=== PATIENT | male | born 1965 | race Caucasian/White ===

== ENCOUNTER 2016-05-30 15:22 | Inpatient (IN) | payer MEDICAID ==
[2016-05-30] MEDS ORDERED: DEXTROSE 50%-WATER 25 GM/50 ML DISP.SYRIN IV ONE ×2 (15:37→15:55)
[2016-05-30] MEDS ORDERED: ONDANSETRON HCL INJ/PF 4 MG/2 ML SDV ONE (15:53)
[2016-05-30] MEDS ORDERED: ONDANSETRON HCL INJ/PF 4 MG/2 ML SDV IV ONE (15:55)
[2016-05-30] MEDS ORDERED: ACETAMINOPHEN 325 MG TABLET ONE (15:55)
[2016-05-30] MEDS ORDERED: ACETAMINOPHEN 325 MG TABLET PO ONE (15:59)
--- NOTE | 2016-05-30 16:08 | ER Document Report ---
[id number] [id number] WEAKNESS/NAUSEA/VOMITING Notes: The patient is a 50-year-old male, past medical history HIV, ESRD, COPD, prior blood clot, since with weeks of intermittent nausea and vomiting with generalized weakness. He was at dialysis today and his blood sugar was in the 50s. He was given an oral glucose tab and 2 L NS by EMS. On arrival to the emergency room, his blood sugar is 63. He says he does not have much of an appetite over the past 2 days and has not really eaten anything. He was admitted to the hospital 2 weeks ago for weakness and Escherichia coli in his stool. He finished his full course of Cipro. He currently denies any blood in his stool, abdominal pain, fevers, nausea, chest pain, shortness of breath, diarrhea, constipation or recent travel. TRAVEL OUTSIDE OF THE [place] IN LAST 30 DAYS: No - Related Data Allergies/Adverse Reactions: No Known Allergies Allergy (Unverified 03/21/16 13:26) Home Medications: Current Home Medications Budesonide/Formoterol Fumarate [Symbicort HFA 160-4.5 mcg Inhaler 6 gm] 2 inh PO BID 05/31/16 [History] Past Medical History - General Information source: Patient, Transfer Record - Social History Smoking Status: Unknown if Ever Smoked Family History: CAD, DM, Hypertension - Past Medical History Cardiac Medical History: Reports: Hx Pulmonary Embolism Pulmonary Medical History: Reports: Hx COPD Neurological Medical History: Denies: Hx Seizures Renal/ Medical History: Reports: Hx End Stage Renal Disease Psychiatric Medical History: Reports: Hx Depression Infectious Medical History: Reports: Hx HIV Past Surgical History: Reports: Hx Cholecystectomy - Immunizations Hx Pneumococcal Vaccination: 05/26/15 Review of Systems - Review of Systems Notes: REVIEW OF SYSTEMS: CONSTITUTIONAL: Denies fever, chills, or sweats. +recent illness. EENT: Denies eye, ear, throat, or mouth pain or symptoms. Denies nasal or sinus congestion. CARDIOVASCULAR: Denies chest pain, syncope. RESPIRATORY: Denies cough, cold, or chest congestion. Denies shortness of breath, difficulty breathing, or wheezing. GASTROINTESTINAL: Denies abdominal pain. +nausea, vomiting, - diarrhea. Denies constipation. MUSCULOSKELETAL: Left shoulder pain. SKIN: Denies rash or skin lesions. +left shoulder abrasion HEMATOLOGIC: Denies easy bruising or bleeding. LYMPHATIC: Denies swollen, enlarged glands. NEUROLOGICAL: Denies altered mental status or loss of consciousness. Denies headache. Denies paralysis or loss of use of either side. Denies problems with gait or speech. Denies sensory or motor loss. +Generalized weakness PSYCHIATRIC: Denies anxiety or stress or depression. ALL OTHER SYSTEMS REVIEWED AND NEGATIVE. Physical Exam - Vital signs Vitals: Resp Pulse Ox 29 H 97 05/30/16 15:29 05/30/16 15:29 - Notes Notes: PHYSICAL EXAMINATION: GENERAL: Ill-appearing. HEAD: Atraumatic, normocephalic. EYES: Pupils equal round and reactive to light, extraocular movements intact, sclera anicteric, conjunctiva are normal. ENT: nares patent, oropharynx clear without exudates. Moist mucous membranes. NECK: Normal range of motion, supple without lymphadenopathy LUNGS: Breath sounds clear to auscultation bilaterally and equal. No wheezes rales or rhonchi. HEART: Tachycardia ABDOMEN: Soft, nontender, normoactive bowel sounds. No guarding, no rebound. No masses appreciated. EXTREMITIES: Mild tenderness over left anterior shoulder, painful ROM NEUROLOGICAL: Cranial nerves grossly intact. Difficulty ambulating. Normal sensory, motor, and reflex exams. PSYCH: Normal mood, normal affect. SKIN: Warm, Dry, normal turgor, no rashes or lesions noted. Course - Re-evaluation Re-evalutation: Patient's glucose did not drop after he ate. Suspect hypoglycemia most likely from poor by mouth intake. Patient has symptoms of orthostasis, but unable to obtain readings due to feeling lightheaded and inability to stand. Patient already received 2 L by EMS prior to arrival. With ESRD, will provide gentle hydration. Patient's hemoglobin is similar to his prior one and he is guaiac negative. 05/30/16 20:48 Pt still feeling near syncopal when he sits up and stands up. Patient became tachycardic up to 116 when he stood up. Attempted to ambulate patient and he fell forward (caught before he fell on the ground). Repeat Accu- Chek decreased down to 69 after eating. Will start D5 drip and feed him more. Pt requires inpatient evaluation and admission for recurrent hypoglycemia and further evaluation and treatment of his orthostasis. Spoke to Dr. Aceves at 2105 and he has accepted patient. - Vital Signs Vital signs: Temp Pulse Resp BP Pulse Ox 98.5 F 64 16 123/84 100 05/31/16 07:31 05/31/16 07:31 05/31/16 07:31 05/31/16 07:31 05/31/16 07:31 - Laboratory Result Diagrams: 05/31/16 08:04 05/31/16 08:04 Laboratory results interpreted by me: 05/30/16 05/30/16 05/30/16 15:29 15:43 15:43 RBC Hgb Hct RDW Plt Count ESR PT 10.9 L Sodium 134.3 L Potassium 3.5 L Chloride 93 L BUN 4 L Creatinine 1.90 H Est GFR ( Amer) 45 L Est GFR (Non-Af Amer) 37 L Glucose 65 L POC Glucose 55 L AST 745 H ALT 318 H Creatine Kinase < 20 L Lipase 05/30/16 05/30/16 05/30/16 15:43 15:51 16:40 RBC 2.88 L Hgb 9.5 L Hct 27.5 L RDW 15.9 H Plt Count 89 L ESR PT Sodium Potassium Chloride BUN Creatinine Est GFR ( Amer) Est GFR (Non-Af Amer) Glucose POC Glucose 217 H AST ALT Creatine Kinase Lipase 506.8 H 05/30/16 05/30/16 05/30/16 16:40 17:16 20:59 RBC Hgb Hct RDW Plt Count ESR 23 H PT Sodium Potassium Chloride BUN Creatinine Est GFR ( Amer) Est GFR (Non-Af Amer) Glucose POC Glucose 207 H 69 L AST ALT Creatine Kinase Lipase - Diagnostic Test Radiology reviewed: Image reviewed Radiology results interpreted by me: Head CT: NAD Discharge - Discharge Clinical Impression: Hypoglycemia, Generalized weakness, Orthostasis Condition: Fair Disposition: ADMITTED INPATIENT Admitting Provider: Hospitalist - [facility] Unit Admitted: [facility]
[2016-05-30 16:12] LABS: ALANINE AMINOTRANSFERASE 318 U/L (21-72); ALBUMIN 3.7 g/dL (3.5-5.0); ALKALINE PHOSPHATASE 113 U/L (38-126); ANION GAP 18 (5-19); ASPARTATE AMINO TRANSFERASE 745 U/L (17-59); BILIRUBIN,TOTAL 0.8 mg/dL (0.2-1.3); BLOOD UREA NITROGEN 4 mg/dL (7-20); CALCIUM 8.9 mg/dL (8.4-10.2); CARBON DIOXIDE 23 mmol/L (22-30); CHLORIDE 93 mmol/L (98-107); GLUCOSE 65 mg/dL (75-110); POTASSIUM 3.5 mmol/L (3.6-5.0); SODIUM 134.3 mmol/L (137-145); TOTAL PROTEIN 6.9 g/dL (6.3-8.2)
[2016-05-30 16:13] LABS: CREATINE KINASE < 20 U/L (55-170)
[2016-05-30 16:19] LABS: PROTHROMBIN TIME 10.9 SEC (11.4-15.4)
[2016-05-30 16:20] LABS: PARTIAL THROMBOPLASTIN TIME 24.2 SEC (23.5-35.8)
[2016-05-30 16:55] LABS: ABSOLUTE LYMPHOCYTES (AUTO) 1.8 10^3/uL (0.5-4.7); ABSOLUTE MONOCYTES (AUTO) 0.6 10^3/uL (0.1-1.4); ABSOLUTE NEUT (AUTO) 2.6 10^3/uL (1.7-8.2); BASOPHILS % (AUTO) 0.6 % (0-2); EOSINOPHILS % (AUTO) 0.1 % (0-6); HEMATOCRIT 27.5 % (37.9-51.0); HEMOGLOBIN 9.5 g/dL (13.5-17.0); LYMPHOCYTES % (AUTO) 35.2 % (13-45); MEAN CORPUSCULAR HEMOGLOBIN 32.8 pg (27.0-33.4); MEAN CORPUSCULAR HGB CONC 34.4 g/dL (32.0-36.0); MEAN CORPUSCULAR VOLUME 96 fl (80-97); MONOCYTES % (AUTO) 12.1 % (3-13); RED BLOOD COUNT 2.88 10^6/uL (4.35-5.55); RED CELL DISTRIBUTION WIDTH 15.9 % (11.5-14.0); WHITE BLOOD COUNT 5.1 10^3/uL (4.0-10.5)
[2016-05-30] MEDS ORDERED: NORMAL SALINE 1000 ML 1,000 ML IV PRN (20:52)
[2016-05-30] MEDS ORDERED: DEXTROSE 5%-1/2 NORMAL SALINE 1,000 ML IV ONE (21:03)
[2016-05-30] MEDS ORDERED: DEXAMETHASONE SOD PHOS INJ 10 MG/1 ML VIAL IV ONE (21:57)
[2016-05-30] MEDS ORDERED: COSYNTROPIN INJ 0.25 MG VIAL IV ONE (21:57)
[2016-05-30] MEDS ORDERED: DEXTROSE 50%-WATER 25 GM/50 ML DISP.SYRIN IV PRN ×2 (22:04)
[2016-05-30] MEDS ORDERED: GLUCAGON,HUMAN RECOMB 1 MG INJ IM PRN (22:04)
[2016-05-30] MEDS ORDERED: ACETAMINOPHEN 325 MG TABLET PO PRN (22:04)
[2016-05-30] MEDS ORDERED: MAGNESIUM HYDROXIDE SUSP 30 ML UDCUP PO PRN (22:04)
[2016-05-30] MEDS ORDERED: IPRATROPIUM/ALBUTEROL 0.5-2.5 MG/3 ML AMPUL NEB PRN (22:04)
[2016-05-30] MEDS ORDERED: DEXTROSE 40% GEL 15 GM TUBE PO PRN ×2 (22:04)
[2016-05-30] MEDS: LORAZEPAM 0.5 MG TABLET PO SCH (22:30)
[2016-05-30] MEDS: TRAZODONE HCL 50 MG TABLET PO SCH (22:31)
[2016-05-30] MEDS: BUSPIRONE HCL 10 MG TABLET PO SCH (22:31)
[2016-05-30] MEDS: GABAPENTIN 300 MG CAPSULE PO SCH (22:32)
[2016-05-30] MEDS ORDERED: COSYNTROPIN INJ 0.25 MG VIAL ONE (22:35)
[2016-05-31 00:23] LABS: PHOSPHORUS 2.7 mg/dL (2.5-4.5)
[2016-05-31] MEDS ORDERED: WARFARIN SODIUM 7.5 MG TABLET PO ONE (02:30)
--- NOTE | 2016-05-31 03:18 | PDOC H&P ---
History of Present Illness Admission Date/PCP: 05/30/16 22:04 Patient complains of: Nausea vomiting abdominal pain and generalized weakness History of Present Illness: LAMAR SMALL is a 50 year old male with a history of HIV recent CD4 count of 237 April 2016, pulmonary emboli on chronic Coumadin, end-stage renal failure on hemodialysis Friday, who complains of extraordinarily fatigue anorexia nausea vomiting general weakness brought to the emergency room after dialysis, found to have hypotension, hypoglycemia, hypokalemia, hyponatremia and presyncope. Referred to the hospitalist for admission the patient denies recent change in medications denying fever chills or chest pain. Past Medical History Cardiac Medical History: Reports: Pulmonary Embolism Pulmonary Medical History: Reports: Chronic Obstructive Pulmonary Disease (COPD) Neurological Medical History: Denies: Seizures Renal/ Medical History: Reports: End Stage Renal Disease Psychiatric Medical History: Reports: Depression Infectious Medical History: Reports: HIV Past Surgical History Past Surgical History: Reports: Cholecystectomy Social History Information Source: Patient Smoking Status: Current Some Day Smoker Cigarettes Packs Per Day: 1 Last Time Smoked: 05/30/16 Frequency of Alcohol Use: Occasional Hx Recreational Drug Use: No Drugs: None Hx Prescription Drug Abuse: No - Advance Directive Resuscitation Status: Do Not Resuscitate Family History Family History: CAD, DM, Hypertension Parental Family History Reviewed: Yes Children Family History Reviewed: Yes Sibling(s) Family History Reviewed.: Yes Medication/Allergy Home Medications: Albuterol Sulfate [Ventolin Hfa 8 gm Mdi (1 Mdi/ER Disp)] 2 puff IH PRN PRN Cyclobenzaprine HCl 10 mg PO Q8 PRN 05/08/16 Gabapentin 300 mg PO QHS 05/08/16 Hydroxyzine Pamoate 50 mg PO Q4 PRN 05/08/16 Sevelamer Carbonate [Renvela] 800 mg PO TID 05/08/16 Buspirone HCl [Buspar 10 mg Tablet] 10 mg PO QHS #30 tablet 05/15/16 Citalopram Hydrobromide [Celexa 20 mg Tablet] 20 mg PO DAILY #30 tablet Lorazepam [Ativan 0.5 mg Tablet] 0.5 mg PO Q8 #15 tab 05/15/16 Trazodone HCl [Desyrel] 100 mg PO QHS #15 tablet 05/15/16 Warfarin Sodium [Coumadin 7.5 mg Tablet] 15 mg PO QHS #60 tablet 05/15/16 Budesonide/Formoterol Fumarate [Symbicort HFA 160-4.5 mcg Inhaler 6 gm] 2 inh PO BID 05/31/16 Allergies/Adverse Reactions: No Known Allergies Allergy (Unverified 03/21/16 13:26) Review of Systems Constitutional: PRESENT: anorexia, fatigue, weakness, weight loss. ABSENT: chills, fever(s), headache(s), night sweats Eyes: ABSENT: visual disturbances Ears: ABSENT: hearing changes Cardiovascular: ABSENT: chest pain, dyspnea on exertion, edema, orthropnea, palpitations Respiratory: ABSENT: cough, hemoptysis Gastrointestinal: PRESENT: abdominal pain, bloating, diarrhea, melena, nausea, vomiting. ABSENT: coffee ground emesis Genitourinary: ABSENT: dysuria, hematuria Musculoskeletal: PRESENT: muscle weakness. ABSENT: back pain, joint swelling Integumentary: ABSENT: rash, wounds Neurological: ABSENT: abnormal gait, abnormal speech, confusion, dizziness, focal weakness, syncope Psychiatric: PRESENT: depression Endocrine: ABSENT: cold intolerance, heat intolerance, polydipsia, polyuria Hematologic/Lymphatic: ABSENT: easy bleeding, easy bruising Physical Exam Vital Signs: Temp Pulse Resp BP Pulse Ox 97.9 F 78 16 135/89 H 100 05/31/16 00:57 05/31/16 00:57 05/31/16 00:57 05/31/16 00:57 05/31/16 00:57 Intake & Output 05/29/16 05/30/16 05/31/16 11:59 11:59 11:59 Weight 71.5 kg General appearance: PRESENT: cooperative, mild distress, thin Head exam: PRESENT: atraumatic, normocephalic Eye exam: PRESENT: conjunctiva pink, EOMI, PERRLA. ABSENT: scleral icterus Ear exam: PRESENT: normal external ear exam Mouth exam: PRESENT: moist, tongue midline Neck exam: ABSENT: carotid bruit, JVD, lymphadenopathy, thyromegaly Respiratory exam: PRESENT: clear to auscultation jamil. ABSENT: rales, rhonchi, wheezes Cardiovascular exam: PRESENT: RRR. ABSENT: diastolic murmur, rubs, systolic murmur Pulses: PRESENT: normal dorsalis pedis pul Vascular exam: PRESENT: normal capillary refill GI/Abdominal exam: PRESENT: guarding, hypoactive bowel sounds, rebound, tenderness. ABSENT: ascites, hernia, mass, Harrington's sign, normal bowel sounds Rectal exam: PRESENT: deferred Extremities exam: PRESENT: full ROM. ABSENT: calf tenderness, clubbing, pedal edema Musculoskeletal exam: PRESENT: tenderness - Left shoulder painful to light touch Neurological exam: PRESENT: alert, awake, oriented to person, oriented to place , oriented to time, oriented to situation, CN II-XII grossly intact. ABSENT: motor sensory deficit Psychiatric exam: PRESENT: depressed, flat affect, unusual affect Focused psych exam: ABSENT: catatonic, delusional, euphoric, flight of ideas, paranoid, pressured speech Skin exam: PRESENT: dry, intact, warm. ABSENT: cyanosis, rash Results Laboratory Results: 05/30/16 23:58 Phosphorus 2.7 Impressions: Abdomen X-Ray 05/30/16 00:00 IMPRESSION: NON-SPECIFIC BOWEL GAS PATTERN WITHOUT EVIDENCE FOR OBSTRUCTION. Head CT 05/30/16 19:10 IMPRESSION: No acute intracranial findings. Shoulder X-Ray 05/30/16 20:55 IMPRESSION: NO RADIOGRAPHIC EVIDENCE OF ACUTE INJURY. Clavicle X-Ray 05/30/16 21:05 IMPRESSION: NO RADIOGRAPHIC EVIDENCE OF ACUTE INJURY. Abdomen/Pelvis CT 05/31/16 00:00 IMPRESSION: 1. MARKED FATTY INFILTRATION OF THE LIVER. 2. TINY NONOBSTRUCTING CALYCEAL CALCULUS IN THE RIGHT KIDNEY. SMALL CORTICAL CYST IN THE RIGHT KIDNEY. 3. NO OTHER SIGNIFICANT OR ACUTE FINDINGS IN THE ABDOMEN OR PELVIS. Assessment & Plan - Diagnosis (1) Adrenal insufficiency Is this a current diagnosis for this admission?: YesPlan: Given presentation of hypertension hyperglycemia hyponatremia and hypokalemia presyncope nausea vomiting generalized weakness with history of HIV on protease inhibitor and Coumadin I'm concerned for adrenal insufficiency I will obtain a cosyntropin stimulation test. Initiating Decadron (2) Hyponatremia Is this a current diagnosis for this admission?: YesPlan: Uncertain for adrenal insufficiency I will obtain cosyntropin test and challenge with normal saline and reevaluate chemistry (3) Generalized weakness Is this a current diagnosis for this admission?: YesPlan: Adrenal insufficiency versus severe depression (4) Hypoglycemia Is this a current diagnosis for this admission?: YesPlan: Evaluate for adrenal insufficiency considering his risks however Patient has severe depression and anorexia. Replaced on hypoglycemic protocol encouraged by mouth intake consider Megace (5) Depression Qualifiers: Depression Type: major depressive disorder Major depression recurrence : recurrent Major depression episode severity: moderate Is this a current diagnosis for this admission?: YesPlan: Continue SSRI obtain mental health consult (6) HIV disease Is this a current diagnosis for this admission?: YesPlan: Obtain medication reconciliation continue harrt if compliant (7) Hypokalemia Is this a current diagnosis for this admission?: YesPlan: Replete and recheck (8) Nausea and vomiting Qualifiers: Vomiting Intractability: non-intractable Plan: Evaluate for adrenal insufficiency and Evaluate with CT with contrast for obstruction otherwise symptomatic management - Time Time Spent: 50 to 70 Minutes
[2016-05-31] MEDS: WARFARIN SODIUM 7.5 MG TABLET PO SCH ×2 (03:22→21:43)
[2016-05-31 03:30] LABS: APPEARANCE,URINE CLEAR; BILIRUBIN,URINE NEGATIVE (NEGATIVE); GLUCOSE, URINE 50 mg/dL (NEGATIVE); KETONES,URINE 20 mg/dL (NEGATIVE); LEUKOCYTE ESTERASE,URINE NEGATIVE (NEGATIVE); NITRITE,URINE NEGATIVE (NEGATIVE); PROTEIN,URINE 100 mg/dL (NEGATIVE); URINE SPECIFIC GRAVITY 1.006; UROBILINOGEN,URINE NEGATIVE mg/dL (<2.0)
[2016-05-31] MEDS: LORAZEPAM 0.5 MG TABLET PO SCH ×3 (05:43→21:43)
[2016-05-31] MEDS: HEPARIN SOD (PORCINE) 5,000 UNIT/ML 1 ML SYRINGE SUBCUT SCH ×4 (05:43→21:37)
[2016-05-31] MEDS: NORMAL SALINE 1000 ML 1,000 ML IV SCH ×2 (05:51→09:30)
[2016-05-31] MEDS: SEVELAMER HCL 400 MG TABLET PO SCH ×3 (08:30→16:25)
[2016-05-31 08:31] LABS: ABSOLUTE LYMPHOCYTES (AUTO) 1.2 10^3/uL (0.5-4.7); ABSOLUTE MONOCYTES (AUTO) 0.2 10^3/uL (0.1-1.4); ABSOLUTE NEUT (AUTO) 0.7 10^3/uL (1.7-8.2); BASOPHILS % (AUTO) 0.3 % (0-2); HEMATOCRIT 25.7 % (37.9-51.0); HEMOGLOBIN 8.8 g/dL (13.5-17.0); HGB HCT DIFFERENCE 0.7; MEAN CORPUSCULAR HEMOGLOBIN 32.3 pg (27.0-33.4); MEAN CORPUSCULAR HGB CONC 34.2 g/dL (32.0-36.0); MEAN CORPUSCULAR VOLUME 94 fl (80-97); MONOCYTES % (AUTO) 9.9 % (3-13); RED BLOOD COUNT 2.73 10^6/uL (4.35-5.55); RED CELL DISTRIBUTION WIDTH 15.8 % (11.5-14.0); SEGMENTED NEUTROPHILS % (AUTO) 31.8 % (42-78)
[2016-05-31 08:42] LABS: WHITE BLOOD COUNT 2.1 10^3/uL (4.0-10.5)
[2016-05-31 09:19] LABS: ALANINE AMINOTRANSFERASE 219 U/L (21-72); ALBUMIN 3.3 g/dL (3.5-5.0); ALKALINE PHOSPHATASE 91 U/L (38-126); ANION GAP 10 (5-19); ASPARTATE AMINO TRANSFERASE 390 U/L (17-59); BILIRUBIN,TOTAL 0.8 mg/dL (0.2-1.3); BLOOD UREA NITROGEN 11 mg/dL (7-20); CALCIUM 8.8 mg/dL (8.4-10.2); CARBON DIOXIDE 26 mmol/L (22-30); CHLORIDE 95 mmol/L (98-107); CREATININE RESULT 2.77 mg/dL (0.52-1.25); GLUCOSE 131 mg/dL (75-110); POTASSIUM 3.1 mmol/L (3.6-5.0); SODIUM 130.6 mmol/L (137-145); TOTAL PROTEIN 5.8 g/dL (6.3-8.2)
[2016-05-31] MEDS ORDERED: HEPARIN SOD (PORCINE) 1,000 UNIT/ML 10 ML VIAL IV PRN (10:31)
[2016-05-31] MEDS ORDERED: EPOETIN ALFA INJ 20000 UNIT/1 ML VIAL (RENAL) IV PRN (11:30)
[2016-05-31] MEDS: DOCUSATE SODIUM 100 MG CAPSULE PO SCH ×2 (12:07→17:21)
[2016-05-31] MEDS: POTASSIUM CHLORIDE 10 MEQ TABLET.SA PO SCH (12:08)
[2016-05-31] MEDS: CITALOPRAM HYDROBROMIDE 20 MG TABLET PO SCH (12:08)
[2016-05-31] MEDS: ONDANSETRON HCL INJ/PF 4 MG/2 ML SDV IV PRN (16:25)
--- NOTE | 2016-05-31 16:34 | PDOC CONSULTATION ---
Consultation Consult Date: 05/31/16 Consult reason:: esrd on HD, ? Sepsis, Hypotension. History of Present Illness Admission Date/PCP: 05/30/16 22:04 History of Present Illness: LAMAR SMALL is a 50 year old male with a history of HIV recent CD4 count of 237 April 2016, pulmonary emboli on chronic Coumadin, end-stage renal failure on hemodialysis Friday, was admitted for extraordinarily fatigue aand worsening acute on chronic anorexia nausea and vomiting. In the emergency room was found to have hypotension, hypoglycemia, hypokalemia, hyponatremia and presyncope. He was fluid resuscitated and currently when seen on HD he is feeling some better. No abdominal pains. The N/V/D has been going on for around 2 months. On a recent admission here at [facility], he grew E.Coli from stools and he was treated with abx by the hospitalist. The stools are apparently dark to black in color and no hematemesis. The patient denies recent change in medications. denying fever chills or chest pain. He has had a EGd recently. His last colonscopy was around 8- 10 years ago. He has not been compliant with HIV rxs and keeping appts with ID. Past Medical History Cardiac Medical History: Reports: Pulmonary Embolism Pulmonary Medical History: Reports: Chronic Obstructive Pulmonary Disease (COPD) Neurological Medical History: Denies: Seizures Renal/ Medical History: Reports: End Stage Renal Disease Psychiatric Medical History: Reports: Depression Infectious Medical History: Reports: HIV Past Surgical History Past Surgical History: Reports: Cholecystectomy Social History Smoking Status: Unknown if Ever Smoked Cigarettes Packs Per Day: 1 Last Time Smoked: 05/30/16 Frequency of Alcohol Use: Occasional Hx Recreational Drug Use: No Drugs: None Hx Prescription Drug Abuse: No - Advance Directive Resuscitation Status: Do Not Resuscitate Family History Parental Family History Reviewed: Yes Children Family History Reviewed: No Sibling(s) Family History Reviewed.: No Medication/Allergy Home Medications: Albuterol Sulfate [Ventolin Hfa 8 gm Mdi (1 Mdi/ER Disp)] 2 puff IH PRN PRN Cyclobenzaprine HCl 10 mg PO Q8 PRN 05/08/16 Gabapentin 300 mg PO QHS 05/08/16 Hydroxyzine Pamoate 50 mg PO Q4 PRN 05/08/16 Sevelamer Carbonate [Renvela] 800 mg PO TID 05/08/16 Buspirone HCl [Buspar 10 mg Tablet] 10 mg PO QHS #30 tablet 05/15/16 Citalopram Hydrobromide [Celexa 20 mg Tablet] 20 mg PO DAILY #30 tablet Lorazepam [Ativan 0.5 mg Tablet] 0.5 mg PO Q8 #15 tab 05/15/16 Trazodone HCl [Desyrel] 100 mg PO QHS #15 tablet 05/15/16 Warfarin Sodium [Coumadin 7.5 mg Tablet] 15 mg PO QHS #60 tablet 05/15/16 Budesonide/Formoterol Fumarate [Symbicort HFA 160-4.5 mcg Inhaler 6 gm] 2 inh PO BID 05/31/16 Allergies/Adverse Reactions: No Known Allergies Allergy (Unverified 03/21/16 13:26) Review of Systems Constitutional: ABSENT: anorexia, chills, fever(s), headache(s), night sweats, weakness Eyes: ABSENT: visual disturbances Ears: ABSENT: hearing changes Nose, Mouth, and Throat: ABSENT: mouth pain, sore throat, vertigo Cardiovascular: ABSENT: chest pain, dyspnea on exertion, edema, orthropnea, palpitations Respiratory: ABSENT: dyspnea, hemoptysis Gastrointestinal: PRESENT: diarrhea, nausea, vomiting. ABSENT: abdominal pain, bloating, coffee ground emesis, dysphagia, heartburn, hematemesis Genitourinary: ABSENT: dysuria, hematuria Neurological: PRESENT: weakness. ABSENT: abnormal gait, abnormal movements, confusion, convulsions, focal weakness, syncope Hematologic/Lymphatic: ABSENT: easy bleeding, easy bruising Physical Exam Vital Signs: Temp Pulse Resp BP Pulse Ox 98.5 F 64 18 115/74 99 05/31/16 12:01 05/31/16 14:00 05/31/16 12:01 05/31/16 12:01 05/31/16 12:01 Intake & Output 05/30/16 05/31/16 06/01/16 06:59 06:59 06:59 Intake Total 815 Output Total 650 0 Balance 165 0 Weight 71.5 kg General appearance: PRESENT: no acute distress Eye exam: PRESENT: conjunctiva pink, conjunctiva pale, EOMI, PERRLA. ABSENT: nystagmus, periorbital swelling, scleral icterus Mouth exam: PRESENT: dry mucosa, neck supple. ABSENT: moist Neck exam: ABSENT: lymphadenopathy, meningismus, tenderness, thyromegaly, tracheal deviation Respiratory exam: PRESENT: clear to auscultation jamil. ABSENT: crackles, decreased breath sounds, rales, rhonchi Cardiovascular exam: PRESENT: +S1, +S2, systolic murmur GI/Abdominal exam: PRESENT: soft. ABSENT: ascites, diminished bowel sounds, distended, firm, guarding, organomegaly, tenderness Neurological exam: PRESENT: alert, awake, oriented to person, oriented to place , oriented to time, CN II-XII grossly intact Psychiatric exam: PRESENT: flat affect Skin exam: PRESENT: dry, normal color. ABSENT: cyanosis, erythema, mottled, rash Results Laboratory Results: 05/31/16 08:04 05/31/16 08:04 05/30/16 05/31/16 05/31/16 23:58 03:00 08:04 WBC 2.1 L D RBC 2.73 L Hgb 8.8 L Hct 25.7 L MCV 94 MCH 32.3 MCHC 34.2 RDW 15.8 H Plt Count 74 L Seg Neutrophils % 31.8 L Lymphocytes % 58.0 H Monocytes % 9.9 Eosinophils % 0.0 Basophils % 0.3 Absolute Neutrophils 0.7 L Absolute Lymphocytes 1.2 Absolute Monocytes 0.2 Absolute Eosinophils 0.0 Absolute Basophils 0.0 Sodium Potassium Chloride Carbon Dioxide Anion Gap BUN Creatinine Est GFR ( Amer) Est GFR (Non-Af Amer) Glucose Calcium Phosphorus 2.7 Total Bilirubin AST ALT Alkaline Phosphatase Total Protein Albumin Urine Color YELLOW Urine Appearance CLEAR Urine pH 7.0 Ur Specific [place] 1.006 Urine Protein 100 H Urine Glucose (UA) 50 H Urine Ketones 20 H Urine Blood SMALL H Urine Nitrite NEGATIVE Ur Leukocyte Esterase NEGATIVE Urine WBC (Auto) 1 05/31/16 08:04 WBC RBC Hgb Hct MCV MCH MCHC RDW Plt Count Seg Neutrophils % Lymphocytes % Monocytes % Eosinophils % Basophils % Absolute Neutrophils Absolute Lymphocytes Absolute Monocytes Absolute Eosinophils Absolute Basophils Sodium 130.6 L Potassium 3.1 L Chloride 95 L Carbon Dioxide 26 Anion Gap 10 BUN 11 Creatinine 2.77 H Est GFR ( Amer) 29 L Est GFR (Non-Af Amer) 24 L Glucose 131 H Calcium 8.8 Phosphorus Total Bilirubin 0.8 AST 390 H ALT 219 H Alkaline Phosphatase 91 Total Protein 5.8 L Albumin 3.3 L Urine Color Urine Appearance Urine pH Ur Specific [place] Urine Protein Urine Glucose (UA) Urine Ketones Urine Blood Urine Nitrite Ur Leukocyte Esterase Urine WBC (Auto) Impressions: Abdomen X-Ray 05/30/16 00:00 IMPRESSION: NON-SPECIFIC BOWEL GAS PATTERN WITHOUT EVIDENCE FOR OBSTRUCTION. Head CT 05/30/16 19:10 IMPRESSION: No acute intracranial findings. Shoulder X-Ray 05/30/16 20:55 IMPRESSION: NO RADIOGRAPHIC EVIDENCE OF ACUTE INJURY. Clavicle X-Ray 05/30/16 21:05 IMPRESSION: NO RADIOGRAPHIC EVIDENCE OF ACUTE INJURY. Abdomen/Pelvis CT 05/31/16 00:00 IMPRESSION: 1. MARKED FATTY INFILTRATION OF THE LIVER. 2. TINY NONOBSTRUCTING CALYCEAL CALCULUS IN THE RIGHT KIDNEY. SMALL CORTICAL CYST IN THE RIGHT KIDNEY. 3. NO OTHER SIGNIFICANT OR ACUTE FINDINGS IN THE ABDOMEN OR PELVIS. Assessment & Plan - Diagnosis (1) Pancytopenia Is this a current diagnosis for this admission?: YesPlan: discussed with Dr Mares.Lack of spleen with markedly enlarged liver rather rules out Cirrhosis with portal HTN and cause for pancytopenia.Other causes including drugs, infections and infiltrations are in the mix. Needs close monitoring of nos as his ANC was 700 and will need neutropenic measures if repeat count this PM is below 500. (2) Generalized weakness Is this a current diagnosis for this admission?: YesPlan: Ptn was hypotensive likely from his chronic n/v/d and poor intake with resultant abnormal lytes. Adding insult was yhe hypoglycemia most likely from liver disease as seen by a marked fatty infiltration.Monitor sugars round the clock as he is not eating and it could drop. (3) Hypoglycemia Is this a current diagnosis for this admission?: Yes (4) Anemia Qualifiers: Other causes of anemia: acute posthemorrhagic Is this a current diagnosis for this admission?: YesPlan: Adjust epo. ? part of pancytopenia. needs work up.Stool reported as negative for hemoccult. (5) Depression Qualifiers: Depression Type: major depressive disorder Major depression recurrence : recurrent Major depression episode severity: moderate Is this a current diagnosis for this admission?: Yes (6) Elevated liver function tests Plan: marked fatty liver with no evidence of portal HTN (7) End stage renal disease Is this a current diagnosis for this admission?: YesPlan: ptn seen on HD.VS stable now. No UF.Start Kcl 10 qd. (9) HIV disease Is this a current diagnosis for this admission?: YesPlan: needs cd4.Needs to get back on rxs as currnet n/v/d could be from opportunistic infections in the back ground of HIV. Discussed with Dr Mares . (10) Hypokalemia Is this a current diagnosis for this admission?: YesPlan: start kcl 10 meq qd. (11) Hyponatremia Is this a current diagnosis for this admission?: YesPlan: monitor.
--- NOTE | 2016-05-31 17:50 | PDOC PROGRESS REPORT ---
Subjective Progress Note for:: 05/31/16 Subjective:: still feeling weak and nauseous had hemodialysis today no fever or chills diarrhea is persistent " black diarrhea " Physical Exam Vital Signs: Temp Pulse Resp BP Pulse Ox 98.9 F 80 18 124/77 100 05/31/16 16:05 05/31/16 16:05 05/31/16 16:05 05/31/16 16:05 05/31/16 16:05 Intake & Output 05/30/16 05/31/16 06/01/16 00:59 00:59 00:59 Intake Total 815 Output Total 650 Balance 165 Weight 71.5 kg 71.5 kg General appearance: PRESENT: cooperative, mild distress, thin, other - looks acutely and chronically ill Head exam: PRESENT: atraumatic, normocephalic Eye exam: PRESENT: conjunctiva pale, EOMI, PERRLA Ear exam: PRESENT: normal external ear exam Respiratory exam: PRESENT: clear to auscultation jamil. ABSENT: rales, rhonchi, wheezes Cardiovascular exam: PRESENT: RRR. ABSENT: diastolic murmur, rubs, systolic murmur Pulses: PRESENT: normal dorsalis pedis pul GI/Abdominal exam: PRESENT: normal bowel sounds, soft. ABSENT: distended, guarding, mass, organolmegaly, rebound, tenderness Rectal exam: PRESENT: deferred Extremities exam: PRESENT: full ROM. ABSENT: calf tenderness, clubbing, pedal edema Neurological exam: PRESENT: alert, awake, oriented to person, oriented to place , oriented to time, oriented to situation, CN II-XII grossly intact. ABSENT: motor sensory deficit Results Laboratory Results: 05/31/16 08:04 05/31/16 08:04 05/30/16 05/31/16 05/31/16 23:58 03:00 08:04 WBC 2.1 L D RBC 2.73 L Hgb 8.8 L Hct 25.7 L MCV 94 MCH 32.3 MCHC 34.2 RDW 15.8 H Plt Count 74 L Seg Neutrophils % 31.8 L Lymphocytes % 58.0 H Monocytes % 9.9 Eosinophils % 0.0 Basophils % 0.3 Absolute Neutrophils 0.7 L Absolute Lymphocytes 1.2 Absolute Monocytes 0.2 Absolute Eosinophils 0.0 Absolute Basophils 0.0 Sodium Potassium Chloride Carbon Dioxide Anion Gap BUN Creatinine Est GFR ( Amer) Est GFR (Non-Af Amer) Glucose Calcium Phosphorus 2.7 Total Bilirubin AST ALT Alkaline Phosphatase Total Protein Albumin Urine Color YELLOW Urine Appearance CLEAR Urine pH 7.0 Ur Specific [place] 1.006 Urine Protein 100 H Urine Glucose (UA) 50 H Urine Ketones 20 H Urine Blood SMALL H Urine Nitrite NEGATIVE Ur Leukocyte Esterase NEGATIVE Urine WBC (Auto) 1 05/31/16 08:04 WBC RBC Hgb Hct MCV MCH MCHC RDW Plt Count Seg Neutrophils % Lymphocytes % Monocytes % Eosinophils % Basophils % Absolute Neutrophils Absolute Lymphocytes Absolute Monocytes Absolute Eosinophils Absolute Basophils Sodium 130.6 L Potassium 3.1 L Chloride 95 L Carbon Dioxide 26 Anion Gap 10 BUN 11 Creatinine 2.77 H Est GFR ( Amer) 29 L Est GFR (Non-Af Amer) 24 L Glucose 131 H Calcium 8.8 Phosphorus Total Bilirubin 0.8 AST 390 H ALT 219 H Alkaline Phosphatase 91 Total Protein 5.8 L Albumin 3.3 L Urine Color Urine Appearance Urine pH Ur Specific [place] Urine Protein Urine Glucose (UA) Urine Ketones Urine Blood Urine Nitrite Ur Leukocyte Esterase Urine WBC (Auto) Impressions: Abdomen X-Ray 05/30/16 00:00 IMPRESSION: NON-SPECIFIC BOWEL GAS PATTERN WITHOUT EVIDENCE FOR OBSTRUCTION. Head CT 05/30/16 19:10 IMPRESSION: No acute intracranial findings. Shoulder X-Ray 05/30/16 20:55 IMPRESSION: NO RADIOGRAPHIC EVIDENCE OF ACUTE INJURY. Clavicle X-Ray 05/30/16 21:05 IMPRESSION: NO RADIOGRAPHIC EVIDENCE OF ACUTE INJURY. Abdomen/Pelvis CT 05/31/16 00:00 IMPRESSION: 1. MARKED FATTY INFILTRATION OF THE LIVER. 2. TINY NONOBSTRUCTING CALYCEAL CALCULUS IN THE RIGHT KIDNEY. SMALL CORTICAL CYST IN THE RIGHT KIDNEY. 3. NO OTHER SIGNIFICANT OR ACUTE FINDINGS IN THE ABDOMEN OR PELVIS. Assessment & Plan - Diagnosis (1) Diarrhea Qualifiers: Diarrhea type: unspecified type Qualified Code(s): R19.7 - Diarrhea , unspecified Is this a current diagnosis for this admission?: YesPlan: persistant diarrhea patient had EColi 0157 cultured in his stools in April and was treated with Cipro for one week we will obtain stools for culture , c diff and will send stools for crypto/ isospora smear discussed case with ID at [facility] Patient will need sigmoidoscopy on friday if not improved (2) Generalized weakness Is this a current diagnosis for this admission?: YesPlan: secondary to poor nutrition and constant diarrhea (3) Hypoglycemia Is this a current diagnosis for this admission?: YesPlan: resolved (4) Pancytopenia Is this a current diagnosis for this admission?: YesPlan: etiology likely multifold chronic liver disease, HIV disease follow up wbc count closely (5) Do not resuscitate Is this a current diagnosis for this admission?: Yes (6) Elevated liver function tests Is this a current diagnosis for this admission?: YesPlan: secondary to ? fatty liver Hepatitis profile was negative (7) End stage renal disease Is this a current diagnosis for this admission?: YesPlan: on chronic HD - Time Time Spent with patient: 25-34 minutes
[2016-05-31] MEDS: TRAZODONE HCL 50 MG TABLET PO SCH (21:43)
[2016-05-31] MEDS: BUSPIRONE HCL 10 MG TABLET PO SCH (21:43)
[2016-05-31] MEDS: GABAPENTIN 300 MG CAPSULE PO SCH (21:43)
[2016-05-31 22:17] LABS: WHITE BLOOD COUNT 3.6 10^3/uL (4.0-10.5)
[2016-05-31 22:18] LABS: ABSOLUTE LYMPHOCYTES (AUTO) 2.1 10^3/uL (0.5-4.7); ABSOLUTE MONOCYTES (AUTO) 0.5 10^3/uL (0.1-1.4); BASOPHILS % (AUTO) 1.1 % (0-2); EOSINOPHILS % (AUTO) 0.2 % (0-6); HEMATOCRIT 25.1 % (37.9-51.0); HEMOGLOBIN 8.5 g/dL (13.5-17.0); HGB HCT DIFFERENCE 0.4; MEAN CORPUSCULAR HEMOGLOBIN 32.5 pg (27.0-33.4); MEAN CORPUSCULAR HGB CONC 33.7 g/dL (32.0-36.0); MEAN CORPUSCULAR VOLUME 97 fl (80-97); MONOCYTES % (AUTO) 12.9 % (3-13); RED CELL DISTRIBUTION WIDTH 15.8 % (11.5-14.0); SEGMENTED NEUTROPHILS % (AUTO) 27.8 % (42-78)
[2016-05-31] MEDS ORDERED: VANCOMYCIN HCL INJ 500 MG VIAL ONE (22:46)
[2016-05-31 23:49] LABS: ANION GAP 9 (5-19); BLOOD UREA NITROGEN 8 mg/dL (7-20); CALCIUM 8.7 mg/dL (8.4-10.2); CARBON DIOXIDE 25 mmol/L (22-30); CHLORIDE 101 mmol/L (98-107); CREATININE RESULT 2.21 mg/dL (0.52-1.25); GLUCOSE 124 mg/dL (75-110); POTASSIUM 3.2 mmol/L (3.6-5.0); SODIUM 134.6 mmol/L (137-145)
[2016-05-31] MEDS: VANCOMYCIN HCL INJ 500 MG VIAL PO SCH (23:49)
[2016-06-01 04:49] LABS: HEMATOCRIT 24.3 % (37.9-51.0); HEMOGLOBIN 8.1 g/dL (13.5-17.0); MEAN CORPUSCULAR HEMOGLOBIN 31.9 pg (27.0-33.4); MEAN CORPUSCULAR HGB CONC 33.2 g/dL (32.0-36.0); MEAN CORPUSCULAR VOLUME 96 fl (80-97); RED BLOOD COUNT 2.53 10^6/uL (4.35-5.55); RED CELL DISTRIBUTION WIDTH 15.8 % (11.5-14.0); WHITE BLOOD COUNT 2.9 10^3/uL (4.0-10.5)
[2016-06-01 05:12] LABS: ANION GAP 7 (5-19); BLOOD UREA NITROGEN 9 mg/dL (7-20); CALCIUM 8.5 mg/dL (8.4-10.2); CARBON DIOXIDE 27 mmol/L (22-30); CHLORIDE 103 mmol/L (98-107); CREATININE RESULT 2.53 mg/dL (0.52-1.25); GLUCOSE 95 mg/dL (75-110); MAGNESIUM 1.4 mg/dL (1.6-2.3); SODIUM 136.7 mmol/L (137-145)
[2016-06-01] MEDS: HEPARIN SOD (PORCINE) 5,000 UNIT/ML 1 ML SYRINGE SUBCUT SCH (05:12)
[2016-06-01] MEDS ORDERED: VANCOMYCIN HCL INJ 500 MG VIAL ONE ×2 (05:17→23:33)
[2016-06-01 05:27] LABS: POTASSIUM 2.8 mmol/L (3.6-5.0)
[2016-06-01 05:32] LABS: BAND NEUTROPHILS % (MANUAL) 2 % (3-5); BASOPHILS % (MANUAL) 0 % (0-2); EOSINOPHILS % (MANUAL) 1 % (0-6); LYMPHOCYTES % (MANUAL) 62 % (13-45); NUCLEATED RED BLOOD CELLS 1 /100 WBC (0); TOTAL CELLS COUNTED 100
[2016-06-01 05:34] LABS: TOXIC GRANULATION SLIGHT
[2016-06-01 05:35] LABS: ANISOCYTOSIS SLIGHT; HYPOCHROMASIA SLIGHT; TEAR DROP CELLS SLIGHT
[2016-06-01] MEDS: LORAZEPAM 0.5 MG TABLET PO SCH ×3 (05:36→21:50)
[2016-06-01] MEDS: VANCOMYCIN HCL INJ 500 MG VIAL PO SCH ×4 (05:44→23:50)
[2016-06-01] MEDS: POTASSI CL 20 MEQ/50 ML RIDER 50 ML IV SCH ×2 (06:10→09:14)
[2016-06-01] MEDS: SEVELAMER HCL 400 MG TABLET PO SCH ×3 (08:27→17:26)
[2016-06-01] MEDS: DOCUSATE SODIUM 100 MG CAPSULE PO SCH ×2 (09:16→17:26)
[2016-06-01] MEDS: POTASSIUM CHLORIDE 10 MEQ TABLET.SA PO SCH (09:16)
[2016-06-01] MEDS: CITALOPRAM HYDROBROMIDE 20 MG TABLET PO SCH (09:16)
[2016-06-01 09:38] LABS: PROTHROMBIN TIME 14.7 SEC (11.4-15.4)
[2016-06-01 09:41] LABS: ABSOLUTE LYMPHOCYTES (AUTO) 1.8 10^3/uL (0.5-4.7); ABSOLUTE MONOCYTES (AUTO) 0.3 10^3/uL (0.1-1.4); ABSOLUTE NEUT (AUTO) 0.6 10^3/uL (1.7-8.2); BASOPHILS % (AUTO) 0.6 % (0-2); EOSINOPHILS % (AUTO) 0.6 % (0-6); HEMATOCRIT 25.4 % (37.9-51.0); HEMOGLOBIN 8.5 g/dL (13.5-17.0); HGB HCT DIFFERENCE 0.1; LYMPHOCYTES % (AUTO) 64.4 % (13-45); MEAN CORPUSCULAR HEMOGLOBIN 32.4 pg (27.0-33.4); MEAN CORPUSCULAR HGB CONC 33.5 g/dL (32.0-36.0); MEAN CORPUSCULAR VOLUME 97 fl (80-97); MONOCYTES % (AUTO) 11.6 % (3-13); RED BLOOD COUNT 2.62 10^6/uL (4.35-5.55); RED CELL DISTRIBUTION WIDTH 16.1 % (11.5-14.0); SEGMENTED NEUTROPHILS % (AUTO) 22.8 % (42-78); WHITE BLOOD COUNT 2.8 10^3/uL (4.0-10.5)
[2016-06-01] MEDS ORDERED: MAGNESIUM SULFATE/D5W 1 GM/100 ML RTUPB IV ONE (10:00)
[2016-06-01] MEDS ORDERED: METRONIDAZOLE 500 MG/NS RTU 100 ML IV ONE (10:00)
[2016-06-01] MEDS: ONDANSETRON HCL INJ/PF 4 MG/2 ML SDV IV PRN ×2 (10:17→21:51)
--- NOTE | 2016-06-01 13:04 | PDOC PROGRESS REPORT ---
Subjective Progress Note for:: 06/01/16 Subjective:: feeling better diarrhea still persistent no fever or chills no SOB or chest pain stools were positive for cdiff Physical Exam Vital Signs: Temp Pulse Resp BP Pulse Ox 98.1 F 76 16 106/70 97 06/01/16 11:47 06/01/16 11:47 06/01/16 11:47 06/01/16 11:47 06/01/16 11:47 Intake & Output 05/31/16 06/01/16 06/02/16 00:59 00:59 00:59 Intake Total 4006 693 Output Total 650 Balance 3356 693 Weight 71.5 kg 71.5 kg 75.3 kg General appearance: PRESENT: no acute distress, other - looks chronically ill Head exam: PRESENT: atraumatic, normocephalic Eye exam: PRESENT: conjunctiva pale, EOMI, PERRLA. ABSENT: scleral icterus Ear exam: PRESENT: normal external ear exam Mouth exam: PRESENT: moist, tongue midline Neck exam: ABSENT: carotid bruit, JVD, lymphadenopathy, thyromegaly Respiratory exam: PRESENT: clear to auscultation jamil. ABSENT: rales, rhonchi, wheezes Cardiovascular exam: PRESENT: RRR. ABSENT: diastolic murmur, rubs, systolic murmur Pulses: PRESENT: normal dorsalis pedis pul Vascular exam: PRESENT: normal capillary refill GI/Abdominal exam: PRESENT: normal bowel sounds, soft. ABSENT: distended, guarding, mass, organolmegaly, rebound, tenderness Rectal exam: PRESENT: deferred Extremities exam: PRESENT: full ROM. ABSENT: calf tenderness, clubbing, pedal edema Neurological exam: PRESENT: alert, awake, oriented to person, oriented to place , oriented to time, oriented to situation, CN II-XII grossly intact. ABSENT: motor sensory deficit Psychiatric exam: PRESENT: appropriate affect, normal mood. ABSENT: homicidal ideation, suicidal ideation Skin exam: PRESENT: dry, intact, warm. ABSENT: cyanosis, rash Results Laboratory Results: 06/01/16 09:06 06/01/16 04:33 05/31/16 05/31/16 05/31/16 20:55 22:00 22:00 WBC 3.6 L RBC 2.60 L Hgb 8.5 L Hct 25.1 L MCV 97 MCH 32.5 MCHC 33.7 RDW 15.8 H Plt Count 69 L Seg Neutrophils % 27.8 L Lymphocytes % 58.0 H Monocytes % 12.9 Eosinophils % 0.2 Basophils % 1.1 Absolute Neutrophils 1.0 L Absolute Lymphocytes 2.1 Absolute Monocytes 0.5 Absolute Eosinophils 0.0 Absolute Basophils 0.0 Sodium 134.6 L Potassium 3.2 L Chloride 101 Carbon Dioxide 25 Anion Gap 9 BUN 8 Creatinine 2.21 H Est GFR ( Amer) 38 L Est GFR (Non-Af Amer) 31 L Glucose 124 H Calcium 8.7 Magnesium Stool Occult Blood NEGATIVE 06/01/16 06/01/16 06/01/16 04:33 04:33 09:06 WBC 2.9 L 2.8 L RBC 2.53 L 2.62 L Hgb 8.1 L 8.5 L Hct 24.3 L 25.4 L MCV 96 97 MCH 31.9 32.4 MCHC 33.2 33.5 RDW 15.8 H 16.1 H Plt Count 62 L 66 L Seg Neutrophils % Not Reportable 22.8 L Lymphocytes % Not Reportable 64.4 H Monocytes % Not Reportable 11.6 Eosinophils % Not Reportable 0.6 Basophils % Not Reportable 0.6 Absolute Neutrophils Not Reportable 0.6 L Absolute Lymphocytes Not Reportable 1.8 Absolute Monocytes Not Reportable 0.3 Absolute Eosinophils Not Reportable 0.0 Absolute Basophils Not Reportable 0.0 Sodium 136.7 L Potassium 2.8 L* Chloride 103 Carbon Dioxide 27 Anion Gap 7 BUN 9 Creatinine 2.53 H Est GFR ( Amer) 33 L Est GFR (Non-Af Amer) 27 L Glucose 95 Calcium 8.5 Magnesium 1.4 L Stool Occult Blood 05/31/16 05/31/16 20:55 20:55 Stool Occult Blood NEGATIVE C. difficile Tox (PCR) POSITIVE Impressions: Abdomen X-Ray 05/30/16 00:00 IMPRESSION: NON-SPECIFIC BOWEL GAS PATTERN WITHOUT EVIDENCE FOR OBSTRUCTION. Head CT 05/30/16 19:10 IMPRESSION: No acute intracranial findings. Shoulder X-Ray 05/30/16 20:55 IMPRESSION: NO RADIOGRAPHIC EVIDENCE OF ACUTE INJURY. Clavicle X-Ray 05/30/16 21:05 IMPRESSION: NO RADIOGRAPHIC EVIDENCE OF ACUTE INJURY. Abdomen/Pelvis CT 05/31/16 00:00 IMPRESSION: 1. MARKED FATTY INFILTRATION OF THE LIVER. 2. TINY NONOBSTRUCTING CALYCEAL CALCULUS IN THE RIGHT KIDNEY. SMALL CORTICAL CYST IN THE RIGHT KIDNEY. 3. NO OTHER SIGNIFICANT OR ACUTE FINDINGS IN THE ABDOMEN OR PELVIS. Assessment & Plan - Diagnosis (1) Diarrhea Qualifiers: Diarrhea type: unspecified type Qualified Code(s): R19.7 - Diarrhea , unspecified Is this a current diagnosis for this admission?: YesPlan: secondary to cdiff colitis treat initially with vanco/flagyl as patient is immunosuppressed (2) Generalized weakness Is this a current diagnosis for this admission?: YesPlan: secondary electrolyte imbalance , dehydration and chronic disease HIV , CKD stage 5 (3) Hypoglycemia Is this a current diagnosis for this admission?: YesPlan: resolved (4) Pancytopenia Is this a current diagnosis for this admission?: YesPlan: neutropenia : ANC 500 initiate neutropenia diet , reverse isolation (5) Do not resuscitate Is this a current diagnosis for this admission?: Yes (6) Elevated liver function tests Is this a current diagnosis for this admission?: YesPlan: etiology unclear ? secondary to fatty liver (7) End stage renal disease Is this a current diagnosis for this admission?: YesPlan: continue chronic hemodialysis (8) Chronic anticoagulation Is this a current diagnosis for this admission?: YesPlan: not adequately anticoagulated with coumadin will initiate eliquis 5mg bid - Time Time Spent with patient: 25-34 minutes
[2016-06-01] MEDS: METRONIDAZOLE 500 MG/NS RTU 100 ML IV SCH ×2 (14:11→21:51)
[2016-06-01] MEDS: OXYCODONE HCL IR 5 MG TABLET PO PRN ×2 (15:13→21:49)
[2016-06-01] MEDS: APIXABAN 5 MG TABLET PO SCH (17:26)
[2016-06-01] MEDS: TRAZODONE HCL 50 MG TABLET PO SCH (21:48)
[2016-06-01] MEDS: BUSPIRONE HCL 10 MG TABLET PO SCH (21:50)
[2016-06-01] MEDS: GABAPENTIN 300 MG CAPSULE PO SCH (21:51)
[2016-06-01 22:20] LABS: ABSOLUTE LYMPHOCYTES (AUTO) 1.8 10^3/uL (0.5-4.7); ABSOLUTE MONOCYTES (AUTO) 0.4 10^3/uL (0.1-1.4); ABSOLUTE NEUT (AUTO) 1.3 10^3/uL (1.7-8.2); EOSINOPHILS % (AUTO) 1.2 % (0-6); HEMATOCRIT 24.8 % (37.9-51.0); HEMOGLOBIN 8.2 g/dL (13.5-17.0); HGB HCT DIFFERENCE -0.2; LYMPHOCYTES % (AUTO) 49.5 % (13-45); MEAN CORPUSCULAR HEMOGLOBIN 32.3 pg (27.0-33.4); MEAN CORPUSCULAR HGB CONC 33.1 g/dL (32.0-36.0); MEAN CORPUSCULAR VOLUME 97 fl (80-97); MONOCYTES % (AUTO) 11.6 % (3-13); RED BLOOD COUNT 2.55 10^6/uL (4.35-5.55); SEGMENTED NEUTROPHILS % (AUTO) 36.7 % (42-78); WHITE BLOOD COUNT 3.6 10^3/uL (4.0-10.5)
[2016-06-02] MEDS: OXYCODONE HCL IR 5 MG TABLET PO PRN ×3 (03:49→22:05)
[2016-06-02] MEDS: METRONIDAZOLE 500 MG/NS RTU 100 ML IV SCH ×4 (03:50→22:02)
[2016-06-02] MEDS: ONDANSETRON HCL INJ/PF 4 MG/2 ML SDV IV PRN ×3 (04:06→22:03)
[2016-06-02 04:55] LABS: ABSOLUTE EOSINOPHILS # (AUTO) 0.1 10^3/uL (0.0-0.6); ABSOLUTE LYMPHOCYTES (AUTO) 1.6 10^3/uL (0.5-4.7); ABSOLUTE MONOCYTES (AUTO) 0.4 10^3/uL (0.1-1.4); ABSOLUTE NEUT (AUTO) 1.1 10^3/uL (1.7-8.2); BASOPHILS % (AUTO) 0.8 % (0-2); EOSINOPHILS % (AUTO) 1.7 % (0-6); HEMATOCRIT 26.1 % (37.9-51.0); HEMOGLOBIN 8.7 g/dL (13.5-17.0); LYMPHOCYTES % (AUTO) 51.1 % (13-45); MEAN CORPUSCULAR HEMOGLOBIN 32.6 pg (27.0-33.4); MEAN CORPUSCULAR HGB CONC 33.4 g/dL (32.0-36.0); MEAN CORPUSCULAR VOLUME 98 fl (80-97); MONOCYTES % (AUTO) 11.1 % (3-13); RED BLOOD COUNT 2.68 10^6/uL (4.35-5.55); RED CELL DISTRIBUTION WIDTH 16.1 % (11.5-14.0); SEGMENTED NEUTROPHILS % (AUTO) 35.3 % (42-78); WHITE BLOOD COUNT 3.2 10^3/uL (4.0-10.5)
[2016-06-02 04:59] LABS: PROTHROMBIN TIME 18.4 SEC (11.4-15.4)
[2016-06-02] MEDS: LORAZEPAM 0.5 MG TABLET PO SCH ×3 (06:19→22:05)
[2016-06-02] MEDS: VANCOMYCIN HCL INJ 500 MG VIAL PO SCH ×4 (06:20→23:48)
[2016-06-02] MEDS: SEVELAMER HCL 400 MG TABLET PO SCH ×3 (08:51→16:34)
[2016-06-02 10:12] LABS: ABSOLUTE EOSINOPHILS # (AUTO) 0.1 10^3/uL (0.0-0.6); ABSOLUTE LYMPHOCYTES (AUTO) 1.6 10^3/uL (0.5-4.7); ABSOLUTE MONOCYTES (AUTO) 0.5 10^3/uL (0.1-1.4); ABSOLUTE NEUT (AUTO) 1.6 10^3/uL (1.7-8.2); BASOPHILS % (AUTO) 0.9 % (0-2); EOSINOPHILS % (AUTO) 2.4 % (0-6); HEMATOCRIT 26.1 % (37.9-51.0); HEMOGLOBIN 8.7 g/dL (13.5-17.0); MEAN CORPUSCULAR HEMOGLOBIN 32.5 pg (27.0-33.4); MEAN CORPUSCULAR HGB CONC 33.2 g/dL (32.0-36.0); MEAN CORPUSCULAR VOLUME 98 fl (80-97); MONOCYTES % (AUTO) 12.7 % (3-13); RED BLOOD COUNT 2.66 10^6/uL (4.35-5.55); RED CELL DISTRIBUTION WIDTH 15.7 % (11.5-14.0); WHITE BLOOD COUNT 3.8 10^3/uL (4.0-10.5)
[2016-06-02] MEDS: CITALOPRAM HYDROBROMIDE 20 MG TABLET PO SCH (10:21)
[2016-06-02] MEDS: POTASSIUM CHLORIDE 10 MEQ TABLET.SA PO SCH (10:22)
[2016-06-02] MEDS: DOCUSATE SODIUM 100 MG CAPSULE PO SCH ×2 (10:23→18:03)
[2016-06-02] MEDS: APIXABAN 5 MG TABLET PO SCH ×2 (10:23→18:03)
[2016-06-02 11:19] LABS: ANION GAP 11 (5-19); BLOOD UREA NITROGEN 16 mg/dL (7-20); CALCIUM 8.8 mg/dL (8.4-10.2); CARBON DIOXIDE 21 mmol/L (22-30); CHLORIDE 107 mmol/L (98-107); GLUCOSE 121 mg/dL (75-110); MAGNESIUM 1.5 mg/dL (1.6-2.3); SODIUM 139.1 mmol/L (137-145)
--- NOTE | 2016-06-02 13:12 | PDOC PROGRESS REPORT ---
Subjective Progress Note for:: 06/02/16 Subjective:: Patient is a lot better He has had no fever no chills The diarrhea subsided The abdominal pain also is resolving The white blood count is increased with an ANC of 1300 Physical Exam Vital Signs: Temp Pulse Resp BP Pulse Ox 97.9 F 61 16 105/72 98 06/02/16 11:51 06/02/16 11:51 06/02/16 11:51 06/02/16 11:51 06/02/16 11:51 Intake & Output 06/01/16 06/02/16 06/03/16 00:59 00:59 00:59 Intake Total 4006 1210 1156 Output Total 650 200 475 Balance 3356 1010 681 Weight 71.5 kg 75.3 kg 75.5 kg General appearance: PRESENT: no acute distress, well-developed, well-nourished Head exam: PRESENT: atraumatic, normocephalic Eye exam: PRESENT: conjunctiva pink, EOMI, PERRLA. ABSENT: scleral icterus Ear exam: PRESENT: normal external ear exam Mouth exam: PRESENT: moist, tongue midline Neck exam: ABSENT: carotid bruit, JVD, lymphadenopathy, thyromegaly Respiratory exam: PRESENT: clear to auscultation jamil. ABSENT: rales, rhonchi, wheezes Cardiovascular exam: PRESENT: RRR. ABSENT: diastolic murmur, rubs, systolic murmur Pulses: PRESENT: normal dorsalis pedis pul Vascular exam: PRESENT: normal capillary refill GI/Abdominal exam: PRESENT: normal bowel sounds, soft. ABSENT: distended, guarding, mass, organolmegaly, rebound, tenderness Rectal exam: PRESENT: deferred Extremities exam: PRESENT: full ROM. ABSENT: calf tenderness, clubbing, pedal edema Neurological exam: PRESENT: alert, awake, oriented to person, oriented to place , oriented to time, oriented to situation, CN II-XII grossly intact. ABSENT: motor sensory deficit Psychiatric exam: PRESENT: appropriate affect, normal mood. ABSENT: homicidal ideation, suicidal ideation Skin exam: PRESENT: dry, intact, warm. ABSENT: cyanosis, rash Results Laboratory Results: 06/02/16 10:00 06/02/16 10:00 06/01/16 06/02/16 06/02/16 22:09 04:19 10:00 WBC 3.6 L 3.2 L 3.8 L RBC 2.55 L 2.68 L 2.66 L Hgb 8.2 L 8.7 L 8.7 L Hct 24.8 L 26.1 L 26.1 L MCV 97 98 H 98 H MCH 32.3 32.6 32.5 MCHC 33.1 33.4 33.2 RDW 16.0 H 16.1 H 15.7 H Plt Count 63 L 65 L 70 L Seg Neutrophils % 36.7 L 35.3 L 41.0 L Lymphocytes % 49.5 H 51.1 H 43.0 Monocytes % 11.6 11.1 12.7 Eosinophils % 1.2 1.7 2.4 Basophils % 1.0 0.8 0.9 Absolute Neutrophils 1.3 L 1.1 L 1.6 L Absolute Lymphocytes 1.8 1.6 1.6 Absolute Monocytes 0.4 0.4 0.5 Absolute Eosinophils 0.0 0.1 0.1 Absolute Basophils 0.0 0.0 0.0 Sodium Potassium Chloride Carbon Dioxide Anion Gap BUN Creatinine Est GFR ( Amer) Est GFR (Non-Af Amer) Glucose Calcium Magnesium 06/02/16 10:00 WBC RBC Hgb Hct MCV MCH MCHC RDW Plt Count Seg Neutrophils % Lymphocytes % Monocytes % Eosinophils % Basophils % Absolute Neutrophils Absolute Lymphocytes Absolute Monocytes Absolute Eosinophils Absolute Basophils Sodium 139.1 Potassium 4.0 Chloride 107 Carbon Dioxide 21 L Anion Gap 11 BUN 16 Creatinine 3.80 H Est GFR ( Amer) 20 L Est GFR (Non-Af Amer) 17 L Glucose 121 H Calcium 8.8 Magnesium 1.5 L Impressions: Abdomen X-Ray 05/30/16 00:00 IMPRESSION: NON-SPECIFIC BOWEL GAS PATTERN WITHOUT EVIDENCE FOR OBSTRUCTION. Head CT 05/30/16 19:10 IMPRESSION: No acute intracranial findings. Shoulder X-Ray 05/30/16 20:55 IMPRESSION: NO RADIOGRAPHIC EVIDENCE OF ACUTE INJURY. Clavicle X-Ray 05/30/16 21:05 IMPRESSION: NO RADIOGRAPHIC EVIDENCE OF ACUTE INJURY. Abdomen/Pelvis CT 05/31/16 00:00 IMPRESSION: 1. MARKED FATTY INFILTRATION OF THE LIVER. 2. TINY NONOBSTRUCTING CALYCEAL CALCULUS IN THE RIGHT KIDNEY. SMALL CORTICAL CYST IN THE RIGHT KIDNEY. 3. NO OTHER SIGNIFICANT OR ACUTE FINDINGS IN THE ABDOMEN OR PELVIS. Assessment & Plan - Diagnosis (1) Generalized weakness Is this a current diagnosis for this admission?: Yes (2) Hypoglycemia Is this a current diagnosis for this admission?: YesPlan: resolved (3) Pancytopenia Is this a current diagnosis for this admission?: YesPlan: WBC has improved ANC will d/c neutropenia precautions (4) Do not resuscitate Is this a current diagnosis for this admission?: Yes (5) Elevated liver function tests Is this a current diagnosis for this admission?: Yes (6) End stage renal disease Is this a current diagnosis for this admission?: YesPlan: continue HD as scheduled next HD in am Patient may be discharged in am after HD if stable (7) Chronic anticoagulation Is this a current diagnosis for this admission?: YesPlan: continue eliquis (8) C. difficile diarrhea Is this a current diagnosis for this admission?: YesPlan: improving continue flagyl and vanco - Time Time Spent with patient: 25-34 minutes
[2016-06-02] MEDS: BUSPIRONE HCL 10 MG TABLET PO SCH (22:04)
[2016-06-02] MEDS: TRAZODONE HCL 50 MG TABLET PO SCH (22:04)
[2016-06-02] MEDS: GABAPENTIN 300 MG CAPSULE PO SCH (22:04)
[2016-06-02] MEDS ORDERED: VANCOMYCIN HCL INJ 500 MG VIAL ONE (22:35)
[2016-06-03] MEDS: METRONIDAZOLE 500 MG/NS RTU 100 ML IV SCH ×2 (03:54→12:08)
[2016-06-03 04:51] LABS: ABSOLUTE EOSINOPHILS # (AUTO) 0.1 10^3/uL (0.0-0.6); ABSOLUTE LYMPHOCYTES (AUTO) 1.6 10^3/uL (0.5-4.7); ABSOLUTE MONOCYTES (AUTO) 0.5 10^3/uL (0.1-1.4); BASOPHILS % (AUTO) 0.9 % (0-2); EOSINOPHILS % (AUTO) 2.7 % (0-6); HEMATOCRIT 23.8 % (37.9-51.0); HGB HCT DIFFERENCE 0.2; LYMPHOCYTES % (AUTO) 50.6 % (13-45); MEAN CORPUSCULAR HEMOGLOBIN 32.8 pg (27.0-33.4); MEAN CORPUSCULAR HGB CONC 33.8 g/dL (32.0-36.0); MEAN CORPUSCULAR VOLUME 97 fl (80-97); MONOCYTES % (AUTO) 14.9 % (3-13); RED BLOOD COUNT 2.45 10^6/uL (4.35-5.55); SEGMENTED NEUTROPHILS % (AUTO) 30.9 % (42-78); WHITE BLOOD COUNT 3.2 10^3/uL (4.0-10.5)
[2016-06-03 04:54] LABS: PROTHROMBIN TIME 16.2 SEC (11.4-15.4)
[2016-06-03 05:10] LABS: ANION GAP 8 (5-19); BLOOD UREA NITROGEN 21 mg/dL (7-20); CALCIUM 8.8 mg/dL (8.4-10.2); CARBON DIOXIDE 24 mmol/L (22-30); CHLORIDE 106 mmol/L (98-107); CREATININE RESULT 4.14 mg/dL (0.52-1.25); GLUCOSE 88 mg/dL (75-110); MAGNESIUM 1.6 mg/dL (1.6-2.3); POTASSIUM 3.8 mmol/L (3.6-5.0); SODIUM 138.4 mmol/L (137-145)
[2016-06-03] MEDS: VANCOMYCIN HCL INJ 500 MG VIAL PO SCH ×3 (05:51→17:38)
[2016-06-03] MEDS: LORAZEPAM 0.5 MG TABLET PO SCH ×3 (05:51→21:56)
[2016-06-03] MEDS: SEVELAMER HCL 400 MG TABLET PO SCH ×3 (09:12→17:39)
[2016-06-03] MEDS ORDERED: EPOETIN ALFA INJ 20000 UNIT/1 ML VIAL (RENAL) IV PRN (09:56)
[2016-06-03] MEDS ORDERED: HEPARIN SOD (PORCINE) 1,000 UNIT/ML 10 ML VIAL IV PRN (10:30)
[2016-06-03] MEDS: POTASSIUM CHLORIDE 10 MEQ TABLET.SA PO SCH (12:08)
[2016-06-03] MEDS: DOCUSATE SODIUM 100 MG CAPSULE PO SCH ×2 (12:09→17:39)
[2016-06-03] MEDS: OXYCODONE HCL IR 5 MG TABLET PO PRN ×2 (12:09→21:55)
[2016-06-03] MEDS: CITALOPRAM HYDROBROMIDE 20 MG TABLET PO SCH (12:10)
[2016-06-03] MEDS: APIXABAN 5 MG TABLET PO SCH ×2 (12:10→17:38)
[2016-06-03] MEDS: ONDANSETRON HCL INJ/PF 4 MG/2 ML SDV IV PRN ×2 (13:16→21:56)
[2016-06-03] MEDS ORDERED: METRONIDAZOLE 500 MG TABLET PO SCH (15:00)
--- NOTE | 2016-06-03 15:28 | PDOC PROGRESS REPORT ---
Subjective Progress Note for:: 06/03/16 Subjective:: Patient is clinically improved He did undergo dialysis this morning He is still neutropenic with an ANC around thousand 06/03/16 04:05 WBC 3.2 L Hgb 8.0 L Hct 23.8 L Plt Count 61 L Seg Neutrophils % 30.9 L Diarrhea has subsided as well as the abdominal pain We discontinued Flagyl patient will continue treatment for C. difficile with vancomycin 250 mg by mouth 4 times a day Physical Exam Vital Signs: Temp Pulse Resp BP Pulse Ox 98.2 F 69 16 102/72 100 06/03/16 11:45 06/03/16 14:00 06/03/16 11:45 06/03/16 11:45 06/03/16 11:45 Intake & Output 06/02/16 06/03/16 06/04/16 00:59 00:59 00:59 Intake Total 1210 3015 290 Output Total 200 1375 0 Balance 1010 1640 290 Weight 75.3 kg 75.5 kg 81.6 kg General appearance: PRESENT: no acute distress, thin, other - Chronically ill- looking and pale Head exam: PRESENT: atraumatic, normocephalic Eye exam: PRESENT: conjunctiva pale, EOMI, PERRLA. ABSENT: scleral icterus Ear exam: PRESENT: normal external ear exam Mouth exam: PRESENT: moist, tongue midline Neck exam: ABSENT: carotid bruit, JVD, lymphadenopathy, thyromegaly Respiratory exam: PRESENT: clear to auscultation jamil. ABSENT: rales, rhonchi, wheezes Cardiovascular exam: PRESENT: RRR. ABSENT: diastolic murmur, rubs, systolic murmur Pulses: PRESENT: normal dorsalis pedis pul Vascular exam: PRESENT: normal capillary refill GI/Abdominal exam: PRESENT: normal bowel sounds, soft. ABSENT: distended, guarding, mass, organolmegaly, rebound, tenderness Rectal exam: PRESENT: deferred Extremities exam: PRESENT: full ROM. ABSENT: calf tenderness, clubbing, pedal edema Neurological exam: PRESENT: alert, awake, oriented to person, oriented to place , oriented to time, oriented to situation, CN II-XII grossly intact. ABSENT: motor sensory deficit Psychiatric exam: PRESENT: depressed. ABSENT: homicidal ideation, suicidal ideation Skin exam: PRESENT: dry, intact, warm. ABSENT: cyanosis, rash Results Laboratory Results: 06/03/16 04:05 06/03/16 04:05 06/03/16 06/03/16 04:05 04:05 WBC 3.2 L RBC 2.45 L Hgb 8.0 L Hct 23.8 L MCV 97 MCH 32.8 MCHC 33.8 RDW 16.0 H Plt Count 61 L Seg Neutrophils % 30.9 L Lymphocytes % 50.6 H Monocytes % 14.9 H Eosinophils % 2.7 Basophils % 0.9 Absolute Neutrophils 1.0 L Absolute Lymphocytes 1.6 Absolute Monocytes 0.5 Absolute Eosinophils 0.1 Absolute Basophils 0.0 Sodium 138.4 Potassium 3.8 Chloride 106 Carbon Dioxide 24 Anion Gap 8 BUN 21 H Creatinine 4.14 H Est GFR ( Amer) 18 L Est GFR (Non-Af Amer) 15 L Glucose 88 Calcium 8.8 Magnesium 1.6 05/31/16 20:55 Stool - Stool - Final 05/31/16 20:55 Stool - Stool Stool Culture - Final NO SALMONELLA, SHIGELLA, CAMPYLOBACTER OR E.COLI 0157 RECOVERED. NO SHIGA TOXIN TEST PERFORMED 05/31/16 20:55 C. difficile Tox (PCR) POSITIVE Impressions: Abdomen X-Ray 05/30/16 00:00 IMPRESSION: NON-SPECIFIC BOWEL GAS PATTERN WITHOUT EVIDENCE FOR OBSTRUCTION. Head CT 05/30/16 19:10 IMPRESSION: No acute intracranial findings. Shoulder X-Ray 05/30/16 20:55 IMPRESSION: NO RADIOGRAPHIC EVIDENCE OF ACUTE INJURY. Clavicle X-Ray 05/30/16 21:05 IMPRESSION: NO RADIOGRAPHIC EVIDENCE OF ACUTE INJURY. Abdomen/Pelvis CT 05/31/16 00:00 IMPRESSION: 1. MARKED FATTY INFILTRATION OF THE LIVER. 2. TINY NONOBSTRUCTING CALYCEAL CALCULUS IN THE RIGHT KIDNEY. SMALL CORTICAL CYST IN THE RIGHT KIDNEY. 3. NO OTHER SIGNIFICANT OR ACUTE FINDINGS IN THE ABDOMEN OR PELVIS. Assessment & Plan - Diagnosis (1) Generalized weakness Is this a current diagnosis for this admission?: YesPlan: Secondary to chronic disease HIV disease,CKD stage V on hemodialysis, anemia, depression (2) Hypoglycemia Is this a current diagnosis for this admission?: Yes (3) Pancytopenia Is this a current diagnosis for this admission?: YesPlan: hematology consult was requested with Dr. Newman (4) Do not resuscitate Is this a current diagnosis for this admission?: Yes (5) Elevated liver function tests Is this a current diagnosis for this admission?: YesPlan: 05/07/16 05/31/16 13:55 08:04 Direct Bilirubin 0.0 AST 390 H ALT 219 H Alkaline Phosphatase 91 Hepatitis A IgM Ab Negative Hep Bs Antigen Negative Hep B Core IgM Ab Negative Hepatitis C Antibody <0.1 CT abdomen and pelvis showed diffuse fatty infiltration Elevated LFTs likely to secondary to ADAMES; we will repeat LFTs today (6) End stage renal disease Is this a current diagnosis for this admission?: YesPlan: Chronic hemodialysis (7) Chronic anticoagulation Is this a current diagnosis for this admission?: YesPlan: Chronic anticoagulation for pulmonary Eliquis 5 mg by mouth twice a day was initiated as patient needed extremely high doses of Coumadin (15 mg daily ) without adequately anticoagulated (8) C. difficile diarrhea Is this a current diagnosis for this admission?: YesPlan: Continue vancomycin - Time Time Spent with patient: Patient may be discharged in a.m. if okay with hematology Within: within 24 hours
[2016-06-03 17:19] LABS: ALBUMIN 2.4 g/dL (3.5-5.0); BILIRUBIN,TOTAL 0.3 mg/dL (0.2-1.3); TOTAL PROTEIN 4.8 g/dL (6.3-8.2)
--- NOTE | 2016-06-03 17:37 | PDOC PROGRESS REPORT ---
Subjective Progress Note for:: 06/03/16 Subjective:: Saw the patient today on dialysis he is feeling better than when I last saw him last week. He has been diagnosed to have C. difficile colitis. He has been begun on your Flagyl and vancomycin. His frequency of diarrhea is better. No abdominal pains fever or chills. No sore throat. He still has pancytopenia but his white count has improved from a low of 2.8-2 at 3.2 this morning. His neutrophils is close to thousand. Physical Exam Vital Signs: Temp Pulse Resp BP Pulse Ox 98.5 F 64 16 101/57 L 97 06/03/16 15:50 06/03/16 15:50 06/03/16 15:50 06/03/16 15:50 06/03/16 15:50 Intake & Output 06/02/16 06/03/16 06/04/16 06:59 06:59 06:59 Intake Total 1909 2386 Output Total 675 900 Balance 1234 1486 Weight 75.5 kg 81.6 kg Exam: Patient is in no distress. He is atraumatic normocephalic. EOMI/PERRLA. Conjunctiva is pink no scleral icterus. No periorbital swelling. The external ears were normal to examination and there was no bleeding or drainage. All mucosa was moist and there were no visible lesions on the soft palate. Neck was supple and he had no thyromegaly or tracheal deviation. Full range of movements. he had no cervical lymphadenopathy. Both heart sounds were heard normally. No rubs or gallops. No pericardial rub. Chest examination revealed equal air entry in both lungs nose no wheezing or crackles. Examination of the abdomen was soft nontender. No organomegaly. Bowel sounds are heard normally. Was no ascites. There is no edema. There is no joint swelling. There is no cough tenderness. Skin evaluation was normal. He had no mottling. Skin is not dry. He had no skin rashes. No palpable nodules Respiratory exam: PRESENT: clear to auscultation jamil, symmetrical. ABSENT: crackles Cardiovascular exam: PRESENT: +S1, +S2, systolic murmur GI/Abdominal exam: PRESENT: soft. ABSENT: ascites, diminished bowel sounds, distended, firm, guarding, organomegaly, tenderness Results Laboratory Results: 06/03/16 04:05 06/03/16 04:05 06/03/16 06/03/16 06/03/16 04:05 04:05 16:47 WBC 3.2 L RBC 2.45 L Hgb 8.0 L Hct 23.8 L MCV 97 MCH 32.8 MCHC 33.8 RDW 16.0 H Plt Count 61 L Seg Neutrophils % 30.9 L Lymphocytes % 50.6 H Monocytes % 14.9 H Eosinophils % 2.7 Basophils % 0.9 Absolute Neutrophils 1.0 L Absolute Lymphocytes 1.6 Absolute Monocytes 0.5 Absolute Eosinophils 0.1 Absolute Basophils 0.0 Sodium 138.4 Potassium 3.8 Chloride 106 Carbon Dioxide 24 Anion Gap 8 BUN 21 H Creatinine 4.14 H Est GFR ( Amer) 18 L Est GFR (Non-Af Amer) 15 L Glucose 88 Calcium 8.8 Magnesium 1.6 Total Bilirubin 0.3 AST 86 H ALT 105 H Alkaline Phosphatase 128 H Total Protein 4.8 L Albumin 2.4 L 05/31/16 20:55 Stool - Stool - Final 05/31/16 20:55 Stool - Stool Stool Culture - Final NO SALMONELLA, SHIGELLA, CAMPYLOBACTER OR E.COLI 0157 RECOVERED. NO SHIGA TOXIN TEST PERFORMED Impressions: Abdomen X-Ray 05/30/16 00:00 IMPRESSION: NON-SPECIFIC BOWEL GAS PATTERN WITHOUT EVIDENCE FOR OBSTRUCTION. Head CT 05/30/16 19:10 IMPRESSION: No acute intracranial findings. Shoulder X-Ray 05/30/16 20:55 IMPRESSION: NO RADIOGRAPHIC EVIDENCE OF ACUTE INJURY. Clavicle X-Ray 05/30/16 21:05 IMPRESSION: NO RADIOGRAPHIC EVIDENCE OF ACUTE INJURY. Abdomen/Pelvis CT 05/31/16 00:00 IMPRESSION: 1. MARKED FATTY INFILTRATION OF THE LIVER. 2. TINY NONOBSTRUCTING CALYCEAL CALCULUS IN THE RIGHT KIDNEY. SMALL CORTICAL CYST IN THE RIGHT KIDNEY. 3. NO OTHER SIGNIFICANT OR ACUTE FINDINGS IN THE ABDOMEN OR PELVIS. Assessment & Plan - Diagnosis (1) Pancytopenia Is this a current diagnosis for this admission?: YesPlan: Relatively stable. Discussed with Dr. Mares (2) Generalized weakness Is this a current diagnosis for this admission?: Yes (3) Hypoglycemia Is this a current diagnosis for this admission?: Yes (4) Anemia Qualifiers: Other causes of anemia: acute posthemorrhagic Is this a current diagnosis for this admission?: Yes (5) Depression Qualifiers: Depression Type: major depressive disorder Major depression recurrence : recurrent Major depression episode severity: moderate Is this a current diagnosis for this admission?: Yes (6) Elevated liver function tests Is this a current diagnosis for this admission?: Yes (7) End stage renal disease Is this a current diagnosis for this admission?: YesPlan: Patient seen on dialysis. Vitals signs are stable. We decided not to remove any ultrafiltration because of his low normal blood pressures and his ongoing C. difficile colitis. Electrolytes are stable. Adjust erythropoietin. (9) HIV disease Is this a current diagnosis for this admission?: Yes (10) Hypokalemia Is this a current diagnosis for this admission?: YesPlan: Stable (11) Hyponatremia Is this a current diagnosis for this admission?: Yes (12) C. difficile diarrhea Is this a current diagnosis for this admission?: YesPlan: Positive for C. difficile colitis. Patient on bank and Flagyl by mouth. Discussed with Dr. Mares that he should continue this on a outpatient basis as he is known to be noncompliant.
[2016-06-03] MEDS: TRAZODONE HCL 50 MG TABLET PO SCH (21:55)
[2016-06-03] MEDS: GABAPENTIN 300 MG CAPSULE PO SCH (21:55)
[2016-06-03] MEDS: BUSPIRONE HCL 10 MG TABLET PO SCH (21:56)
[2016-06-04] MEDS: VANCOMYCIN HCL INJ 500 MG VIAL PO SCH ×5 (00:06→23:02)
[2016-06-04] MEDS ORDERED: NORMAL SALINE 1000 ML 1,000 ML IV SCH (04:15)
[2016-06-04 04:59] LABS: PROTHROMBIN TIME 13.5 SEC (11.4-15.4)
[2016-06-04] MEDS: ONDANSETRON HCL INJ/PF 4 MG/2 ML SDV IV PRN ×3 (05:01→23:02)
[2016-06-04] MEDS: LORAZEPAM 0.5 MG TABLET PO SCH ×3 (06:55→22:41)
[2016-06-04] MEDS: POTASSIUM CHLORIDE 10 MEQ TABLET.SA PO SCH (09:04)
[2016-06-04] MEDS: CITALOPRAM HYDROBROMIDE 20 MG TABLET PO SCH (09:04)
[2016-06-04] MEDS: SEVELAMER HCL 400 MG TABLET PO SCH ×3 (09:04→17:32)
[2016-06-04] MEDS: APIXABAN 5 MG TABLET PO SCH ×2 (09:04→17:32)
[2016-06-04] MEDS: DOCUSATE SODIUM 100 MG CAPSULE PO SCH ×2 (09:05→17:32)
[2016-06-04] MEDS ORDERED: OXYCODONE HCL IR 5 MG TABLET PO PRN (11:52)
--- NOTE | 2016-06-04 13:33 | PDOC PROGRESS REPORT ---
Subjective Progress Note for:: 06/04/16 Subjective:: No new events overnight. Stools are beginning to firm up some. Continues to complain of profound weakness. ROS: Total 10 systems are reviewed and pertinent positives and negative as noted above. Remaining systems are negative Physical Exam Vital Signs: Temp Pulse Resp BP Pulse Ox 98.2 F 58 L 16 101/61 100 06/04/16 11:22 06/04/16 11:22 06/04/16 11:22 06/04/16 11:22 06/04/16 11:22 Intake & Output 06/03/16 06/04/16 06/05/16 06:59 06:59 06:59 Intake Total 2386 3360 Output Total 900 0 Balance 1486 3360 Weight 81.6 kg 82.3 kg General appearance: PRESENT: no acute distress, cooperative Eye exam: PRESENT: PERRLA. ABSENT: scleral icterus Mouth exam: PRESENT: moist, neck supple Neck exam: ABSENT: carotid bruit, tenderness Respiratory exam: PRESENT: accessory muscle use, clear to auscultation jamil, unlabored Cardiovascular exam: PRESENT: RRR. ABSENT: systolic murmur Pulses: PRESENT: normal radial pulses Vascular exam: PRESENT: normal capillary refill GI/Abdominal exam: PRESENT: normal bowel sounds, soft. ABSENT: tenderness Extremities exam: ABSENT: calf tenderness, pedal edema Musculoskeletal exam: PRESENT: other - strength is at least 4/5 Skin exam: PRESENT: dry, warm Results Laboratory Results: 06/03/16 04:05 06/03/16 04:05 06/03/16 16:47 Total Bilirubin 0.3 AST 86 H ALT 105 H Alkaline Phosphatase 128 H Total Protein 4.8 L Albumin 2.4 L 05/31/16 20:55 Stool - Stool - Final 05/31/16 20:55 Stool - Stool Stool Culture - Final NO SALMONELLA, SHIGELLA, CAMPYLOBACTER OR E.COLI 0157 RECOVERED. NO SHIGA TOXIN TEST PERFORMED Impressions: Abdomen X-Ray 05/30/16 00:00 IMPRESSION: NON-SPECIFIC BOWEL GAS PATTERN WITHOUT EVIDENCE FOR OBSTRUCTION. Head CT 05/30/16 19:10 IMPRESSION: No acute intracranial findings. Shoulder X-Ray 05/30/16 20:55 IMPRESSION: NO RADIOGRAPHIC EVIDENCE OF ACUTE INJURY. Clavicle X-Ray 05/30/16 21:05 IMPRESSION: NO RADIOGRAPHIC EVIDENCE OF ACUTE INJURY. Abdomen/Pelvis CT 05/31/16 00:00 IMPRESSION: 1. MARKED FATTY INFILTRATION OF THE LIVER. 2. TINY NONOBSTRUCTING CALYCEAL CALCULUS IN THE RIGHT KIDNEY. SMALL CORTICAL CYST IN THE RIGHT KIDNEY. 3. NO OTHER SIGNIFICANT OR ACUTE FINDINGS IN THE ABDOMEN OR PELVIS. Assessment & Plan - Diagnosis (1) C. difficile diarrhea Is this a current diagnosis for this admission?: YesPlan: Stools firming up. Beginning to resolve. Continue oral vancomycin (2) Generalized weakness Is this a current diagnosis for this admission?: YesPlan: Patient concerned about going home where his primary caregivers mother who suffers from her own medical problems. However placement in rehabilitation is not without financial consequences giving his enrollment in government subsidies. Request physical therapy consult and evaluation for possible rehabilitation placement. He has met with care coordinators and discussing his options. (3) Pancytopenia Is this a current diagnosis for this admission?: YesPlan: Appears to be at or near his baseline no further workup indicated at this time, per Dr. Molina nephrology and his oncologist (4) Do not resuscitate Is this a current diagnosis for this admission?: Yes (5) End stage renal disease Is this a current diagnosis for this admission?: YesPlan: Nephrology following for dialysis tomorrow. Likely discharge home on a prolonged course of vancomycin and lactobacillus afterwards assuming no new events overnight. (6) Chronic low back pain with bilateral sciatica Qualifiers: Back pain laterality: bilateral Qualified Code(s): M54.42 - Lumbago with sciatica, left side; M54.41 - Lumbago with sciatica, right side; G89.29 - Other chronic pain Is this a current diagnosis for this admission?: YesPlan: Increase activity with physical therapy. Start low-dose oxycodone. And monitor for effect - Time Time Spent with patient: 35 or more minutes
--- NOTE | 2016-06-04 15:59 | PDOC PROGRESS REPORT ---
Subjective Progress Note for:: 06/04/16 Subjective:: My patient was seen this morning. His diarrhea is almost completely resolved. He is eating and drinking appropriately. No nausea vomiting. No fever or chills. He was discussed with Susy swenson nurse. Physical Exam Vital Signs: Temp Pulse Resp BP Pulse Ox 98.2 F 61 16 101/61 100 06/04/16 11:22 06/04/16 13:58 06/04/16 11:22 06/04/16 11:22 06/04/16 11:22 Intake & Output 06/03/16 06/04/16 06/05/16 06:59 06:59 06:59 Intake Total 2386 3360 Output Total 900 0 Balance 1486 3360 Weight 81.6 kg 82.3 kg Exam: Patient is in no acute distress. He looks well-nourished. He is atraumatic normocephalic. EOMI/PERRLA. Conjunctiva is pink no scleral icterus. No periorbital swelling. The external ears were normal to examination and there was no bleeding or drainage. All mucosa was dry and there were no visible lesions on the soft palate. Neck was supple and that he had no thyromegaly or tracheal deviation. Full range of movements. He had no cervical lymphadenopathy. Both heart sounds were heard normally. No rubs or gallops. No pericardial rub. Chest examination revealed equal air entry in both lungs nose no wheezing or crackles. Examination of the abdomen was soft nontender. No organomegaly. Bowel sounds are heard normally. Was no ascites. There is no edema. There is no joint swelling. There is no cough tenderness. Patient is ambulatory. Full range of movements. Normal to inspection. Neurological evaluation revealed an awake alert person. Oriented to time person and place. Cranial nerves 2-12 is grossly intact. He is not aphasic. Psych evaluation revealed appropriate affect. She is not anxious or agitated. He has a normal mood. Skin evaluation was dry. He had no mottling. Daily he had no skin rashes. No palpable nodules Results Laboratory Results: 06/03/16 04:05 06/03/16 04:05 06/03/16 16:47 Total Bilirubin 0.3 AST 86 H ALT 105 H Alkaline Phosphatase 128 H Total Protein 4.8 L Albumin 2.4 L Impressions: Abdomen X-Ray 05/30/16 00:00 IMPRESSION: NON-SPECIFIC BOWEL GAS PATTERN WITHOUT EVIDENCE FOR OBSTRUCTION. Head CT 05/30/16 19:10 IMPRESSION: No acute intracranial findings. Shoulder X-Ray 05/30/16 20:55 IMPRESSION: NO RADIOGRAPHIC EVIDENCE OF ACUTE INJURY. Clavicle X-Ray 05/30/16 21:05 IMPRESSION: NO RADIOGRAPHIC EVIDENCE OF ACUTE INJURY. Abdomen/Pelvis CT 05/31/16 00:00 IMPRESSION: 1. MARKED FATTY INFILTRATION OF THE LIVER. 2. TINY NONOBSTRUCTING CALYCEAL CALCULUS IN THE RIGHT KIDNEY. SMALL CORTICAL CYST IN THE RIGHT KIDNEY. 3. NO OTHER SIGNIFICANT OR ACUTE FINDINGS IN THE ABDOMEN OR PELVIS. Assessment & Plan - Diagnosis (1) Pancytopenia Is this a current diagnosis for this admission?: YesPlan: Relatively stable. (2) Generalized weakness Is this a current diagnosis for this admission?: Yes (3) Hypoglycemia Is this a current diagnosis for this admission?: Yes (4) Anemia Qualifiers: Other causes of anemia: acute posthemorrhagic Is this a current diagnosis for this admission?: Yes (5) Depression Qualifiers: Depression Type: major depressive disorder Major depression recurrence : recurrent Major depression episode severity: moderate Is this a current diagnosis for this admission?: Yes (6) Elevated liver function tests Is this a current diagnosis for this admission?: Yes (7) End stage renal disease Is this a current diagnosis for this admission?: YesPlan: Patient is stable. Plan for next dialysis as an outpatient on if he is hopefully discharge tomorrow. (9) HIV disease Is this a current diagnosis for this admission?: Yes (10) Hypokalemia Is this a current diagnosis for this admission?: Yes (11) Hyponatremia Is this a current diagnosis for this admission?: Yes (12) C. difficile diarrhea Is this a current diagnosis for this admission?: YesPlan: Patient is doing quite well with the p.o. vancomycin as he seems to be resolving his C. difficile colitis. I have stressed to him the fact that he should be compliant with his vancomycin on discharge or else he is going to come back with severe colitis infection which might need removal of his colon.
[2016-06-04] MEDS: TRAZODONE HCL 50 MG TABLET PO SCH (22:41)
[2016-06-04] MEDS: BUSPIRONE HCL 10 MG TABLET PO SCH (22:41)
[2016-06-04] MEDS: GABAPENTIN 300 MG CAPSULE PO SCH (22:41)
[2016-06-05] MEDS ORDERED: NORMAL SALINE 1000 ML 250 ML IV ONE (03:21)
[2016-06-05] MEDS: VANCOMYCIN HCL INJ 500 MG VIAL PO SCH ×4 (06:24→23:06)
[2016-06-05 07:44] LABS: HEMATOCRIT 23.4 % (37.9-51.0); HGB HCT DIFFERENCE -0.3; MEAN CORPUSCULAR HEMOGLOBIN 33.1 pg (27.0-33.4); MEAN CORPUSCULAR HGB CONC 33.1 g/dL (32.0-36.0); MEAN CORPUSCULAR VOLUME 100 fl (80-97); RED BLOOD COUNT 2.33 10^6/uL (4.35-5.55); RED CELL DISTRIBUTION WIDTH 16.6 % (11.5-14.0); WHITE BLOOD COUNT 5.1 10^3/uL (4.0-10.5)
[2016-06-05] MEDS ORDERED: NORMAL SALINE 250 ML IV ONE (07:45)
[2016-06-05 07:48] LABS: ANION GAP 6 (5-19); BLOOD UREA NITROGEN 17 mg/dL (7-20); CALCIUM 8.2 mg/dL (8.4-10.2); CARBON DIOXIDE 23 mmol/L (22-30); CHLORIDE 111 mmol/L (98-107); CREATININE RESULT 3.82 mg/dL (0.52-1.25); GLUCOSE 92 mg/dL (75-110); POTASSIUM 4.1 mmol/L (3.6-5.0); SODIUM 139.7 mmol/L (137-145)
[2016-06-05] MEDS ORDERED: NORMAL SALINE 250 ML IV PRN ×2 (07:51)
[2016-06-05 08:02] LABS: HEMOGLOBIN 7.7 g/dL (13.5-17.0)
[2016-06-05 08:04] LABS: NUCLEATED RED BLOOD CELLS 1 /100 WBC (0); TOTAL CELLS COUNTED 100
[2016-06-05 08:05] LABS: ANISOCYTOSIS 1+; BASOPHILS % (MANUAL) 0 % (0-2); EOSINOPHILS % (MANUAL) 0 % (0-6); LYMPHOCYTES % (MANUAL) 50 % (13-45); POLYCHROMASIA SLIGHT; TOXIC VACUOLATION PRESENT
[2016-06-05 08:53] LABS: PROTHROMBIN TIME 12.7 SEC (11.4-15.4)
[2016-06-05] MEDS: SEVELAMER HCL 400 MG TABLET PO SCH ×3 (09:14→17:04)
[2016-06-05] MEDS: POTASSIUM CHLORIDE 10 MEQ TABLET.SA PO SCH (09:16)
[2016-06-05] MEDS: APIXABAN 5 MG TABLET PO SCH ×2 (09:16→17:04)
[2016-06-05] MEDS: LORAZEPAM 0.5 MG TABLET PO SCH ×3 (09:16→23:00)
[2016-06-05] MEDS: DOCUSATE SODIUM 100 MG CAPSULE PO SCH ×2 (09:17→17:08)
[2016-06-05] MEDS: CITALOPRAM HYDROBROMIDE 20 MG TABLET PO SCH (09:17)
--- NOTE | 2016-06-05 13:14 | PDOC PROGRESS REPORT ---
Subjective Progress Note for:: 06/05/16 Subjective:: LAMAR SMALL is a 50 year old male with a history of HIV recent CD4 count of 237 April 2016, pulmonary emboli on chronic Coumadin, end-stage renal failure on hemodialysis Friday, who complains of extraordinarily fatigue anorexia nausea vomiting general weakness brought to the emergency room after dialysis, found to have hypotension, hypoglycemia, hypokalemia, hyponatremia and presyncope. Referred to the hospitalist for admission whereupon he was found to have C. difficile colitis and appropriate antibiotic therapy begun with good results. Noted to be more anemic than usual with persistent borderline hypotension. The patient was typed and crossed and transfused 2 units of blood during hemodialysis today. He was also given several boluses of normal saline through the night by the [employer], Dr. Ramos. No new events overnight. Stools are beginning to firm up some. Continues to complain of profound weakness. ROS: Total 10 systems are reviewed and pertinent positives and negative as noted above. Remaining systems are negative Physical Exam Vital Signs: Temp Pulse Resp BP Pulse Ox 97.9 F 61 19 105/71 100 06/05/16 12:25 06/05/16 12:25 06/05/16 12:25 06/05/16 12:25 06/05/16 12:25 Intake & Output 06/04/16 06/05/16 06/06/16 06:59 06:59 06:59 Intake Total 3360 2583 893 Output Total 0 600 450 Balance 3360 1983 443 Weight 82.3 kg 85.4 kg General appearance: PRESENT: no acute distress, cooperative Eye exam: PRESENT: EOMI. ABSENT: conjunctival injection Mouth exam: PRESENT: moist, neck supple Respiratory exam: PRESENT: clear to auscultation jamil, unlabored. ABSENT: accessory muscle use Cardiovascular exam: PRESENT: RRR. ABSENT: systolic murmur Pulses: PRESENT: normal radial pulses Vascular exam: PRESENT: normal capillary refill GI/Abdominal exam: PRESENT: normal bowel sounds, soft. ABSENT: tenderness Extremities exam: ABSENT: calf tenderness, pedal edema Musculoskeletal exam: PRESENT: ambulatory, full ROM Neurological exam: PRESENT: alert, awake Psychiatric exam: PRESENT: appropriate affect, normal mood Skin exam: PRESENT: warm - And moist Results Laboratory Results: 06/05/16 04:16 06/05/16 04:16 06/05/16 06/05/16 06/05/16 04:16 04:16 08:28 WBC 5.1 RBC 2.33 L Hgb 7.7 L Hct 23.4 L MCV 100 H MCH 33.1 MCHC 33.1 RDW 16.6 H Plt Count 97 L Seg Neutrophils % Not Reportable Lymphocytes % Not Reportable Monocytes % Not Reportable Eosinophils % Not Reportable Basophils % Not Reportable Absolute Neutrophils Not Reportable Absolute Lymphocytes Not Reportable Absolute Monocytes Not Reportable Absolute Eosinophils Not Reportable Absolute Basophils Not Reportable Sodium 139.7 Potassium 4.1 Chloride 111 H Carbon Dioxide 23 Anion Gap 6 BUN 17 Creatinine 3.82 H Est GFR ( Amer) 20 L Est GFR (Non-Af Amer) 17 L Glucose 92 Calcium 8.2 L Blood Type B POSITIVE Antibody Screen NEGATIVE 05/31/16 10:25 Blood Blood Culture - Final NO GROWTH IN 5 DAYS 05/31/16 10:09 Blood Blood Culture - Final NO GROWTH IN 5 DAYS Impressions: Abdomen X-Ray 05/30/16 00:00 IMPRESSION: NON-SPECIFIC BOWEL GAS PATTERN WITHOUT EVIDENCE FOR OBSTRUCTION. Head CT 05/30/16 19:10 IMPRESSION: No acute intracranial findings. Shoulder X-Ray 05/30/16 20:55 IMPRESSION: NO RADIOGRAPHIC EVIDENCE OF ACUTE INJURY. Clavicle X-Ray 05/30/16 21:05 IMPRESSION: NO RADIOGRAPHIC EVIDENCE OF ACUTE INJURY. Abdomen/Pelvis CT 05/31/16 00:00 IMPRESSION: 1. MARKED FATTY INFILTRATION OF THE LIVER. 2. TINY NONOBSTRUCTING CALYCEAL CALCULUS IN THE RIGHT KIDNEY. SMALL CORTICAL CYST IN THE RIGHT KIDNEY. 3. NO OTHER SIGNIFICANT OR ACUTE FINDINGS IN THE ABDOMEN OR PELVIS. Assessment & Plan - Diagnosis (1) C. difficile diarrhea Is this a current diagnosis for this admission?: YesPlan: Improved. Stools firming up. Continue oral vancomycin (2) Generalized weakness Is this a current diagnosis for this admission?: YesPlan: Minimally improved. There was some concern by Dr. Aceves for possible adrenal crisis given the electrolyte abnormalities found on presentation and his hypotension, however most of these can be accounted for by the C. difficile colitis that was later discovered and now currently being treated. Patient is not on routine steroids as an outpatient though he has received pulse dose steroids in the past for treatment of his chronic low back pain. No clear indication for systemic steroids at this time. Patient concerned about going home where his primary caregivers mother who suffers from her own medical problems. However placement in rehabilitation is not without financial consequences giving his enrollment in government subsidies. physical therapy consulted for possible rehabilitation placement. He has met with care coordinators and discussing his options. (3) Pancytopenia Is this a current diagnosis for this admission?: YesPlan: Anemia worsened likely due to GI blood loss from the C. difficile colitis but possibly contributing to his persistent borderline hypotension, weakness and postural dizziness. Transfuse 2 units of packed red blood cells today during hemodialysis. Appears to be at or near his baseline otherwise no further workup indicated at this time, per Dr. Molina nephrology and his oncologist (4) Do not resuscitate Is this a current diagnosis for this admission?: Yes (5) End stage renal disease Is this a current diagnosis for this admission?: YesPlan: Nephrology following for dialysis to day. Likely discharge home on a prolonged course of vancomycin and lactobacillus afterwards assuming no new events overnight. (6) Chronic low back pain with bilateral sciatica Qualifiers: Back pain laterality: bilateral Qualified Code(s): M54.42 - Lumbago with sciatica, left side; M54.41 - Lumbago with sciatica, right side; G89.29 - Other chronic pain Is this a current diagnosis for this admission?: YesPlan: Increase activity with physical therapy. Started low-dose oxycodone with good effect - Time Time Spent with patient: 35 or more minutes Disposition: Disposition as early as tomorrow. We'll need to follow up on post transfusion CBC prior to discharge. Still awaiting patient's decision regarding placement versus home with home health.
[2016-06-05] MEDS ORDERED: LANSOPRAZOLE 30 MG TAB.RAP.DR PO SCH (17:00)
--- NOTE | 2016-06-05 19:12 | PDOC PROGRESS REPORT ---
Subjective Progress Note for:: 06/05/16 Subjective:: I saw the patient on hemodialysis today. Discussed with the patient about the events transpired last night. Apparently he dropped his blood pressure and he was given IV fluids and also moderate drop in his hemoglobin. However he had no events to account for GI bleeds. No history of any abdominal pains. Orders have been placed by the hospitalist to transfuse couple of units while he is on dialysis today. His diarrhea is all not better on the vancomycin by mouth for his C. difficile colitis. He is undergoing dialysis without any issues. Vital signs are being monitored. Discuss orders with the treating nurse. I will not remove more than a liter of fluid. His vital signs show that he is in the low 100 systolic and his pulse rate is hovering between high 40s and low 50s. Patient denies any history of chest pain, shortness of breath, TIA like symptoms or focal deficits. Medications were reviewed. Physical Exam Vital Signs: Temp Pulse Resp BP Pulse Ox 98.4 F 47 L 15 146/76 H 100 06/05/16 18:37 06/05/16 18:37 06/05/16 18:37 06/05/16 18:37 06/05/16 18:37 Intake & Output 06/04/16 06/05/16 06/06/16 06:59 06:59 06:59 Intake Total 3360 2583 1893 Output Total 0 600 450 Balance 3360 1983 1443 Weight 82.3 kg 85.4 kg Exam: Patient is in no acute distress. EOMI/PERRLA. Conjunctiva is pink no scleral icterus. No periorbital swelling. The external ears were normal to examination and there was no bleeding or drainage. Both heart sounds were heard normally. No rubs or gallops. No pericardial rub. Chest examination revealed equal air entry in both lungs nose no wheezing or crackles. Examination of the abdomen was soft nontender. No organomegaly. Bowel sounds are heard normally. Was no ascites. There is trace edema. There is no joint swelling. There is no tenderness. Cardiovascular exam: PRESENT: +S1, +S2, systolic murmur GI/Abdominal exam: PRESENT: soft. ABSENT: ascites, diminished bowel sounds, distended, firm, guarding, organomegaly, tenderness Results Laboratory Results: 06/05/16 04:16 06/05/16 04:16 06/05/16 06/05/16 06/05/16 04:16 04:16 08:28 WBC 5.1 RBC 2.33 L Hgb 7.7 L Hct 23.4 L MCV 100 H MCH 33.1 MCHC 33.1 RDW 16.6 H Plt Count 97 L Seg Neutrophils % Not Reportable Lymphocytes % Not Reportable Monocytes % Not Reportable Eosinophils % Not Reportable Basophils % Not Reportable Absolute Neutrophils Not Reportable Absolute Lymphocytes Not Reportable Absolute Monocytes Not Reportable Absolute Eosinophils Not Reportable Absolute Basophils Not Reportable Sodium 139.7 Potassium 4.1 Chloride 111 H Carbon Dioxide 23 Anion Gap 6 BUN 17 Creatinine 3.82 H Est GFR ( Amer) 20 L Est GFR (Non-Af Amer) 17 L Glucose 92 Calcium 8.2 L Blood Type B POSITIVE Antibody Screen NEGATIVE 05/31/16 20:55 Stool - Stool Cryptosporidium Exam - Final 05/31/16 20:55 Stool - Stool Isospora Exam ([facility]) - Final 05/31/16 10:25 Blood Blood Culture - Final NO GROWTH IN 5 DAYS 05/31/16 10:09 Blood Blood Culture - Final NO GROWTH IN 5 DAYS Impressions: Abdomen X-Ray 05/30/16 00:00 IMPRESSION: NON-SPECIFIC BOWEL GAS PATTERN WITHOUT EVIDENCE FOR OBSTRUCTION. Head CT 05/30/16 19:10 IMPRESSION: No acute intracranial findings. Shoulder X-Ray 05/30/16 20:55 IMPRESSION: NO RADIOGRAPHIC EVIDENCE OF ACUTE INJURY. Clavicle X-Ray 05/30/16 21:05 IMPRESSION: NO RADIOGRAPHIC EVIDENCE OF ACUTE INJURY. Abdomen/Pelvis CT 05/31/16 00:00 IMPRESSION: 1. MARKED FATTY INFILTRATION OF THE LIVER. 2. TINY NONOBSTRUCTING CALYCEAL CALCULUS IN THE RIGHT KIDNEY. SMALL CORTICAL CYST IN THE RIGHT KIDNEY. 3. NO OTHER SIGNIFICANT OR ACUTE FINDINGS IN THE ABDOMEN OR PELVIS. Assessment & Plan - Diagnosis (1) Pancytopenia Is this a current diagnosis for this admission?: YesPlan: Improving. (2) Generalized weakness Is this a current diagnosis for this admission?: Yes (3) Hypoglycemia Is this a current diagnosis for this admission?: Yes (4) Anemia Qualifiers: Other causes of anemia: acute posthemorrhagic Is this a current diagnosis for this admission?: Yes (5) Depression Qualifiers: Depression Type: major depressive disorder Major depression recurrence : recurrent Major depression episode severity: moderate Is this a current diagnosis for this admission?: Yes (6) Elevated liver function tests Is this a current diagnosis for this admission?: Yes (7) End stage renal disease Is this a current diagnosis for this admission?: YesPlan: Patient undergoing dialysis without any issues. Orders have been placed and discussed with the treating nurse. Vital signs shows that his blood pressures are in the low 100 systolics with this heart rate in the high 40s to the low 50s. However patient is remaining asymptomatic. Only removal at the most a liter of fluid while he is getting a couple of units of blood transfusion and get about 1-1.5 L of flushing fluids. Close with Mica the treating nurse to follow this up with the EKG and to discuss with the treating nurse on the floor for can then passed on the EKG to the hospitalist cat wagon operator. I will also call the hospitalist cat wagon operator to discuss this patient. (9) HIV disease Is this a current diagnosis for this admission?: Yes (10) Hypokalemia Is this a current diagnosis for this admission?: YesPlan: Stable. (11) Hyponatremia Is this a current diagnosis for this admission?: YesPlan: Stable. (12) C. difficile diarrhea Is this a current diagnosis for this admission?: YesPlan: Patient is doing quite well with the p.o. vancomycin as he seems to be resolving his C. difficile colitis.
[2016-06-05] MEDS ORDERED: EPOETIN ALFA INJ 20000 UNIT/1 ML VIAL (RENAL) IV PRN (19:15)
[2016-06-05] MEDS ORDERED: HEPARIN SOD (PORCINE) 1,000 UNIT/ML 10 ML VIAL IV PRN (19:15)
[2016-06-05] MEDS: ONDANSETRON HCL INJ/PF 4 MG/2 ML SDV IV PRN (20:25)
[2016-06-05 20:49] LABS: MAGNESIUM 1.4 mg/dL (1.6-2.3)
[2016-06-05 20:52] LABS: CREATINE KINASE < 20 U/L (55-170)
[2016-06-05 21:01] LABS: CREATINE KINASE MB 0.23 ng/mL (<4.55)
[2016-06-05] MEDS ORDERED: MAGNESIUM SULFATE/D5W 100 ML IV ONE (21:03)
[2016-06-05 21:10] LABS: TROPONIN I < 0.012 ng/mL
[2016-06-05] MEDS: GABAPENTIN 300 MG CAPSULE PO SCH (21:39)
[2016-06-05] MEDS: BUSPIRONE HCL 10 MG TABLET PO SCH (21:40)
[2016-06-05] MEDS: TRAZODONE HCL 50 MG TABLET PO SCH (23:00)
[2016-06-06 02:45] LABS: ABSOLUTE BASOPHILS # (AUTO) 0.1 10^3/uL (0.0-0.2); ABSOLUTE EOSINOPHILS # (AUTO) 0.1 10^3/uL (0.0-0.6); ABSOLUTE LYMPHOCYTES (AUTO) 1.7 10^3/uL (0.5-4.7); ABSOLUTE MONOCYTES (AUTO) 0.7 10^3/uL (0.1-1.4); ABSOLUTE NEUT (AUTO) 2.3 10^3/uL (1.7-8.2); BASOPHILS % (AUTO) 1.5 % (0-2); EOSINOPHILS % (AUTO) 1.4 % (0-6); LYMPHOCYTES % (AUTO) 34.7 % (13-45); MEAN CORPUSCULAR HEMOGLOBIN 32.5 pg (27.0-33.4); MEAN CORPUSCULAR HGB CONC 34.4 g/dL (32.0-36.0); MONOCYTES % (AUTO) 14.5 % (3-13); RED BLOOD COUNT 3.07 10^6/uL (4.35-5.55); RED CELL DISTRIBUTION WIDTH 18.2 % (11.5-14.0); SEGMENTED NEUTROPHILS % (AUTO) 47.9 % (42-78); WHITE BLOOD COUNT 4.8 10^3/uL (4.0-10.5)
[2016-06-06 02:48] LABS: MEAN CORPUSCULAR VOLUME 95 fl (80-97)
[2016-06-06 02:57] LABS: CREATINE KINASE MB < 0.22 ng/mL (<4.55); TROPONIN I < 0.012 ng/mL
[2016-06-06] MEDS ORDERED: NORMAL SALINE 1000 ML 250 ML IV ONE (05:00)
[2016-06-06] MEDS: VANCOMYCIN HCL INJ 500 MG VIAL PO SCH ×2 (06:03→12:01)
[2016-06-06 07:45] LABS: PROTHROMBIN TIME 11.8 SEC (11.4-15.4)
[2016-06-06] MEDS: LORAZEPAM 0.5 MG TABLET PO SCH (08:29)
--- NOTE | 2016-06-06 09:43 | EKG REPORT ---
SEVERITY:- OTHERWISE NORMAL ECG - SINUS BRADYCARDIA BORDERLINE LEFT AXIS DEVIATION : Confirmed by: Esha Fernández MD 06-Jun-2016 09:41:03
[2016-06-06] MEDS: SEVELAMER HCL 400 MG TABLET PO SCH ×2 (10:31→12:01)
[2016-06-06] MEDS: APIXABAN 5 MG TABLET PO SCH (10:32)
[2016-06-06] MEDS: POTASSIUM CHLORIDE 10 MEQ TABLET.SA PO SCH (10:32)
[2016-06-06] MEDS: CITALOPRAM HYDROBROMIDE 20 MG TABLET PO SCH (10:32)
[2016-06-06] MEDS: DOCUSATE SODIUM 100 MG CAPSULE PO SCH (10:33)
--- NOTE | 2016-06-06 12:55 | PDOC DISCHARGE SUMMARY ---
General - Admit/Disc Date/PCP Admission Date/Primary Care Provider: 05/30/16 22:04 Discharge Date: 06/06/16 - Discharge Diagnosis (1) C. difficile diarrhea Is this a current diagnosis for this admission?: YesSummary: Continue oral vancomycin for another 2 wks (2) Generalized weakness Is this a current diagnosis for this admission?: YesSummary: Minimally improved. There was some concern by Dr. Aceves for possible adrenal crisis given the electrolyte abnormalities found on presentation and his hypotension, however most of these can be accounted for by the C. difficile colitis that was later discovered and now currently being treated. Patient is not on routine steroids as an outpatient though he has received pulse dose steroids in the past for treatment of his chronic low back pain. No clear indication for systemic steroids at this time. Patient concerned about going home where his primary caregivers mother who suffers from her own medical problems. However placement in rehabilitation is not without financial consequences giving his enrollment in government subsidies. physical therapy consulted for possible rehabilitation placement. He has met with care coordinators and discussed his options, choosing home health for ongoing PT. (3) Pancytopenia Is this a current diagnosis for this admission?: YesSummary: Anemia worsened likely due to GI blood loss from the C. difficile colitis but possibly contributing to his persistent borderline hypotension, weakness and postural dizziness. Transfused 2 units of packed red blood cells during hemodialysis with good improvement. Appears to be at or near his baseline otherwise no further workup indicated at this time, per Dr. Molina nephrology and his oncologist. (4) Do not resuscitate Is this a current diagnosis for this admission?: Yes (5) End stage renal disease Is this a current diagnosis for this admission?: YesSummary: resume usual regimen (6) Chronic low back pain with bilateral sciatica Is this a current diagnosis for this admission?: YesSummary: Short course of oxy then per PCP - Additional Information Resuscitation Status: Do Not Resuscitate Discharge Diet: As Tolerated, Cardiac Discharge Activity: Activity As Tolerated Home Medications: Albuterol Sulfate [Ventolin Hfa 8 gm Mdi (1 Mdi/ER Disp)] 2 puff IH PRN PRN Cyclobenzaprine HCl 10 mg PO Q8 PRN 05/08/16 Gabapentin 300 mg PO QHS 05/08/16 Hydroxyzine Pamoate 50 mg PO Q4 PRN 12/14/16 Sevelamer Carbonate [Renvela] 800 mg PO TID 05/08/16 Buspirone HCl [Buspar 10 mg Tablet] 10 mg PO QHS #30 tablet 05/15/16 Citalopram Hydrobromide [Celexa 20 mg Tablet] 20 mg PO DAILY #30 tablet Lorazepam [Ativan 0.5 mg Tablet] 0.5 mg PO Q8 #15 tab 05/15/16 Trazodone HCl [Desyrel] 100 mg PO QHS #15 tablet 05/15/16 Budesonide/Formoterol Fumarate [Symbicort HFA 160-4.5 mcg Inhaler 6 gm] 2 inh PO BID 05/31/16 Acetaminophen [Tylenol 325 mg Tablet] 650 mg PO Q4HP PRN #0 tablet 06/06/16 Apixaban [Eliquis 5 mg Tablet] 5 mg PO BID #0 tablet 06/06/16 Lactobacillus Acidophilus [Acidophilus] 1 each PO BIDACBL #60 tablet 06/06/16 Oxycodone HCl [Oxy-Ir 5 mg Tablet] 5 mg PO Q6HP PRN #14 tablet 06/06/16 Vancomycin HCl [Vancocin HCl] 250 mg PO QID #90 capsule 06/06/16 History of Present Illness Patient complains of: Nausea vomiting abdominal pain and generalized weakness History of Present Illness: LAMAR SMALL is a 50 year old male with a history of HIV recent CD4 count of 237 April 2016, pulmonary emboli on chronic Coumadin, end-stage renal failure on hemodialysis Friday, who complains of extraordinarily fatigue anorexia nausea vomiting general weakness brought to the emergency room after dialysis, found to have hypotension, hypoglycemia, hypokalemia, hyponatremia and presyncope. Referred to the hospitalist for admission the patient denies recent change in medications denying fever chills or chest pain. Hospital Course Hospital Course: Patient's hospital course was prolonged by his generalized weakness that improved somewhat after transfusion. His hemodialysis leaves him very weak and tired. He notes during dialysis since began in February that his heart rate frequently drop into the 30s and his blood pressure becomes problematic. His detention sergeant is repeatedly changed his dry weight attempting to compensate and does not appear to have reached his final treatment plan, certainly the C. difficile colitis and loss of volume endoscopic this further. I think discharge today with resumption of his hemodialysis on Friday while actually work to his advantage regarding his volume status. His C. difficile colitis improved markedly with treatment. He was initially started on Flagyl and vancomycin oral. He now remains on vancomycin and she'll do so for the next 2 weeks he'll need lactobacillus as well. He is currently hemodynamically stable for discharge home. His cast rehabilitation options with him and he is choosing to go home with home health for [facility] and physical therapy. He expresses no concerns about being discharged today. Physical Exam Vital Signs: Temp Pulse Resp BP Pulse Ox 98.1 F 59 L 19 107/61 99 06/06/16 11:44 06/06/16 11:44 06/06/16 11:44 06/06/16 11:44 06/06/16 11:44 Intake & Output 06/05/16 06/06/16 06/07/16 06:59 06:59 06:59 Intake Total 2583 3606 Output Total 600 1550 Balance 1982 2055 Weight 85.4 kg 84.7 kg General appearance: PRESENT: no acute distress, cooperative Mouth exam: PRESENT: moist Cardiovascular exam: PRESENT: RRR GI/Abdominal exam: PRESENT: normal bowel sounds, soft Results Laboratory Results: 06/06/16 02:13 06/05/16 04:16 06/05/16 06/05/16 06/06/16 08:28 20:27 02:13 WBC 4.8 RBC 3.07 L Hgb 10.0 L D Hct 29.0 L MCV 95 D MCH 32.5 MCHC 34.4 RDW 18.2 H Plt Count 96 L Seg Neutrophils % 47.9 Lymphocytes % 34.7 Monocytes % 14.5 H Eosinophils % 1.4 Basophils % 1.5 Absolute Neutrophils 2.3 Absolute Lymphocytes 1.7 Absolute Monocytes 0.7 Absolute Eosinophils 0.1 Absolute Basophils 0.1 Magnesium 1.4 L Blood Type B POSITIVE Antibody Screen NEGATIVE 05/31/16 20:55 Stool - Stool Cryptosporidium Exam - Final 05/31/16 20:55 Stool - Stool Isospora Exam ([facility]) - Final 05/31/16 10:25 Blood Blood Culture - Final NO GROWTH IN 5 DAYS 05/31/16 10:09 Blood Blood Culture - Final NO GROWTH IN 5 DAYS 06/05/16 06/05/1606/06/17 20:27 20:27 02:13 Creatine Kinase < 20 L < 20 L CK-MB (CK-2) 0.23 Troponin I < 0.012 06/06/16 02:13 Creatine Kinase CK-MB (CK-2) < 0.22 Troponin I < 0.012 Impressions: Abdomen X-Ray 05/30/16 00:00 IMPRESSION: NON-SPECIFIC BOWEL GAS PATTERN WITHOUT EVIDENCE FOR OBSTRUCTION. Head CT 05/30/16 19:10 IMPRESSION: No acute intracranial findings. Shoulder X-Ray 05/30/16 20:55 IMPRESSION: NO RADIOGRAPHIC EVIDENCE OF ACUTE INJURY. Clavicle X-Ray 05/30/16 21:05 IMPRESSION: NO RADIOGRAPHIC EVIDENCE OF ACUTE INJURY. Abdomen/Pelvis CT 05/31/16 00:00 IMPRESSION: 1. MARKED FATTY INFILTRATION OF THE LIVER. 2. TINY NONOBSTRUCTING CALYCEAL CALCULUS IN THE RIGHT KIDNEY. SMALL CORTICAL CYST IN THE RIGHT KIDNEY. 3. NO OTHER SIGNIFICANT OR ACUTE FINDINGS IN THE ABDOMEN OR PELVIS. Qualifiers PATEINT BEING DISCHARGED WITH ANY OF THE FOLLOWING DIAGNOSIS?: No VTE patient discharged on overlapping Therapy?: No Plan Discharge Plan: Discharge on continued oral vancomycin. Resume usual hemodialysis regimen. Home health with physical therapy and [facility]. Time Spent: Greater than 30 Minutes
[2016-06-06 13:51] VITALS: BP 107/61
== END 2016-06-06 14:21 | disposition home health service (06) | DRG 371 ==
LOC: ER 15:22 → EH 21:30 → UNDOADMIN 21:30 → EH 22:04 → 3N 05-31 00:15
PROVIDERS: ADMIT Internal Medicine; ATTEND Internal Medicine
PROC: 5A1D60Z (ICD-10-PCS; principal; 2016-05-31)
PROC: 3E0F73Z Introduction of Anti-inflammatory into Respiratory Tract, Via Natural or Artificial Opening (ICD-10-PCS; 2016-05-31)
PROC: 30233N1 Transfusion of Nonautologous Red Blood Cells into Peripheral Vein, Percutaneous Approach (ICD-10-PCS; 2016-06-05)
DX: A04.7 Enterocolitis due to Clostridium difficile (principal); N18.6 End stage renal disease; D61.818 Other pancytopenia; E87.1 Hypo-osmolality and hyponatremia; D62 Acute posthemorrhagic anemia; Z21 Asymptomatic human immunodeficiency virus [HIV] infection status; E11.22 Type 2 diabetes mellitus with diabetic chronic kidney disease; G89.29 Other chronic pain; M54.42 Lumbago with sciatica, left side; M54.41 Lumbago with sciatica, right side; E87.6 Hypokalemia; I95.9 Hypotension, unspecified; E16.2 Hypoglycemia, unspecified; N20.0 Calculus of kidney; N28.1 Cyst of kidney, acquired; J44.9 Chronic obstructive pulmonary disease, unspecified; F32.9 Major depressive disorder, single episode, unspecified; F17.210 Nicotine dependence, cigarettes, uncomplicated; K76.0 Fatty (change of) liver, not elsewhere classified; Z99.2 Dependence on renal dialysis; Z86.711 Personal history of pulmonary embolism; Z79.01 Long term (current) use of anticoagulants; Z79.899 Other long term (current) drug therapy; Z90.49 Acquired absence of other specified parts of digestive tract; Z66 Do not resuscitate; Z83.3 Family history of diabetes mellitus; Z82.49 Family history of ischemic heart disease and other diseases of the circulatory system
CPT/HCPCS: 36415; 36430; 70450; 74020; 74177; 80048; 80053; 80076; 81001; 82024; 82272; 82533; 82550; 82553; 82962; 83690; 83735; 84100; 84443; 84484; 85025; 85610; 85652; 85730; 86850; 86900; 86901; 86920; 87040; 87045; 87205; 87206; 87493; 93005; 93010; 96374; 96375; 99285; J0834; J1100; J1644; J2405; J3370; J3475; J3480; J3490; J7030; J7050; P9016; Q4081

== ENCOUNTER 2016-06-18 15:39 | Emergency (ER) | payer MEDICAID ==
--- NOTE | 2016-06-18 16:03 | ER Document Report ---
ED Medical Screen (RME) - General Chief Complaint: Syncope Stated Complaint: SYNCOPAL EPISODE Time seen by provider: 15:58 Mode of Arrival: Wheelchair Information source: Patient Notes: 50-year-old male presents to ED for syncope at the dialysis center. Patient states that while at the dialysis center the tech doing his dialysis set the settings wrong he was supposed to be getting fluids and instead the machine myesha fluids off. He states he passed out in the chair. He said this is the fourth or fifth time this has happened during dialysis. States she's been on vancomycin for C. difficile infection since his last admission. He states he was discharged 06/06/2016 I have greeted and performed a rapid initial assessment of this patient. A comprehensive ED assessment and evaluation of the patient, analysis of test results and completion of medical decision making process will be conducted by an additional ED providers. TRAVEL OUTSIDE OF THE [place] IN LAST 30 DAYS: No - Related Data Allergies/Adverse Reactions: No Known Allergies Allergy (Unverified 03/21/16 13:26) Past Medical History - Past Medical History Cardiac Medical History: Reports: Hx Pulmonary Embolism Pulmonary Medical History: Reports: Hx COPD Neurological Medical History: Denies: Hx Seizures Renal/ Medical History: Reports: Hx End Stage Renal Disease Psychiatric Medical History: Reports: Hx Depression Infectious Medical History: Reports: Hx HIV Past Surgical History: Reports: Hx Cholecystectomy Physical Exam - Vital signs Vitals: Temp Pulse Resp BP Pulse Ox 98.8 F 115 H 18 134/101 H 98 06/18/16 15:52 06/18/16 15:52 06/18/16 15:52 06/18/16 15:52 06/18/16 15:52 Course - Vital Signs Vital signs: Temp Pulse Resp BP Pulse Ox 98.8 F 115 H 18 134/101 H 98 06/18/16 15:52 06/18/16 15:52 06/18/16 15:52 06/18/16 15:52 06/18/16 15:52
[2016-06-18 16:45] LABS: ABSOLUTE BASOPHILS # (AUTO) 0.1 10^3/uL (0.0-0.2); ABSOLUTE NEUT (AUTO) 2.2 10^3/uL (1.7-8.2)
[2016-06-18 16:57] LABS: ALANINE AMINOTRANSFERASE 103 U/L (21-72); ALBUMIN 4.2 g/dL (3.5-5.0); ALKALINE PHOSPHATASE 96 U/L (38-126); ANION GAP 19 (5-19); ASPARTATE AMINO TRANSFERASE 125 U/L (17-59); BILIRUBIN,TOTAL 0.8 mg/dL (0.2-1.3); BLOOD UREA NITROGEN 9 mg/dL (7-20); CARBON DIOXIDE 21 mmol/L (22-30); CHLORIDE 98 mmol/L (98-107); CREATININE RESULT 2.34 mg/dL (0.52-1.25); GLUCOSE 86 mg/dL (75-110); POTASSIUM 3.1 mmol/L (3.6-5.0); SODIUM 137.6 mmol/L (137-145); TOTAL PROTEIN 8.1 g/dL (6.3-8.2)
[2016-06-18 17:02] LABS: ABSOLUTE LYMPHOCYTES (AUTO) 1.9 10^3/uL (0.5-4.7); ABSOLUTE MONOCYTES (AUTO) 0.5 10^3/uL (0.1-1.4); BASOPHILS % (AUTO) 1.3 % (0-2); EOSINOPHILS % (AUTO) 0.4 % (0-6); HEMOGLOBIN 13.2 g/dL (13.5-17.0); HGB HCT DIFFERENCE -0.4; LYMPHOCYTES % (AUTO) 41.2 % (13-45); MEAN CORPUSCULAR HEMOGLOBIN 31.9 pg (27.0-33.4); MEAN CORPUSCULAR VOLUME 97 fl (80-97); MONOCYTES % (AUTO) 10.4 % (3-13); RED BLOOD COUNT 4.14 10^6/uL (4.35-5.55); SEGMENTED NEUTROPHILS % (AUTO) 46.7 % (42-78); WHITE BLOOD COUNT 4.6 10^3/uL (4.0-10.5)
[2016-06-18 18:06] VITALS: BP 123/96
[2016-06-18] MEDS ORDERED: NORMAL SALINE 1000 ML 400 ML IV ONE (18:38)
--- NOTE | 2016-06-18 18:40 | EKG REPORT ---
SEVERITY:- ABNORMAL ECG - SINUS RHYTHM LEFT ANTERIOR FASCICULAR BLOCK BORDERLINE T ABNORMALITIES, ANT-LAT LEADS : Confirmed by: Esha Fernández MD 18-Jun-2016 18:40:03
--- NOTE | 2016-06-18 18:43 | ER Document Report ---
ED General - General Chief Complaint: Syncope Stated Complaint: SYNCOPAL EPISODE Mode of Arrival: Wheelchair Information source: Patient Notes: Patient presents to the emergency department with complaints of syncope sent over by the dialysis nurse. Patient reports he was receiving dialysis today when the person hit but none on a break. He reports they removed too much fluid from him. He reports he started feeling nauseated sweated and then he blacked out. Hes not sure how long he was out. He could hear them talking as he was coming to. He reports he reports they gave him fluids, ensure. He was able to drive himself over here. Patient reports he feels tired and drained. Reports history of C. difficile and has been taking vancomycin by mouth for the last 2 weeks. Patient also has a history of HIV COPD and end-stage renal disease. TRAVEL OUTSIDE OF THE [place] IN LAST 30 DAYS: No - HPI Onset: Just prior to arrival Onset/Duration: Sudden Quality of pain: Achy Severity: Moderate Pain Level: 3 Associated symptoms: Nausea, Sweating Exacerbated by: Denies Relieved by: Denies Similar symptoms previously: Yes Recently seen / treated by doctor: No - Related Data Allergies/Adverse Reactions: No Known Allergies Allergy (Verified 06/18/16 16:01) Past Medical History - General Information source: Patient - Social History Smoking Status: Current Every Day Smoker Chew tobacco use (# tins/day): No Frequency of alcohol use: Social Drug Abuse: None Family History: CAD, DM, Hypertension Patient has suicidal ideation: No Patient has homicidal ideation: No - Past Medical History Cardiac Medical History: Reports: Hx Pulmonary Embolism Pulmonary Medical History: Reports: Hx COPD Neurological Medical History: Denies: Hx Seizures Renal/ Medical History: Reports: Hx End Stage Renal Disease. Denies: Hx Peritoneal Dialysis Psychiatric Medical History: Reports: Hx Depression Infectious Medical History: Reports: Hx HIV Past Surgical History: Reports: Hx Cholecystectomy - Immunizations Hx Pneumococcal Vaccination: 05/26/15 Review of Systems - Review of Systems Notes: Review HPI for review of systems., All other systems negative Physical Exam - Vital signs Vitals: Temp Pulse BP 98.8 F 115 H 134/101 H 06/18/16 15:51 06/18/16 15:51 06/18/16 15:51 - Notes Notes: PHYSICAL EXAMINATION: GENERAL: nontoxic looking HEAD: Atraumatic, normocephalic. EYES: Pupils equal round extraocular movements intact, sclera anicteric, conjunctiva are normal. ENT: nares patent, oropharynx clear Moist mucous membranes. NECK: Normal range of motion, supple without lymphadenopathy LUNGS: CTAB and equal. No wheezes rales or rhonchi. HEART: tachy ABDOMEN: Soft, c/o some tenderness LLQ. No guarding, no rebound EXTREMITIES: Normal range of motion, no pitting edema. NEUROLOGICAL: Cranial nerves grossly intact. Normal sensory/motor PSYCH: Normal mood, normal affect. SKIN: Warm, Dry, normal turgor, Course - Re-evaluation Re-evalutation: 06/18/16 17:55 I have consulted the attending provider per [facility] guidelines. Dr. Jamie Molina paged to the hospital electric shipyard operator 06/18/16 18:37 Dr. Jamie Molina paged into the hospital electric shipyard operator return call. Updated on patient symptoms reason for visit. He requested several further chest CT to and goes patient. He reports if patient feels better after treatment and no C. difficile patient can be discharged. Otherwise patient should probably be put in the hospital 23 observation. Patient updated on plan of care. Patient seems irritated reports he doesn't want to be here much longer. 06/18/16 19:02 The patient has decided not to proceed with further recommended testing or treatment to determine the cause of their symptoms. The patient reports that he is tired doesn't want any IV doesn't want to stay here any longer. The risks and alternatives to the recommendations were discussed and the patient was understanding. The patient appears clinically to have the capacity to make this decision. Patient was instructed that he could return to the emergency department at any time to complete the testing treatment. Dr Jamie Molina contacted on patient leaving AMA. 06/18/16 21:01 - Vital Signs Vital signs: Temp Pulse Resp BP Pulse Ox 98.3 F 95 16 123/96 H 95 06/18/16 17:59 06/18/16 17:59 06/18/16 17:59 06/18/16 17:59 06/18/16 17:59 - Laboratory Result Diagrams: 06/18/16 16:05 06/18/16 16:05 Laboratory results interpreted by me: 06/18/16 06/18/16 16:05 16:05 RBC 4.14 L Hgb 13.2 L RDW 18.0 H Plt Count 94 L Potassium 3.1 L Carbon Dioxide 21 L Creatinine 2.34 H Est GFR ( Amer) 36 L Est GFR (Non-Af Amer) 29 L AST 125 H ALT 103 H - EKG Interpretation by Me EKG shows normal: Sinus rhythm Discharge - Discharge Clinical Impression: Syncope Qualifiers: Syncope type: unspecified Qualified Code(s): R55 - Syncope and collapse Disposition: AGAINST MEDICAL ADVICE Instructions: Syncopal Episode ([facility]) Additional Instructions: *You have been evaluated for syncope *You have decided to check out AGAINST MEDICAL ADVICE. Your exam is not complete. We are not sure what he had a syncopal episode. You are at risk of leaving here and having another syncopal episode which could result in your . *Follow up with your primary care provider tomorrow *Return to ED for worsening condition, changes, needs *Return to ED if not better in 24 hours
== END 2016-06-18 19:30 | disposition left against medical advice (07) ==
LOC: ER 15:39
DX: R55 Syncope and collapse (principal); F17.210 Nicotine dependence, cigarettes, uncomplicated
CPT/HCPCS: 36415; 80053; 85025; 93005; 93010; 99284

== ENCOUNTER 2016-06-24 12:14 | Emergency (ER) | payer MEDICAID ==
--- NOTE | 2016-06-24 12:54 | ER Document Report ---
ED Medical Screen (RME) - General Stated Complaint: ABDOMINAL PAIN Notes: 50-year-old male presents emergency Department with diarrhea for at least 4 weeks, was discharged on 06/06 after being treated for c diff. patient is a dialysis patient and was not able to go on friday, HD on T/R/Sa Nephologist: raine PCP: lfety fallon I have greeted and performed a rapid initial assessment of this patient. A comprehensive ED assessment and evaluation of the patient, analysis of test results and completion of the medical decision making process will be conducted by additional ED providers. TRAVEL OUTSIDE OF THE [place] IN LAST 30 DAYS: No - Related Data Allergies/Adverse Reactions: No Known Allergies Allergy (Verified 06/24/16 12:54) Past Medical History - Past Medical History Cardiac Medical History: Reports: Hx Pulmonary Embolism Pulmonary Medical History: Reports: Hx COPD Neurological Medical History: Denies: Hx Seizures Renal/ Medical History: Reports: Hx End Stage Renal Disease. Denies: Hx Peritoneal Dialysis Psychiatric Medical History: Reports: Hx Depression Infectious Medical History: Reports: Hx HIV Past Surgical History: Reports: Hx Cholecystectomy Physical Exam - Vital signs Vitals: Temp Pulse Resp BP Pulse Ox 98.3 F 85 18 117/92 H 100 06/24/16 12:48 06/24/16 12:48 06/24/16 12:48 06/24/16 12:48 06/24/16 12:48 Course - Vital Signs Vital signs: Temp Pulse Resp BP Pulse Ox 98.3 F 85 18 117/92 H 100 06/24/16 12:48 06/24/16 12:48 06/24/16 12:48 06/24/16 12:48 06/24/16 12:48
[2016-06-24] MEDS ORDERED: NORMAL SALINE 1000 ML 1,000 ML IV PRN (12:57)
[2016-06-24 13:36] LABS: ABSOLUTE LYMPHOCYTES (AUTO) 2.1 10^3/uL (0.5-4.7); ABSOLUTE MONOCYTES (AUTO) 0.7 10^3/uL (0.1-1.4); ABSOLUTE NEUT (AUTO) 3.5 10^3/uL (1.7-8.2); BASOPHILS % (AUTO) 0.5 % (0-2); EOSINOPHILS % (AUTO) 0.5 % (0-6); HEMATOCRIT 35.9 % (37.9-51.0); HEMOGLOBIN 12.1 g/dL (13.5-17.0); HGB HCT DIFFERENCE 0.4; MEAN CORPUSCULAR HEMOGLOBIN 32.3 pg (27.0-33.4); MEAN CORPUSCULAR HGB CONC 33.7 g/dL (32.0-36.0); MEAN CORPUSCULAR VOLUME 96 fl (80-97); MONOCYTES % (AUTO) 11.3 % (3-13); RED BLOOD COUNT 3.75 10^6/uL (4.35-5.55); RED CELL DISTRIBUTION WIDTH 17.5 % (11.5-14.0); SEGMENTED NEUTROPHILS % (AUTO) 54.7 % (42-78); WHITE BLOOD COUNT 6.4 10^3/uL (4.0-10.5)
[2016-06-24 13:47] LABS: ALANINE AMINOTRANSFERASE 121 U/L (21-72); ALBUMIN 4.1 g/dL (3.5-5.0); ALKALINE PHOSPHATASE 82 U/L (38-126); ANION GAP 18 (5-19); ASPARTATE AMINO TRANSFERASE 99 U/L (17-59); BILIRUBIN,TOTAL 0.8 mg/dL (0.2-1.3); BLOOD UREA NITROGEN 27 mg/dL (7-20); CALCIUM 9.7 mg/dL (8.4-10.2); CARBON DIOXIDE 22 mmol/L (22-30); CHLORIDE 98 mmol/L (98-107); GLUCOSE 84 mg/dL (75-110); POTASSIUM 3.3 mmol/L (3.6-5.0); SODIUM 138.3 mmol/L (137-145); TOTAL PROTEIN 7.7 g/dL (6.3-8.2)
--- NOTE | 2016-06-24 14:26 | ER Document Report ---
ED General - General Mode of Arrival: Medic Information source: Patient TRAVEL OUTSIDE OF THE [place] IN LAST 30 DAYS: No - HPI Patient complains to provider of: Abdominal Pain Onset: Last week Onset/Duration: Gradual, Worse Quality of pain: Cramping Associated symptoms: Diarrhea, Fever, Nausea, Vomiting Recently seen / treated by doctor: Yes <JUNG BEAN - Last Filed: 06/24/16 14:58> <ARTURO LAMBERT - Last Filed: 06/24/16 21:59> - General Chief Complaint: Abdominal Pain Stated Complaint: ABDOMINAL PAIN Notes: Patient is a 50-year-old male, with history of HIV, C-diff, PE, and smoking, presenting to the emergency department with concerns of diffuse abdominal pain. Patient was diagnosed with C. difficile 05/31/2016, patient was prescribed Vancomycin, which he finished yesterday. Patient states that his symptoms resolves, he had a few solid bowel movements, and has been gradually redeveloping symptoms since then. 06/22/2016, patient was unable to attend his hemodialysis due to severe diarrhea, and today patient has developed black, slimy stool that is particularly concerning, so he decided to come back to the emergency department. Patient admits to intermittent fever and vomiting. Patient was seen here 06/18/2016 for a syncopal episode, but left AMA. 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 (JUNG BEAN) - Related Data Allergies/Adverse Reactions: No Known Allergies Allergy (Verified 06/24/16 12:54) Past Medical History - General Information source: Patient, [facility] Records - Social History Smoking Status: Current Every Day Smoker Cigarette use (# per day): Yes Frequency of alcohol use: Occasional Family History: CAD, DM, Hypertension Patient has suicidal ideation: No Patient has homicidal ideation: No - Past Medical History Cardiac Medical History: Reports: Hx Pulmonary Embolism Pulmonary Medical History: Reports: Hx COPD Neurological Medical History: Denies: Hx Seizures Renal/ Medical History: Reports: Hx End Stage Renal Disease, Hx Hemodialysis Psychiatric Medical History: Reports: Hx Depression Infectious Medical History: Reports: Hx C-Diff, Hx HIV Past Surgical History: Reports: Hx Cholecystectomy - Immunizations Hx Pneumococcal Vaccination: 05/26/15 <JUNG BEAN - Last Filed: 06/24/16 14:58> Review of Systems - Review of Systems Constitutional: See HPI, Fever EENT: No symptoms reported Cardiovascular: No symptoms reported Respiratory: No symptoms reported Gastrointestinal: See HPI, Abdominal pain, Diarrhea, Nausea, Vomiting, Black stools Genitourinary: No symptoms reported Male Genitourinary: No symptoms reported Musculoskeletal: No symptoms reported Skin: No symptoms reported Hematologic/Lymphatic: No symptoms reported Neurological/Psychological: No symptoms reported -: Yes All other systems reviewed and negative <JUNG BEAN - Last Filed: 06/24/16 14:58> Physical Exam - General General appearance: Alert - HEENT Head: Normocephalic, Atraumatic Eyes: Normal Pupils: PERRL - Respiratory Respiratory status: No respiratory distress Chest status: Nontender Breath sounds: Normal Chest palpation: Normal - Cardiovascular Rhythm: Regular Heart sounds: Normal auscultation Murmur: No - Abdominal Tenderness: Tender - Diffusely tender to palpation. Resonant to percussion. - Back Back: Normal - Extremities General upper extremity: Normal inspection, Nontender. No: Edema General lower extremity: Normal inspection, Nontender. No: Edema - Neurological Neuro grossly intact: Yes Cognition: Normal Orientation: AAOx4 Vian Coma Scale Eye Opening: Spontaneous Jessica Coma Scale Verbal: Oriented Vian Coma Scale Motor: Obeys Commands Jessica Coma Scale Total: 15 Speech: Normal - Psychological Associated symptoms: Normal affect, Normal mood - Skin Skin Temperature: Warm Skin Moisture: Dry Skin Color: Normal <JUNG BEAN - Last Filed: 06/24/16 14:58> Course - Laboratory Result Diagrams: 06/24/16 13:07 06/24/16 13:07 <JUNG BEAN - Last Filed: 06/24/16 14:58> - Laboratory Result Diagrams: 06/24/16 13:07 06/24/16 13:07 <ARTURO LAMBERT - Last Filed: 06/24/16 21:59> - Re-evaluation Re-evalutation: 06/24/16 18:46 The patient has had no diarrhea since he arrived here almost 7 hours ago. He did eat a meal, stating the first thing he has eaten since last Friday 4 days ago. He states at this point he is passing some gas but no stool. 06/24/16 21:56 Patient has been here now for approximately 10 hours and has had no stool of any kind passed. He will be given a stool specimen cup and hat to take home and try to obtain a specimen. He is also advised to be sure to go to dialysis tomorrow. (ARTURO LAMBERT) - Vital Signs Vital signs: Temp Pulse Resp BP Pulse Ox 98.5 F 85 12 129/98 H 100 06/24/16 19:17 06/24/16 12:48 06/24/16 19:17 06/24/16 19:17 06/24/16 19:17 (JUNG BEAN) (ARTURO LAMBERT) - Laboratory Laboratory results interpreted by me: 06/24/16 06/24/16 06/24/16 13:07 13:07 13:07 RBC 3.75 L Hgb 12.1 L Hct 35.9 L RDW 17.5 H Plt Count 68 L PT 10.7 L Potassium 3.3 L BUN 27 H Creatinine 4.70 H Est GFR ( Amer) 16 L Est GFR (Non-Af Amer) 13 L AST 99 H ALT 121 H (JUNG BEAN) (ARTURO LAMBERT) Discharge <JUNG BEAN - Last Filed: 06/24/16 14:58> <ARTURO LAMBERT - Last Filed: 06/24/16 21:59> - Discharge Clinical Impression: Abdominal cramps, History of Clostridium difficile colitis, Chronic renal failure, stage 5 Diarrhea Qualifiers: Diarrhea type: unspecified type Qualified Code(s): R19.7 - Diarrhea, unspecified Condition: Stable Disposition: HOME, SELF-CARE Additional Instructions: Try to collect a stool specimen to turn into the lab for processing. Be sure to go to dialysis tomorrow. Follow-up with your doctor after dialysis if still having abdominal cramps. RETURN TO THE EMERGENCY ROOM IF ANY NEW OR WORSENING SYMPTOMS. Forms: Follow-Up Laboratory Testing Scribe Documentation - Scribe Written by Scribe:: Jung Bean 06/24/2016 1426 acting as scribe for :: Kvng <JUNG BEAN - Last Filed: 06/24/16 14:58>
[2016-06-24] MEDS ORDERED: MORPHINE SULFATE 10 MG/ML INJ IV ONE (14:38)
[2016-06-24] MEDS ORDERED: ONDANSETRON HCL INJ/PF 4 MG/2 ML SDV IV ONE (14:38)
[2016-06-24 14:50] LABS: PROTHROMBIN TIME 10.7 SEC (11.4-15.4)
[2016-06-24 22:42] VITALS: BP 136/101
== END 2016-06-24 22:43 | disposition home or self-care (01) ==
LOC: ER 12:14
DX: R10.9 Unspecified abdominal pain (principal); R19.7 Diarrhea, unspecified; N18.5 Chronic kidney disease, stage 5; F17.210 Nicotine dependence, cigarettes, uncomplicated; J44.9 Chronic obstructive pulmonary disease, unspecified; Z99.2 Dependence on renal dialysis; Z90.49 Acquired absence of other specified parts of digestive tract; Z21 Asymptomatic human immunodeficiency virus [HIV] infection status; Z86.711 Personal history of pulmonary embolism
CPT/HCPCS: 99284; 96374; 96375; 36415; 85025; 85610; 80053; J2270; J2405

== ENCOUNTER 2016-06-30 11:09 | Inpatient (IN) | payer MEDICAID ==
[2016-06-30 12:13] LABS: ABSOLUTE LYMPHOCYTES (AUTO) 1.9 10^3/uL (0.5-4.7); ABSOLUTE MONOCYTES (AUTO) 0.8 10^3/uL (0.1-1.4); ABSOLUTE NEUT (AUTO) 3.3 10^3/uL (1.7-8.2); BASOPHILS % (AUTO) 0.4 % (0-2); EOSINOPHILS % (AUTO) 0.1 % (0-6); HEMOGLOBIN 10.9 g/dL (13.5-17.0); HGB HCT DIFFERENCE 0.7; LYMPHOCYTES % (AUTO) 31.8 % (13-45); MEAN CORPUSCULAR HGB CONC 34.1 g/dL (32.0-36.0); MEAN CORPUSCULAR VOLUME 94 fl (80-97); MONOCYTES % (AUTO) 12.9 % (3-13); RED BLOOD COUNT 3.41 10^6/uL (4.35-5.55); RED CELL DISTRIBUTION WIDTH 17.1 % (11.5-14.0); SEGMENTED NEUTROPHILS % (AUTO) 54.8 % (42-78)
[2016-06-30] MEDS ORDERED: MORPHINE SULFATE 10 MG/ML INJ IV ONE (13:10)
[2016-06-30] MEDS ORDERED: NORMAL SALINE 1000 ML 1,000 ML IV ONE (13:10)
[2016-06-30 13:31] LABS: ALANINE AMINOTRANSFERASE 160 U/L (21-72); ALBUMIN 3.2 g/dL (3.5-5.0); ALKALINE PHOSPHATASE 77 U/L (38-126); ANION GAP 16 (5-19); ASPARTATE AMINO TRANSFERASE 161 U/L (17-59); BILIRUBIN,TOTAL 0.6 mg/dL (0.2-1.3); BLOOD UREA NITROGEN 26 mg/dL (7-20); CALCIUM 8.7 mg/dL (8.4-10.2); CARBON DIOXIDE 21 mmol/L (22-30); CHLORIDE 96 mmol/L (98-107); CREATININE RESULT 4.93 mg/dL (0.52-1.25); GLUCOSE 79 mg/dL (75-110); LIPASE 1072.5 U/L (23-300); SODIUM 132.5 mmol/L (137-145); TOTAL PROTEIN 6.3 g/dL (6.3-8.2)
--- NOTE | 2016-06-30 13:58 | ER Document Report ---
ED GI/ - General Chief Complaint: Abdominal Cramping Stated Complaint: ABDOMINAL PAIN Information source: Patient Notes: 50-year-old male with past medical history that is extensive as recorded including HIV on no antiretroviral therapy, C. difficile colitis with an admission and discharge date around 3 weeks ago, pancytopenia, end-stage renal disease on dialysis, a clotting disorder on anticoagulants, and a DO NOT RESUSCITATE order in effect who presents today complaining of some left lower quadrant and epigastric intermittent nonradiating abdominal "pain". Patient denies any aggravating relieving factors. Patient states that he has been slightly incontinent of the minimal amount of urine that he makes for many weeks. He denies any leg weakness, numbness, or increased lower back pain above baseline. Patient denies any fevers or blood in vomiting or diarrhea. Patient didn't complete the course of vancomycin for C. difficile colitis. Patient states they took the patient off the antiretroviral medications secondary to kidney disease and he does not have a current doctor to prescribe these medications. TRAVEL OUTSIDE OF THE [place] IN LAST 30 DAYS: No - HPI Onset: Other - See above Timing/Duration: Gradual Quality of pain: Achy Severity at maximum: Moderate Severity in ED: Moderate Pain Level: 2 Location: Other - See above Sexual history: Inactive Associated symptoms: Other - See above Exacerbated by: Denies Relieved by: Denies Similar symptoms previously: Yes Recently seen / treated by doctor: Yes - Related Data Allergies/Adverse Reactions: No Known Allergies Allergy (Verified 06/24/16 12:54) Past Medical History - Social History Smoking Status: Current Every Day Smoker Frequency of alcohol use: Rare Drug Abuse: None Family History: CAD, DM, Hypertension Patient has suicidal ideation: No Patient has homicidal ideation: No - Past Medical History Cardiac Medical History: Reports: Hx Pulmonary Embolism Pulmonary Medical History: Reports: Hx COPD Neurological Medical History: Denies: Hx Seizures Renal/ Medical History: Reports: Hx End Stage Renal Disease, Hx Hemodialysis. Denies: Hx Peritoneal Dialysis Psychiatric Medical History: Reports: Hx Depression Infectious Medical History: Reports: Hx C-Diff, Hx HIV Past Surgical History: Reports: Hx Cholecystectomy - Immunizations Hx Pneumococcal Vaccination: 05/26/15 Review of Systems - Review of Systems Constitutional: denies: Fever EENT: denies: Eye discharge, Nose discharge Cardiovascular: denies: Chest pain, Palpitations, Dizziness, Lightheaded Respiratory: denies: Short of breath Gastrointestinal: Diarrhea, Vomiting Genitourinary: denies: Dysuria Musculoskeletal: denies: Leg swelling Skin: Other - no hives. denies: Rash Neurological/Psychological: Other - no slurred speech -: Yes All other systems reviewed and negative Physical Exam - Vital signs Vitals: Temp Resp BP 98.0 F 20 148/86 H 06/30/16 11:21 06/30/16 11:21 06/30/16 11:21 Notes: Reviewed vital signs and nursing note as charted by RN. CONSTITUTIONAL: Alert and oriented and responds appropriately to questions. Well -appearing; well-nourished HEAD: Normocephalic; atraumatic EYES: Sclerae non-icteric ENT: Normal nose; no rhinorrhea; moist mucous membranes; pharynx without lesions noted NECK: Supple; non-tender; no cervical lymphadenopathy, no masses CARD: Regular rate and rhythm; no murmurs, no clicks, no rubs, no gallops; symmetric distal pulses RESP: Normal chest excursion without splinting or tachypnea; breath sounds clear and equal bilaterally; no wheezes, no rhonchi, no rales ABD/GI: Normal bowel sounds; non-distended; soft, mildly tender to palpation the epigastric and left lower quadrant regions of the abdomen, no rebound, no guarding; no palpable organomegaly or masses BACK: The back appears normal and is non-tender to palpation, there is no CVA tenderness EXT: Normal ROM in all joints; non-tender to palpation; no cyanosis, no effusions, no edema SKIN: Normal color for age and race; warm; dry; good turgor; capillary refill < 2 seconds; no acute lesions noted NEURO: CN II through XII are intact. Moves all extremities equally; Motor and sensory function intact PSYCH: The patient's mood and manner are appropriate. Grooming and personal hygiene are appropriate. Course - Re-evaluation Re-evalutation: 06/30/16 13:57 I will attempt to obtain basic labs, urinalysis, liver panel, lipase, and reassess. I do not want to perform a rectal examination at this time since I do not know the patient's CD4 count and do not want to introduce an infection. Pain medications have been provided. 06/30/16 14:55 Labs as recorded. Elevated lipase. Patient does not have a gallbladder. Patient's pain is improved with pain medications. Transaminitis consistent with prior laboratory values. Patient will be admitted for pain control and reassessment. - Vital Signs Vital signs: Temp Pulse Resp BP Pulse Ox 98.0 F 20 148/86 H 06/30/16 11:21 06/30/16 11:21 06/30/16 11:21 - Laboratory Result Diagrams: 06/30/16 11:25 06/30/16 12:45 Laboratory results interpreted by me: 06/30/16 06/30/16 11:25 12:45 RBC 3.41 L Hgb 10.9 L Hct 32.0 L RDW 17.1 H Plt Count 142 L Sodium 132.5 L Potassium 3.0 L* Chloride 96 L Carbon Dioxide 21 L BUN 26 H Creatinine 4.93 H Est GFR ( Amer) 15 L Est GFR (Non-Af Amer) 12 L AST 161 H ALT 160 H Albumin 3.2 L Lipase 1072.5 H Discharge - Discharge Clinical Impression: Vomiting and diarrhea Acute pancreatitis Qualifiers: Pancreatitis type: unspecified pancreatitis type Acute pancreatitis complication: unspecified Qualified Code(s): K85.90 - Acute pancreatitis without necrosis or infection, unspecified Condition: Fair Disposition: ADMITTED INPATIENT Admitting Provider: Hospitalist
[2016-06-30 16:05] LABS: APPEARANCE,URINE CLEAR; BILIRUBIN,URINE NEGATIVE (NEGATIVE); GLUCOSE, URINE 50 mg/dL (NEGATIVE); KETONES,URINE 20 mg/dL (NEGATIVE); LEUKOCYTE ESTERASE,URINE NEGATIVE (NEGATIVE); NITRITE,URINE NEGATIVE (NEGATIVE); PROTEIN,URINE 100 mg/dL (NEGATIVE); URINE SPECIFIC GRAVITY 1.008; UROBILINOGEN,URINE NEGATIVE mg/dL (<2.0)
[2016-06-30] MEDS ORDERED: MORPHINE SULFATE 10 MG/ML INJ IV PRN (16:06)
--- NOTE | 2016-06-30 16:19 | PDOC H&P ---
History of Present Illness Admission Date/PCP: 06/30/16 15:59 SALOMÓN BORJAC Patient complains of: Abdominal pain History of Present Illness: LAMAR SMALL is a 50 year old male with past medical history that is extensive as recorded including HIV on no antiretroviral therapy, C. difficile colitis with an admission and discharge date around 3 weeks ago, pancytopenia, end-stage renal disease on dialysis, a clotting disorder on anticoagulants, and a DO NOT RESUSCITATE order in effect who presents today complaining of some left lower quadrant and epigastric intermittent nonradiating abdominal "pain". Patient denies any aggravating relieving factors. Patient states that he has been slightly incontinent of the minimal amount of urine that he makes for many weeks. He denies any leg weakness, numbness, or increased lower back pain above baseline. Patient denies any fevers or blood in vomiting or diarrhea. Patient didn't complete the course of vancomycin for C. difficile colitis. Patient states they took the patient off the antiretroviral medications secondary to kidney disease and he does not have a current doctor to prescribe these medications. Upon evaluation in the ED patient was diagnosed of acute pancreatitis with a lipase over thousand He was subsequently admitted under hospitalist service for further evaluation and care Past Medical History Cardiac Medical History: Reports: Pulmonary Embolism Pulmonary Medical History: Reports: Chronic Obstructive Pulmonary Disease (COPD) Neurological Medical History: Denies: Seizures Renal/ Medical History: Reports: End Stage Renal Disease Psychiatric Medical History: Reports: Depression Infectious Medical History: Reports: Clostridium Difficile, HIV Past Surgical History Past Surgical History: Reports: Cholecystectomy Social History Smoking Status: Current Every Day Smoker Frequency of Alcohol Use: Occasional Hx Recreational Drug Use: No Drugs: None Hx Prescription Drug Abuse: No - Advance Directive Resuscitation Status: Do Not Resuscitate Surrogate healthcare decision maker:: Sister Vanessa Family History Family History: CAD, DM, Hypertension Parental Family History Reviewed: Yes - father father of aortic aneurysm and coronary artery disease Children Family History Reviewed: Yes Sibling(s) Family History Reviewed.: Yes Medication/Allergy Home Medications: Cyclobenzaprine HCl 10 mg PO Q8 PRN 05/08/16 Gabapentin 300 mg PO QHS 05/08/16 Hydroxyzine Pamoate 50 mg PO Q4 PRN 05/08/16 Sevelamer Carbonate [Renvela] 800 mg PO TID 05/08/16 Citalopram Hydrobromide [Celexa 20 mg Tablet] 20 mg PO DAILY #30 tablet Trazodone HCl [Desyrel] 100 mg PO QHS #15 tablet 05/15/16 Budesonide/Formoterol Fumarate [Symbicort HFA 160-4.5 mcg Inhaler 6 gm] 2 inh PO BID 05/31/16 Apixaban [Eliquis 5 mg Tablet] 2.5 mg PO BID 06/30/16 Buspirone HCl [Buspar 10 mg Tablet] 15 mg PO TID 06/30/16 Allergies/Adverse Reactions: No Known Allergies Allergy (Verified 06/30/16 15:53) Review of Systems Constitutional: ABSENT: chills, fever(s), headache(s), weight gain, weight loss Eyes: ABSENT: visual disturbances Ears: ABSENT: hearing changes Cardiovascular: ABSENT: chest pain, dyspnea on exertion, edema, orthropnea, palpitations Respiratory: ABSENT: cough, hemoptysis Gastrointestinal: PRESENT: as per HPI, abdominal pain, diarrhea, nausea, vomiting. ABSENT: constipation, hematemesis, hematochezia Genitourinary: PRESENT: other - Incontinence urine. ABSENT: dysuria, hematuria Musculoskeletal: ABSENT: joint swelling Integumentary: ABSENT: rash, wounds Neurological: ABSENT: abnormal gait, abnormal speech, confusion, dizziness, focal weakness, syncope Psychiatric: ABSENT: anxiety, depression, homidical ideation, suicidal ideation Endocrine: ABSENT: cold intolerance, heat intolerance, polydipsia, polyuria Hematologic/Lymphatic: ABSENT: easy bleeding, easy bruising Physical Exam Vital Signs: Temp Pulse Resp BP Pulse Ox 98.0 F 20 148/86 H 06/30/16 11:21 06/30/16 11:21 06/30/16 11:21 General appearance: PRESENT: mild distress, thin, well-developed Head exam: PRESENT: atraumatic, normocephalic Eye exam: PRESENT: conjunctiva pale, EOMI, PERRLA. ABSENT: scleral icterus Ear exam: PRESENT: normal external ear exam Mouth exam: PRESENT: moist, tongue midline Neck exam: ABSENT: carotid bruit, JVD, lymphadenopathy, thyromegaly Respiratory exam: PRESENT: clear to auscultation jamil. ABSENT: rales, rhonchi, wheezes Cardiovascular exam: PRESENT: RRR. ABSENT: diastolic murmur, rubs, systolic murmur Pulses: PRESENT: normal dorsalis pedis pul Vascular exam: PRESENT: normal capillary refill GI/Abdominal exam: PRESENT: guarding, normal bowel sounds, tenderness - Epigastric area with mild guarding. ABSENT: distended, mass, organolmegaly, rebound Rectal exam: PRESENT: deferred Extremities exam: PRESENT: full ROM. ABSENT: calf tenderness, clubbing, pedal edema Neurological exam: PRESENT: alert, awake, oriented to person, oriented to place , oriented to time, oriented to situation, CN II-XII grossly intact. ABSENT: motor sensory deficit Psychiatric exam: PRESENT: appropriate affect, normal mood. ABSENT: homicidal ideation, suicidal ideation Skin exam: PRESENT: dry, intact, warm. ABSENT: cyanosis, rash Results Laboratory Results: 06/30/16 11:25 06/30/16 12:45 MCV 94 fl (80-97) 06/30/16 11:25 MCH 32.0 pg (27.0-33.4) 06/30/16 11:25 MCHC 34.1 g/dL (32.0-36.0) 06/30/16 11:25 RDW 17.1 % (11.5-14.0) H 06/30/16 11:25 Seg Neutrophils % 54.8 % (42-78) 06/30/16 11:25 Lymphocytes % 31.8 % (13-45) 06/30/16 11:25 Monocytes % 12.9 % (3-13) 06/30/16 11:25 Eosinophils % 0.1 % (0-6) 06/30/16 11:25 Basophils % 0.4 % (0-2) 06/30/16 11:25 Absolute Neutrophils 3.3 10^3/uL (1.7-8.2) 06/30/16 11:25 Absolute Lymphocytes 1.9 10^3/uL (0.5-4.7) 06/30/16 11:25 Absolute Monocytes 0.8 10^3/uL (0.1-1.4) 06/30/16 11:25 Absolute Eosinophils 0.0 10^3/uL (0.0-0.6) 06/30/16 11:25 Absolute Basophils 0.0 10^3/uL (0.0-0.2) 06/30/16 11:25 Chloride 96 mmol/L (98-107) L 06/30/16 12:45 Carbon Dioxide 21 mmol/L (22-30) L 06/30/16 12:45 Anion Gap 16 (5-19) 06/30/16 12:45 Est GFR ( Amer) 15 (>60) L 06/30/16 12:45 Est GFR (Non-Af Amer) 12 (>60) L 06/30/16 12:45 Glucose 79 mg/dL (75-110) 06/30/16 12:45 Calcium 8.7 mg/dL (8.4-10.2) 06/30/16 12:45 Total Bilirubin 0.6 mg/dL (0.2-1.3) 06/30/16 12:45 AST 161 U/L (17-59) H 06/30/16 12:45 ALT 160 U/L (21-72) H 06/30/16 12:45 Alkaline Phosphatase 77 U/L (38-126) 06/30/16 12:45 Total Protein 6.3 g/dL (6.3-8.2) 06/30/16 12:45 Albumin 3.2 g/dL (3.5-5.0) L 06/30/16 12:45 Lipase 1072.5 U/L (23-300) H 06/30/16 12:45 Urine Color YELLOW 06/30/16 15:30 Urine Appearance CLEAR 06/30/16 15:30 Urine pH 7.0 (5.0-9.0) 06/30/16 15:30 Ur Specific Monarch 1.008 06/30/16 15:30 Urine Protein 100 mg/dL (NEGATIVE) H 06/30/16 15:30 Urine Glucose (UA) 50 mg/dL (NEGATIVE) H 06/30/16 15:30 Urine Ketones 20 mg/dL (NEGATIVE) H 06/30/16 15:30 Urine Blood SMALL (NEGATIVE) H 06/30/16 15:30 Urine Nitrite NEGATIVE (NEGATIVE) 06/30/16 15:30 Ur Leukocyte Esterase NEGATIVE (NEGATIVE) 06/30/16 15:30 Urine WBC (Auto) 1 /HPF 06/30/16 15:30 Urine RBC (Auto) 0 /HPF 06/30/16 15:30 Assessment & Plan - Diagnosis (1) Acute pancreatitis Qualifiers: Pancreatitis type: unspecified pancreatitis type Acute pancreatitis complication: unspecified Qualified Code(s): K85.90 - Acute pancreatitis without necrosis or infection, unspecified Is this a current diagnosis for this admission?: YesPlan: We will obtain a CT abdomen and pelvis no contrast Noted that patient does not drink alcohol and is status post cholecystectomy (2) Vomiting and diarrhea Is this a current diagnosis for this admission?: YesPlan: Hydrate carefully as the patient is on dialysis We will treat empirically for acute enterocolitis with Cipro and Flagyl (3) Chronic renal failure, stage 5 Is this a current diagnosis for this admission?: YesPlan: On chronic hemodialysis Friday We'll ask Dr. Molina to consult dialysis to be performed tomorrow (4) HIV disease Is this a current diagnosis for this admission?: YesPlan: No therapy since February 2016 We will order CD4 count - Time Time Spent with patient: We will obtain CT abdomen and pelvis tonight Patient states he had a normal and endoscopy a year ago We will likely consult Dr. Salcedo in a.m.
[2016-06-30] MEDS ORDERED: POTASSIUM CHLORIDE 10 MEQ TABLET.SA PO ONE (16:45)
[2016-06-30] MEDS: NORMAL SALINE 1000 ML 1,000 ML IV PRN (16:56)
[2016-06-30] MEDS ORDERED: CIPROFLOXACIN 200 MG/D5W RTU 200 MG/100 ML RTUPB IV SCH (19:00)
[2016-06-30] MEDS: MORPHINE SULFATE 10 MG/ML INJ IV PRN (20:46)
[2016-06-30] MEDS: METRONIDAZOLE 500 MG/NS RTU 100 ML IV SCH (21:03)
[2016-06-30] MEDS: HEPARIN SOD (PORCINE) 5,000 UNIT/ML 1 ML SYRINGE SUBCUT SCH (23:48)
[2016-07-01] MEDS: PANTOPRAZOLE SODIUM 40 MG VIAL IV SCH ×3 (00:31→23:05)
[2016-07-01] MEDS: MORPHINE SULFATE 10 MG/ML INJ IV PRN ×6 (00:31→23:05)
[2016-07-01] MEDS: NORMAL SALINE 1000 ML 1,000 ML IV PRN ×2 (00:31→10:47)
[2016-07-01] MEDS: METRONIDAZOLE 500 MG/NS RTU 100 ML IV SCH ×3 (00:31→11:29)
[2016-07-01] MEDS: ONDANSETRON HCL INJ/PF 4 MG/2 ML SDV IV PRN ×2 (04:19→10:51)
[2016-07-01 08:04] LABS: HEMATOCRIT 30.7 % (37.9-51.0); HEMOGLOBIN 10.5 g/dL (13.5-17.0); HGB HCT DIFFERENCE 0.8; MEAN CORPUSCULAR HEMOGLOBIN 32.4 pg (27.0-33.4); MEAN CORPUSCULAR HGB CONC 34.1 g/dL (32.0-36.0); MEAN CORPUSCULAR VOLUME 95 fl (80-97); RED BLOOD COUNT 3.23 10^6/uL (4.35-5.55); WHITE BLOOD COUNT 5.7 10^3/uL (4.0-10.5)
[2016-07-01 08:18] LABS: ALANINE AMINOTRANSFERASE 128 U/L (21-72); ALBUMIN 3.2 g/dL (3.5-5.0); ALKALINE PHOSPHATASE 75 U/L (38-126); ANION GAP 14 (5-19); ASPARTATE AMINO TRANSFERASE 95 U/L (17-59); BILIRUBIN,TOTAL 0.6 mg/dL (0.2-1.3); BLOOD UREA NITROGEN 27 mg/dL (7-20); CALCIUM 8.8 mg/dL (8.4-10.2); CARBON DIOXIDE 20 mmol/L (22-30); CHLORIDE 100 mmol/L (98-107); CHOLESTEROL 191.13 mg/dL (0-200); CREATININE RESULT 4.66 mg/dL (0.52-1.25); GLUCOSE 68 mg/dL (75-110); LIPASE 383.6 U/L (23-300); POTASSIUM 3.1 mmol/L (3.6-5.0); SODIUM 134.3 mmol/L (137-145); TOTAL PROTEIN 6.3 g/dL (6.3-8.2); TRIGLYCERIDES 103 mg/dL (<150)
[2016-07-01 08:26] LABS: ANISOCYTOSIS 2+; BAND NEUTROPHILS % (MANUAL) 7 % (3-5); BASOPHILS % (MANUAL) 2 % (0-2); EOSINOPHILS % (MANUAL) 0 % (0-6); HYPOCHROMASIA SLIGHT; LYMPHOCYTES % (MANUAL) 34 % (13-45); OVALOCYTES 1+; POIKILOCYTOSIS 1+; POLYCHROMASIA SLIGHT; TOTAL CELLS COUNTED 100; TOXIC GRANULATION SLIGHT; TOXIC VACUOLATION PRESENT
[2016-07-01 08:28] LABS: Direct HDL 119 mg/dL (>40)
[2016-07-01 08:37] LABS: DIRECT LDL < 30 mg/dL (<100)
[2016-07-01] MEDS: HEPARIN SOD (PORCINE) 5,000 UNIT/ML 1 ML SYRINGE SUBCUT SCH ×2 (09:37→22:48)
[2016-07-01] MEDS ORDERED: POTASSIUM CHLORIDE 10 MEQ TABLET.SA PO ONE ×2 (12:43)
[2016-07-01] MEDS: SUCRALFATE SUSP 1 GM/10 ML UDCUP PO SCH ×2 (15:43→23:05)
[2016-07-01] MEDS: VANCOMYCIN HCL INJ 500 MG VIAL PO SCH (19:06)
[2016-07-01] MEDS: METRONIDAZOLE 500 MG TABLET PO SCH (19:07)
--- NOTE | 2016-07-01 20:02 | PDOC PROGRESS REPORT ---
Subjective Progress Note for:: 07/01/16 Subjective:: Pain somewhat improved diarrhea is persistent ; test was positive for C diff Physical Exam Vital Signs: Temp Pulse Resp BP Pulse Ox 98.0 F 67 20 130/71 H 100 07/01/16 15:59 07/01/16 15:59 07/01/16 15:59 07/01/16 15:59 07/01/16 15:59 Intake & Output 06/30/16 07/01/16 07/02/16 00:59 00:59 00:59 Intake Total 240 Output Total 450 Balance -210 Weight 72 kg 72 kg General appearance: PRESENT: no acute distress, well-developed, well-nourished Head exam: PRESENT: atraumatic, normocephalic Eye exam: PRESENT: conjunctiva pink, EOMI, PERRLA. ABSENT: scleral icterus Ear exam: PRESENT: normal external ear exam Mouth exam: PRESENT: moist, tongue midline Neck exam: ABSENT: carotid bruit, JVD, lymphadenopathy, thyromegaly Respiratory exam: PRESENT: clear to auscultation jamil. ABSENT: rales, rhonchi, wheezes Cardiovascular exam: PRESENT: RRR. ABSENT: diastolic murmur, rubs, systolic murmur Pulses: PRESENT: normal dorsalis pedis pul Vascular exam: PRESENT: normal capillary refill GI/Abdominal exam: PRESENT: guarding, normal bowel sounds, soft, tenderness - epigastrium with mild guarding. ABSENT: distended, mass, organolmegaly, rebound Rectal exam: PRESENT: deferred Extremities exam: PRESENT: full ROM. ABSENT: calf tenderness, clubbing, pedal edema Neurological exam: PRESENT: alert, awake, oriented to person, oriented to place , oriented to time, oriented to situation, CN II-XII grossly intact. ABSENT: motor sensory deficit Psychiatric exam: PRESENT: appropriate affect, normal mood. ABSENT: homicidal ideation, suicidal ideation Skin exam: PRESENT: dry, intact, warm. ABSENT: cyanosis, rash Results Laboratory Results: 07/01/16 07:40 07/01/16 07:40 07/01/16 07/01/16 07/01/16 00:15 00:46 07:40 WBC 5.7 RBC 3.23 L Hgb 10.5 L Hct 30.7 L MCV 95 MCH 32.4 MCHC 34.1 RDW 17.0 H Plt Count 85 L Seg Neutrophils % Not Reportable Lymphocytes % Not Reportable Monocytes % Not Reportable Eosinophils % Not Reportable Basophils % Not Reportable Absolute Neutrophils Not Reportable Absolute Lymphocytes Not Reportable Absolute Monocytes Not Reportable Absolute Eosinophils Not Reportable Absolute Basophils Not Reportable Sodium Potassium Chloride Carbon Dioxide Anion Gap BUN Creatinine Est GFR ( Amer) Est GFR (Non-Af Amer) Glucose Calcium Magnesium 1.5 L Total Bilirubin AST ALT Alkaline Phosphatase Total Protein Albumin Triglycerides Cholesterol LDL Cholesterol Direct VLDL Cholesterol HDL Cholesterol Lipase Stool Occult Blood NEGATIVE 07/01/16 07:40 WBC RBC Hgb Hct MCV MCH MCHC RDW Plt Count Seg Neutrophils % Lymphocytes % Monocytes % Eosinophils % Basophils % Absolute Neutrophils Absolute Lymphocytes Absolute Monocytes Absolute Eosinophils Absolute Basophils Sodium 134.3 L Potassium 3.1 L Chloride 100 Carbon Dioxide 20 L Anion Gap 14 BUN 27 H Creatinine 4.66 H Est GFR ( Amer) 16 L Est GFR (Non-Af Amer) 13 L Glucose 68 L Calcium 8.8 Magnesium Total Bilirubin 0.6 AST 95 H ALT 128 H Alkaline Phosphatase 75 Total Protein 6.3 Albumin 3.2 L Triglycerides 103 Cholesterol 191.13 LDL Cholesterol Direct < 30 VLDL Cholesterol 21.0 HDL Cholesterol 119 Lipase 383.6 H Stool Occult Blood 07/01/16 00:15 C. difficile Tox (PCR) POSITIVE 07/01/16 14:15 Blood Culture - Pending Blood 07/01/16 12:02 Blood Culture - Pending Blood Impressions: Abdomen/Pelvis CT 06/30/16 16:21 IMPRESSION: DIFFUSE FATTY INFILTRATION OF THE LIVER. TINY NONOBSTRUCTING CALYCEAL CALCULUS IN THE RIGHT KIDNEY. NO SIGNIFICANT OR ACUTE PROCESS IN THE ABDOMEN OR PELVIS. Assessment & Plan - Diagnosis (1) Acute pancreatitis Qualifiers: Pancreatitis type: unspecified pancreatitis type Acute pancreatitis complication: unspecified Qualified Code(s): K85.90 - Acute pancreatitis without necrosis or infection, unspecified Is this a current diagnosis for this admission?: YesPlan: resolving etiology unclear patient denies recent alcohol intake no evidence of acute cholecystitis (2) Vomiting and diarrhea Is this a current diagnosis for this admission?: YesPlan: diarrhea is persistent vomiting subsided patient is tolerating a diet initiated treatment for C Diff ; Patient has reccurence of C diff ; will treat with flagyl and Vancomycin Patient may need treatment with Dificid if no clinical improvement ; noted that patient has no evidence of pancolitis on CT other causes of colitis : stools sent for C+S, isospora, cryptosporidium (3) Chronic renal failure, stage 5 Is this a current diagnosis for this admission?: YesPlan: continue HD (4) HIV disease Is this a current diagnosis for this admission?: YesPlan: Patient stopped all meds in 05/11/16 05/11/16 07/01/16 05:34 05:34 00:15 % CD4 Cells 14.8 L Absolute CD4 Count 237 L T-Lymph CD4/CD8 Ratio 0.21 L % CD8 Cells 70.2 H Absolute CD8 Count 1123 H C. difficile Tox (PCR) POSITIVE HIV-1 RNA Qnt (RT-PCR) 633384 HIV-1 RNA (PCR) log10 5.086 CD4 count 237 in April Patient is immunosuppressed and at risk of opportunistic infection discussed at lengh importance to restart antiretroviral therapy - Time Time Spent with patient: 25-34 minutes
--- NOTE | 2016-07-01 20:53 | PDOC CONSULTATION ---
Consultation Consult Date: 07/01/16 Attending physician:: SHANKAR NELSON Consult reason:: I was asked to see this patient for Dr. Jamie Molina for supervision of dialysis while here in the hospital. History of Present Illness Admission Date/PCP: 06/30/16 16:02 ANGEL BORJA History of Present Illness: LAMAR SMALL is a 50 year old male with past medical history that is extensive as recorded including HIV on no antiretroviral therapy, C. difficile colitis with an admission and discharge date around 3 weeks ago, pancytopenia, end-stage renal disease on dialysis, a clotting disorder on anticoagulants, and a DO NOT RESUSCITATE order in effect who presents today complaining of some left lower quadrant and epigastric intermittent nonradiating abdominal "pain". Patient denies any aggravating relieving factors. Patient states that he has been slightly incontinent of the minimal amount of urine that he makes for many weeks. He denies any leg weakness, numbness, or increased lower back pain above baseline. Patient denies any fevers or blood in vomiting or diarrhea. Patient didn't complete the course of vancomycin for C. difficile colitis. Patient states they took the patient off the antiretroviral medications secondary to kidney disease and he does not have a current doctor to prescribe these medications. Upon evaluation in the ED patient was diagnosed of acute pancreatitis with a lipase over thousand He was subsequently admitted under hospitalist service for further evaluation and care. Subsequently he also was diagnosed to have C. difficile positive. Patient is supervised on hemodialysis by Dr. Jamie Molina. He usually dialyzes on Tuesdays, , and Saturdays. He said his last dialysis was last week. He was unable to go to his dialysis on Friday because he was sick. He was admitted yesterday. He tells me that he is always dehydrated because of his GI symptoms. I saw this patient tonight during dialysis treatment. He still having abdominal discomfort although has not had any nausea or vomiting. He tolerated the dialysis procedure tonight. He didn't have any other complaints aside from the above. Past Medical History Cardiac Medical History: Reports: Pulmonary Embolism Pulmonary Medical History: Reports: Chronic Obstructive Pulmonary Disease (COPD) Renal/ Medical History: Reports: End Stage Renal Disease Psychiatric Medical History: Reports: Depression Infectious Medical History: Reports: Clostridium Difficile, HIV Past Surgical History Past Surgical History: Reports: Cholecystectomy Social History Information Source: Patient Smoking Status: Current Every Day Smoker Frequency of Alcohol Use: Occasional Hx Recreational Drug Use: No Drugs: None Hx Prescription Drug Abuse: No - Advance Directive Resuscitation Status: Do Not Resuscitate Family History Family History: Reviewed & Not Pertinent Parental Family History Reviewed: Yes Children Family History Reviewed: No Sibling(s) Family History Reviewed.: No Medication/Allergy Home Medications: Cyclobenzaprine HCl 10 mg PO Q8HP PRN 05/08/16 Gabapentin 300 mg PO QHS 05/08/16 Hydroxyzine Pamoate 50 mg PO Q4HP PRN 05/08/16 Sevelamer Carbonate [Renvela] 800 mg PO TID 05/08/16 Citalopram Hydrobromide [Celexa 20 mg Tablet] 20 mg PO DAILY #30 tablet Trazodone HCl [Desyrel] 100 mg PO QHS #15 tablet 05/15/16 Apixaban [Eliquis 5 mg Tablet] 5 mg PO BID 06/30/16 Buspirone HCl [Buspar 10 mg Tablet] 15 mg PO TID 06/30/16 Albuterol Sulfate [Proair HFA] 1 puff IH Q4HP PRN 07/01/16 Budesonide/Formoterol Fumarate [Symbicort Hfa 160-4.5 Mcg Inhaler 6 gm] 2 puff IH Q12 07/01/16 Lorazepam [Ativan 0.5 mg Tablet] 0.5 mg PO Q8HP PRN 07/01/16 Allergies/Adverse Reactions: No Known Allergies Allergy (Verified 06/30/16 15:53) Review of Systems All systems: reviewed and no additional remarkable complaints except as stated Review of Systems: Constitutional: ABSENT: chills, fatigue, fever(s), headache(s), weight gain, weight loss Eyes: ABSENT: visual disturbances Ears: ABSENT: hearing changes Cardiovascular: ABSENT: chest pain, dyspnea on exertion, edema, orthropnea, palpitations Respiratory: ABSENT: cough, dyspnea, hemoptysis Gastrointestinal: ABSENT: constipation, hematemesis, hematochezia, nausea, vomiting; admits abdominal pain and diarrhea Genitourinary: ABSENT: dysuria, hematuria Musculoskeletal: ABSENT: joint swelling Integumentary: ABSENT: rash, wounds Neurological: ABSENT: abnormal gait, abnormal speech, confusion, dizziness, focal weakness, numbness, syncope Psychiatric: ABSENT: anxiety, depression Endocrine: ABSENT: cold intolerance, heat intolerance, polydipsia, polyuria Hematologic/Lymphatic: ABSENT: easy bleeding, easy bruising, lymphadenopathy Physical Exam Vital Signs: Temp Pulse Resp BP Pulse Ox 98.0 F 67 20 130/71 H 100 07/01/16 15:59 07/01/16 15:59 07/01/16 15:59 07/01/16 15:59 07/01/16 15:59 Intake & Output 06/30/16 07/01/16 07/02/16 06:59 06:59 06:59 Intake Total 240 Output Total 50 400 Balance -50 -160 Weight 72 kg Exam: General appearance: no acute distress, cooperative, well-developed, well- nourished Head exam: PRESENT: atraumatic, normocephalic Eye exam: PRESENT: Conjunctiva [place], EOMI, PERRLA. ABSENT: conjunctival injection, scleral icterus Mouth exam: PRESENT: moist, neck supple, tongue midline Neck exam: PRESENT: full ROM. ABSENT: carotid bruit, JVD, lymphadenopathy, thyromegaly Respiratory exam: PRESENT: clear to auscultation bilaterally. ABSENT: rales, rhonchi, stridor, wheezes Cardiovascular exam: PRESENT: RRR, +S1, +S2. ABSENT: systolic murmur Pulses: PRESENT: normal radial pulses, normal dorsalis pedis pulses GI/Abdominal exam: PRESENT: normal bowel sounds, soft. ABSENT: guarding, mass, tenderness Rectal exam: deferred Extremities exam: PRESENT: full ROM. ABSENT: calf tenderness, pedal edema Musculoskeletal: PRESENT: full ROM. ABSENT: deformity Neurological exam: PRESENT: alert, Awake, Oriented to person, Oriented to place , Oriented to time, reflexes normal, CN II-XII grossly intact. ABSENT: motor sensory deficit Psychiatric exam: PRESENT: appropriate affect, normal mood. ABSENT: homicidal ideation, suicidal ideation Skin exam: PRESENT: intact, dry, warm. ABSENT: rash Results Laboratory Results: 07/01/16 07:40 07/01/16 07:40 07/01/16 07/01/16 07/01/16 00:15 00:46 07:40 WBC 5.7 RBC 3.23 L Hgb 10.5 L Hct 30.7 L MCV 95 MCH 32.4 MCHC 34.1 RDW 17.0 H Plt Count 85 L Seg Neutrophils % Not Reportable Lymphocytes % Not Reportable Monocytes % Not Reportable Eosinophils % Not Reportable Basophils % Not Reportable Absolute Neutrophils Not Reportable Absolute Lymphocytes Not Reportable Absolute Monocytes Not Reportable Absolute Eosinophils Not Reportable Absolute Basophils Not Reportable Sodium Potassium Chloride Carbon Dioxide Anion Gap BUN Creatinine Est GFR ( Amer) Est GFR (Non-Af Amer) Glucose Calcium Magnesium 1.5 L Total Bilirubin AST ALT Alkaline Phosphatase Total Protein Albumin Triglycerides Cholesterol LDL Cholesterol Direct VLDL Cholesterol HDL Cholesterol Lipase Stool Occult Blood NEGATIVE 07/01/16 07:40 WBC RBC Hgb Hct MCV MCH MCHC RDW Plt Count Seg Neutrophils % Lymphocytes % Monocytes % Eosinophils % Basophils % Absolute Neutrophils Absolute Lymphocytes Absolute Monocytes Absolute Eosinophils Absolute Basophils Sodium 134.3 L Potassium 3.1 L Chloride 100 Carbon Dioxide 20 L Anion Gap 14 BUN 27 H Creatinine 4.66 H Est GFR ( Amer) 16 L Est GFR (Non-Af Amer) 13 L Glucose 68 L Calcium 8.8 Magnesium Total Bilirubin 0.6 AST 95 H ALT 128 H Alkaline Phosphatase 75 Total Protein 6.3 Albumin 3.2 L Triglycerides 103 Cholesterol 191.13 LDL Cholesterol Direct < 30 VLDL Cholesterol 21.0 HDL Cholesterol 119 Lipase 383.6 H Stool Occult Blood Impressions: Abdomen/Pelvis CT 06/30/16 16:21 IMPRESSION: DIFFUSE FATTY INFILTRATION OF THE LIVER. TINY NONOBSTRUCTING CALYCEAL CALCULUS IN THE RIGHT KIDNEY. NO SIGNIFICANT OR ACUTE PROCESS IN THE ABDOMEN OR PELVIS. Assessment & Plan - Diagnosis (1) End stage renal disease Is this a current diagnosis for this admission?: YesPlan: We did dialysis today for 2 hours hours, using the patient's access, with 3 potassium bath, blood flow rate of 250 mL per minute, dialysate flow rate of 500 mL per minute, ultrafiltration and on, no heparin and no Procrit during dialysis. Patient was monitored during dialysis treatment and tolerated dialysis very well without any problems. Dr. Molina will be back tomorrow and will assume care and supervision of his dialysis while in the hospital. (2) Hypokalemia Is this a current diagnosis for this admission?: YesPlan: Patient was dialyzed with 3 potassium bath. (3) Anemia in chronic kidney disease (CKD) Is this a current diagnosis for this admission?: YesPlan: Procrit when necessary during dialysis. He did not receive it today. (4) Acute pancreatitis Qualifiers: Pancreatitis type: unspecified pancreatitis type Acute pancreatitis complication: unspecified Qualified Code(s): K85.90 - Acute pancreatitis without necrosis or infection, unspecified Is this a current diagnosis for this admission?: Yes (5) C. difficile diarrhea Is this a current diagnosis for this admission?: Yes - Notes Notes: Thank you very much for this consultation. - Time Time Spent: 50 to 70 Minutes
[2016-07-01] MEDS ORDERED: NALBUPHINE HCL INJ 10 MG/1 ML AMPULE ONE (22:05)
[2016-07-02] MEDS: MORPHINE SULFATE 10 MG/ML INJ IV PRN ×7 (03:33→23:31)
[2016-07-02] MEDS: ONDANSETRON HCL INJ/PF 4 MG/2 ML SDV IV PRN ×4 (03:33→23:31)
[2016-07-02] MEDS: VANCOMYCIN HCL INJ 500 MG VIAL PO SCH ×5 (05:54→23:30)
[2016-07-02] MEDS: METRONIDAZOLE 500 MG TABLET PO SCH ×5 (05:54→23:45)
[2016-07-02] MEDS: SUCRALFATE SUSP 1 GM/10 ML UDCUP PO SCH ×4 (09:15→23:05)
[2016-07-02] MEDS: PANTOPRAZOLE SODIUM 40 MG VIAL IV SCH ×2 (09:17→23:05)
[2016-07-02] MEDS: HEPARIN SOD (PORCINE) 5,000 UNIT/ML 1 ML SYRINGE SUBCUT SCH ×2 (09:23→23:04)
[2016-07-02] MEDS: NORMAL SALINE 1000 ML 1,000 ML IV PRN ×2 (10:56→19:24)
--- NOTE | 2016-07-02 15:42 | PDOC PROGRESS REPORT ---
Subjective Progress Note for:: 07/02/16 Subjective:: Reason for visit: Follow-up C. difficile colitis, end-stage renal disease Hospital course: Per H&P "LAMAR SMALL is a 50 year old male with past medical history that is extensive as recorded including HIV on no antiretroviral therapy, C. difficile colitis with an admission and discharge date around 3 weeks ago, pancytopenia, end-stage renal disease on dialysis, a clotting disorder on anticoagulants, and a DO NOT RESUSCITATE order in effect who presents today complaining of some left lower quadrant and epigastric intermittent nonradiating abdominal "pain". Patient denies any aggravating relieving factors. Patient states that he has been slightly incontinent of the minimal amount of urine that he makes for many weeks. He denies any leg weakness, numbness, or increased lower back pain above baseline. Patient denies any fevers or blood in vomiting or diarrhea. Patient didn't complete the course of vancomycin for C. difficile colitis. Patient states they took the patient off the antiretroviral medications secondary to kidney disease and he does not have a current doctor to prescribe these medications. Upon evaluation in the ED patient was diagnosed of acute pancreatitis with a lipase over thousand He was subsequently admitted under hospitalist service for further evaluation and care." I inherited his care this morning and he reports that he cannot afford the vancomycin for treatment of his C. difficile colitis and is not surprised he had a recurrence. Subjective: He continues to report lower abdominal pain described as dull aching pain, no longer sharp stabbing, no longer radiating but persistent and unrelenting. No exacerbating or alleviating factors that he can think of aside from narcotics. He denies chest pain, palpitations, dyspnea, nausea vomiting. He reports his stools are turned consistency of pudding and a dark brown, a marked improvement. ROS: per HPI plus a total of 10 systems reviewed, pertinent positives and negatives noted above, remaining systems negative. Physical Exam Vital Signs: Temp Pulse Resp BP Pulse Ox 98.0 F 56 L 18 139/80 H 100 07/02/16 11:30 07/02/16 11:30 07/02/16 11:30 07/02/16 11:30 07/02/16 11:30 Intake & Output 07/01/16 07/02/16 07/03/16 06:59 06:59 06:59 Intake Total 840 Output Total 50 1400 Balance -50 -560 Weight 72 kg 76.2 kg EXAM GENERAL: NAD; well developed, well nourished; no obese; alert and oriented to person, place, time, situation HEENT: normocephalic, atraumatic; no conjunctival injection, no scleral icterus ; oral mucosa moist; RESPIRATORY: no accessory muscle use, no increased WOB, good air entry bilaterally; no wheezes, rales, rhonchi; no inspiratory crackles CARDIO: no JVD; RRR; no systolic murmur; no tachycardia GI: soft; nondistended; normal bowel sounds; no hepato spleno megaly; no rebound, rigidity, guarding; tenderness to palpation and percussion across the lower abdomen VASCULAR: no carotid bruit; no abdominal bruit; no pallor; 2+ radial, DP pulse ; normal capillary refill EXTREMITIES: no calf tender; no palpable cords in calf; no clubbing, cyanosis , pedal edema PSYCH: normal affect, normal mood SKIN: warm; moist; no petechiae; no telengectasias; no jaundice; no rash Results Laboratory Results: 07/01/16 07:40 07/01/16 07:40 Impressions: Abdomen/Pelvis CT 06/30/16 16:21 IMPRESSION: DIFFUSE FATTY INFILTRATION OF THE LIVER. TINY NONOBSTRUCTING CALYCEAL CALCULUS IN THE RIGHT KIDNEY. NO SIGNIFICANT OR ACUTE PROCESS IN THE ABDOMEN OR PELVIS. Status: Imported from PACS Assessment & Plan - Diagnosis (1) Acute pancreatitis Qualifiers: Pancreatitis type: unspecified pancreatitis type Acute pancreatitis complication: unspecified Qualified Code(s): K85.90 - Acute pancreatitis without necrosis or infection, unspecified Is this a current diagnosis for this admission?: YesPlan: Based largely on a markedly elevated lipase at presentation, CT scan of the abdomen and pelvis reviewed by me does not show any obvious peripancreatic stranding but is lacking in IV contrast due to his end-stage renal disease. He is tolerating a regular diet without difficulty making this less likely explanation for his abdominal pain. (2) C. difficile diarrhea Is this a current diagnosis for this admission?: YesPlan: Recurrence due to medical noncompliance from financial stressors. Patient states he is able to afford indwelling to consume the Flagyl as an outpatient. Continue oral antibiotics now awaiting resolution of his abdominal discomfort and diarrhea. (3) End stage renal disease Is this a current diagnosis for this admission?: YesPlan: Hemodialysis per nephrology. (4) Fatty liver disease, nonalcoholic Is this a current diagnosis for this admission?: YesPlan: Unclear if controlling some of his discomfort or not but likely accounts for any abnormalities of his liver function tests. (5) HIV disease Is this a current diagnosis for this admission?: YesPlan: Reportedly cannot find a physician willing to prescribe the medication while he is on hemodialysis. (6) Hypokalemia Is this a current diagnosis for this admission?: YesPlan: Continue to monitor, defer to nephrology during dialysis. (7) Hypomagnesemia Is this a current diagnosis for this admission?: YesPlan: Monitor and replace, likely secondary to GI losses. - Time Time Spent with patient: 35 or more minutes - Plan Summary Plan Summary: Anticipate discharge in the next 2448 hrs., perhaps as early as tomorrow after dialysis.
--- NOTE | 2016-07-02 16:06 | PDOC PROGRESS REPORT ---
Subjective Progress Note for:: 07/02/16 Subjective:: Seen today.No more abdominal pains but still has diarrhoea. No fever or chills.No bloody stools.Says was mostly compliant with [facility] as out patient after discharge , when admitted here last month. Physical Exam Vital Signs: Temp Pulse Resp BP Pulse Ox 98.0 F 56 L 18 139/80 H 100 07/02/16 11:30 07/02/16 11:30 07/02/16 11:30 07/02/16 11:30 07/02/16 11:30 Intake & Output 07/01/16 07/02/16 07/03/16 06:59 06:59 06:59 Intake Total 840 Output Total 50 1400 Balance -50 -560 Weight 72 kg 76.2 kg General appearance: PRESENT: no acute distress Respiratory exam: PRESENT: clear to auscultation jamil. ABSENT: crackles, rhonchi Cardiovascular exam: PRESENT: +S1, +S2 GI/Abdominal exam: PRESENT: normal bowel sounds, soft. ABSENT: distended, tenderness Results Laboratory Results: 07/01/16 07:40 07/01/16 07:40 Impressions: Abdomen/Pelvis CT 06/30/16 16:21 IMPRESSION: DIFFUSE FATTY INFILTRATION OF THE LIVER. TINY NONOBSTRUCTING CALYCEAL CALCULUS IN THE RIGHT KIDNEY. NO SIGNIFICANT OR ACUTE PROCESS IN THE ABDOMEN OR PELVIS. Assessment & Plan - Diagnosis (1) Acute pancreatitis Qualifiers: Pancreatitis type: unspecified pancreatitis type Acute pancreatitis complication: unspecified Qualified Code(s): K85.90 - Acute pancreatitis without necrosis or infection, unspecified Is this a current diagnosis for this admission?: YesPlan: Improving pancreatic enzymes. (2) Anemia in chronic kidney disease (CKD) Is this a current diagnosis for this admission?: YesPlan: Monitor.Active C.diff which is concerning. (3) C. difficile diarrhea Is this a current diagnosis for this admission?: YesPlan: As per hospitalist. (4) End stage renal disease Is this a current diagnosis for this admission?: YesPlan: Next HD due tomorrow.Orders placed for it. (5) Hypokalemia Is this a current diagnosis for this admission?: YesPlan: Monitor. (6) HIV disease Is this a current diagnosis for this admission?: YesPlan: Non compliant with rxs.
[2016-07-02] MEDS: LACTOBACILLUS ACIDOPHILUS 250 MG TAB PO SCH (17:12)
[2016-07-03] MEDS: MORPHINE SULFATE 10 MG/ML INJ IV PRN ×6 (03:38→21:44)
[2016-07-03 05:35] LABS: ABSOLUTE LYMPHOCYTES (AUTO) 2.2 10^3/uL (0.5-4.7); ABSOLUTE MONOCYTES (AUTO) 0.5 10^3/uL (0.1-1.4); ABSOLUTE NEUT (AUTO) 1.6 10^3/uL (1.7-8.2); BASOPHILS % (AUTO) 0.2 % (0-2); EOSINOPHILS % (AUTO) 0.8 % (0-6); HEMATOCRIT 26.8 % (37.9-51.0); HEMOGLOBIN 9.4 g/dL (13.5-17.0); HGB HCT DIFFERENCE 1.4; LYMPHOCYTES % (AUTO) 50.8 % (13-45); MEAN CORPUSCULAR HEMOGLOBIN 32.7 pg (27.0-33.4); MEAN CORPUSCULAR VOLUME 94 fl (80-97); MONOCYTES % (AUTO) 10.7 % (3-13); RED BLOOD COUNT 2.86 10^6/uL (4.35-5.55); RED CELL DISTRIBUTION WIDTH 17.3 % (11.5-14.0); SEGMENTED NEUTROPHILS % (AUTO) 37.5 % (42-78); WHITE BLOOD COUNT 4.3 10^3/uL (4.0-10.5)
[2016-07-03 05:54] LABS: ANION GAP 10 (5-19); BLOOD UREA NITROGEN 15 mg/dL (7-20); CALCIUM 8.2 mg/dL (8.4-10.2); CARBON DIOXIDE 20 mmol/L (22-30); CHLORIDE 108 mmol/L (98-107); CREATININE RESULT 3.01 mg/dL (0.52-1.25); GLUCOSE 85 mg/dL (75-110); POTASSIUM 3.2 mmol/L (3.6-5.0); SODIUM 137.5 mmol/L (137-145)
[2016-07-03] MEDS: VANCOMYCIN HCL INJ 500 MG VIAL PO SCH ×3 (06:29→18:48)
[2016-07-03] MEDS: METRONIDAZOLE 500 MG TABLET PO SCH ×3 (08:28→18:50)
[2016-07-03] MEDS ORDERED: HEPARIN SOD (PORCINE) 1,000 UNIT/ML 10 ML VIAL IV PRN (10:02)
[2016-07-03] MEDS ORDERED: EPOETIN ALFA 10,000 UNIT in SYRINGE, DISPOSABLE, 1 EACH IV PRN (11:00)
[2016-07-03] MEDS: LACTOBACILLUS ACIDOPHILUS 250 MG TAB PO SCH ×2 (11:53→18:48)
[2016-07-03] MEDS: SUCRALFATE SUSP 1 GM/10 ML UDCUP PO SCH ×3 (11:53→21:44)
[2016-07-03] MEDS: PANTOPRAZOLE SODIUM 40 MG VIAL IV SCH (12:06)
[2016-07-03] MEDS: ONDANSETRON HCL INJ/PF 4 MG/2 ML SDV IV PRN ×2 (13:52→21:44)
--- NOTE | 2016-07-03 14:10 | PDOC PROGRESS REPORT ---
Subjective Progress Note for:: 07/03/16 Subjective:: Reason for visit: Follow-up C. difficile colitis, end-stage renal disease Hospital course: Per H&P "LAMAR SMALL is a 50 year old male with past medical history that is extensive as recorded including HIV on no antiretroviral therapy, C. difficile colitis with an admission and discharge date around 3 weeks ago, pancytopenia, end-stage renal disease on dialysis, a clotting disorder on anticoagulants, and a DO NOT RESUSCITATE order in effect who presents today complaining of some left lower quadrant and epigastric intermittent nonradiating abdominal "pain". Patient denies any aggravating relieving factors. Patient states that he has been slightly incontinent of the minimal amount of urine that he makes for many weeks. He denies any leg weakness, numbness, or increased lower back pain above baseline. Patient denies any fevers or blood in vomiting or diarrhea. Patient didn't complete the course of vancomycin for C. difficile colitis. Patient states they took the patient off the antiretroviral medications secondary to kidney disease and he does not have a current doctor to prescribe these medications. Upon evaluation in the ED patient was diagnosed of acute pancreatitis with a lipase over thousand He was subsequently admitted under hospitalist service for further evaluation and care." I inherited his care 07/02/16 and he reports that he cannot afford the vancomycin for treatment of his C. difficile colitis and is not surprised he had a recurrence. Subjective: He reports increasing lower abdominal pain previously described as dull aching pain, now sharp stabbing, radiating throughout the abdomen and waxing and waning though unrelenting. exacerbated palpation or certain movements , alleviated by narcotics. He denies chest pain, palpitations, dyspnea, nausea vomiting. He reports large bowel movement this morning consistency of thin pudding and a dark brown, without mucus. ROS: per HPI plus a total of 10 systems reviewed, pertinent positives and negatives noted above, remaining systems negative. Physical Exam Vital Signs: Temp Pulse Resp BP Pulse Ox 99.5 F 74 18 123/77 100 07/03/16 12:08 07/03/16 12:08 07/03/16 12:08 07/03/16 12:08 07/03/16 12:08 Intake & Output 07/02/16 07/03/16 07/04/16 06:59 06:59 06:59 Intake Total 840 3090 Output Total 1400 Balance -560 3090 Weight 76.2 kg EXAM GENERAL: NAD; well developed, well nourished; no obese; alert and oriented to person, place, time, situation HEENT: normocephalic, atraumatic; no conjunctival injection, no scleral icterus ; oral mucosa moist; RESPIRATORY: no accessory muscle use, no increased WOB, good air entry bilaterally; no wheezes, rales, rhonchi; no inspiratory crackles CARDIO: no JVD; RRR; no systolic murmur; no tachycardia GI: Firm; nondistended; normal bowel sounds; no hepato spleno megaly; no rebound , rigidity, guarding; very tender to palpation in the left lower quadrant reproducing his pain, no mass but there is a sense of fullness consistent with stool-filled loops of bowel there VASCULAR: no carotid bruit; no abdominal bruit; no pallor; 2+ radial, DP pulse ; normal capillary refill EXTREMITIES: no calf tender; no palpable cords in calf; no clubbing, cyanosis , pedal edema PSYCH: normal affect, normal mood SKIN: warm; moist; no petechiae; no telengectasias; no jaundice; no rash Results Laboratory Results: 07/03/16 05:20 07/03/16 05:20 07/03/16 07/03/16 07/03/16 05:20 05:20 05:20 WBC 4.3 RBC 2.86 L Hgb 9.4 L Hct 26.8 L MCV 94 MCH 32.7 MCHC 35.0 RDW 17.3 H Plt Count 60 L Seg Neutrophils % 37.5 L Lymphocytes % 50.8 H Monocytes % 10.7 Eosinophils % 0.8 Basophils % 0.2 Absolute Neutrophils 1.6 L Absolute Lymphocytes 2.2 Absolute Monocytes 0.5 Absolute Eosinophils 0.0 Absolute Basophils 0.0 Sodium 137.5 Potassium 3.2 L Chloride 108 H Carbon Dioxide 20 L Anion Gap 10 BUN 15 Creatinine 3.01 H Est GFR ( Amer) 27 L Est GFR (Non-Af Amer) 22 L Glucose 85 Calcium 8.2 L C-Reactive Protein 47.2 H Overall labs reassuring except C-reactive protein markedly elevated at 47, lactic acid still pending Impressions: Abdomen/Pelvis CT 06/30/16 16:21 IMPRESSION: DIFFUSE FATTY INFILTRATION OF THE LIVER. TINY NONOBSTRUCTING CALYCEAL CALCULUS IN THE RIGHT KIDNEY. NO SIGNIFICANT OR ACUTE PROCESS IN THE ABDOMEN OR PELVIS. Abdomen X-Ray 07/03/16 00:00 IMPRESSION: NO RADIOGRAPHIC EVIDENCE FOR ACUTE ABDOMINAL DISEASE. Status: Imported from PACS - Report reviewed Assessment & Plan - Diagnosis (1) Acute pancreatitis Qualifiers: Pancreatitis type: unspecified pancreatitis type Acute pancreatitis complication: unspecified Qualified Code(s): K85.90 - Acute pancreatitis without necrosis or infection, unspecified Is this a current diagnosis for this admission?: YesPlan: Based largely on a markedly elevated lipase at presentation, CT scan of the abdomen and pelvis reviewed by me does not show any obvious peripancreatic stranding but is lacking in IV contrast due to his end-stage renal disease making it more difficult to interpret. He is tolerating a regular diet without difficulty, no nausea vomiting and his epigastric pain largely resolved, making this less likely explanation for his abdominal pain. (2) C. difficile diarrhea Is this a current diagnosis for this admission?: YesPlan: Recurrence due to medical noncompliance from financial stressors. Patient states he is unable to afford vancomycin but can the Flagyl as an outpatient. Continue oral antibiotics now awaiting resolution of his abdominal discomfort and diarrhea. Overall condition really not improving with increasing pain and a change back to loose stools. A markedly elevated CRP implies persistent inflammation. Case discussed with Dr. Molina and will consult gastroenterology when they are available tomorrow for possible flex sig. Make nothing by mouth after midnight for possible procedure tomorrow. Trend CRP. Continue probiotic. (3) End stage renal disease Is this a current diagnosis for this admission?: YesPlan: Hemodialysis per nephrology. (4) Fatty liver disease, nonalcoholic Is this a current diagnosis for this admission?: YesPlan: Unclear if controlling some of his discomfort or not but likely accounts for any abnormalities of his liver function tests. (5) HIV disease Is this a current diagnosis for this admission?: YesPlan: Reportedly cannot find a physician willing to prescribe the medication while he is on hemodialysis. (6) Hypokalemia Is this a current diagnosis for this admission?: YesPlan: Continue to monitor, defer to nephrology during dialysis. (7) Hypomagnesemia Is this a current diagnosis for this admission?: YesPlan: Monitor and replace, likely secondary to GI losses. (8) Thrombocytopenia Is this a current diagnosis for this admission?: YesPlan: Chronic problem likely related to his HIV, however worsened during the acute infectious process. Hold heparin products. Continue to monitor. - Time Time Spent with patient: 25-34 minutes - Plan Summary Plan Summary: Continue current care and await GIs recommendations in the morning. Abdominal x -ray was very reassuring in that argues against toxic megacolon developing or obstruction.
[2016-07-03] MEDS ORDERED: MAGNESIUM SULFATE INJ 8 MEQ/2 ML IV ONE (15:20)
--- NOTE | 2016-07-03 15:21 | PDOC PROGRESS REPORT ---
Subjective Progress Note for:: 07/03/16 Subjective:: Seen on dialysis today. She undergoing dialysis without any issues. Vital signs are stable. Discuss orders with the treating nurse. She complains of some lower abdominal pains especially in the iliac fossa. He still has got active diarrhea 4-5 times a day without any blood. No fever or chills. He says the pain is progressing in the lower abdomen as compared to the upper epigastric region where the pain seems to have resolved. He admits to noncompliance with his medications that he was discharged for the treatment of C. difficile earlier. He states he understands the complications of untreated C. difficile colitis. Labs are reviewed with the patient. He is on a 3K bath. Has potassium and magnesium deficiencies, which needs to be corrected. Hemoglobin is on the lower side" and erythropoietin is being adjusted. Physical Exam Vital Signs: Temp Pulse Resp BP Pulse Ox 99.5 F 74 18 123/77 100 07/03/16 12:08 07/03/16 12:08 07/03/16 12:08 07/03/16 12:08 07/03/16 12:08 Intake & Output 07/02/16 07/03/16 07/04/16 06:59 06:59 06:59 Intake Total 840 3090 Output Total 1400 Balance -560 3090 Weight 76.2 kg General appearance: PRESENT: no acute distress Respiratory exam: PRESENT: clear to auscultation jamil. ABSENT: crackles Cardiovascular exam: PRESENT: +S1, +S2 GI/Abdominal exam: PRESENT: normal bowel sounds, soft, tenderness - In the lower right and left iliac fossa. No guarding was observed.. ABSENT: distended , firm, guarding, mass Extremities exam: ABSENT: pedal edema Neurological exam: PRESENT: alert, awake, oriented to person, oriented to place , oriented to time Results Laboratory Results: 07/03/16 05:20 07/03/16 05:20 07/03/16 07/03/16 07/03/16 05:20 05:20 05:20 WBC 4.3 RBC 2.86 L Hgb 9.4 L Hct 26.8 L MCV 94 MCH 32.7 MCHC 35.0 RDW 17.3 H Plt Count 60 L Seg Neutrophils % 37.5 L Lymphocytes % 50.8 H Monocytes % 10.7 Eosinophils % 0.8 Basophils % 0.2 Absolute Neutrophils 1.6 L Absolute Lymphocytes 2.2 Absolute Monocytes 0.5 Absolute Eosinophils 0.0 Absolute Basophils 0.0 Sodium 137.5 Potassium 3.2 L Chloride 108 H Carbon Dioxide 20 L Anion Gap 10 BUN 15 Creatinine 3.01 H Est GFR ( Amer) 27 L Est GFR (Non-Af Amer) 22 L Glucose 85 Lactic Acid Calcium 8.2 L C-Reactive Protein 47.2 H 07/03/16 13:05 WBC RBC Hgb Hct MCV MCH MCHC RDW Plt Count Seg Neutrophils % Lymphocytes % Monocytes % Eosinophils % Basophils % Absolute Neutrophils Absolute Lymphocytes Absolute Monocytes Absolute Eosinophils Absolute Basophils Sodium Potassium Chloride Carbon Dioxide Anion Gap BUN Creatinine Est GFR ( Amer) Est GFR (Non-Af Amer) Glucose Lactic Acid 1.1 Calcium C-Reactive Protein Impressions: Abdomen/Pelvis CT 06/30/16 16:21 IMPRESSION: DIFFUSE FATTY INFILTRATION OF THE LIVER. TINY NONOBSTRUCTING CALYCEAL CALCULUS IN THE RIGHT KIDNEY. NO SIGNIFICANT OR ACUTE PROCESS IN THE ABDOMEN OR PELVIS. Abdomen X-Ray 07/03/16 00:00 IMPRESSION: NO RADIOGRAPHIC EVIDENCE FOR ACUTE ABDOMINAL DISEASE. Assessment & Plan - Diagnosis (1) Acute pancreatitis Qualifiers: Pancreatitis type: unspecified pancreatitis type Acute pancreatitis complication: unspecified Qualified Code(s): K85.90 - Acute pancreatitis without necrosis or infection, unspecified Is this a current diagnosis for this admission?: YesPlan: Improving. In my opinion, Epigastric pain was more indicative of pancreatitis than the colitis that the pain is much more in the lower abdomen. (2) Anemia in chronic kidney disease (CKD) Is this a current diagnosis for this admission?: YesPlan: Monitor.Active C.diff which is concerning. Adjust erythropoietin. (3) C. difficile diarrhea Is this a current diagnosis for this admission?: YesPlan: Active. The progression of the lower abdominal pains is very concerning for possible active inflammation which can lead to obviously toxic megacolon and other complications including severe sepsis from C. difficile. I discussed the patient's issues with Dr. Odom/hospitalist. He tells me that he did not have GI deposition reporter. Therefore I think the patient who needs to have a GI monitoring for overall monitoring and introduction of newer medications and later maybe even fecal transplant needs to be transferred to a facility with GI capabilities. (4) End stage renal disease Is this a current diagnosis for this admission?: YesPlan: He is undergoing dialysis without any issues. Vital signs are stable. Potassium is on the lower side and he is on a 3K bath. Plan to remove no fluid. Adjust erythropoietin for which orders have been placed. (5) Hypokalemia Is this a current diagnosis for this admission?: YesPlan: Monitor. Start replacements. (6) HIV disease Is this a current diagnosis for this admission?: Yes
[2016-07-03] MEDS ORDERED: POTASSI CL 20 MEQ/50 ML RIDER 20 MEQ/50 ML RTUPB IV ONE (16:00)
[2016-07-03] MEDS ORDERED: MAGNESIUM SULFATE/D5W 1 GM/100 ML RTUPB IV ONE (16:00)
[2016-07-03] MEDS ORDERED: NORMAL SALINE 1000 ML 1,000 ML IV PRN (21:45)
[2016-07-04] MEDS: METRONIDAZOLE 500 MG TABLET PO SCH ×3 (01:01→11:17)
[2016-07-04] MEDS: VANCOMYCIN HCL INJ 500 MG VIAL PO SCH ×3 (01:01→11:17)
[2016-07-04] MEDS: MORPHINE SULFATE 10 MG/ML INJ IV PRN ×4 (01:02→13:31)
[2016-07-04] MEDS: ONDANSETRON HCL INJ/PF 4 MG/2 ML SDV IV PRN ×2 (04:54→13:32)
[2016-07-04 07:45] LABS: ABSOLUTE MONOCYTES (AUTO) 0.5 10^3/uL (0.1-1.4); ABSOLUTE NEUT (AUTO) 2.1 10^3/uL (1.7-8.2); BASOPHILS % (AUTO) 0.4 % (0-2); EOSINOPHILS % (AUTO) 0.4 % (0-6); HEMOGLOBIN 9.2 g/dL (13.5-17.0); HGB HCT DIFFERENCE 0.6; LYMPHOCYTES % (AUTO) 42.3 % (13-45); MEAN CORPUSCULAR HEMOGLOBIN 32.4 pg (27.0-33.4); MEAN CORPUSCULAR HGB CONC 34.2 g/dL (32.0-36.0); MEAN CORPUSCULAR VOLUME 95 fl (80-97); RED BLOOD COUNT 2.85 10^6/uL (4.35-5.55); RED CELL DISTRIBUTION WIDTH 16.9 % (11.5-14.0); SEGMENTED NEUTROPHILS % (AUTO) 45.9 % (42-78); WHITE BLOOD COUNT 4.7 10^3/uL (4.0-10.5)
[2016-07-04] MEDS: SUCRALFATE SUSP 1 GM/10 ML UDCUP PO SCH ×2 (08:03→11:17)
[2016-07-04 08:41] LABS: C-REACTIVE PROTEIN 28.7 mg/L (<10.0); LIPASE 615.3 U/L (23-300); MAGNESIUM 1.6 mg/dL (1.6-2.3)
[2016-07-04] MEDS: CHOLESTYRAMINE/ASPARTAME 4 GM PACKET PO SCH ×2 (09:53→13:32)
[2016-07-04] MEDS: LACTOBACILLUS ACIDOPHILUS 250 MG TAB PO SCH (09:53)
--- NOTE | 2016-07-04 09:54 | CONSULTATION REPORT E ---
Consultation Report NAME: LAMAR SMALL : 1965 AGE: 50Y DATE: 07/03/2016 206 A TO: RAFAT HERNANDES M.D. FROM: Дмитрий LEVINE M.D. Requesting Physician HISTORY OF PRESENT ILLNESS: A 50-year-old patient admitted on 06/30/2016 with pancreatitis, diarrhea, and C. difficile. Consultation was requested for assistance of recurrent C. difficile infection. The patient was admitted to the hospital in May with diarrhea and was diagnosed with C. difficile infection. Upon discharge on 06/06/2016, he was supposed to use vancomycin for 2 weeks, but according to the patient, he did not get the vancomycin for many days after discharge. He then took the vancomycin until finished. His stool was starting to firm up, but the diarrhea came back a few days prior to this current admission. It was also associated with recurrent abdominal cramps which is unusual for him. He has been in and out of the hospital since February of last year. I actually saw him for nausea and vomiting in April, and his EGD only showed some gastritis. Currently, he is feeling better, but his stools have not firmed up yet. He is having less diarrhea and abdominal pain. He is tolerating his solid food diet. He had a CT scan on 06/30/2016 that showed diffuse fatty infiltration but no significant bowel disease. PAST MEDICAL HISTORY: 1. End-stage renal disease on hemodialysis. 2. Untreated HIV. 3. Noncompliance. 4. Chronic low back pain. 5. COPD. 6. Depression. 7. Pulmonary embolism. 8. C. difficile. PAST SURGICAL HISTORY: 1. Cholecystectomy. 2. EGD. ALLERGIES: None. SOCIAL HISTORY: Non-contributory. REVIEW OF SYSTEMS: Other than the above, it is non-contributory. PHYSICAL EXAMINATION: GENERAL: This is a patient in no distress. VITAL SIGNS: He has a blood pressure of 123/97. Heart rate of 67. HEENT: There is some pallor but no jaundice. Oropharynx normal. NECK: No bruit. No JVD. CHEST: No deformity. Lungs clear. CARDIOVASCULAR: Heart sounds S1, S2 normal without murmurs. ABDOMEN: Soft and nontender. Liver and spleen nonpalpable. Bowel sounds are normal. NEUROLOGIC: Not fully examined. LABORATORY DATA: Laboratory tests showed an H and H of 10 and 30, white count of 5, platelets of 142 on admission. Creatinine of 4.9 with AST of 161, ALT 160. His potassium was 3 on admission. Stool was positive for C. difficile. Hepatitis B and C serologies were negative in April. ASSESSMENT AND PLAN: 1. Clostridium difficile infection. This was diagnosed in May and was treated with vancomycin, and he appears to have a recurrence now. Currently, he is on metronidazole and vancomycin 250 mg q.6. I would suggest we continue with the vancomycin for now and to use for at least 14 days. He was also started on Questran and probiotics. If he does not respond to the second course of vancomycin, he will be treated with Dificid. I will hold off on any other antibiotics as much as possible. 2. Abnormal liver function tests. He has significant fatty liver on CT scan and ultrasound. Hepatitis serology was unremarkable in the past. 3. Elevated lipase. His lipase was also elevated in May and went as high as 1072 on this current admission and is now down to 383. There is no evidence for pancreatitis on the CT scan, and I doubt the elevated lipase is of any clinical significance at this time. I will follow him in the office. DICTATING PHYSICIAN: RAFAT HERNANDES M.D. [id number] Y#: [id number] ID: [id number] JOB#: [id number] ACCT: [id number] cc:Дмитрий LEVINE M.D., PETER A. M.D. >
[2016-07-04 14:03] VITALS: BP 132/84
--- NOTE | 2016-07-04 17:18 | PDOC DISCHARGE SUMMARY ---
General - Admit/Disc Date/PCP Admission Date/Primary Care Provider: 06/30/16 16:02 ANGEL BORJA Discharge Date: 07/04/16 - Discharge Diagnosis (1) Acute pancreatitis Is this a current diagnosis for this admission?: YesSummary: Resolved (2) C. difficile diarrhea Is this a current diagnosis for this admission?: YesSummary: Recurrent due to medical noncompliance. Home with [facility] Castellanos probiotic with outpatient follow-up with gastroenterology in 1-2 weeks. (3) End stage renal disease Is this a current diagnosis for this admission?: YesSummary: Resume usual Friday regimen for his dialysis. Follow with Dr. Molina as needed. (4) Fatty liver disease, nonalcoholic Is this a current diagnosis for this admission?: YesSummary: Likely accounting for elevations of his LFTs anytime he is acutely ill. Appears to be at or near baseline. (5) HIV disease Is this a current diagnosis for this admission?: YesSummary: Follow-up with infectious diseases specialist of choice (6) Hypokalemia Is this a current diagnosis for this admission?: YesSummary: Dictated by GI losses, mild and managed through hemodialysis (7) Hypomagnesemia Is this a current diagnosis for this admission?: YesSummary: Resolved after supplementation. (8) Thrombocytopenia Is this a current diagnosis for this admission?: YesSummary: Secondary to his HIV, at or near baseline. - Additional Information Resuscitation Status: Do Not Resuscitate Discharge Diet: Other (Comments) - renal Discharge Activity: Activity As Tolerated Home Medications: Cyclobenzaprine HCl 10 mg PO Q8HP PRN 05/08/16 Gabapentin 300 mg PO QHS 05/08/16 Hydroxyzine Pamoate 50 mg PO Q4HP PRN 05/08/16 Sevelamer Carbonate [Renvela] 800 mg PO TID 05/08/16 Citalopram Hydrobromide [Celexa 20 mg Tablet] 20 mg PO DAILY #30 tablet Trazodone HCl [Desyrel] 100 mg PO QHS #15 tablet 05/15/16 Apixaban [Eliquis 5 mg Tablet] 5 mg PO BID 06/30/16 Buspirone HCl [Buspar 10 mg Tablet] 15 mg PO TID 06/30/16 Albuterol Sulfate [Proair HFA] 1 puff IH Q4HP PRN 07/01/16 Budesonide/Formoterol Fumarate [Symbicort HFA 160-4.5 mcg Inhaler 6 gm] 2 puff IH Q12 07/01/16 Lorazepam [Ativan 0.5 mg Tablet] 0.5 mg PO Q8HP PRN 07/01/16 Cholestyramine/Aspartame [Questran Light 4 gm Packet] 4 gm PO TID #90 packet 02/09 Hydromorphone HCl [Dilaudid 2 mg Tablet] 2 mg PO Q4HP PRN #30 tablet 07/04/16 Lactobacillus Acidophilus [Acidophilus Lactobacilli] 1 each PO BIDACBL #60 capsule 07/04/16 Metronidazole [Flagyl 500 mg Tablet] 500 mg PO Q6 #120 tablet 07/04/16 History of Present Illness History of Present Illness: LAMAR SMALL is a 50 year old male with past medical history that is extensive as recorded including HIV on no antiretroviral therapy, C. difficile colitis with an admission and discharge date around 3 weeks ago, pancytopenia, end-stage renal disease on dialysis, a clotting disorder on anticoagulants, and a DO NOT RESUSCITATE order in effect who presents today complaining of some left lower quadrant and epigastric intermittent nonradiating abdominal "pain". Patient denies any aggravating relieving factors. Hospital Course Hospital Course: Reason for visit: Follow-up C. difficile colitis, end-stage renal disease Hospital course: Per H&P "Patient states that he has been slightly incontinent of the minimal amount of urine that he makes for many weeks. He denies any leg weakness, numbness, or increased lower back pain above baseline. Patient denies any fevers or blood in vomiting or diarrhea. Patient didn't complete the course of vancomycin for C. difficile colitis. Patient states they took the patient off the antiretroviral medications secondary to kidney disease and he does not have a current doctor to prescribe these medications. Upon evaluation in the ED patient was diagnosed of acute pancreatitis with a lipase over thousand He was subsequently admitted under hospitalist service for further evaluation and care." I inherited his care 07/02/16 and he reports that he cannot afford the vancomycin for treatment of his C. difficile colitis and is not surprised he had a recurrence. He reports increasing lower abdominal pain previously described as dull aching pain, now sharp stabbing, radiating throughout the abdomen and waxing and waning though unrelenting. exacerbated palpation or certain movements, alleviated by narcotics. He denies chest pain, palpitations, dyspnea, nausea vomiting. He reports large bowel movement this morning consistency of thin pudding and a dark brown, without mucus. His hospital course was complicated by persistent left lower quadrant abdominal pain and slow to improve diarrhea. He was evaluated by gastroenterology prior to discharge who initiated Questran therapy with good results. GI felt like he could be managed outpatient with the Flagyl therapy, please see their notes for full details. The patient is unable to afford the oral vancomycin and therefore not a good candidate as he is unlikely to be compliant with that regimen thereby severely raising the possibility of creating drug resistance. He is to follow up with GI in 1-2 weeks. On the day of discharge his condition is finally stabilized, his stools have firmed and slow to no more than one in the last 12 hours, he received hemodialysis per our usual regimen with Dr. Molina managing and is in good shape in that regard. He is to resume his usual Friday dialysis. His pain is well controlled on an oral regimen and he states he feels comfortable managing this at home. He seems satisfied that we've made an appropriate diagnosis and agrees with the treatment plan as outlined above. He is to return to the emergency department for any decline in his condition. Physical Exam Vital Signs: Temp Pulse Resp BP Pulse Ox 98.4 F 68 14 132/84 H 100 07/04/16 14:02 07/04/16 14:02 07/04/16 14:02 07/04/16 14:02 07/04/16 14:02 Intake & Output 07/03/16 07/04/16 07/05/16 06:59 06:59 06:59 Intake Total 3090 2000 Output Total 2700 Balance 3090 -700 Weight 78.1 kg EXAM GENERAL: NAD; well developed, well nourished; no obese; alert and oriented to person, place, time, situation HEENT: normocephalic, atraumatic; no conjunctival injection, no scleral icterus ; oral mucosa moist; RESPIRATORY: no accessory muscle use, no increased WOB, good air entry bilaterally; no wheezes, rales, rhonchi; no inspiratory crackles CARDIO: no JVD; RRR; no systolic murmur; no tachycardia GI: Firm; nondistended; normal bowel sounds; no hepato spleno megaly; no rebound , rigidity, guarding; no longer tender to palpation in the left lower quadrant VASCULAR: no carotid bruit; no abdominal bruit; no pallor; 2+ radial, DP pulse ; normal capillary refill EXTREMITIES: no calf tender; no palpable cords in calf; no clubbing, cyanosis , pedal edema PSYCH: normal affect, normal mood SKIN: warm; moist; no petechiae; no telengectasias; no jaundice; no rash Results Laboratory Results: 07/04/16 06:33 07/03/16 05:20 07/04/16 07/04/16 06:33 06:33 WBC 4.7 RBC 2.85 L Hgb 9.2 L Hct 27.0 L MCV 95 MCH 32.4 MCHC 34.2 RDW 16.9 H Plt Count 80 L Seg Neutrophils % 45.9 Lymphocytes % 42.3 Monocytes % 11.0 Eosinophils % 0.4 Basophils % 0.4 Absolute Neutrophils 2.1 Absolute Lymphocytes 2.0 Absolute Monocytes 0.5 Absolute Eosinophils 0.0 Absolute Basophils 0.0 Magnesium 1.6 C-Reactive Protein 28.7 H Lipase 615.3 H 07/01/16 22:00 Stool - Stool - Final Labs reviewed, encouraging trend regarding his electrolytes, LFTs, C-reactive protein, CBC area Impressions: Abdomen/Pelvis CT 06/30/16 16:21 IMPRESSION: DIFFUSE FATTY INFILTRATION OF THE LIVER. TINY NONOBSTRUCTING CALYCEAL CALCULUS IN THE RIGHT KIDNEY. NO SIGNIFICANT OR ACUTE PROCESS IN THE ABDOMEN OR PELVIS. Abdomen X-Ray 07/03/16 00:00 IMPRESSION: NO RADIOGRAPHIC EVIDENCE FOR ACUTE ABDOMINAL DISEASE. Status: Imported from PACS Qualifiers PATEINT BEING DISCHARGED WITH ANY OF THE FOLLOWING DIAGNOSIS?: No VTE patient discharged on overlapping Therapy?: Yes Plan Discharge Plan: Discharge home to continue a 6 week regimen of Flagyl, supplemented with Questran and probiotics. Follow up with gastroenterology in 1-2 weeks. Time Spent: Greater than 30 Minutes
== END 2016-07-04 14:30 | disposition home health service (06) | DRG 438 ==
LOC: ER 11:09 → EH 15:59 → UNDOADMIN 15:59 → EEVIPCON 16:02 → EH 16:02 → 4W 23:01 → 2N 07-02 04:55
PROVIDERS: ADMIT Emergency Medicine; ATTEND Emergency Medicine
PROC: 5A1D60Z (ICD-10-PCS; principal; 2016-07-01)
DX: K85.90 Acute pancreatitis without necrosis or infection, unspecified (principal); B20 Human immunodeficiency virus [HIV] disease; N18.6 End stage renal disease; A04.7 Enterocolitis due to Clostridium difficile; D68.9 Coagulation defect, unspecified; Z66 Do not resuscitate; E87.6 Hypokalemia; D63.1 Anemia in chronic kidney disease; E83.42 Hypomagnesemia; D69.6 Thrombocytopenia, unspecified; J44.9 Chronic obstructive pulmonary disease, unspecified; K76.0 Fatty (change of) liver, not elsewhere classified; F17.210 Nicotine dependence, cigarettes, uncomplicated; F32.9 Major depressive disorder, single episode, unspecified; Z59.8 Other problems related to housing and economic circumstances; Z99.2 Dependence on renal dialysis; Z86.711 Personal history of pulmonary embolism; Z79.01 Long term (current) use of anticoagulants; Z91.19 Patient's noncompliance with other medical treatment and regimen
CPT/HCPCS: 36415; 74020; 74176; 80048; 80053; 80061; 81001; 82272; 83605; 83690; 83735; 85025; 86140; 87015; 87040; 87045; 87205; 87206; 87493; 96374; 99285; J0744; J1644; J2270; J2300; J2405; J3370; J3475; J3480; J3490; J7030; Q4081; S0164

== ENCOUNTER 2016-08-08 12:57 | Inpatient (IN) | payer MEDICAID ==
--- NOTE | 2016-08-08 13:45 | ER Document Report ---
ED Medical Screen (RME) - General Stated Complaint: LEFT SIDE PAIN Time seen by provider: 13:42 Mode of Arrival: Ambulatory Information source: Patient Notes: 50-year-old male presents to ED for extreme left flank pain. States this started yesterday. He has had kidney stones in the past. He is a hemodialysis dialysis patient. An end-stage renal failure but does urinate some. Spoke with Dr Calderon will get blood urine and ct limited stone. Was not able to do dialysis today due to pain. I have greeted and performed a rapid initial assessment of this patient. A comprehensive ED assessment and evaluation of the patient, analysis of test results and completion of medical decision making process will be conducted by an additional ED providers. TRAVEL OUTSIDE OF THE [place] IN LAST 30 DAYS: No - Related Data Allergies/Adverse Reactions: No Known Allergies Allergy (Verified 08/08/16 13:41) Past Medical History - Past Medical History Cardiac Medical History: Reports: Hx Pulmonary Embolism Pulmonary Medical History: Reports: Hx COPD Neurological Medical History: Denies: Hx Seizures Renal/ Medical History: Reports: Hx End Stage Renal Disease, Hx Hemodialysis. Denies: Hx Peritoneal Dialysis Psychiatric Medical History: Reports: Hx Depression Infectious Medical History: Reports: Hx C-Diff, Hx HIV Past Surgical History: Reports: Hx Cholecystectomy Physical Exam - Vital signs Vitals: Temp Pulse Resp BP Pulse Ox 97.6 F 84 20 140/84 H 100 08/08/16 13:04 08/08/16 13:04 08/08/16 13:04 08/08/16 13:04 08/08/16 13:04 Course - Vital Signs Vital signs: Temp Pulse Resp BP Pulse Ox 97.6 F 84 20 140/84 H 100 08/08/16 13:04 08/08/16 13:04 08/08/16 13:04 08/08/16 13:04 08/08/16 13:04
[2016-08-08 14:20] LABS: ABSOLUTE EOSINOPHILS # (AUTO) 0.2 10^3/uL (0.0-0.6); ABSOLUTE LYMPHOCYTES (AUTO) 3.1 10^3/uL (0.5-4.7); ABSOLUTE MONOCYTES (AUTO) 0.9 10^3/uL (0.1-1.4); BASOPHILS % (AUTO) 0.1 % (0-2); EOSINOPHILS % (AUTO) 2.2 % (0-6); HEMATOCRIT 31.8 % (37.9-51.0); HEMOGLOBIN 10.7 g/dL (13.5-17.0); HGB HCT DIFFERENCE 0.3; LYMPHOCYTES % (AUTO) 37.7 % (13-45); MEAN CORPUSCULAR HEMOGLOBIN 33.2 pg (27.0-33.4); MEAN CORPUSCULAR HGB CONC 33.5 g/dL (32.0-36.0); MEAN CORPUSCULAR VOLUME 99 fl (80-97); MONOCYTES % (AUTO) 11.4 % (3-13); RED BLOOD COUNT 3.22 10^6/uL (4.35-5.55); RED CELL DISTRIBUTION WIDTH 16.3 % (11.5-14.0); SEGMENTED NEUTROPHILS % (AUTO) 48.6 % (42-78); WHITE BLOOD COUNT 8.2 10^3/uL (4.0-10.5)
[2016-08-08 14:32] LABS: ALANINE AMINOTRANSFERASE 29 U/L (21-72); ALBUMIN 3.8 g/dL (3.5-5.0); ALKALINE PHOSPHATASE 85 U/L (38-126); ANION GAP 10 (5-19); ASPARTATE AMINO TRANSFERASE 13 U/L (17-59); BILIRUBIN,TOTAL 1.8 mg/dL (0.2-1.3); BLOOD UREA NITROGEN 38 mg/dL (7-20); CALCIUM 9.8 mg/dL (8.4-10.2); CARBON DIOXIDE 25 mmol/L (22-30); CHLORIDE 106 mmol/L (98-107); CREATININE RESULT 3.99 mg/dL (0.52-1.25); GLUCOSE 84 mg/dL (75-110); POTASSIUM 4.2 mmol/L (3.6-5.0); SODIUM 140.8 mmol/L (137-145); TOTAL PROTEIN 6.9 g/dL (6.3-8.2)
[2016-08-08 14:50] LABS: APPEARANCE,URINE CLEAR; BILIRUBIN,URINE NEGATIVE (NEGATIVE); GLUCOSE, URINE 150 mg/dL (NEGATIVE); KETONES,URINE NEGATIVE (NEGATIVE); LEUKOCYTE ESTERASE,URINE NEGATIVE (NEGATIVE); NITRITE,URINE NEGATIVE (NEGATIVE); PROTEIN,URINE 100 mg/dL (NEGATIVE); URINE SPECIFIC GRAVITY 1.011; UROBILINOGEN,URINE NEGATIVE mg/dL (<2.0)
[2016-08-08] MEDS ORDERED: NORMAL SALINE 1000 ML 1,000 ML IV ONE (17:11)
[2016-08-08] MEDS ORDERED: FENTANYL CITRATE INJ/PF 100 MCG/2 ML AMPUL IV ONE (17:12)
[2016-08-08] MEDS ORDERED: METOCLOPRAMIDE HCL ORAL SOLN 10 MG/10 ML UDCUP PO ONE (17:12)
[2016-08-08] MEDS ORDERED: LIDOCAINE 2% VISCOUS SOLN 20 ML UDCUP PO ONE (17:12)
[2016-08-08] MEDS ORDERED: MAG HYDROX/AL HYDROX/SIMETH SUSP 30 ML UDCUP PO ONE (17:12)
--- NOTE | 2016-08-08 17:12 | ER Document Report ---
ED GI/ - General Mode of Arrival: Ambulatory Information source: Patient TRAVEL OUTSIDE OF THE [place] IN LAST 30 DAYS: No - HPI Patient complains to provider of: Flank pain Onset: Other - see HPI note <GINNA CARTWRIGHT - Last Filed: 08/08/16 20:48> <CHAY ATKINSON - Last Filed: 08/23/16 05:48> - General Chief Complaint: Flank Pain Stated Complaint: LEFT SIDE PAIN Notes: Patient is a 50 year old male presenting to the emergency department for sudden onset abdominal and epigastric pain. Patient's pain was onset at 11:00 yesterday. Patient has a history of pancreatitis, HIV, and renal failure with dialysis. Patient states he got renal failure from his HIV medications and was taken off of them to do dialysis to see if his kidneys would recover; they did not and so the patient is back on his HIV medications. Patient has been admitted in the past for his pancreatitis. Patient has dialysis Tues/Th/Fri. Patient did not get dialysis today because he was in too much pain; the dialysis nurses did not start his treatment because of his pain. Patient also has a history of kidney stones, herniated discs, hernia, cholescystectomy, and prothrombin blood disorder. Patient states he used to be on pain management for 8 years for his back but he smoked marijuana and lost his contract with the pain management clinic in 2010. Patient has been on dialysis since February. Patient has had HIV since 2003. Patient states he sees [place] [facility] when they come to the [facility]. (GINNA CARTWRIGHT) - Related Data Allergies/Adverse Reactions: No Known Allergies Allergy (Verified 08/08/16 13:41) Home Medications: Current Home Medications Albuterol Sulfate [Proair HFA] 1 puff IH Q4HP PRN 08/08/16 [History] Apixaban [Eliquis 5 mg Tablet] 5 mg PO BID 08/08/16 [History] Atazanavir Sulfate [Reyataz 300 mg Capsule] 300 mg PO TUTHSA@1700 08/08/16 [ History] Cetirizine HCl [Cetirizine 5 mg Tablet] 5 mg PO DAILY 08/08/16 [History] Cyclobenzaprine HCl [Flexeril 10 mg Tablet] 10 mg PO Q8HP PRN 08/08/16 [History] Emtricitabine/Tenofov Alafenam [Descovy 200-25 mg Tablet] 1 tab PO TUTHSA@1700 08/08/16 [History] Gabapentin [Neurontin 300 mg Capsule] 300 mg PO QHS 08/08/16 [History] Metronidazole [Flagyl 500 mg Tablet] 500 mg PO Q6 08/08/16 [History] Ondansetron HCl [Zofran 4 mg Tablet] 1 tab PO BID 08/08/16 [History] Ritonavir [Norvir 100 mg Tablet] 100 mg PO TUTHSA@1700 08/08/16 [History] Sevelamer Carbonate [Renvela] 800 mg PO MEALS 08/08/16 [History] Trazodone HCl [Desyrel] 100 mg PO QHS 08/08/16 [History] Past Medical History - General Information source: Patient - Social History Smoking Status: Current Every Day Smoker Chew tobacco use (# tins/day): No Frequency of alcohol use: None Drug Abuse: None Family History: CAD, DM, Hypertension Patient has suicidal ideation: No Patient has homicidal ideation: No - Past Medical History Cardiac Medical History: Reports: Hx Pulmonary Embolism Pulmonary Medical History: Reports: Hx COPD Renal/ Medical History: Reports: Hx End Stage Renal Disease, Hx Hemodialysis GI Medical History: Reports: Hx Hiatal Hernia, Other - pancreatitis Musculoskeltal Medical History: Reports Other - herniated disc Psychiatric Medical History: Reports: Hx Depression Infectious Medical History: Reports: Hx C-Diff, Hx HIV Past Surgical History: Reports: Hx Cholecystectomy - Immunizations Hx Diphtheria, Pertussis, Tetanus Vaccination: Yes Hx Pneumococcal Vaccination: 05/26/15 <GINNA CARTWRIGHT - Last Filed: 08/08/16 20:48> Review of Systems - Review of Systems Constitutional: No symptoms reported EENT: No symptoms reported Cardiovascular: No symptoms reported Respiratory: No symptoms reported Gastrointestinal: See HPI Genitourinary: See HPI, Flank pain Male Genitourinary: No symptoms reported Musculoskeletal: No symptoms reported Skin: No symptoms reported Hematologic/Lymphatic: No symptoms reported Neurological/Psychological: No symptoms reported -: Yes All other systems reviewed and negative <GINNA CARTWRIGHT - Last Filed: 08/08/16 20:48> Physical Exam - Vital signs Interpretation: Normal - General General appearance: Alert, Other - appears uncomfortable In distress: Mild - HEENT Head: Normocephalic, Atraumatic Eyes: Normal Pupils: PERRL Mucous membranes: Moist - Respiratory Respiratory status: No respiratory distress Chest status: Nontender Breath sounds: Normal Chest palpation: Normal - Cardiovascular Rhythm: Regular Heart sounds: Normal auscultation Murmur: No - Abdominal Inspection: Normal Distension: No distension Bowel sounds: Normal Tenderness: Nontender - Patient complains of pain to the LUQ and epigastric pain however there is no tenderness or pain when palpating either areas. no ridgity, guarding, or rebound. No: Guarding, Rebound Organomegaly: No organomegaly - Back Back: Normal, Nontender - Extremities General upper extremity: Normal inspection, Normal ROM, Normal strength General lower extremity: Normal inspection, Normal ROM, Normal strength, Other - sensation and pulses intact bilaterally - Neurological Neuro grossly intact: Yes Cognition: Normal Orientation: AAOx4 Jessica Coma Scale Eye Opening: Spontaneous Jessica Coma Scale Verbal: Oriented [place] Coma Scale Motor: Obeys Commands Jessica Coma Scale Total: 15 Speech: Normal - Psychological Associated symptoms: Normal affect, Normal mood - Skin Skin Temperature: Warm Skin Moisture: Dry <GINNA CARTWRIGHT - Last Filed: 08/08/16 20:48> Course - Laboratory Result Diagrams: 08/08/16 13:50 08/08/16 13:50 - Consults Dr. Aceves Time consulted: 19:53 [facility] Transfer Line Time consulted: 19:57 Dr. Hernandes Time consulted: 20:40 <GINNA CARTWRIGHT - Last Filed: 08/08/16 20:48> - Laboratory Result Diagrams: 08/09/16 06:21 08/09/16 07:19 <CHAY ATKINSON - Last Filed: 08/23/16 05:48> - Re-evaluation Re-evalutation: 08/08/16 20:46 I personally performed the services described in the documentation, reviewed and edited the documentation which was dictated to my scribe in my presence, and it accurately records my words and actions. Patient presents emergency from chief complaint of epigastric left upper quadrant abdominal pain for the past day and a half. Patient has had chronic recurrent pancreatitis was last admitted in April he is HIV-positive on HIV medication and followed by infectious disease in [place]. In addition to that he is a dialysis patient and missed dialysis today. He is preparing for a fistula because they thought he was just to do a small run of dialysis and then the HIV medication that they took him off of would improve it but that has not been the case. He comes in nausea but no vomiting no reproducible tenderness on examination but severe complaint of tenderness. No epigastric bleeding pancreas lipase is in the 9000 range 3 L of fluids IV pain medication and nausea medication CT is nonacute. Spoke with Dr. Aceves for admission to the hospital he wanted me to contact [facility] to try to transfer him there because his infectious disease doctor is there. Spoke with Dr. Hernandes hospitalist in [place] who does not feel this patient is appropriate for transfer and can be kept here with a consult over the phone to infectious disease. Contacted Dr. Aceves back in regards to this. (CHAY ATKINSON) - Vital Signs Vital signs: Temp Pulse Resp BP Pulse Ox 97.5 F 57 L 14 97/62 L 100 08/09/16 18:24 08/09/16 18:24 08/09/16 18:24 08/09/16 18:24 08/09/16 18:24 - Laboratory Laboratory results interpreted by me: 08/08/16 08/08/16 08/08/16 13:50 13:50 13:50 RBC 3.22 L Hgb 10.7 L Hct 31.8 L MCV 99 H RDW 16.3 H BUN 38 H Creatinine 3.99 H Est GFR ( Amer) 19 L Est GFR (Non-Af Amer) 16 L Total Bilirubin 1.8 H AST 13 L Triglycerides VLDL Cholesterol Lipase Urine Protein 100 H Urine Glucose (UA) 150 H 08/08/16 08/08/16 13:50 13:50 RBC Hgb Hct MCV RDW BUN Creatinine Est GFR ( Amer) Est GFR (Non-Af Amer) Total Bilirubin AST Triglycerides 163 H VLDL Cholesterol 32.6 H Lipase 8831.6 H Urine Protein Urine Glucose (UA) - Consults Dr. Aceves Reason for consultation: 08/08/16 19:[address] Aceves to possibly admit patient. Recommends to transport patient. 08/08/16 20:[address] Aceves to discuss the refusal for transfer via [facility]. (GINNA CARTWRIGHT) [facility] Transfer Line Reason for consultation: 08/08/16 19:57 Contacted [facility] for possible transfer; they will call back. (GINNA CARTWRIGHT) Dr. Hernandes Reason for consultation: 08/08/16 20:[address] Hernandes, [facility], for possible transfer. Dr. Freed does not feel that the patient needs to be transferred and should be admitted to our own facility. (GINNA CARTWRIGHT) Critical Care Note - Critical Care Note Total time excluding time spent on procedures (mins): 60 <CHAY ATKINSON - Last Filed: 08/23/16 05:48> Discharge <GINNA CARTWRIGHT - Last Filed: 08/08/16 20:48> - Discharge Admitting Provider: Hospitalist Unit Admitted: Medical Floor <CHAY ATKINSON - Last Filed: 08/23/16 05:48> - Discharge Clinical Impression: Acute pancreatitis, HIV disease Condition: Stable Disposition: ADMITTED INPATIENT Scribe Documentation - Scribe Written by Scribe:: Ginna Cartwright 08/08/16 18:40 acting as scribe for :: Jorge <GINNA CARTWRIGHT - Last Filed: 08/08/16 20:48>
[2016-08-08 18:09] LABS: PROTHROMBIN TIME 12.3 SEC (11.4-15.4)
[2016-08-08] MEDS ORDERED: NORMAL SALINE 1000 ML 2,000 ML IV PRN (19:16)
[2016-08-08] MEDS ORDERED: HYDROMORPHONE HCL INJ/PF 2 MG/ML AMPULE IV ONE ×2 (19:16→21:05)
[2016-08-08] MEDS ORDERED: CYCLOBENZAPRINE HCL 10 MG TABLET PO PRN (20:57)
[2016-08-08] MEDS ORDERED: HYDROMORPHONE HCL 2 MG TABLET PO PRN (20:57)
[2016-08-08] MEDS ORDERED: HYDROXYZINE PAMOATE 50 MG CAPSULE PO PRN (20:57)
[2016-08-08] MEDS ORDERED: LORAZEPAM 0.5 MG TABLET PO PRN (20:57)
[2016-08-08] MEDS ORDERED: MAGNESIUM HYDROXIDE SUSP 30 ML UDCUP PO PRN (20:59)
[2016-08-08] MEDS ORDERED: IPRATROPIUM/ALBUTEROL 0.5-2.5 MG/3 ML AMPUL NEB PRN (20:59)
[2016-08-08] MEDS ORDERED: ONDANSETRON HCL INJ/PF 4 MG/2 ML SDV IV PRN (20:59)
[2016-08-08] MEDS ORDERED: ACETAMINOPHEN 325 MG TABLET PO PRN (20:59)
[2016-08-08 21:28] LABS: CHOLESTEROL 141.16 mg/dL (0-200); Direct HDL 53 mg/dL (>40); TRIGLYCERIDES 163 mg/dL (<150)
[2016-08-08 21:38] LABS: DIRECT LDL 46 mg/dL (<100)
[2016-08-08 21:45] LABS: VLDL CHOLESTEROL 32.6 mg/dL (10-31)
[2016-08-08] MEDS ORDERED: TRAZODONE HCL 50 MG TABLET PO SCH (22:00)
[2016-08-08] MEDS ORDERED: GABAPENTIN 300 MG CAPSULE PO SCH (22:00)
[2016-08-08] MEDS ORDERED: APIXABAN 5 MG TABLET PO ONE (22:00)
[2016-08-08] MEDS: BUDESONIDE/FORMOTEROL 160-4.5 MCG 60 PUFF/6 GM MDI IH SCH (22:19)
--- NOTE | 2016-08-08 22:45 | EKG REPORT ---
SEVERITY:- ABNORMAL ECG - SINUS RHYTHM LEFT ANTERIOR FASCICULAR BLOCK : Confirmed by: Esha Fernández MD 08-Aug-2016 22:44:31
[2016-08-09] MEDS ORDERED: NORMAL SALINE 1000 ML 1,000 ML IV SCH (02:00)
--- NOTE | 2016-08-09 05:05 | PDOC H&P ---
History of Present Illness Admission Date/PCP: 08/08/16 20:59 JAYDE BORJA-C Patient complains of: Abdominal pain History of Present Illness: LAMAR SMALL is a 50 year old male with an extensive past medical history including HIV, hepatitis C, end-stage renal failure on hemodialysis Friday, pulmonary embolism on Eliquis, recent C. difficile colitis and pancreatitis thought secondary to HAART therapy. He been in his usual state of health until approximately 12 hours prior to presentation developing abdominal pain after a meal which radiated to the back associated with nausea without vomiting prompting his seek evaluation emergency room where his found to have a lipase of 8800 and referred to the hospitalist for admission. Patient admits initiating new HAART regiment 5 days ago, denying alcohol or recreational drug use. Yesterday he was unable to tolerate hemodialysis denying shortness of breath. His LFTs are otherwise unremarkable and CT abdomen is negative for necrotic pancreatitis. Past Medical History Cardiac Medical History: Reports: Pulmonary Embolism Pulmonary Medical History: Reports: Chronic Obstructive Pulmonary Disease (COPD) Neurological Medical History: Denies: Seizures Renal/ Medical History: Reports: End Stage Renal Disease GI Medical History: Reports: Hiatal Hernia, Other - pancreatitis Musculoskeltal Medical History: Reports: Other - herniated disc Psychiatric Medical History: Reports: Depression Infectious Medical History: Reports: Clostridium Difficile, Hepatitis C, HIV Past Surgical History Past Surgical History: Reports: Cholecystectomy Social History Smoking Status: Current Every Day Smoker Frequency of Alcohol Use: Occasional Hx Recreational Drug Use: No Drugs: None Hx Prescription Drug Abuse: No - Advance Directive Resuscitation Status: Do Not Resuscitate Family History Family History: CAD, DM, Hypertension Parental Family History Reviewed: Yes Children Family History Reviewed: Yes Sibling(s) Family History Reviewed.: Yes Medication/Allergy Home Medications: Albuterol Sulfate [Proair HFA] 1 puff IH Q4HP PRN 08/08/16 Apixaban [Eliquis 5 mg Tablet] 5 mg PO BID 08/08/16 Atazanavir Sulfate [Reyataz] 300 mg PO TUTHSA@1700 08/08/16 Cetirizine HCl [Cetirizine 5 mg Tablet] 5 mg PO DAILY 08/08/16 Cyclobenzaprine HCl [Flexeril 10 mg Tablet] 10 mg PO Q8HP PRN 08/08/16 Emtricitabine/Tenofov Alafenam [Descovy 200-25 mg Tablet] 1 tab PO TUTHSA@1700 08/08/16 Gabapentin [Neurontin 300 mg Capsule] 300 mg PO QHS 08/08/16 Metronidazole [Flagyl 500 mg Tablet] 500 mg PO Q6 08/08/16 Ondansetron HCl [Zofran 4 mg Tablet] 1 tab PO BID 08/08/16 Ritonavir [Norvir 100 mg Tablet] 100 mg PO TUTHSA@1700 08/08/16 Sevelamer Carbonate [Renvela] 800 mg PO MEALS 08/08/16 Trazodone HCl [Desyrel] 100 mg PO QHS 08/08/16 Allergies/Adverse Reactions: No Known Allergies Allergy (Verified 08/08/16 13:41) Review of Systems Constitutional: PRESENT: as per HPI, anorexia, fatigue. ABSENT: fever(s), headache(s), night sweats, weakness Eyes: ABSENT: visual disturbances Ears: ABSENT: hearing changes Cardiovascular: ABSENT: chest pain, dyspnea on exertion, edema, orthropnea, palpitations Respiratory: ABSENT: cough, hemoptysis Gastrointestinal: PRESENT: abdominal pain, bloating, nausea. ABSENT: coffee ground emesis, constipation, dysphagia, heartburn, hematemesis, hematochezia, vomiting Genitourinary: ABSENT: dysuria, hematuria Musculoskeletal: ABSENT: joint swelling Integumentary: ABSENT: rash, wounds Neurological: ABSENT: abnormal gait, abnormal speech, confusion, dizziness, focal weakness, syncope Psychiatric: ABSENT: anxiety, depression, homidical ideation, suicidal ideation Endocrine: ABSENT: cold intolerance, heat intolerance, polydipsia, polyuria Hematologic/Lymphatic: ABSENT: easy bleeding, easy bruising Physical Exam Vital Signs: Temp Pulse Resp BP Pulse Ox 97.2 F 53 L 17 103/76 100 08/09/16 04:00 08/09/16 04:00 08/09/16 04:00 08/09/16 04:00 08/09/16 04:00 General appearance: PRESENT: cooperative, severe distress, thin. ABSENT: disheveled, hard of hearing Head exam: PRESENT: atraumatic, normocephalic Eye exam: PRESENT: conjunctiva pink, EOMI, PERRLA. ABSENT: scleral icterus Ear exam: PRESENT: normal external ear exam Mouth exam: PRESENT: dry mucosa, neck supple, tongue midline. ABSENT: moist Neck exam: ABSENT: carotid bruit, JVD, lymphadenopathy, thyromegaly Respiratory exam: PRESENT: clear to auscultation jamil. ABSENT: rales, rhonchi, wheezes Cardiovascular exam: PRESENT: RRR. ABSENT: diastolic murmur, rubs, systolic murmur Pulses: PRESENT: normal dorsalis pedis pul Vascular exam: PRESENT: normal capillary refill GI/Abdominal exam: PRESENT: hyperactive bowel sounds, soft, tenderness. ABSENT : ascites, diminished bowel sounds, distended, firm, guarding, hernia, mass, rebound, rigid Rectal exam: PRESENT: deferred Extremities exam: PRESENT: full ROM. ABSENT: calf tenderness, clubbing, pedal edema Neurological exam: PRESENT: alert, awake, oriented to person, oriented to place , oriented to time, oriented to situation, CN II-XII grossly intact. ABSENT: motor sensory deficit Psychiatric exam: PRESENT: appropriate affect, normal mood. ABSENT: homicidal ideation, suicidal ideation Skin exam: PRESENT: dry, intact, warm. ABSENT: cyanosis, rash Results Impressions: Limited or Localized CT 08/08/16 13:46 IMPRESSION: PUNCTATE NONOBSTRUCTING CALYCEAL CALCULUS IN THE RIGHT KIDNEY. OTHERWISE NO SIGNIFICANT OR ACUTE PROCESS IN THE ABDOMEN OR PELVIS. Assessment & Plan - Diagnosis (1) Acute pancreatitis Is this a current diagnosis for this admission?: YesPlan: Likely secondary to HAART regiment with protease inhibitor this will be held and his ID team in in [place] consulted. Otherwise continue supportive and symptomatically management with nothing by mouth, IV fluids, narcotics and reevaluation of chemistry. (2) ESRD (end stage renal disease) on dialysis Is this a current diagnosis for this admission?: YesPlan: Patient is nonoliguric he'll receive IV fluids and consultation with nephrology for continuation of hemodialysis (3) HIV disease Is this a current diagnosis for this admission?: YesPlan: Please see #1, patient believes his CD4 count to be above 200 not requiring additional prophylaxis at this time will consult infectious disease team in [place]. - Time Time Spent: 50 to 70 Minutes
[2016-08-09 06:54] LABS: ABSOLUTE EOSINOPHILS # (AUTO) 0.2 10^3/uL (0.0-0.6); ABSOLUTE LYMPHOCYTES (AUTO) 2.3 10^3/uL (0.5-4.7); ABSOLUTE MONOCYTES (AUTO) 0.5 10^3/uL (0.1-1.4); ABSOLUTE NEUT (AUTO) 2.2 10^3/uL (1.7-8.2); BASOPHILS % (AUTO) 0.5 % (0-2); EOSINOPHILS % (AUTO) 3.5 % (0-6); HEMATOCRIT 29.4 % (37.9-51.0); HEMOGLOBIN 9.6 g/dL (13.5-17.0); HGB HCT DIFFERENCE -0.6; LYMPHOCYTES % (AUTO) 44.2 % (13-45); MEAN CORPUSCULAR HEMOGLOBIN 32.7 pg (27.0-33.4); MEAN CORPUSCULAR HGB CONC 32.7 g/dL (32.0-36.0); MEAN CORPUSCULAR VOLUME 100 fl (80-97); MONOCYTES % (AUTO) 10.2 % (3-13); RED BLOOD COUNT 2.93 10^6/uL (4.35-5.55); RED CELL DISTRIBUTION WIDTH 16.3 % (11.5-14.0); SEGMENTED NEUTROPHILS % (AUTO) 41.6 % (42-78); WHITE BLOOD COUNT 5.3 10^3/uL (4.0-10.5)
[2016-08-09] MEDS ORDERED: ALBUTEROL SULFATE HFA (90 MCG/PUFF) 8 GM MDI (1 MDI/ER DISP) IH PRN (07:37)
[2016-08-09] MEDS ORDERED: NORMAL SALINE 1000 ML 1,000 ML IV PRN (07:42)
[2016-08-09 07:44] LABS: ALANINE AMINOTRANSFERASE 21 U/L (21-72); ALBUMIN 3.3 g/dL (3.5-5.0); ALKALINE PHOSPHATASE 69 U/L (38-126); ANION GAP 9 (5-19); ASPARTATE AMINO TRANSFERASE 16 U/L (17-59); BLOOD UREA NITROGEN 33 mg/dL (7-20); CALCIUM 9.9 mg/dL (8.4-10.2); CARBON DIOXIDE 23 mmol/L (22-30); CHLORIDE 110 mmol/L (98-107); CREATININE RESULT 4.02 mg/dL (0.52-1.25); GLUCOSE 94 mg/dL (75-110); POTASSIUM 4.9 mmol/L (3.6-5.0); SODIUM 141.5 mmol/L (137-145); TOTAL PROTEIN 6.3 g/dL (6.3-8.2)
[2016-08-09 07:53] LABS: LIPASE 2610.6 U/L (23-300)
[2016-08-09] MEDS ORDERED: LACTOBACILLUS ACIDOPHILUS 250 MG TAB PO SCH (08:00)
[2016-08-09] MEDS ORDERED: HYDROMORPHONE HCL INJ/PF 2 MG/ML AMPULE IV PRN ×2 (08:01→13:02)
[2016-08-09] MEDS ORDERED: ALBUTEROL SULFATE HFA (90 MCG/PUFF) 200 PUFF/8.5 GM MDI IH PRN ×2 (08:03→08:04)
[2016-08-09] MEDS ORDERED: CITALOPRAM HYDROBROMIDE 20 MG TABLET PO SCH (10:00)
[2016-08-09] MEDS ORDERED: CHOLESTYRAMINE/ASPARTAME 4 GM PACKET PO SCH (10:00)
[2016-08-09] MEDS: BUDESONIDE/FORMOTEROL 160-4.5 MCG 60 PUFF/6 GM MDI IH SCH (10:39)
[2016-08-09] MEDS: BUSPIRONE HCL 10 MG TABLET PO SCH ×3 (10:39→17:50)
[2016-08-09] MEDS: APIXABAN 5 MG TABLET PO SCH ×2 (10:40→17:50)
[2016-08-09] MEDS ORDERED: METRONIDAZOLE 500 MG/NS RTU 100 ML IV SCH (12:00)
[2016-08-09] MEDS ORDERED: CYCLOBENZAPRINE HCL 10 MG TABLET PO PRN (13:04)
[2016-08-09 13:09] VITALS: BP 97/62
[2016-08-09] MEDS ORDERED: PHARMACY COMMUNICATION ORDER MC NR (13:45)
[2016-08-09] MEDS ORDERED: SUCRALFATE SUSP 1 GM/10 ML UDCUP PO ONE (14:30)
[2016-08-09] MEDS ORDERED: LANSOPRAZOLE 30 MG TAB.RAP.DR PO ONE (14:30)
[2016-08-09] MEDS ORDERED: FAMOTIDINE INJ/PF 20 MG/2 ML SDV IV ONE (14:30)
[2016-08-09] MEDS ORDERED: EPOETIN ALFA 10,000 UNIT in SYRINGE, DISPOSABLE, 1 EACH IV PRN (14:30)
[2016-08-09] MEDS ORDERED: LACTULOSE SYRUP 20 GM/30 ML UDCUP PO ONE (14:30)
--- NOTE | 2016-08-09 16:50 | PDOC CONSULTATION ---
Consultation Consult Date: 08/09/16 Consult reason:: Hemodialysis. History of Present Illness Admission Date/PCP: 08/08/16 20:59 ANGEL BORJA History of Present Illness: LAMAR SMALL is a 50 year old male with an extensive past medical history including HIV, hepatitis C, end-stage renal failure on hemodialysis Friday, pulmonary embolism on Eliquis, recent C. difficile colitis and pancreatitis thought secondary to HAART therapy. He been in his usual state of health until approximately 12 hours prior to presentation developing abdominal pain after a meal which radiated to the back associated with nausea without vomiting prompting his seek evaluation emergency room where his found to have a lipase of 8800 and referred to the hospitalist for admission. Patient admits initiating new HAART regiment 5 days ago, denying alcohol or recreational drug use. Yesterday he was unable to tolerate hemodialysis denying shortness of breath. His LFTs are otherwise unremarkable and CT abdomen is negative for necrotic pancreatitis. He is presently seeing undergoing hemodialysis without any issues. Abdominal pains are much better currently.Hemodialysis orders were discussed with the treating nurse Past Medical History Cardiac Medical History: Reports: Hypertension-primary, Pulmonary Embolism Pulmonary Medical History: Reports: Chronic Obstructive Pulmonary Disease (COPD) Neurological Medical History: Denies: Seizures Renal/ Medical History: Reports: End Stage Renal Disease GI Medical History: Reports: Hiatal Hernia, Other - pancreatitis Musculoskeltal Medical History: Reports: Other - herniated disc Psychiatric Medical History: Reports: Depression Infectious Medical History: Reports: Clostridium Difficile, Hepatitis C, HIV Hematology Medical History: Reports Anemia of Chronic Kidney Disease Past Surgical History Past Surgical History: Reports: Cholecystectomy Social History Smoking Status: Current Every Day Smoker Frequency of Alcohol Use: Occasional Hx Recreational Drug Use: No Drugs: None Hx Prescription Drug Abuse: No - Advance Directive Resuscitation Status: Do Not Resuscitate Family History Parental Family History Reviewed: Yes Children Family History Reviewed: Yes Sibling(s) Family History Reviewed.: Yes Medication/Allergy Home Medications: Albuterol Sulfate [Proair HFA] 1 puff IH Q4HP PRN 08/08/16 Apixaban [Eliquis 5 mg Tablet] 5 mg PO BID 08/08/16 Atazanavir Sulfate [Reyataz 300 mg Capsule] 300 mg PO TUTHSA@1700 08/08/16 Cetirizine HCl [Cetirizine 5 mg Tablet] 5 mg PO DAILY 08/08/16 Cyclobenzaprine HCl [Flexeril 10 mg Tablet] 10 mg PO Q8HP PRN 08/08/16 Emtricitabine/Tenofov Alafenam [Descovy 200-25 mg Tablet] 1 tab PO TUTHSA@1700 08/08/16 Gabapentin [Neurontin 300 mg Capsule] 300 mg PO QHS 08/08/16 Metronidazole [Flagyl 500 mg Tablet] 500 mg PO Q6 08/08/16 Ondansetron HCl [Zofran 4 mg Tablet] 1 tab PO BID 08/08/16 Ritonavir [Norvir 100 mg Tablet] 100 mg PO TUTHSA@1700 08/08/16 Sevelamer Carbonate [Renvela] 800 mg PO MEALS 08/08/16 Trazodone HCl [Desyrel] 100 mg PO QHS 08/08/16 Lansoprazole [Prevacid] 30 mg PO DAILY #30 capsule. 08/09/16 Sucralfate [Carafate Susp 1 Gm/10 Ml Udcup] 1 gm PO BID #20 udc 08/09/16 Allergies/Adverse Reactions: No Known Allergies Allergy (Verified 08/08/16 13:41) Review of Systems Review of Systems: Constitutional: PRESENT: as per HPI. ABSENT: chills, fever(s), headache(s), weight gain, weight loss Eyes: ABSENT: visual disturbances Ears: ABSENT: hearing changes Cardiovascular: ABSENT: chest pain, dyspnea on exertion, edema, orthropnea, palpitations Respiratory: ABSENT: cough, hemoptysis Gastrointestinal: ABSENT: , constipation, diarrhea, hematemesis, hematochezia, nausea, vomiting Genitourinary: ABSENT: dysuria, hematuria Musculoskeletal: ABSENT: joint swelling Integumentary: ABSENT: rash, wounds Neurological: ABSENT: abnormal gait, abnormal speech, confusion, dizziness, focal weakness, syncope Psychiatric: ABSENT: anxiety, depression, homicidal ideation, suicidal ideation Endocrine: ABSENT: cold intolerance, heat intolerance, , polydipsia, polyuria Hematologic/Lymphatic: ABSENT: easy bleeding, easy bruising, lymphadenopathy Physical Exam Vital Signs: Temp Pulse Resp BP Pulse Ox 97.5 F 56 L 14 97/62 L 100 08/09/16 12:20 08/09/16 12:20 08/09/16 12:20 08/09/16 12:20 08/09/16 12:20 Intake & Output 08/08/16 08/09/16 08/10/16 06:59 06:59 06:59 Intake Total 1150 Balance 1150 General appearance: PRESENT: no acute distress Eye exam: PRESENT: conjunctiva pink, EOMI, PERRLA. ABSENT: nystagmus, scleral icterus Ear exam: PRESENT: normal external ear exam Neck exam: ABSENT: lymphadenopathy, meningismus, tenderness, thyromegaly, tracheal deviation Respiratory exam: PRESENT: clear to auscultation jamil. ABSENT: crackles, rhonchi Cardiovascular exam: PRESENT: +S1, +S2, systolic murmur GI/Abdominal exam: PRESENT: normal bowel sounds, soft, tenderness - Mildly tender in the left upper quadrant. No masses felt. Bowel sounds were active.. ABSENT: distended, firm, guarding, mass Extremities exam: ABSENT: pedal edema Neurological exam: PRESENT: alert, awake, oriented to person, oriented to place , oriented to time Psychiatric exam: PRESENT: flat affect, normal mood Skin exam: ABSENT: cyanosis, dry, erythema, mottled, rash Results Laboratory Results: 08/09/16 06:21 08/09/16 07:19 08/09/16 08/09/16 08/09/16 06:21 06:21 07:19 WBC 5.3 RBC 2.93 L Hgb 9.6 L Hct 29.4 L MCV 100 H MCH 32.7 MCHC 32.7 RDW 16.3 H Plt Count 200 Seg Neutrophils % 41.6 L Lymphocytes % 44.2 Monocytes % 10.2 Eosinophils % 3.5 Basophils % 0.5 Absolute Neutrophils 2.2 Absolute Lymphocytes 2.3 Absolute Monocytes 0.5 Absolute Eosinophils 0.2 Absolute Basophils 0.0 Sodium Cancelled 141.5 Potassium Cancelled 4.9 Chloride Cancelled 110 H Carbon Dioxide Cancelled 23 Anion Gap Cancelled 9 BUN Cancelled 33 H Creatinine Cancelled 4.02 H Est GFR ( Amer) Cancelled 19 L Est GFR (Non-Af Amer) Cancelled 16 L Glucose Cancelled 94 Calcium Cancelled 9.9 Total Bilirubin Cancelled 2.0 H AST Cancelled 16 L ALT Cancelled 21 Alkaline Phosphatase Cancelled 69 Total Protein Cancelled 6.3 Albumin Cancelled 3.3 L Lipase Cancelled 2610.6 H Impressions: Limited or Localized CT 08/08/16 13:46 IMPRESSION: PUNCTATE NONOBSTRUCTING CALYCEAL CALCULUS IN THE RIGHT KIDNEY. OTHERWISE NO SIGNIFICANT OR ACUTE PROCESS IN THE ABDOMEN OR PELVIS. Assessment & Plan - Diagnosis (1) Abdominal pain Plan: Secondary to acute pancreatitis. Conservative management as per hospitalist. (2) Acute pancreatitis Is this a current diagnosis for this admission?: YesPlan: As mentioned earlier (3) ESRD (end stage renal disease) on dialysis Is this a current diagnosis for this admission?: YesPlan: Patient currently undergoing dialysis without issues. Orders were discussed with treating nurse. Plan to remove less than half a liter or even less as his blood pressures on the low side.Stable. Continue to monitor. (4) HIV disease Is this a current diagnosis for this admission?: Yes (5) Anemia in chronic kidney disease (CKD) Plan: We will adjust erythropoietin. Monitor
[2016-08-09] MEDS ORDERED: (PENDING PHARMACY ID) (Sevelamer Carbonate [Renvela] 800 MG) PO SCH (17:00)
[2016-08-09] MEDS ORDERED: SEVELAMER HCL 400 MG TABLET PO SCH (17:00)
[2016-08-09] MEDS ORDERED: ONDANSETRON 4 MG TAB.RAPDIS PO SCH (18:00)
[2016-08-09] MEDS ORDERED: METRONIDAZOLE 500 MG TABLET PO SCH (18:00)
--- NOTE | 2016-08-09 18:49 | PDOC DISCHARGE SUMMARY ---
General - Admit/Disc Date/PCP Admission Date/Primary Care Provider: 08/08/16 20:59 ANGEL BORJA Discharge Date: 08/09/16 - Discharge Diagnosis (1) Gastroesophageal reflux disease Is this a current diagnosis for this admission?: Yes (2) Constipation Is this a current diagnosis for this admission?: Yes (3) Elevated lipase Is this a current diagnosis for this admission?: Yes (4) ESRD (end stage renal disease) on dialysis Is this a current diagnosis for this admission?: Yes (5) HIV disease Is this a current diagnosis for this admission?: Yes (6) Anemia Is this a current diagnosis for this admission?: Yes (7) C. difficile diarrhea Is this a current diagnosis for this admission?: Yes (8) COPD (chronic obstructive pulmonary disease) Is this a current diagnosis for this admission?: Yes (9) Chronic low back pain with bilateral sciatica Is this a current diagnosis for this admission?: Yes (10) Fatty liver disease, nonalcoholic Is this a current diagnosis for this admission?: Yes (11) HIV disease Is this a current diagnosis for this admission?: Yes (12) Pulmonary embolism on long-term anticoagulation therapy Is this a current diagnosis for this admission?: Yes - Additional Information Resuscitation Status: Do Not Resuscitate Discharge Diet: Other (Comments) - dialysis Discharge Activity: Activity As Tolerated, Walk Frequently Home Medications: Albuterol Sulfate [Proair HFA] 1 puff IH Q4HP PRN 08/08/16 Apixaban [Eliquis 5 mg Tablet] 5 mg PO BID 08/08/16 Atazanavir Sulfate [Reyataz 300 mg Capsule] 300 mg PO TUTHSA@1700 08/08/16 Cetirizine HCl [Cetirizine 5 mg Tablet] 5 mg PO DAILY 08/08/16 Cyclobenzaprine HCl [Flexeril 10 mg Tablet] 10 mg PO Q8HP PRN 08/08/16 Emtricitabine/Tenofov Alafenam [Descovy 200-25 mg Tablet] 1 tab PO TUTHSA@1700 08/08/16 Gabapentin [Neurontin 300 mg Capsule] 300 mg PO QHS 08/08/16 Metronidazole [Flagyl 500 mg Tablet] 500 mg PO Q6 08/08/16 Ondansetron HCl [Zofran 4 mg Tablet] 1 tab PO BID 08/08/16 Ritonavir [Norvir 100 mg Tablet] 100 mg PO TUTHSA@1700 08/08/16 Sevelamer Carbonate [Renvela] 800 mg PO MEALS 08/08/16 Trazodone HCl [Desyrel] 100 mg PO QHS 08/08/16 Lansoprazole [Prevacid] 30 mg PO DAILY #30 capsule. 08/09/16 Sucralfate [Carafate Susp 1 Gm/10 Ml Udcup] 1 gm PO BID #20 udc 08/09/16 History of Present Illness History of Present Illness: LAMAR SMALL is a 50 year old male with an extensive past medical history including HIV, hepatitis C, end-stage renal failure on hemodialysis Friday, pulmonary embolism on Eliquis, recent C. difficile colitis and pancreatitis thought secondary to HAART therapy. He been in his usual state of health until approximately 12 hours prior to presentation developing abdominal pain after a meal which radiated to the back associated with nausea without vomiting prompting his seek evaluation emergency room where his found to have a lipase of 8800 and referred to the hospitalist for admission. Patient admits initiating new HAART regiment 5 days ago, denying alcohol or recreational drug use. Yesterday he was unable to tolerate hemodialysis denying shortness of breath. His LFTs are otherwise unremarkable and CT abdomen is negative for necrotic pancreatitis. Hospital Course Hospital Course: Patient was admitted and made nothing by mouth. Upon my review of patient, when I spoke to him he reported left upper quadrant pain underneath his ribs, no midepigastric pain, and reports that his pain was not worsened by eating or drinking. He denied antecedent nausea and vomiting. He reported that he was having 3 mushy bowel movements a day and was still taking his Flagyl for his underlying C. difficile colitis. CT of the abdomen did not reveal pancreatitis and/or patient's symptoms consistent with this. Patient was admitted for elevated lipase, which was felt to be multifactorial due to underlying gastritis which was biopsy-proven on 05/09/2016 as well as HAART therapy some of which of his medications can cause an asymptomatic elevation in lipase more than 2 times the upper limit of normal. I did discuss this case with his infectious disease nurse practitioner, Merna Carrillo, who was kind enough to make him a sooner appointment for follow-up. Patient reports that he stopped taking a PPI around the time that he started taking the antiretrovirals. Patient's ID nurse practitioner agreed to use of a PPI with his antiretrovirals is given 12 hours prior. Patient was instructed of this. At this time, she did not recommend stopping his antiretrovirals. Patient reports he's feeling fine and would like to eat and has tolerated dialysis well. Patient is stable for discharge home. He is advised that if his pain worsens to return to the emergency department. Patient is discharged home in stable condition. Physical Exam Vital Signs: Temp Pulse Resp BP Pulse Ox 97.5 F 57 L 14 97/62 L 100 08/09/16 18:24 08/09/16 18:24 08/09/16 18:24 08/09/16 18:24 08/09/16 18:24 Intake & Output 08/08/16 08/09/16 08/10/16 06:59 06:59 06:59 Intake Total 1150 100 Balance 1150 100 Exam: General: Awake alert and orientedx3, no acute respiratory distress, nontoxic- appearing HEENT: AT/NC, PERRL, EOMI, oropharynx is moist, pink, no scleral icterus, no conjunctival injection Neck: No JVD, trachea midline Chest: Vas-Cath to right upper chest, Clear to auscultation bilaterally, no wheezes rhonchi or rales CV: Regular rate and rhythm, normal S1 and S2, no murmur, rub, or gallop Abdomen: Soft, nontender to palpation, nondistended, active bowel sounds; no rebound, rigidity, or guarding Extremities: No cyanosis, clubbing or edema Neuro: Cranial nerves II through XII are grossly intact without focal deficits; awake alert and oriented x3 Psych: Normal mood and affect Results Laboratory Results: 08/09/16 06:21 08/09/16 07:19 08/09/16 08/09/16 08/09/16 06:21 06:21 07:19 WBC 5.3 RBC 2.93 L Hgb 9.6 L Hct 29.4 L MCV 100 H MCH 32.7 MCHC 32.7 RDW 16.3 H Plt Count 200 Seg Neutrophils % 41.6 L Lymphocytes % 44.2 Monocytes % 10.2 Eosinophils % 3.5 Basophils % 0.5 Absolute Neutrophils 2.2 Absolute Lymphocytes 2.3 Absolute Monocytes 0.5 Absolute Eosinophils 0.2 Absolute Basophils 0.0 Sodium Cancelled 141.5 Potassium Cancelled 4.9 Chloride Cancelled 110 H Carbon Dioxide Cancelled 23 Anion Gap Cancelled 9 BUN Cancelled 33 H Creatinine Cancelled 4.02 H Est GFR ( Amer) Cancelled 19 L Est GFR (Non-Af Amer) Cancelled 16 L Glucose Cancelled 94 Calcium Cancelled 9.9 Total Bilirubin Cancelled 2.0 H AST Cancelled 16 L ALT Cancelled 21 Alkaline Phosphatase Cancelled 69 Total Protein Cancelled 6.3 Albumin Cancelled 3.3 L Lipase Cancelled 2610.6 H Impressions: Limited or Localized CT 08/08/16 13:46 IMPRESSION: PUNCTATE NONOBSTRUCTING CALYCEAL CALCULUS IN THE RIGHT KIDNEY. OTHERWISE NO SIGNIFICANT OR ACUTE PROCESS IN THE ABDOMEN OR PELVIS. Qualifiers PATEINT BEING DISCHARGED WITH ANY OF THE FOLLOWING DIAGNOSIS?: No Plan Time Spent: Greater than 30 Minutes
[2016-08-09] MEDS ORDERED: (PENDING PHARMACY ID) (Trazodone Hcl [Desyrel] 100 MG) PO SCH (22:00)
[2016-08-09] MEDS ORDERED: TRAZODONE HCL 50 MG TABLET PO SCH (22:00)
[2016-08-10] MEDS ORDERED: LANSOPRAZOLE 30 MG TAB.RAP.DR PO SCH (06:00)
[2016-08-10] MEDS ORDERED: CETIRIZINE 5 MG TABLET PO SCH (10:00)
== END 2016-08-09 19:00 | disposition home or self-care (01) | DRG 438 ==
LOC: EEVIPCON 12:57 → ER 12:57 → EH 20:59 → UNDOADMIN 21:09 → 4S 23:09
PROVIDERS: ADMIT Internal Medicine; ATTEND Internal Medicine
PROC: 5A1D00Z (ICD-10-PCS; principal; 2016-08-09)
PROC: 3E0F73Z Introduction of Anti-inflammatory into Respiratory Tract, Via Natural or Artificial Opening (ICD-10-PCS; 2016-08-09)
DX: K85.90 Acute pancreatitis without necrosis or infection, unspecified (principal); N18.6 End stage renal disease; I12.0 Hypertensive chronic kidney disease with stage 5 chronic kidney disease or end stage renal disease; F11.20 Opioid dependence, uncomplicated; A04.7 Enterocolitis due to Clostridium difficile; Z21 Asymptomatic human immunodeficiency virus [HIV] infection status; K21.9 Gastro-esophageal reflux disease without esophagitis; K59.00 Constipation, unspecified; D63.1 Anemia in chronic kidney disease; J44.9 Chronic obstructive pulmonary disease, unspecified; G89.29 Other chronic pain; M54.42 Lumbago with sciatica, left side; M54.41 Lumbago with sciatica, right side; K76.0 Fatty (change of) liver, not elsewhere classified; B19.20 Unspecified viral hepatitis C without hepatic coma; F32.9 Major depressive disorder, single episode, unspecified; N20.0 Calculus of kidney; F17.210 Nicotine dependence, cigarettes, uncomplicated; Z66 Do not resuscitate; Z86.711 Personal history of pulmonary embolism; Z79.01 Long term (current) use of anticoagulants; Z79.899 Other long term (current) drug therapy; Z99.2 Dependence on renal dialysis; Z90.49 Acquired absence of other specified parts of digestive tract; Z83.3 Family history of diabetes mellitus; Z82.49 Family history of ischemic heart disease and other diseases of the circulatory system
CPT/HCPCS: 36415; 76380; 80048; 80053; 80061; 80076; 81001; 83690; 83735; 84484; 85025; 85610; 93005; 93010; 96361; 96374; 96375; 99291; J1170; J3010; J3490; J7030; Q4081; S0028; S0119

== ENCOUNTER 2016-10-09 20:31 | Inpatient (IN) | payer MEDICARE, MEDICAID ==
--- NOTE | 2016-10-09 20:43 | ER Document Report ---
ED GI/ - General Mode of Arrival: Medic Information source: Patient, Emergency Med Personnel TRAVEL OUTSIDE OF THE [place] IN LAST 30 DAYS: No - HPI Patient complains to provider of: Abdominal pain, Diarrhea, Vomiting Onset: Other - see HPI note Associated symptoms: Coffee ground emesis, Diarrhea Similar symptoms previously: Yes Recently seen / treated by doctor: No <GINNA CARTWRIGHT - Last Filed: 10/10/16 01:03> <DEEPAK MORENO - Last Filed: 10/10/16 04:40> - General Stated Complaint: POSSIBLE GI BLEED Time Seen by Provider: 10/09/16 20:42 Notes: Patient is a 50 year old male presenting to the emergency department for coffee ground emesis and tarry diarrhea. Patient states he started vomiting yesterday and had rectal bleeding today. Patient was given Zofran by EMS. Patient states he also has thrush and his throat hurts. Patient states his belly feels numb. Patient told EMS that he told his doctor that he had low potassium and he was given potassium to take. Patient missed dialysis on Friday. Patient has a history of a blood effusion. Patient has a history of esophageal bleeding that he states was caused from heavy drinking of EtOH. Patient also has a recent history of C-diff and states his symptoms feel similar. Patient also has a history of HIV. Patient's history is limited due to his clinical condition. ( GINNA CARTWRIGHT) - Related Data Allergies/Adverse Reactions: No Known Allergies Allergy (Verified 08/08/16 13:41) Past Medical History - General Information source: Patient, Emergency Med Personnel - Social History Smoking Status: Unknown if Ever Smoked Frequency of alcohol use: Heavy Family History: CAD, DM, Hypertension - Past Medical History Cardiac Medical History: Reports: Hx Pulmonary Embolism Pulmonary Medical History: Reports: Hx COPD Renal/ Medical History: Reports: Hx End Stage Renal Disease, Hx Hemodialysis GI Medical History: Reports: Hx Hiatal Hernia Psychiatric Medical History: Reports: Hx Depression Infectious Medical History: Reports: Hx C-Diff, Hx HIV Past Surgical History: Reports: Hx Cholecystectomy - Immunizations Hx Diphtheria, Pertussis, Tetanus Vaccination: Yes Hx Pneumococcal Vaccination: 05/26/15 <GINNA CARTWRIGHT - Last Filed: 10/10/16 01:03> Review of Systems - Review of Systems Constitutional: No symptoms reported EENT: No symptoms reported Cardiovascular: No symptoms reported Respiratory: No symptoms reported Gastrointestinal: See HPI, Abdominal pain, Diarrhea, Nausea, Vomiting Genitourinary: No symptoms reported Male Genitourinary: No symptoms reported Musculoskeletal: No symptoms reported Skin: No symptoms reported Hematologic/Lymphatic: No symptoms reported Neurological/Psychological: No symptoms reported -: Yes All other systems reviewed and negative <GINNA CARTWRIGHT - Last Filed: 10/10/16 01:03> Physical Exam - Vital signs Interpretation: Normal - General General appearance: Alert, Other - vomiting in room In distress: Moderate - HEENT Head: Normocephalic, Atraumatic Eyes: Normal Pupils: PERRL Mucous membranes: Dry - Respiratory Respiratory status: No respiratory distress Chest status: Nontender Breath sounds: Normal Chest palpation: Normal - Cardiovascular Rhythm: Tachycardia Heart sounds: Normal auscultation Murmur: No - Abdominal Inspection: Normal Distension: No distension Bowel sounds: Normal Tenderness: Nontender Organomegaly: No organomegaly - Back Back: Normal, Nontender - Extremities General upper extremity: Normal inspection, Normal ROM, Normal strength General lower extremity: Normal inspection, Normal ROM, Normal strength - Neurological Neuro grossly intact: Yes Cognition: Normal Orientation: AAOx4 Jessica Coma Scale Eye Opening: Spontaneous Jessica Coma Scale Verbal: Oriented Hooper Coma Scale Motor: Obeys Commands Hooper Coma Scale Total: 15 Speech: Normal - Psychological Associated symptoms: Normal affect, Normal mood - Skin Skin Temperature: Warm Skin Moisture: Dry <GINNA CARTWRIGHT - Last Filed: 10/10/16 01:03> <DEEPAK MORENO - Last Filed: 10/10/16 04:40> - Vital signs Vitals: Temp Resp Pulse Ox 98.6 F 20 98 10/09/16 21:23 10/09/16 21:23 10/09/16 21:23 Course - Laboratory Result Diagrams: 10/09/16 20:42 10/09/16 20:42 <GINNA CARTWRIGHT - Last Filed: 10/10/16 01:03> - Laboratory Result Diagrams: 10/09/16 20:42 10/09/16 20:42 - Diagnostic Test Radiology reviewed: Reports reviewed <DEEPAK MORENO - Last Filed: 10/10/16 04:40> - Re-evaluation Re-evalutation: 10/09/16 21:02 Patient is a 50-year-old male who comes in complaining of coffee-ground emesis and dark tarry stool for the last 2-3 days. Patient denies any pain anywhere. Report from EMS is that patient is having coffee-ground emesis and dark diarrhea. Patient was lethargic prior to arrival. Blood ordered in case needed for emergent transfusion. 10/10/16 00:33 Patient is improving at this time. Blood work is at baseline. Potassium is improved from a few days ago. Patient has nausea at this time. He has not had any bowel movements in the emergency department yet. 10/10/16 01:45 Patient states that nausea has improved. Now feels that he needs to have a bowel movement. We will send stool for analysis. Patient also with thrush and will be getting fluconazole. 10/10/16 04:33 Patient with C. difficile colitis which is recurrent for him. He will be treated with Flagyl and vancomycin p.o. patient also with thrush. Note, he has not been taking his antivirals patient still feels nauseated. Patient becomes lightheaded on standing. He will be admitted for further evaluation. There are dialysis beds available. Patient does not need dialysis emergently as his renal function is at baseline and his potassium is not elevated. 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 Have attempted to call the hospitalist for admission. (DEEPAK MORENO) - Vital Signs Vital signs: Temp Pulse Resp BP Pulse Ox 98.6 F 11 L 130/89 H 96 10/09/16 21:23 10/10/16 03:31 10/10/16 03:31 10/10/16 03:31 - Laboratory Laboratory results interpreted by me: 10/09/16 10/09/16 10/10/16 20:42 20:42 00:43 Plt Count 115 L Potassium 3.1 L Chloride 92 L Carbon Dioxide 16 L Anion Gap 30 H BUN 38 H Creatinine 4.93 H Est GFR ( Amer) 15 L Est GFR (Non-Af Amer) 12 L Direct Bilirubin 0.7 H AST 112 H Ammonia Creatine Kinase 34 L 29 L Total Protein 9.2 H Urine Protein Urine Ketones Urine Blood 10/10/16 10/10/16 00:43 00:43 Plt Count Potassium Chloride Carbon Dioxide Anion Gap BUN Creatinine Est GFR ( Amer) Est GFR (Non-Af Amer) Direct Bilirubin AST Ammonia < 8.7 L Creatine Kinase Total Protein Urine Protein 100 H Urine Ketones 20 H Urine Blood SMALL H Critical Care Note - Critical Care Note Total time excluding time spent on procedures (mins): 60 - Recent management of lethargy, multiple re-evaluations, management of tachycardia, management of persistent nausea, admission <DEEPAK MORENO - Last Filed: 10/10/16 04:40> Discharge <GINNA CARTWRIGHT - Last Filed: 10/10/16 01:03> - Discharge Admitting Provider: Hospitalist Unit Admitted: [facility] <DEEPAK MORENO - Last Filed: 10/10/16 04:40> - Discharge Clinical Impression: C. difficile diarrhea, Vomiting and diarrhea, ESRD (end stage renal disease) on dialysis, HIV disease Condition: Stable Disposition: ADMITTED INPATIENT Scribe Attestation: 10/10/16 04:40 I personally performed the services described in the documentation, reviewed and edited the documentation which was dictated to the scribe in my presence, and it accurately records my words and actions. (DEEPAK MORENO) Scribe Documentation - Scribe Written by Kyle:: Kyle Merchant 10/10/16 12:44 acting as scribe for :: Aria <GINNA CARTWRIGHT - Last Filed: 10/10/16 01:03>
[2016-10-09 20:58] LABS: ABSOLUTE LYMPHOCYTES (AUTO) 1.8 10^3/uL (0.5-4.7); ABSOLUTE MONOCYTES (AUTO) 0.7 10^3/uL (0.1-1.4); ABSOLUTE NEUT (AUTO) 3.7 10^3/uL (1.7-8.2); BASOPHILS % (AUTO) 0.6 % (0-2); EOSINOPHILS % (AUTO) 0.5 % (0-6); HEMATOCRIT 46.4 % (37.9-51.0); HEMOGLOBIN 15.7 g/dL (13.5-17.0); HGB HCT DIFFERENCE 0.7; LYMPHOCYTES % (AUTO) 29.3 % (13-45); MEAN CORPUSCULAR HEMOGLOBIN 31.3 pg (27.0-33.4); MEAN CORPUSCULAR HGB CONC 33.9 g/dL (32.0-36.0); MEAN CORPUSCULAR VOLUME 92 fl (80-97); MONOCYTES % (AUTO) 10.9 % (3-13); RED BLOOD COUNT 5.02 10^6/uL (4.35-5.55); RED CELL DISTRIBUTION WIDTH 13.6 % (11.5-14.0); SEGMENTED NEUTROPHILS % (AUTO) 58.7 % (42-78); WHITE BLOOD COUNT 6.2 10^3/uL (4.0-10.5)
[2016-10-09] MEDS ORDERED: PANTOPRAZOLE SODIUM 40 MG VIAL IV ONE (21:12)
[2016-10-09] MEDS ORDERED: PANTOPRAZOLE SODIUM 40 MG VIAL IV PRN (21:13)
[2016-10-09 21:31] LABS: ALANINE AMINOTRANSFERASE 62 U/L (21-72); ALBUMIN 4.8 g/dL (3.5-5.0); ALKALINE PHOSPHATASE 107 U/L (38-126); ASPARTATE AMINO TRANSFERASE 112 U/L (17-59); BILIRUBIN,DIRECT 0.7 mg/dL (0.0-0.4); BILIRUBIN,TOTAL 0.8 mg/dL (0.2-1.3); BLOOD UREA NITROGEN 38 mg/dL (7-20); CALCIUM 9.9 mg/dL (8.4-10.2); CHLORIDE 92 mmol/L (98-107); CREATINE KINASE 34 U/L (55-170); CREATININE RESULT 4.93 mg/dL (0.52-1.25); GLUCOSE 81 mg/dL (75-110); POTASSIUM 3.1 mmol/L (3.6-5.0); TOTAL PROTEIN 9.2 g/dL (6.3-8.2)
[2016-10-09 21:39] LABS: ANION GAP 30 (5-19); CARBON DIOXIDE 16 mmol/L (22-30); SODIUM 138.3 mmol/L (137-145)
[2016-10-09 21:42] LABS: CREATINE KINASE MB 0.57 ng/mL (<4.55)
[2016-10-09] MEDS ORDERED: NORMAL SALINE 500 ML IV ONE (21:46)
[2016-10-09 21:47] LABS: TROPONIN I < 0.012 ng/mL
[2016-10-09] MEDS ORDERED: NORMAL SALINE 1000 ML 1,000 ML IV ONE (22:16)
[2016-10-09] MEDS ORDERED: POTASSI CL 20 MEQ/50 ML RIDER 50 ML IV SCH (22:30)
[2016-10-09] MEDS ORDERED: METOCLOPRAMIDE HCL INJ/PF 10 MG/2 ML SDV IV ONE (22:44)
[2016-10-09] MEDS ORDERED: ONDANSETRON HCL INJ/PF 4 MG/2 ML SDV IV ONE (22:44)
[2016-10-09 23:35] LABS: LIPASE 253.3 U/L (23-300)
[2016-10-10 01:10] LABS: APPEARANCE,URINE CLEAR; BILIRUBIN,URINE NEGATIVE (NEGATIVE); GLUCOSE, URINE NEGATIVE (NEGATIVE); KETONES,URINE 20 mg/dL (NEGATIVE); LEUKOCYTE ESTERASE,URINE NEGATIVE (NEGATIVE); NITRITE,URINE NEGATIVE (NEGATIVE); PROTEIN,URINE 100 mg/dL (NEGATIVE); URINE SPECIFIC GRAVITY 1.011; UROBILINOGEN,URINE NEGATIVE mg/dL (<2.0)
[2016-10-10 01:36] LABS: CREATINE KINASE MB 0.51 ng/mL (<4.55); TROPONIN I < 0.012 ng/mL
[2016-10-10] MEDS ORDERED: VANCOMYCIN HCL INJ 500 MG VIAL PO ONE (02:39)
[2016-10-10] MEDS ORDERED: METRONIDAZOLE 500 MG/NS RTU 100 ML IV ONE (02:39)
[2016-10-10] MEDS ORDERED: FLUCONAZOLE 200 MG/NS RTU 100 ML IV ONE (03:01)
[2016-10-10 04:24] LABS: PROTHROMBIN TIME 11.8 SEC (11.4-15.4)
[2016-10-10] MEDS ORDERED: IPRATROPIUM/ALBUTEROL 0.5-2.5 MG/3 ML AMPUL NEB PRN (07:44)
[2016-10-10] MEDS ORDERED: NORMAL SALINE 1000 ML 1,000 ML IV PRN (07:44)
[2016-10-10] MEDS ORDERED: PHARMACY COMMUNICATION ORDER MC SCH (07:45)
[2016-10-10] MEDS ORDERED: ACETAMINOPHEN 325 MG TABLET PO PRN (07:58)
[2016-10-10] MEDS: PANTOPRAZOLE SODIUM 40 MG VIAL IV SCH ×2 (09:49→22:39)
--- NOTE | 2016-10-10 09:52 | PDOC H&P ---
History of Present Illness Admission Date/PCP: 10/10/16 04:[address] Jesse CLAY [place], [place] Patient complains of: coffee ground emesis History of Present Illness: LAMAR SMALL is a 50 year old male with a complicated chronic medical history, including HIV disease, noncompliant with HAART medications, alcohol abuse in the form of 1/5 of vodka every 2 days, recent history of C. difficile colitis, personal history of pulmonary embolus and DVT, on chronic anticoagulation for same, end-stage renal disease, on Friday hemodialysis, having missed dialysis Friday of this week, arthritis, anxiety and depression without suicidal or homicidal ideation, distant history of seizure, never on medication for same, esophageal reflux disease, pack-a-day smoker, and COPD, not on home O2, who presents to the emergency room for above complaints. Patient has been discussed with emergency room physician who evaluated the patient. . He describes the onset of a number of episodes of coffee-ground emesis approximately 36 hours ago, along with several episodes of "black slimy" rectal bleeding over the last 24 hours. States the stool output is quite similar to previous episodes of C. difficile colitis. Mention in the chart is made of history of hepatitis, along with esophageal bleeding, but patient denies both. Has remained hemodynamically stable. He has had no further GI tract bleeding since presenting to the emergency room. Questionable fever and chills. Intermittent cramping abdominal pain, lessens with diarrhea. Occasional mild chest discomfort over the last several days, but not very often. Laboratory results are listed in [employer] and are reviewed. X-ray summary results are listed below, with full report(s) reviewed. EKG reviewed and compared to tracing from August 08 of this year. Social history/personal habits: Lives with mother. Has children. On disability. Pack of cigarettes per day. Fifth of vodka every 2 days. Denies illicit drug use. NKDA. Home medications initially autopopulated into [facility] may not accurately reflect patient's true medications, dosages, and/or frequencies. 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 Unfortunately, patient uncertain of medications/dosages/frequencies. REVIEW OF SYSTEMS: Constitutional: See history and present illness. Eyes: Wears glasses. ENT: No swallowing problems or complaints. [No hearing problems or complaints. Pulmonary: No current complaints. Cardiovascular: See history and present illness. Gastrointestinal: See history and present illness. Skin: No current complaints, including rashes. Hematologic: Easy bruising. Neurologic: Chronic numbness and tingling of his toes. Musculoskeletal: Joint pain from arthritis. Psychiatric: Anxiety depression; denies suicidal or homicidal ideation. Endocrine: No current complaints, including polyuria. Genitourinary: No current complaints, including dysuria. PHYSICAL EXAMINATION: 62 inches tall. 82.7 kg. BMI 23.4 kg/m. Blood pressure 140/86. Pulse 75 and regular. 96% saturation on room air. Respirations are 12 and unlabored. Temperature 98.6. Thin otherwise well-developed though chronically ill-appearing male who appears a number of years older than his stated age. Fatigued appearance. Appears not to feel very well. Mildly anxious, without agitation. Cooperative. Skin is warm and dry. No grossly obvious evidence of rash in areas of skin examined. No subcutaneous nodules palpated. ENT: Hearing grossly normal to normal conversation. Tongue midline on protrusion pink and slightly tacky. Eyes: No scleral icterus. Pupils equal and reactive to light at 4 mm. [place] conjunctivae. Neck is supple and nontender to gentle active range of motion and palpation. Midline trachea. No palpable thyroid nodule mass enlargement or tenderness. Lymphatic: No palpable cervical or clavicular nodes. Neck and lymphatic exams limited by patient body habitus. Psychiatric: Fair to reasonable insight into acute and chronic medical issues. Oriented to time location and why here. Lungs: Auscultation reveals clear and equal breath sounds bilaterally. No use of accessory respiratory muscles. Cardiovascular: Heart regular rate and rhythm, without gallop murmur or rub. No carotid or abdominal aortic bruits. No ankle or pedal edema. Faintly palpable dorsalis pedis pulses. Abdomen: soft, slightly distended with positive bowel sounds. Unable to adequately evaluate abdomen for masses or organomegaly due to distention. basically nontender other than scant discomfort to palpation in the periumbilical region. Certainly no evidence of guarding or peritoneal signs. Extremities: Feet are warm and dry. No calf tenderness to compression. No grossly obvious visual evidence of calf swelling. Gentle manipulation of lower extremities fails to reveal any obvious evidence of injury or instability to knees hips or ankles. Neurologic: Moves upper extremities grossly normally. Patellar reflexes absent. Absent Babinski. Light touch is intact at feet, except mild chronic numbness and tingling in his toes. Dorsiflexion and plantarflexion of feet 5 / 5 and symmetric. Past Medical History Cardiac Medical History: Reports: DVT, Pulmonary Embolism Denies: Congestive Heart Failure, Myocardial Infarction, Hyperlipidema Pulmonary Medical History: Reports: Chronic Obstructive Pulmonary Disease (COPD) Denies: Sleep Apnea EENT Medical History: Reports: Eyes - Glasses Denies: Ears, Throat Neurological Medical History: Reports: Seizures - Distant history; never on antiepileptic. Denies: Hemorrhagic CVA, Ischemic CVA Endocrine Medical History: Denies: Diabetes Mellitus Type 1, Diabetes Mellitus Type 2, Hyperthyroidism, Hypothyroidism Renal/ Medical History: Reports: End Stage Renal Disease GI Medical History: Reports: Gastroesophageal Reflux Disease, Hiatal Hernia Denies: Cirrhosis, Hepatitis Musculoskeltal Medical History: Reports: Arthritis Skin Medical History: Reports: None Psychiatric Medical History: Reports: Alcohol Dependency, Depression, General Anxiety Disorder, Tobacco Dependency Denies: Substance Abuse Hematology: Reports: Other - Easy bruising Infectious Medical History: Reports: Clostridium Difficile, HIV Denies: Hepatitis B, Hepatitis C, Methicillin-Resistant Staph Aureus Past Surgical History Past Surgical History: Reports: Cholecystectomy, Orthopedic Surgery - Repair of right tibial plateau fracture Social History Information Source: Patient, Emergency Med Personnel, [facility] Records Lives with: Family Smoking Status: Current Every Day Smoker Frequency of Alcohol Use: Heavy Hx Recreational Drug Use: No Drugs: None Hx Prescription Drug Abuse: No - Advance Directive Resuscitation Status: Full Code Surrogate healthcare decision maker:: Mother Family History Family History: CAD, DM, Hypertension Parental Family History Reviewed: Yes - Father of ruptured aneurysm. Mother with multiple health problems. Children Family History Reviewed: Yes - Healthy Sibling(s) Family History Reviewed.: Yes - Uncertain health status of siblings. Medication/Allergy Home Medications: Atazanavir Sulfate [Reyataz 300 mg Capsule] 300 mg PO TUTHSA@169910/10/16 Emtricitabine/Tenofov Alafenam [Descovy 200-25 mg Tablet] 1 tab PO TUTHSA@169910/10/16 Gabapentin [Neurontin 300 mg Capsule] 300 mg PO Q8 10/10/16 Ritonavir [Norvir 100 mg Tablet] 100 mg PO TUTHSA@169910/10/16 Trazodone HCl [Desyrel] 100 mg PO QHS 10/10/16 Allergies/Adverse Reactions: No Known Allergies Allergy (Verified 08/08/16 13:41) Physical Exam Vital Signs: Temp Pulse Resp BP Pulse Ox 98.6 F 17 151/94 H 97 10/09/16 21:23 10/10/16 06:31 10/10/16 06:31 10/10/16 06:31 Results Impressions: Chest X-Ray 10/09/16 20:43 IMPRESSION: NO ACUTE RADIOGRAPHIC FINDING IN THE CHEST. Assessment & Plan - Diagnosis (1) C. difficile colitis Is this a current diagnosis for this admission?: YesPlan: Oral vancomycin. Pharmacy to assist with dosing if necessary. (2) Coffee ground emesis Is this a current diagnosis for this admission?: YesPlan: Parenteral Protonix. I have strongly encouraged patient not to get out of bed without notifying staff to avoid a fall with injury. Knee high SCDs for DVT prophylaxis; with patient on systemic anticoagulation, along with coffee-ground emesis, we will forego Lovenox and heparin at this point in time. Impression and plans were discussed with patient, who concurs. Time spent in evaluation and management of patient: 68 minutes. (3) Heme + stool Is this a current diagnosis for this admission?: Yes (4) Hypokalemia Is this a current diagnosis for this admission?: YesPlan: Potassium replacement with follow-up chemistry. (5) Noncompliance of patient with renal dialysis Is this a current diagnosis for this admission?: Yes (6) Noncompliance with antiretroviral medication regimen Is this a current diagnosis for this admission?: Yes (7) ESRD (end stage renal disease) on dialysis Is this a current diagnosis for this admission?: YesPlan: Nephrology consult. (8) HIV disease Is this a current diagnosis for this admission?: YesPlan: Resume home medications as appropriate once these have been determined and reviewed. (9) COPD (chronic obstructive pulmonary disease) Qualifiers: COPD type: emphysema Emphysema type: unspecified Qualified Code( s): J43.9 - Emphysema, unspecified Is this a current diagnosis for this admission?: YesPlan: No evidence of exacerbation of same. Resume home medications as appropriate once these have been determined and reviewed.
--- NOTE | 2016-10-10 10:31 | EKG REPORT ---
SEVERITY:- ABNORMAL ECG - SINUS RHYTHM INCOMPLETE RBBB AND LAFB BORDERLINE R WAVE PROGRESSION, ANTERIOR LEADS NONSPECIFIC T ABNORMALITIES, LATERAL LEADS : Confirmed by: Esha Fernández MD 10-Oct-2016 10:30:41
[2016-10-10 11:29] LABS: ALANINE AMINOTRANSFERASE 59 U/L (21-72); ALBUMIN 3.9 g/dL (3.5-5.0); ALKALINE PHOSPHATASE 86 U/L (38-126); ANION GAP 18 (5-19); ASPARTATE AMINO TRANSFERASE 75 U/L (17-59); BILIRUBIN,DIRECT 0.4 mg/dL (0.0-0.4); BILIRUBIN,TOTAL 0.6 mg/dL (0.2-1.3); BLOOD UREA NITROGEN 35 mg/dL (7-20); CALCIUM 9.1 mg/dL (8.4-10.2); CARBON DIOXIDE 23 mmol/L (22-30); CHLORIDE 95 mmol/L (98-107); CREATININE RESULT 3.96 mg/dL (0.52-1.25); GLUCOSE 86 mg/dL (75-110); POTASSIUM 3.3 mmol/L (3.6-5.0); SODIUM 135.6 mmol/L (137-145); TOTAL PROTEIN 6.9 g/dL (6.3-8.2)
[2016-10-10 11:32] LABS: ABSOLUTE LYMPHOCYTES (AUTO) 1.8 10^3/uL (0.5-4.7); ABSOLUTE MONOCYTES (AUTO) 0.5 10^3/uL (0.1-1.4); ABSOLUTE NEUT (AUTO) 2.5 10^3/uL (1.7-8.2); BASOPHILS % (AUTO) 0.4 % (0-2); EOSINOPHILS % (AUTO) 0.6 % (0-6); HEMATOCRIT 42.5 % (37.9-51.0); HEMOGLOBIN 14.1 g/dL (13.5-17.0); HGB HCT DIFFERENCE -0.2; LYMPHOCYTES % (AUTO) 37.2 % (13-45); MEAN CORPUSCULAR HEMOGLOBIN 30.5 pg (27.0-33.4); MEAN CORPUSCULAR HGB CONC 33.3 g/dL (32.0-36.0); MEAN CORPUSCULAR VOLUME 92 fl (80-97); MONOCYTES % (AUTO) 10.7 % (3-13); RED BLOOD COUNT 4.63 10^6/uL (4.35-5.55); RED CELL DISTRIBUTION WIDTH 14.3 % (11.5-14.0); SEGMENTED NEUTROPHILS % (AUTO) 51.1 % (42-78); WHITE BLOOD COUNT 4.9 10^3/uL (4.0-10.5)
[2016-10-10] MEDS: VANCOMYCIN HCL INJ 500 MG VIAL PO SCH ×2 (11:48→18:44)
[2016-10-10] MEDS ORDERED: POTASSIUM CHLORIDE 10 MEQ TABLET.SA PO ONE (15:00)
--- NOTE | 2016-10-10 15:46 | PROGRESS NOTE E ---
Progress Note NAME: LAMAR MSALL : 1965 AGE: 50Y DATE: 10/10/2016 ROOM: ED11 SUBJECTIVE: The patient is currently lying on a stretcher. He is still awaiting a bed assignment in the ER. The patient states that he has had 3 episodes of loose stool. This morning, he denies any vomiting, shortness of breath, dizziness, or chest pain. No fevers or chilled feeling since arrival. The patient does admit to nausea. The patient's main concern is that he is hungry. The patient denies any further [id number] emesis and the patient does not voice any other concerns at this time. REVIEW OF SYSTEMS: The rest of the review of systems is negative. MEDICATIONS: Medications have been reviewed. OBJECTIVE: GENERAL: The patient is a 50-year-old male who is awake, alert. He is oriented to person, place, time, and situation. He is verbal, conversational, and does not appear to be in any acute distress. VITAL SIGNS: Temperature is 98.6, pulse is 62, respirations 14, blood pressure is 138/89, oxygen saturation is 99% on room air. SKIN: Warm and dry. There is no rash. He is not diaphoretic. HEENT: Pupils equal, round and reactive to light and accommodation. Conjunctivae are pink. NECK: There is no JVP. CARDIOVASCULAR: Heart is regular with no murmur or rub. CHEST: Clear, symmetrical, unlabored. ABDOMEN: Soft, nontender, and nondistended. Bowel sounds are present. BACK: No CVA tenderness or sacral edema. EXTREMITIES: No clubbing, cyanosis, or edema. PSYCHIATRIC: Appropriate affect, pleasant mood. No suicidal or homicidal ideation. NEUROLOGIC: Intact. DIAGNOSTIC DATA: Lab values are as follows: Hematology obtained on 10/10/2016: WBC's are 4.9, hemoglobin is 14.1, hematocrit is 43.5, platelet count is 81,000. Coagulation obtained on 10/10/2016: PT is 140, INR is 0.85. Chemistries obtained on 10/10/2016: Sodium is 135, potassium 3.3, chloride is 75, carbon dioxide 23, BUN 35, creatinine is 3.96, glucose 86, calcium is 9.1, magnesium 2.0. Bilirubin is 0.6, direct bilirubin 0.4. AST is 75, ALT is 59, alk phos 86. Total protein is 3.9, albumin 3.9. Other body source: Stool for occult blood obtained on 10/10/2016 is positive. Serum alcohol obtained on 10/09/2016 is 20. Serology obtained on 10/10/2016: C. diff toxin is positive. IMPRESSION AND PLAN: 1. CLOSTRIDIUM DIFFICILE COLITIS. THIS HAS BEEN PERSISTENT IN THIS PATIENT. Will continue vancomycin, as the patient has received Flagyl before. Will add probiotic therapy and additionally yogurt to each tray and follow. 2. ALCOHOL DEPENDENCY. Will schedule benzodiazepines and also add p.r.n. for breakthrough symptoms. 3. END-STAGE RENAL DISEASE. The patient typically dialyzes on Friday, , Friday. Dr. Molina is his computer art instructor and has been consulted. I do appreciate input with this. 4. COFFEE-GROUND EMESIS. THE PATIENT HAS HAD NO FURTHER REPLICATION OF THESE SYMPTOMS. HEMOGLOBIN HAS BEEN RELATIVELY STABLE. Will repeat and follow. 5. HIV. THE PATIENT'S CD4 COUNT IS CURRENTLY PENDING. Will continue home medications and follow. 6. CHRONIC OBSTRUCTIVE PULMONARY DISEASE. The patient does not appear to be in any respiratory distress. 7. TOBACCO DEPENDENCY. I spent 3 minutes discussing tobacco cessation education and the patient declines any pharmacological intervention at this time. DISPOSITION: The patient is a DO NOT RESUSCITATE/DO NOT INTUBATE. Pending the patient's symptomatology and diagnostic findings, will reevaluate in the a.m. TIME: Time spent on this followup including assessment, plan, physical examination, patient education and speciality collaboration is 35 minutes. DICTATING PHYSICIAN: HUMBERTO KIDD NP [id number] PHY#: [id number] ID: [id number] JOB#: [id number] ACCT: [id number] cc: >
[2016-10-10] MEDS ORDERED: (PENDING PHARMACY ID) (Atazanavir Sulfate [Reyataz 300 Mg Capsule] 300 MG) PO SCH (17:00)
[2016-10-10] MEDS ORDERED: (PENDING PHARMACY ID) (Emtricitabine/Tenofov Alafenam [Descovy 200-25 Mg Tablet] 1 TAB) PO SCH (17:00)
[2016-10-10] MEDS: LACTOBACILLUS ACIDOPHILUS 250 MG TAB PO SCH (17:41)
[2016-10-10] MEDS: GABAPENTIN 300 MG CAPSULE PO SCH (17:41)
[2016-10-10] MEDS: RITONAVIR 100 MG TABLET PO SCH (17:42)
[2016-10-10] MEDS ORDERED: THIAMINE HCL IV SCH ×3 (18:00)
[2016-10-10] MEDS ORDERED: NORMAL SALINE IV SCH ×3 (18:00)
[2016-10-10] MEDS ORDERED: THIAMINE HCL 100 MG, FOLIC ACID 1 MG in NORMAL SALINE 50 ML IV SCH (18:00)
[2016-10-10] MEDS ORDERED: FOLIC ACID IV SCH ×3 (18:00)
[2016-10-10] MEDS ORDERED: (PENDING PHARMACY ID) (Trazodone Hcl [Desyrel] 100 MG) PO SCH (22:00)
[2016-10-10] MEDS: TRAZODONE HCL 50 MG TABLET PO SCH (22:22)
[2016-10-11] MEDS ORDERED: VANCOMYCIN HCL INJ 500 MG VIAL ONE (01:34)
[2016-10-11] MEDS: VANCOMYCIN HCL INJ 500 MG VIAL PO SCH ×5 (01:46→23:44)
[2016-10-11 07:10] LABS: HEMATOCRIT 41.9 % (37.9-51.0); HEMOGLOBIN 14.4 g/dL (13.5-17.0); HGB HCT DIFFERENCE 1.3; MEAN CORPUSCULAR HEMOGLOBIN 31.3 pg (27.0-33.4); MEAN CORPUSCULAR HGB CONC 34.4 g/dL (32.0-36.0); MEAN CORPUSCULAR VOLUME 91 fl (80-97); RED CELL DISTRIBUTION WIDTH 14.1 % (11.5-14.0); WHITE BLOOD COUNT 4.3 10^3/uL (4.0-10.5)
[2016-10-11 07:15] LABS: ANION GAP 14 (5-19); BLOOD UREA NITROGEN 40 mg/dL (7-20); CALCIUM 9.5 mg/dL (8.4-10.2); CARBON DIOXIDE 25 mmol/L (22-30); CHLORIDE 100 mmol/L (98-107); CREATININE RESULT 4.15 mg/dL (0.52-1.25); GLUCOSE 119 mg/dL (75-110); MAGNESIUM 1.9 mg/dL (1.6-2.3); SODIUM 138.5 mmol/L (137-145)
[2016-10-11 07:25] LABS: POTASSIUM 2.9 mmol/L (3.6-5.0)
[2016-10-11] MEDS ORDERED: POTASSI CL 20 MEQ/50 ML RIDER 20 MEQ/50 ML RTUPB IV ONE (08:30)
[2016-10-11] MEDS ORDERED: ONDANSETRON HCL INJ/PF 4 MG/2 ML SDV IV PRN (09:06)
[2016-10-11] MEDS: PANTOPRAZOLE SODIUM 40 MG VIAL IV SCH (10:02)
[2016-10-11] MEDS: LACTOBACILLUS ACIDOPHILUS 250 MG TAB PO SCH ×2 (10:02→18:53)
--- NOTE | 2016-10-11 11:08 | PROGRESS NOTE E ---
Progress Note NAME: LAMAR SMALL : 1965 AGE: 50Y DATE: 10/11/2016 ROOM: 316 SUBJECTIVE: The patient is currently lying in bed. He states that he is still having ongoing diarrhea overnight. He does admit to some nausea, but denies any vomiting. No shortness of breath, dizziness, or chest pain. No fevers, but does admit to chills. The patient does not voice any other concerns at this time. REVIEW OF SYSTEMS: The rest of the review of systems is negative. MEDICATIONS: Medications have been reviewed. OBJECTIVE: GENERAL: The patient is a 50-year-old male who is awake, alert. He is oriented to person, place, time, and situation. He is verbal, conversational, does not appear to be in any acute distress. VITAL SIGNS: Temperature is 98.7, pulse is 84, respirations 12, blood pressure is 122/68, oxygen saturation is 100% on room air. SKIN: Warm and dry. There is no rash. He is not diaphoretic. HEENT: Pupils equal, round and reactive to light and accommodation. Conjunctivae are pink. NECK: There is no JVP. CARDIOVASCULAR: Heart is regular. There is no murmur or rub. CHEST: Clear, symmetrical, unlabored. ABDOMEN: Soft, nontender and nondistended. BACK: No CVA tenderness or sacral edema. EXTREMITIES: No clubbing, cyanosis, or edema. PSYCHIATRIC: Flat affect. Depressed mood. NEUROLOGIC: Intact. DIAGNOSTIC DATA: Lab values are as follows: Hematology obtained on 10/11/2016: WBC's are 4.3, hemoglobin is 14.4, hematocrit 41.9, platelet count is 73,000. Chemistries obtained on 10/11/2016: Sodium is 138, potassium is 2.9, chloride is 100, carbon dioxide 25, BUN 40, creatinine is 4.15, glucose 119, calcium is 9.5, magnesium is 1.9. IMPRESSION AND PLAN: 1. HYPOKALEMIA. THIS IS SIGNIFICANT. Will replete this. Nephrology has been made aware and the patient's bath will be adjusted accordingly as well. 2. CLOSTRIDIUM DIFFICILE COLITIS. This has been persistent, therefore, will maximize the vancomycin therapy, continue with probiotic and encourage yogurt on each tray. 3. ALCOHOL DEPENDENCY. Will continue scheduled benzodiazepine as well as p.r.n. for breakthrough symptoms. The patient did have an alcohol level on presentation. Vitamin B supplementation. 4. END-STAGE RENAL DISEASE. The patient dialyzes on Friday, , Friday. Dr. Molina is the child care associate. I do appreciate his input with this. 5. COFFEE-GROUND EMESIS. THE PATIENT HAS HAD NO FURTHER REPLICATION OF THESE SYMPTOMS. HEMOGLOBIN HAS BEEN RELATIVELY STABLE. Will follow. 6. HIV. The patient's CD4 is pending. Will continue his current medications. 7. CHRONIC OBSTRUCTIVE PULMONARY DISEASE. THE PATIENT ASYMPTOMATIC AT THIS TIME. 8. TOBACCO DEPENDENCY. Will continue p.r.n. nicotine patch. 9. GENERAL DEBILITY. The patient does request for rehab placement, will proceed. 10. THROMBOCYTOPENIA. Will defer any DVT prophylaxis pharmacologically at this time. Most likely this is due to acute infection as well as underlying HIV. DISPOSITION: The patient is a DO NOT RESUSCITATE/DO NOT INTUBATE. Pending the patient's symptomatology and diagnostic findings, will reevaluate in the a.m. TIME: Time spent on this followup including assessment, plan, physical examination, patient education, and resource alignment was 25 minutes. DICTATING PHYSICIAN: HUMBERTO KIDD NP [id number] PHY#: [id number] ID: [id number] JOB#: [id number] ACCT: [id number] cc: > MTDD
[2016-10-11 11:40] LABS: ABSOLUTE CD 4 HELPER 229 /uL (359-1519); CD BASOPHILS 0 % (.); CD EOSINOPHILS 1 % (.); CD MONOCYTES 12 % (.); CD NEUTROPHILS 53 % (.); HEMATOCRIT . 40.7 % (37.5-51.0); HEMOGLOBIN 13.7 g/dL (12.6-17.7); IMMATURE GRANULOCYTES 0 % (.); LYMPHS(ABSOLUTE) 2.2 x10E3/uL (0.7-3.1); MCHC 33.7 g/dL (31.5-35.7); MCV 92 fL (79-97); NEUTROPHILS(ABSOLUTE) 3.6 x10E3/uL (1.4-7.0); PLATELETS 102 x10E3/uL (150-379); RBC 4.42 x10E6/uL (4.14-5.80); RDW 14.5 % (12.3-15.4); WBC 6.6 x10E3/uL (3.4-10.8)
[2016-10-11] MEDS ORDERED: HEPARIN SOD (PORCINE) 1,000 UNIT/ML 10 ML VIAL IV PRN (14:15)
[2016-10-11] MEDS: NICOTINE 21 MG/24 HR PATCH.TD24 TD PRN (15:39)
--- NOTE | 2016-10-11 17:27 | PDOC CONSULTATION ---
Consultation Consult Date: 10/11/16 Consult reason:: Hemodialysis. History of Present Illness Admission Date/PCP: 10/10/16 07:44 History of Present Illness: LAMAR SMALL is a 50 year old male with a complicated chronic medical history, end-stage renal disease, on Friday hemodialysi and with a history of noncompliance with dialysis treatments, HIV disease, noncompliant with HAART medications, alcohol abuse in the form of 1/5 of vodka every 2 days, recent history of C. difficile colitis now going on for the last almost 6 months and may be more, personal history of pulmonary embolus and DVT, on chronic anticoagulation for same, arthritis, anxiety and depression without suicidal or homicidal ideation, distant history of seizure, never on medication for same, esophageal reflux disease, pack-a-day smoker, and COPD, not on home O2, who presents to the emergency room for nausea, vomiting, diarrhea 2-3 days duration. He thinks that the C. difficile possibly has recurred and he is correct as his C. difficile toxin assay is positive. He has been begun on p.o. vancomycin. He feels some better. No history of any abdominal pains or distention. He describes the onset of a number of episodes of coffee-ground emesis approximately 36 hours ago, along with several episodes of "black slimy" rectal bleeding over the last 24- 48 hours. States the stool output is quite similar to previous episodes of C. difficile colitis.Is hemodynamically stable. His hemoglobin is stable. Past Medical History Cardiac Medical History: Reports: DVT, Hypertension-primary, Pulmonary Embolism Denies: Hyperlipidemia, Myocardial Infarction Pulmonary Medical History: Reports: Chronic Obstructive Pulmonary Disease (COPD) Denies: Sleep Apnea EENT Medical History: Reports: Eyes - Glasses, Other - Easy bruising Denies: Ears, Throat Neurological Medical History: Reports: Seizures - Distant history; never on antiepileptic. Denies: Hemorrhagic CVA, Ischemic CVA Endocrine Medical History: Denies: Diabetes Mellitus Type 1, Diabetes Mellitus Type 2, Hyperthyroidism, Hypothyroidism Renal/ Medical History: Reports: End Stage Renal Disease GI Medical History: Reports: Gastroesophageal Reflux Disease, Hiatal Hernia Denies: Cirrhosis, Hepatitis Musculoskeltal Medical History: Reports: Arthritis Skin Medical History: Reports: None Psychiatric Medical History: Reports: Alcohol Dependency, Depression, General Anxiety Disorder, Tobacco Dependency Denies: Substance Abuse Infectious Medical History: Reports: Clostridium Difficile, HIV Denies: Hepatitis B, Hepatitis C, Methicillin-resist Staph Aureus Hematology Medical History: Reports Anemia of Chronic Kidney Disease Past Surgical History Past Surgical History: Reports: Cholecystectomy, Orthopedic Surgery - Repair of right tibial plateau fracture Social History Lives with: Family Smoking Status: Current Every Day Smoker Cigarettes Packs Per Day: 1 Number of Years Smokin Last Time Smoked: 10/09/2016 Frequency of Alcohol Use: Heavy Hx Recreational Drug Use: No Drugs: None Hx Prescription Drug Abuse: No - Advance Directive Resuscitation Status: Do Not Resuscitate Family History Parental Family History Reviewed: Yes - Negative for ESRD Children Family History Reviewed: No Sibling(s) Family History Reviewed.: No Medication/Allergy Home Medications: Atazanavir Sulfate [Reyataz 300 mg Capsule] 300 mg PO TUTHSA@1700 10/10/16 Emtricitabine/Tenofov Alafenam [Descovy 200-25 mg Tablet] 1 tab PO TUTHSA@1700 10/10/16 Gabapentin [Neurontin 300 mg Capsule] 300 mg PO Q8 10/10/16 Ritonavir [Norvir 100 mg Tablet] 100 mg PO TUTHSA@1700 10/10/16 Trazodone HCl [Desyrel] 100 mg PO QHS 10/10/16 Allergies/Adverse Reactions: No Known Allergies Allergy (Verified 08/08/16 13:41) Review of Systems Constitutional: ABSENT: fever(s), headache(s), night sweats, weakness Nose, Mouth, and Throat: ABSENT: mouth pain, sore throat Cardiovascular: ABSENT: dyspnea on exertion, edema, orthropnea, palpitations Respiratory: ABSENT: dyspnea, hemoptysis Gastrointestinal: PRESENT: bloating, coffee ground emesis, diarrhea, nausea, vomiting. ABSENT: constipation, dysphagia, heartburn, hematemesis, hematochezia Genitourinary: ABSENT: dysuria, hematuria Integumentary: ABSENT: diaphoresis, lesions, pruritus Neurological: ABSENT: abnormal gait, abnormal movements, abnormal speech, confusion, convulsions, dizziness, focal weakness Hematologic/Lymphatic: ABSENT: easy bruising, lymphadenopathy Physical Exam Vital Signs: Temp Pulse Resp BP Pulse Ox 98.7 F 57 L 16 115/71 100 10/11/16 11:09 10/11/16 14:00 10/11/16 11:09 10/11/16 11:09 10/11/16 11:09 Intake & Output 10/10/16 10/11/16 10/12/16 06:59 06:59 06:59 Intake Total 631 831 Output Total 1000 Balance 631 -169 Weight 77.9 kg General appearance: PRESENT: no acute distress Eye exam: PRESENT: conjunctiva pink, EOMI, PERRLA. ABSENT: conjunctiva pale, nystagmus, periorbital swelling Ear exam: PRESENT: normal external ear exam Mouth exam: PRESENT: moist. ABSENT: neck supple Neck exam: ABSENT: lymphadenopathy, meningismus, tenderness, thyromegaly, tracheal deviation Respiratory exam: PRESENT: clear to auscultation jamil, symmetrical. ABSENT: crackles, rhonchi, tachypnea Cardiovascular exam: PRESENT: +S1, +S2, systolic murmur GI/Abdominal exam: PRESENT: normal bowel sounds, soft. ABSENT: distended, guarding, organomegaly, tenderness Extremities exam: ABSENT: pedal edema Neurological exam: PRESENT: alert, awake, oriented to person, oriented to place , oriented to time Psychiatric exam: PRESENT: appropriate affect Skin exam: ABSENT: dry, erythema, mottled, rash Results Laboratory Results: 10/11/16 06:36 10/11/16 10/11/16 06:36 06:36 WBC 4.3 RBC 4.60 Hgb 14.4 Hct 41.9 MCV 91 MCH 31.3 MCHC 34.4 RDW 14.1 H Plt Count 73 L Sodium 138.5 Potassium 2.9 L* Chloride 100 Carbon Dioxide 25 Anion Gap 14 BUN 40 H Creatinine 4.15 H Est GFR ( Amer) 18 L Est GFR (Non-Af Amer) 15 L Glucose 119 H Calcium 9.5 Magnesium 1.9 Impressions: Chest X-Ray 10/09/16 20:43 IMPRESSION: NO ACUTE RADIOGRAPHIC FINDING IN THE CHEST. Assessment & Plan - Diagnosis (1) C. difficile diarrhea Plan: Now having recurring C. difficile colitis for the last 6-8 months. Patient on p.o. vancomycin and seems to be improving. Monitor for for stabilization. (2) Coffee ground emesis Is this a current diagnosis for this admission?: Yes (3) Hypokalemia Is this a current diagnosis for this admission?: YesPlan: Will give IV potassium preceding hemodialysis which will be on a 3K bath monitor. Or labs ordered for later this evening. (4) Noncompliance of patient with renal dialysis Is this a current diagnosis for this admission?: YesPlan: Discussed compliance with hemodialysis for obvious reasons. (5) ESRD (end stage renal disease) on dialysis Is this a current diagnosis for this admission?: YesPlan: Patient undergoing dialysis which is being monitored. Orders were discussed with treating nurse. Patient is stable. (6) HIV disease Is this a current diagnosis for this admission?: YesPlan: Advised compliance with his medications for (7) Anemia in chronic kidney disease (CKD) Plan: Stable. No need for erythropoietin. (8) Nausea and vomiting Qualifiers: Vomiting Intractability: non-intractable Plan: Probably from gastritis. Seems to be responding symptomatically. Monitor.
[2016-10-11] MEDS: NYSTATIN 500000 UNIT/5 ML UDCUP PO SCH ×2 (18:52→21:31)
[2016-10-11] MEDS: GABAPENTIN 300 MG CAPSULE PO SCH (18:53)
[2016-10-11] MEDS: TRAZODONE HCL 50 MG TABLET PO SCH (21:31)
[2016-10-12 04:48] LABS: HEMATOCRIT 33.9 % (37.9-51.0); HGB HCT DIFFERENCE 1.8; MEAN CORPUSCULAR HEMOGLOBIN 31.7 pg (27.0-33.4); MEAN CORPUSCULAR HGB CONC 35.1 g/dL (32.0-36.0); MEAN CORPUSCULAR VOLUME 90 fl (80-97); RED BLOOD COUNT 3.75 10^6/uL (4.35-5.55); RED CELL DISTRIBUTION WIDTH 14.1 % (11.5-14.0); WHITE BLOOD COUNT 3.6 10^3/uL (4.0-10.5)
[2016-10-12 05:01] LABS: ANION GAP 9 (5-19); CALCIUM 8.7 mg/dL (8.4-10.2); CARBON DIOXIDE 25 mmol/L (22-30); CHLORIDE 105 mmol/L (98-107); CREATININE RESULT 2.96 mg/dL (0.52-1.25); GLUCOSE 121 mg/dL (75-110); MAGNESIUM 1.6 mg/dL (1.6-2.3); POTASSIUM 3.4 mmol/L (3.6-5.0); SODIUM 139.1 mmol/L (137-145)
[2016-10-12] MEDS: VANCOMYCIN HCL INJ 500 MG VIAL PO SCH ×4 (05:01→23:09)
[2016-10-12 05:06] LABS: HEMOGLOBIN 11.9 g/dL (13.5-17.0)
[2016-10-12 05:14] LABS: BLOOD UREA NITROGEN 21 mg/dL (7-20)
[2016-10-12] MEDS ORDERED: POTASSIUM CHLORIDE 10 MEQ TABLET.SA PO ONE (10:00)
[2016-10-12] MEDS: THIAMINE HCL 100 MG TABLET PO SCH (10:37)
[2016-10-12] MEDS: NYSTATIN 500000 UNIT/5 ML UDCUP PO SCH ×4 (10:38→21:32)
[2016-10-12] MEDS: LACTOBACILLUS ACIDOPHILUS 250 MG TAB PO SCH ×2 (10:38→17:22)
[2016-10-12] MEDS: FOLIC ACID 1 MG TABLET PO SCH (10:38)
--- NOTE | 2016-10-12 13:18 | PROGRESS NOTE E ---
Progress Note NAME: LAMAR SMALL : 1965 AGE: 50Y DATE: 10/12/2016 ROOM: 316 SUBJECTIVE: The patient is currently lying in bed. He states that his bowel movements are getting more solid although still frequent. Patient denies any vomiting. He has been somewhat nauseous. No shortness of breath, dizziness, or chest pain. No fevers or chills. Patient has been afebrile. Blood pressure has been in a good range. The patient does not voice any other concerns at this time. REVIEW OF SYSTEMS: Rest of the review of systems is negative. MEDICATIONS: Have been reviewed. PHYSICAL EXAMINATION: GENERAL: The patient is a 50-year-old male who is awake, alert. He is oriented to person, place, time, and situation. He is verbal, conversational, ambulatory, and does not appear to be in any acute distress. VITAL SIGNS: Temperature is 98.4, pulse 71, respirations 16, blood pressure is 115/76, oxygen saturation is 98% on room air. SKIN: Warm and dry. No rash. Not diaphoretic. HEENT: Conjunctivae are pale. Sclerae are nonicterus. There is no JVP. CARDIOVASCULAR: Heart is regular with no murmur or rub. CHEST: Clear, symmetrical, unlabored. ABDOMEN: Soft, nontender, nondistended. BACK: No CVA tenderness or sacral edema. EXTREMITIES: No clubbing, cyanosis, or edema. PSYCHIATRIC: Flat affect and depressed mood. DIAGNOSTICS: Lab values are as follows: Hematology obtained on 10/12/2016: WBCs are 3.6, hemoglobin is 12.9, hematocrit is 33.9, platelet count is 54,000. Chemistry obtained on 10/12/2016: Sodium is 139, potassium 2.4, chloride is 105, carbon dioxide 25, BUN 21, creatinine is 2.96, glucose 121, calcium is 8.7, magnesium is 1.6. IMPRESSION AND PLAN: 1. C. DIFF COLITIS. Patient is on maximized dose of oral vancomycin. Have also added probiotic therapy in addition to yogurt on each tray. 2. AIDS. The patient's CD4 count appears to be 200. The patient has had noncompliance with HIV meds. Most likely this is going to make it impossible to overcome. Will consult palliative care at this time. 3. PANCYTOPENIA. This is secondary to #2. 4. COFFEE-GROUND EMESIS. The patient has had no further recurrence of this. Have reviewed the patient's EGD from [facility] performed on 08/15/16 and findings were unremarkable. Will discontinue PPI therapy given the patient's C. diff. 5. HYPOKALEMIA. This was due to GI losses. This has been repleted. Will follow. 6. ALCOHOL DEPENDENCY. Will continue p.r.n. benzodiazepines. The patient had an alcohol level on presentation. Continue vitamin B supplementation. 7. CHRONIC OBSTRUCTIVE PULMONARY DISEASE. Patient is asymptomatic at this time. 8. TOBACCO DEPENDENCY. Will continue p.r.n. nicotine patch. 9. GENERAL DEBILITY. Patient is awaiting rehab bed placement. He will have a bed available on Friday. DISPOSITION: The patient is a DO NOT RESUSCITATE/DO NOT INTUBATE. Pending patient's symptomatology and diagnostic findings, will reevaluate in the a.m. Time spent on this followup including assessment, plan, physical examination, patient education, and resource alignment is 25 minutes. DICTATING PHYSICIAN: HUMBERTO KIDD NP [id number] PHY#: [id number] ID: [id number] JOB#: [id number] ACCT: [id number] cc: >
[2016-10-12] MEDS: NICOTINE 21 MG/24 HR PATCH.TD24 TD PRN (15:42)
[2016-10-12] MEDS: RITONAVIR 100 MG TABLET PO SCH (17:22)
[2016-10-12] MEDS: GABAPENTIN 300 MG CAPSULE PO SCH (17:22)
[2016-10-12] MEDS: TRAZODONE HCL 50 MG TABLET PO SCH (21:32)
[2016-10-13] MEDS: VANCOMYCIN HCL INJ 500 MG VIAL PO SCH ×3 (05:54→17:41)
[2016-10-13 06:32] LABS: HEMATOCRIT 33.8 % (37.9-51.0); HEMOGLOBIN 11.6 g/dL (13.5-17.0); MEAN CORPUSCULAR HEMOGLOBIN 31.4 pg (27.0-33.4); MEAN CORPUSCULAR HGB CONC 34.3 g/dL (32.0-36.0); MEAN CORPUSCULAR VOLUME 92 fl (80-97); RED BLOOD COUNT 3.69 10^6/uL (4.35-5.55); RED CELL DISTRIBUTION WIDTH 13.8 % (11.5-14.0); WHITE BLOOD COUNT 4.2 10^3/uL (4.0-10.5)
[2016-10-13 07:01] LABS: ANION GAP 10 (5-19); BLOOD UREA NITROGEN 26 mg/dL (7-20); CALCIUM 8.9 mg/dL (8.4-10.2); CARBON DIOXIDE 23 mmol/L (22-30); CHLORIDE 110 mmol/L (98-107); CREATININE RESULT 3.59 mg/dL (0.52-1.25); GLUCOSE 95 mg/dL (75-110); MAGNESIUM 1.6 mg/dL (1.6-2.3); POTASSIUM 3.9 mmol/L (3.6-5.0); SODIUM 143.3 mmol/L (137-145)
[2016-10-13] MEDS ORDERED: ALBUTEROL SULFATE 0.042% NEB (1.25 MG/3 ML) AMPUL NEB PRN (09:55)
[2016-10-13] MEDS: FOLIC ACID 1 MG TABLET PO SCH (09:59)
[2016-10-13] MEDS: NYSTATIN 500000 UNIT/5 ML UDCUP PO SCH ×4 (09:59→21:06)
[2016-10-13] MEDS: LACTOBACILLUS ACIDOPHILUS 250 MG TAB PO SCH ×2 (09:59→17:41)
[2016-10-13] MEDS: THIAMINE HCL 100 MG TABLET PO SCH (09:59)
--- NOTE | 2016-10-13 13:39 | PDOC PROGRESS REPORT ---
Subjective Progress Note for:: 10/13/16 Subjective:: Patient seen on rounds. He is resting in bed, doing a nebulizer treatment in bed. He states his breathing is improved since starting the treatment. He states he felt it was difficult to take a deep breath earlier. He denies any cough today. He states he has had a productive cough up until yesterday. He denies any chest pain or dyspnea. He continues to have loose stools but no diarrhea. He has only had 2 stools today. He denies any other complaints at the present time. Rest of the review of systems are negative. Physical Exam Vital Signs: Temp Pulse Resp BP Pulse Ox 97.9 F 71 18 121/61 97 10/13/16 11:00 10/13/16 11:00 10/13/16 11:00 10/13/16 11:00 10/13/16 11:00 Intake & Output 10/12/16 10/13/16 10/14/16 06:59 06:59 06:59 Intake Total 3377 3613 Output Total 2675 450 Balance 702 3163 Weight 80.9 kg 83.2 kg General appearance: PRESENT: no acute distress, thin, well-developed, well- nourished Head exam: PRESENT: atraumatic, normocephalic Eye exam: PRESENT: conjunctiva pink, EOMI, PERRLA. ABSENT: scleral icterus Ear exam: PRESENT: normal external ear exam Mouth exam: PRESENT: moist, tongue midline Neck exam: ABSENT: carotid bruit, JVD, lymphadenopathy, thyromegaly Respiratory exam: PRESENT: clear to auscultation jamil, symmetrical, unlabored. ABSENT: rales, rhonchi, wheezes Cardiovascular exam: PRESENT: RRR. ABSENT: diastolic murmur, rubs, systolic murmur Pulses: PRESENT: normal dorsalis pedis pul Vascular exam: PRESENT: normal capillary refill GI/Abdominal exam: PRESENT: normal bowel sounds, soft. ABSENT: distended, guarding, mass, organolmegaly, rebound, tenderness Rectal exam: PRESENT: deferred Extremities exam: PRESENT: full ROM. ABSENT: calf tenderness, clubbing, pedal edema Neurological exam: PRESENT: alert, awake, oriented to person, oriented to place , oriented to time, oriented to situation, CN II-XII grossly intact. ABSENT: motor sensory deficit Psychiatric exam: PRESENT: appropriate affect, normal mood. ABSENT: homicidal ideation, suicidal ideation Skin exam: PRESENT: dry, intact, warm. ABSENT: cyanosis, rash Results Laboratory Results: 10/13/16 06:02 10/13/16 06:02 10/13/16 10/13/16 06:02 06:02 WBC 4.2 RBC 3.69 L Hgb 11.6 L Hct 33.8 L MCV 92 MCH 31.4 MCHC 34.3 RDW 13.8 Plt Count 73 L Sodium 143.3 Potassium 3.9 Chloride 110 H Carbon Dioxide 23 Anion Gap 10 BUN 26 H Creatinine 3.59 H Est GFR ( Amer) 22 L Est GFR (Non-Af Amer) 18 L Glucose 95 Calcium 8.9 Magnesium 1.6 10/11/16 02:20 Nasophary (Mrs[facility] Only) MRSA Surveillance Culture - Final NO MRSA RECOVERED Impressions: Chest X-Ray 10/09/16 20:43 IMPRESSION: NO ACUTE RADIOGRAPHIC FINDING IN THE CHEST. Assessment & Plan - Diagnosis (1) C. difficile colitis Is this a current diagnosis for this admission?: YesPlan: Patient had treatment failure on flagyl, now on oral vancomycin 250 mg q6h and probiotic therapy. He is no longer having diarrhea (2) HIV disease Is this a current diagnosis for this admission?: YesPlan: Patient has been noncompliant with HIV medications and follow up. Palliative Care pending (3) Coffee ground emesis Is this a current diagnosis for this admission?: YesPlan: Resolved. Likely gastritis secondary to heavy alcohol intake (4) Hypokalemia Is this a current diagnosis for this admission?: YesPlan: Stable. Replete as needed (5) ESRD (end stage renal disease) on dialysis Is this a current diagnosis for this admission?: YesPlan: Dr Molina consulted and following. He has been noncompliant with treatment as an outpatient (6) Noncompliance with antiretroviral medication regimen Is this a current diagnosis for this admission?: YesPlan: Counseled. - Time Time Spent with patient: 25-34 minutes Critical Time spent with patient: 15-24 minutes Medications reviewed and adjusted accordingly: Yes Anticipated discharge: Acute Rehab Within: within 24 hours
--- NOTE | 2016-10-13 17:07 | EKG REPORT ---
SEVERITY:- OTHERWISE NORMAL ECG - SINUS RHYTHM LEFT AXIS DEVIATION : Confirmed by: Esha Fernández MD 13-Oct-2016 17:06:37
[2016-10-13] MEDS: GABAPENTIN 300 MG CAPSULE PO SCH (17:41)
[2016-10-13] MEDS: TRAZODONE HCL 50 MG TABLET PO SCH (21:06)
[2016-10-14] MEDS: VANCOMYCIN HCL INJ 500 MG VIAL PO SCH ×3 (00:12→12:32)
[2016-10-14 04:36] LABS: ABSOLUTE EOSINOPHILS # (AUTO) 0.2 10^3/uL (0.0-0.6); ABSOLUTE MONOCYTES (AUTO) 0.5 10^3/uL (0.1-1.4); ABSOLUTE NEUT (AUTO) 1.6 10^3/uL (1.7-8.2); BASOPHILS % (AUTO) 0.9 % (0-2); EOSINOPHILS % (AUTO) 3.7 % (0-6); HEMATOCRIT 32.5 % (37.9-51.0); HEMOGLOBIN 11.3 g/dL (13.5-17.0); HGB HCT DIFFERENCE 1.4; LYMPHOCYTES % (AUTO) 47.2 % (13-45); MEAN CORPUSCULAR HEMOGLOBIN 31.5 pg (27.0-33.4); MEAN CORPUSCULAR HGB CONC 34.7 g/dL (32.0-36.0); MEAN CORPUSCULAR VOLUME 91 fl (80-97); MONOCYTES % (AUTO) 11.8 % (3-13); RED BLOOD COUNT 3.58 10^6/uL (4.35-5.55); RED CELL DISTRIBUTION WIDTH 14.4 % (11.5-14.0); SEGMENTED NEUTROPHILS % (AUTO) 36.4 % (42-78); WHITE BLOOD COUNT 4.3 10^3/uL (4.0-10.5)
[2016-10-14 05:07] LABS: ANION GAP 6 (5-19); BLOOD UREA NITROGEN 36 mg/dL (7-20); CALCIUM 8.7 mg/dL (8.4-10.2); CARBON DIOXIDE 23 mmol/L (22-30); CHLORIDE 109 mmol/L (98-107); CREATININE RESULT 3.43 mg/dL (0.52-1.25); GLUCOSE 96 mg/dL (75-110); POTASSIUM 4.1 mmol/L (3.6-5.0); SODIUM 138.2 mmol/L (137-145)
[2016-10-14 08:30] VITALS: BP 114/68
[2016-10-14] MEDS: FOLIC ACID 1 MG TABLET PO SCH (09:26)
[2016-10-14] MEDS: THIAMINE HCL 100 MG TABLET PO SCH (09:26)
[2016-10-14] MEDS: LACTOBACILLUS ACIDOPHILUS 250 MG TAB PO SCH (09:26)
[2016-10-14] MEDS: NYSTATIN 500000 UNIT/5 ML UDCUP PO SCH ×2 (09:26→15:18)
--- NOTE | 2016-10-14 09:53 | PDOC PROGRESS REPORT ---
Subjective Progress Note for:: 10/14/16 Subjective:: Patient was seen today. He is undergoing dialysis at the moment which is being supervised.He is feeling better and the fact that the stools are more formed. He denies any history of abdominal pains nausea vomiting fever. Physical Exam Vital Signs: Temp Pulse Resp BP Pulse Ox 98.5 F 64 18 114/68 100 10/14/16 07:22 10/14/16 07:22 10/14/16 07:22 10/14/16 07:22 10/14/16 07:22 Intake & Output 10/13/16 10/14/16 10/15/16 06:59 06:59 06:59 Intake Total 3613 1248 Output Total 450 450 Balance 3163 798 Weight 83.2 kg 84.6 kg 84.6 kg General appearance: PRESENT: no acute distress Respiratory exam: PRESENT: clear to auscultation jamil. ABSENT: crackles, rhonchi Cardiovascular exam: PRESENT: +S1, +S2, systolic murmur GI/Abdominal exam: PRESENT: normal bowel sounds, soft. ABSENT: distended, guarding, organomegaly, tenderness Results Laboratory Results: 10/14/16 04:10 10/14/16 04:10 10/14/16 10/14/16 04:10 04:10 WBC 4.3 RBC 3.58 L Hgb 11.3 L Hct 32.5 L MCV 91 MCH 31.5 MCHC 34.7 RDW 14.4 H Plt Count 88 L Seg Neutrophils % 36.4 L Lymphocytes % 47.2 H Monocytes % 11.8 Eosinophils % 3.7 Basophils % 0.9 Absolute Neutrophils 1.6 L Absolute Lymphocytes 2.0 Absolute Monocytes 0.5 Absolute Eosinophils 0.2 Absolute Basophils 0.0 Sodium 138.2 Potassium 4.1 Chloride 109 H Carbon Dioxide 23 Anion Gap 6 BUN 36 H Creatinine 3.43 H Est GFR ( Amer) 23 L Est GFR (Non-Af Amer) 19 L Glucose 96 Calcium 8.7 Impressions: Chest X-Ray 10/09/16 20:43 IMPRESSION: NO ACUTE RADIOGRAPHIC FINDING IN THE CHEST. Assessment & Plan - Diagnosis (1) C. difficile diarrhea Plan: Now having recurring C. difficile colitis for the last 6-8 months. Patient on p.o. vancomycin and seems to be improving. Patient improving. Continue on present lines of management. (2) Coffee ground emesis Is this a current diagnosis for this admission?: Yes (3) Hypokalemia Is this a current diagnosis for this admission?: YesPlan: Stable. Monitor. (4) Noncompliance of patient with renal dialysis Is this a current diagnosis for this admission?: Yes (5) ESRD (end stage renal disease) on dialysis Is this a current diagnosis for this admission?: YesPlan: Patient undergoing dialysis without issues. Plan to remove a liter of fluid. Discuss orders with the treating nurse. (6) HIV disease Is this a current diagnosis for this admission?: YesPlan: Advised compliance with his medications for (8) Nausea and vomiting Qualifiers: Vomiting Intractability: non-intractable
[2016-10-14] MEDS ORDERED: HEPARIN SOD (PORCINE) 1,000 UNIT/ML 10 ML VIAL IV PRN (10:05)
[2016-10-14] MEDS: NICOTINE 21 MG/24 HR PATCH.TD24 TD PRN (12:32)
--- NOTE | 2016-10-14 13:44 | PDOC TRANSFER SUMMARY ---
General - Admit/Disc Date/PCP Admission Date/Primary Care Provider: 10/10/16 07:44 Discharge Date: 10/14/16 - Discharge Diagnosis (1) C. difficile colitis Is this a current diagnosis for this admission?: YesSummary: Vancomycin 250 mg qid x 7 days, Diarrhea has subsided (2) HIV disease Is this a current diagnosis for this admission?: YesSummary: Continue current medications (3) Coffee ground emesis Is this a current diagnosis for this admission?: YesSummary: Resolved secondary to gastritis most likely from heavy alcohol intake (4) Hypokalemia Is this a current diagnosis for this admission?: YesSummary: Repleted (5) ESRD (end stage renal disease) on dialysis Is this a current diagnosis for this admission?: YesSummary: Continue dialysis Fri -Fri-Fri (6) Noncompliance with antiretroviral medication regimen Is this a current diagnosis for this admission?: YesSummary: Counseled - Additional Information Resuscitation Status: Full Code Discharge Diet: Regular Discharge Activity: Activity As Tolerated, Balance Activity w/Rest Home Medications: Atazanavir Sulfate [Reyataz 300 mg Capsule] 300 mg PO TUTHSA@1700 10/10/16 Emtricitabine/Tenofov Alafenam [Descovy 200-25 mg Tablet] 1 tab PO TUTHSA@1700 10/10/16 Gabapentin [Neurontin 300 mg Capsule] 300 mg PO Q8 10/10/16 Ritonavir [Norvir 100 mg Tablet] 100 mg PO TUTHSA@1700 10/10/16 Trazodone HCl [Desyrel] 100 mg PO QHS 10/10/16 Acetaminophen [Tylenol 325 mg Tablet] 650 mg PO Q8HP PRN tablet 10/14/16 Albuterol Sulfate [Ventolin 0.042% Neb 1.25 mg/3 mL Ampul] 1.25 mg NEB RTQ6HP PRN vial.neb 10/14/16 Folic Acid [Folvite 1 mg Tablet] 1 mg PO DAILY tablet 10/14/16 Nicotine [Nicoderm 21 mg/24 Hr Transderm Patch] 1 each TD DAILYP PRN patch.td24 10/14/16 Nystatin [Mycostatin 500,000 Unit/5 ml Susp Udcup] 500,000 unit PO QID udc Vancomycin HCl [Vancocin HCl] 250 mg PO QID #28 capsule 10/14/16 History of Present Illness Admission Date/PCP: 10/10/16 07:44 Patient complains of: Coffee ground emesis History of Present Illness: LAMAR SMALL is a 50 year old male with a complicated chronic medical history, including HIV disease, noncompliant with HAART medications, alcohol abuse in the form of 1/5 of vodka every 2 days, recent history of C. difficile colitis, personal history of pulmonary embolus and DVT, on chronic anticoagulation for same, end-stage renal disease, on Friday hemodialysis, having missed dialysis Friday of this week, arthritis, anxiety and depression without suicidal or homicidal ideation, distant history of seizure, never on medication for same, esophageal reflux disease, pack-a-day smoker, and COPD, not on home O2, who presents to the emergency room for above complaints. Patient has been discussed with emergency room physician who evaluated the patient. . He describes the onset of a number of episodes of coffee-ground emesis approximately 36 hours ago, along with several episodes of "black slimy" rectal bleeding over the last 24 hours. States the stool output is quite similar to previous episodes of C. difficile colitis. Mention in the chart is made of history of hepatitis, along with esophageal bleeding, but patient denies both. Has remained hemodynamically stable. He has had no further GI tract bleeding since presenting to the emergency room. Questionable fever and chills. Intermittent cramping abdominal pain, lessens with diarrhea. Occasional mild chest discomfort over the last several days, but not very often. Laboratory results are listed in [employer] and are reviewed. X-ray summary results are listed below, with full report(s) reviewed. EKG reviewed and compared to tracing from August 08 of this year. Social history/personal habits: Lives with mother. Has children. On disability. Pack of cigarettes per day. Fifth of vodka every 2 days. Denies illicit drug use. NKDA. Home medications initially autopopulated into [employer] may not accurately reflect patient's true medications, dosages, and/or frequencies. 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 Unfortunately, patient uncertain of medications/dosages/frequencies. REVIEW OF SYSTEMS: Constitutional: See history and present illness. Eyes: Wears glasses. ENT: No swallowing problems or complaints. [No hearing problems or complaints. Pulmonary: No current complaints. Cardiovascular: See history and present illness. Gastrointestinal: See history and present illness. Skin: No current complaints, including rashes. Hematologic: Easy bruising. Neurologic: Chronic numbness and tingling of his toes. Musculoskeletal: Joint pain from arthritis. Psychiatric: Anxiety depression; denies suicidal or homicidal ideation. Endocrine: No current complaints, including polyuria. Genitourinary: No current complaints, including dysuria. PHYSICAL EXAMINATION: 62 inches tall. 82.7 kg. BMI 23.4 kg/m. Blood pressure 140/86. Pulse 75 and regular. 96% saturation on room air. Respirations are 12 and unlabored. Temperature 98.6. Thin otherwise well-developed though chronically ill-appearing male who appears a number of years older than his stated age. Fatigued appearance. Appears not to feel very well. Mildly anxious, without agitation. Cooperative. Skin is warm and dry. No grossly obvious evidence of rash in areas of skin examined. No subcutaneous nodules palpated. ENT: Hearing grossly normal to normal conversation. Tongue midline on protrusion pink and slightly tacky. Eyes: No scleral icterus. Pupils equal and reactive to light at 4 mm. [place] conjunctivae. Neck is supple and nontender to gentle active range of motion and palpation. Midline trachea. No palpable thyroid nodule mass enlargement or tenderness. Lymphatic: No palpable cervical or clavicular nodes. Neck and lymphatic exams limited by patient body habitus. Psychiatric: Fair to reasonable insight into acute and chronic medical issues. Oriented to time location and why here. Lungs: Auscultation reveals clear and equal breath sounds bilaterally. No use of accessory respiratory muscles. Cardiovascular: Heart regular rate and rhythm, without gallop murmur or rub. No carotid or abdominal aortic bruits. No ankle or pedal edema. Faintly palpable dorsalis pedis pulses. Abdomen: soft, slightly distended with positive bowel sounds. Unable to adequately evaluate abdomen for masses or organomegaly due to distention. basically nontender other than scant discomfort to palpation in the periumbilical region. Certainly no evidence of guarding or peritoneal signs. Extremities: Feet are warm and dry. No calf tenderness to compression. No grossly obvious visual evidence of calf swelling. Gentle manipulation of lower extremities fails to reveal any obvious evidence of injury or instability to knees hips or ankles. Neurologic: Moves upper extremities grossly normally. Patellar reflexes absent. Absent Babinski. Light touch is intact at feet, except mild chronic numbness and tingling in his toes. Dorsiflexion and plantarflexion of feet 5 / 5 and symmetric. Hospital Course Hospital Course: Patient was admitted to the [facility] on IV vancomycin after stool culture showed recurrent c difficile with failure on oral flagyl. Dr Molina was consulted for nephrology and dialysis management. Patient underwent dialysis without any difficulty. Patient had no further emesis. Patient was transitioned to oral vancomycin and diarrhea subsided on second day of therapy. Patient will continue on 10 day course. Social work saw the patient for discharge planning. He was agreeable for rehab to assist with medical management. Physical Exam Vital Signs: Temp Pulse Resp BP Pulse Ox 98.5 F 64 18 114/68 100 10/14/16 07:22 10/14/16 07:22 10/14/16 07:22 10/14/16 07:22 10/14/16 07:22 Intake & Output 10/13/16 10/14/16 10/15/16 06:59 06:59 06:59 Intake Total 3613 1248 360 Output Total 450 450 Balance 3163 798 360 Weight 83.2 kg 84.6 kg 84.6 kg General appearance: PRESENT: no acute distress, well-developed, well-nourished Head exam: PRESENT: atraumatic, normocephalic Eye exam: PRESENT: conjunctiva pink, EOMI, PERRLA. ABSENT: scleral icterus Ear exam: PRESENT: normal external ear exam Mouth exam: PRESENT: moist, tongue midline Neck exam: ABSENT: carotid bruit, JVD, lymphadenopathy, thyromegaly Respiratory exam: PRESENT: clear to auscultation jamil. ABSENT: rales, rhonchi, wheezes Cardiovascular exam: PRESENT: RRR. ABSENT: diastolic murmur, rubs, systolic murmur Pulses: PRESENT: normal dorsalis pedis pul Vascular exam: PRESENT: normal capillary refill GI/Abdominal exam: PRESENT: normal bowel sounds, soft. ABSENT: distended, guarding, mass, organolmegaly, rebound, tenderness Rectal exam: PRESENT: deferred Extremities exam: PRESENT: full ROM. ABSENT: calf tenderness, clubbing, pedal edema Neurological exam: PRESENT: alert, awake, oriented to person, oriented to place , oriented to time, oriented to situation, CN II-XII grossly intact. ABSENT: motor sensory deficit Psychiatric exam: PRESENT: appropriate affect, normal mood. ABSENT: homicidal ideation, suicidal ideation Skin exam: PRESENT: dry, intact, warm. ABSENT: cyanosis, rash Results Laboratory Results: 10/14/16 04:10 10/14/16 04:10 10/14/16 10/14/16 04:10 04:10 WBC 4.3 RBC 3.58 L Hgb 11.3 L Hct 32.5 L MCV 91 MCH 31.5 MCHC 34.7 RDW 14.4 H Plt Count 88 L Seg Neutrophils % 36.4 L Lymphocytes % 47.2 H Monocytes % 11.8 Eosinophils % 3.7 Basophils % 0.9 Absolute Neutrophils 1.6 L Absolute Lymphocytes 2.0 Absolute Monocytes 0.5 Absolute Eosinophils 0.2 Absolute Basophils 0.0 Sodium 138.2 Potassium 4.1 Chloride 109 H Carbon Dioxide 23 Anion Gap 6 BUN 36 H Creatinine 3.43 H Est GFR ( Amer) 23 L Est GFR (Non-Af Amer) 19 L Glucose 96 Calcium 8.7 Impressions: Chest X-Ray 10/09/16 20:43 IMPRESSION: NO ACUTE RADIOGRAPHIC FINDING IN THE CHEST. Transfer Plan - Disposition Transfer Plan: [facility] Facility for rehab - Time Spent with Patient Time spent with patient: Less than 30 Minutes Qualifiers PATEINT BEING DISCHARGED WITH ANY OF THE FOLLOWING DIAGNOSIS?: No Plan Discharge Plan: [facility] Time Spent: Less than 30 Minutes
--- NOTE | 2016-10-14 15:29 | PDOC TRANSFER SUMMARY ---
General - Admit/Disc Date/PCP Admission Date/Primary Care Provider: 10/10/16 07:44 Discharge Date: 10/14/16 - Discharge Diagnosis (1) C. difficile colitis Is this a current diagnosis for this admission?: YesSummary: Vancomycin 250 mg qid x 7 days (2) HIV disease Is this a current diagnosis for this admission?: YesSummary: Continue home medications (3) Coffee ground emesis Is this a current diagnosis for this admission?: YesSummary: Resolved (4) Hypokalemia Is this a current diagnosis for this admission?: YesSummary: Resolved (5) ESRD (end stage renal disease) on dialysis Is this a current diagnosis for this admission?: YesSummary: Dialysis Fri -Fri-Fri at [facility] (6) Noncompliance with antiretroviral medication regimen Is this a current diagnosis for this admission?: YesSummary: Counseled - Additional Information Resuscitation Status: Full Code Discharge Diet: Regular Discharge Activity: Activity As Tolerated, Balance Activity w/Rest Home Medications: Atazanavir Sulfate [Reyataz 300 mg Capsule] 300 mg PO TUTHSA@1700 10/10/16 Emtricitabine/Tenofov Alafenam [Descovy 200-25 mg Tablet] 1 tab PO TUTHSA@1700 10/10/16 Gabapentin [Neurontin 300 mg Capsule] 300 mg PO Q8 10/10/16 Ritonavir [Norvir 100 mg Tablet] 100 mg PO TUTHSA@1700 10/10/16 Trazodone HCl [Desyrel] 100 mg PO QHS 10/10/16 Acetaminophen [Tylenol 325 mg Tablet] 650 mg PO Q8HP PRN tablet 10/14/16 Albuterol Sulfate [Ventolin 0.042% Neb 1.25 mg/3 mL Ampul] 1.25 mg NEB RTQ6HP PRN vial.neb 10/14/16 Folic Acid [Folvite 1 mg Tablet] 1 mg PO DAILY tablet 10/14/16 Nicotine [Nicoderm 21 mg/24 Hr Transderm Patch] 1 each TD DAILYP PRN patch.td24 10/14/16 Nystatin [Mycostatin 500,000 Unit/5 ml Susp Udcup] 500,000 unit PO QID udc Vancomycin HCl [Vancocin HCl] 250 mg PO QID #28 capsule 10/14/16 History of Present Illness Admission Date/PCP: 10/10/16 07:44 Patient complains of: Coffee ground emesis History of Present Illness: LAMAR SMALL is a 50 year old male with a complicated chronic medical history, including HIV disease, noncompliant with HAART medications, alcohol abuse in the form of 1/5 of vodka every 2 days, recent history of C. difficile colitis, personal history of pulmonary embolus and DVT, on chronic anticoagulation for same, end-stage renal disease, on Friday hemodialysis, having missed dialysis Friday of this week, arthritis, anxiety and depression without suicidal or homicidal ideation, distant history of seizure, never on medication for same, esophageal reflux disease, pack-a-day smoker, and COPD, not on home O2, who presents to the emergency room for above complaints. Patient has been discussed with emergency room physician who evaluated the patient. . He describes the onset of a number of episodes of coffee-ground emesis approximately 36 hours ago, along with several episodes of "black slimy" rectal bleeding over the last 24 hours. States the stool output is quite similar to previous episodes of C. difficile colitis. Mention in the chart is made of history of hepatitis, along with esophageal bleeding, but patient denies both. Has remained hemodynamically stable. He has had no further GI tract bleeding since presenting to the emergency room. Questionable fever and chills. Intermittent cramping abdominal pain, lessens with diarrhea. Occasional mild chest discomfort over the last several days, but not very often. Laboratory results are listed in [employer] and are reviewed. X-ray summary results are listed below, with full report(s) reviewed. EKG reviewed and compared to tracing from August 08 of this year. Social history/personal habits: Lives with mother. Has children. On disability. Pack of cigarettes per day. Fifth of vodka every 2 days. Denies illicit drug use. NKDA. Home medications initially autopopulated into [employer] may not accurately reflect patient's true medications, dosages, and/or frequencies. 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 Unfortunately, patient uncertain of medications/dosages/frequencies. REVIEW OF SYSTEMS: Constitutional: See history and present illness. Eyes: Wears glasses. ENT: No swallowing problems or complaints. [No hearing problems or complaints. Pulmonary: No current complaints. Cardiovascular: See history and present illness. Gastrointestinal: See history and present illness. Skin: No current complaints, including rashes. Hematologic: Easy bruising. Neurologic: Chronic numbness and tingling of his toes. Musculoskeletal: Joint pain from arthritis. Psychiatric: Anxiety depression; denies suicidal or homicidal ideation. Endocrine: No current complaints, including polyuria. Genitourinary: No current complaints, including dysuria. PHYSICAL EXAMINATION: 62 inches tall. 82.7 kg. BMI 23.4 kg/m. Blood pressure 140/86. Pulse 75 and regular. 96% saturation on room air. Respirations are 12 and unlabored. Temperature 98.6. Thin otherwise well-developed though chronically ill-appearing male who appears a number of years older than his stated age. Fatigued appearance. Appears not to feel very well. Mildly anxious, without agitation. Cooperative. Skin is warm and dry. No grossly obvious evidence of rash in areas of skin examined. No subcutaneous nodules palpated. ENT: Hearing grossly normal to normal conversation. Tongue midline on protrusion pink and slightly tacky. Eyes: No scleral icterus. Pupils equal and reactive to light at 4 mm. [place] conjunctivae. Neck is supple and nontender to gentle active range of motion and palpation. Midline trachea. No palpable thyroid nodule mass enlargement or tenderness. Lymphatic: No palpable cervical or clavicular nodes. Neck and lymphatic exams limited by patient body habitus. Psychiatric: Fair to reasonable insight into acute and chronic medical issues. Oriented to time location and why here. Lungs: Auscultation reveals clear and equal breath sounds bilaterally. No use of accessory respiratory muscles. Cardiovascular: Heart regular rate and rhythm, without gallop murmur or rub. No carotid or abdominal aortic bruits. No ankle or pedal edema. Faintly palpable dorsalis pedis pulses. Abdomen: soft, slightly distended with positive bowel sounds. Unable to adequately evaluate abdomen for masses or organomegaly due to distention. basically nontender other than scant discomfort to palpation in the periumbilical region. Certainly no evidence of guarding or peritoneal signs. Extremities: Feet are warm and dry. No calf tenderness to compression. No grossly obvious visual evidence of calf swelling. Gentle manipulation of lower extremities fails to reveal any obvious evidence of injury or instability to knees hips or ankles. Neurologic: Moves upper extremities grossly normally. Patellar reflexes absent. Absent Babinski. Light touch is intact at feet, except mild chronic numbness and tingling in his toes. Dorsiflexion and plantarflexion of feet 5 / 5 and symmetric. Hospital Course Hospital Course: Patient was admitted to [facility] on telemetry. Patient was found to have C. difficile diarrhea on culture he had been on oral Flagyl. He was started on oral vancomycin. Next 2 days his diarrhea improved. Dr. Molina saw the patient in consult,for nephrology and dialysis. He did hemodialysis on Friday and today. Social work was consulted for discharge planning. [facility] Physical Exam Vital Signs: Temp Pulse Resp BP Pulse Ox 98.5 F 64 18 114/68 100 10/14/16 07:22 10/14/16 07:22 10/14/16 07:22 10/14/16 07:22 10/14/16 07:22 Intake & Output 10/13/16 10/14/16 10/15/16 06:59 06:59 06:59 Intake Total 3613 1248 360 Output Total 450 450 Balance 3163 798 360 Weight 83.2 kg 84.6 kg 84.6 kg General appearance: PRESENT: no acute distress, well-developed, well-nourished Head exam: PRESENT: atraumatic, normocephalic Eye exam: PRESENT: conjunctiva pink, EOMI, PERRLA. ABSENT: scleral icterus Ear exam: PRESENT: normal external ear exam Mouth exam: PRESENT: moist, tongue midline Respiratory exam: PRESENT: clear to auscultation jamil. ABSENT: rales, rhonchi, wheezes Cardiovascular exam: PRESENT: RRR. ABSENT: diastolic murmur, rubs, systolic murmur Pulses: PRESENT: normal dorsalis pedis pul Vascular exam: PRESENT: normal capillary refill GI/Abdominal exam: PRESENT: normal bowel sounds, soft. ABSENT: distended, guarding, mass, organolmegaly, rebound, tenderness Rectal exam: PRESENT: deferred Extremities exam: PRESENT: full ROM. ABSENT: calf tenderness, clubbing, pedal edema Neurological exam: PRESENT: alert, awake, oriented to person, oriented to place , oriented to time, oriented to situation, CN II-XII grossly intact. ABSENT: motor sensory deficit Psychiatric exam: PRESENT: appropriate affect, normal mood. ABSENT: homicidal ideation, suicidal ideation Skin exam: PRESENT: dry, intact, warm. ABSENT: cyanosis, rash Results Laboratory Results: 10/14/16 04:10 10/14/16 04:10 10/14/16 10/14/16 04:10 04:10 WBC 4.3 RBC 3.58 L Hgb 11.3 L Hct 32.5 L MCV 91 MCH 31.5 MCHC 34.7 RDW 14.4 H Plt Count 88 L Seg Neutrophils % 36.4 L Lymphocytes % 47.2 H Monocytes % 11.8 Eosinophils % 3.7 Basophils % 0.9 Absolute Neutrophils 1.6 L Absolute Lymphocytes 2.0 Absolute Monocytes 0.5 Absolute Eosinophils 0.2 Absolute Basophils 0.0 Sodium 138.2 Potassium 4.1 Chloride 109 H Carbon Dioxide 23 Anion Gap 6 BUN 36 H Creatinine 3.43 H Est GFR ( Amer) 23 L Est GFR (Non-Af Amer) 19 L Glucose 96 Calcium 8.7 Impressions: Chest X-Ray 10/09/16 20:43 IMPRESSION: NO ACUTE RADIOGRAPHIC FINDING IN THE CHEST. Transfer Plan - Disposition Transfer Plan: [facility] - Time Spent with Patient Time spent with patient: Less than 30 Minutes Qualifiers PATEINT BEING DISCHARGED WITH ANY OF THE FOLLOWING DIAGNOSIS?: No Plan Discharge Plan: [facility] Time Spent: Less than 30 Minutes
== END 2016-10-14 17:10 | DRG 371 ==
LOC: ER 20:31 → UNDOADMIN 10-10 04:54 → EH 10-10 04:54 → 3W 10-11 00:54
PROVIDERS: ADMIT Family Medicine; ATTEND Family Medicine
PROC: 5A1D00Z (ICD-10-PCS; principal; 2016-10-11)
PROC: 5A1D00Z (ICD-10-PCS; 2016-10-14)
DX: A04.7 Enterocolitis due to Clostridium difficile (principal); B20 Human immunodeficiency virus [HIV] disease; N18.6 End stage renal disease; E87.6 Hypokalemia; Z91.14 Patient's other noncompliance with medication regimen; K21.9 Gastro-esophageal reflux disease without esophagitis; J44.9 Chronic obstructive pulmonary disease, unspecified; D63.1 Anemia in chronic kidney disease; F10.20 Alcohol dependence, uncomplicated; F41.9 Anxiety disorder, unspecified; F32.9 Major depressive disorder, single episode, unspecified; M19.90 Unspecified osteoarthritis, unspecified site; Z79.01 Long term (current) use of anticoagulants; Z79.899 Other long term (current) drug therapy; Z86.718 Personal history of other venous thrombosis and embolism; Z86.711 Personal history of pulmonary embolism; Z90.49 Acquired absence of other specified parts of digestive tract; F17.210 Nicotine dependence, cigarettes, uncomplicated
CPT/HCPCS: 36415; 36430; 71010; 80048; 80053; 80307; 81001; 82140; 82272; 82550; 82553; 83690; 83735; 84132; 84484; 85025; 85027; 85610; 86360; 86850; 86900; 86901; 86920; 87040; 87045; 87205; 87493; 89055; 93005; 93010; 94799; 96365; 96366; 96368; 96375; 96376; 99291; J1450; J1644; J2405; J2765; J3370; J3411; J3480; J3490; J7030; P9016; S0164

== ENCOUNTER 2016-10-29 16:01 | Inpatient (IN) | payer MEDICARE, MEDICAID ==
[2016-10-29] MEDS ORDERED: ACETAMINOPHEN 325 MG TABLET PO ONE (16:12)
[2016-10-29] MEDS ORDERED: IBUPROFEN 600 MG TABLET PO ONE (16:25)
--- NOTE | 2016-10-29 16:27 | ER Document Report ---
ED Fever - General Mode of Arrival: Ambulatory Information source: Patient TRAVEL OUTSIDE OF THE [place] IN LAST 30 DAYS: No - HPI Onset: Other Onset/Duration: Persistent Context: HIV/AIDS <ADIS MUKHERJEE - Last Filed: 10/29/16 21:14> <DEEPAK MORENO - Last Filed: 10/29/16 23:19> - General Stated Complaint: FEVER Time Seen by Provider: 10/29/16 16:12 Notes: Patient is a 50-year-old male that presents to the emergency department today with complaints of fevers today at dialysis. Patient had a fever 102.5 today while at dialysis, however he did complete his dialysis treatment. Patient states he recently finished off his antibiotics for C. difficile colitis. Patient does have known HIV. Patient complains of shortness of breath associated with a cough and chills. Patient denies any vomiting, diarrhea, or dysuria. (ADIS MUKHERJEE) - Related Data Allergies/Adverse Reactions: No Known Allergies Allergy (Verified 08/08/16 13:41) Past Medical History - General Information source: Patient - Social History Smoking Status: Current Every Day Smoker Cigarette use (# per day): Yes Frequency of alcohol use: None Drug Abuse: None Family History: CAD, DM, Hypertension - Past Medical History Cardiac Medical History: Reports: Hx DVT, Hx Pulmonary Embolism Denies: Hx Congestive Heart Failure, Hx Heart Attack, Hx Hypercholesterolemia Pulmonary Medical History: Reports: Hx COPD Denies: Hx Sleep Apnea Neurological Medical History: Reports: Hx Seizures - Distant history; never on antiepileptic. Endocrine Medical History: Denies: Hx Diabetes Mellitus Type 1, Hx Diabetes Mellitus Type 2, Hx Hyperthyroidism, Hx Hypothyroidism Renal/ Medical History: Reports: Hx End Stage Renal Disease, Hx Hemodialysis. Denies: Hx Peritoneal Dialysis GI Medical History: Reports: Hx Gastroesophageal Reflux Disease, Hx Hiatal Hernia. Denies: Hx Cirrhosis, Hx Hepatitis Musculoskeltal Medical History: Reports Hx Arthritis Psychiatric Medical History: Reports: Hx Depression Infectious Medical History: Reports: Hx C-Diff, Hx HIV. Denies: Hx Hepatitis, Hx MRSA Past Surgical History: Reports: Hx Cholecystectomy, Hx Orthopedic Surgery - Repair of right tibial plateau fracture - Immunizations Hx Diphtheria, Pertussis, Tetanus Vaccination: Yes Hx Pneumococcal Vaccination: 05/26/15 <ADIS MUKHERJEE - Last Filed: 10/29/16 21:14> Review of Systems - Review of Systems Constitutional: See HPI, Chills, Fever EENT: No symptoms reported Cardiovascular: No symptoms reported Respiratory: See HPI, Cough Gastrointestinal: denies: Diarrhea, Vomiting Genitourinary: denies: Dysuria Male Genitourinary: No symptoms reported Musculoskeletal: No symptoms reported Skin: No symptoms reported Hematologic/Lymphatic: No symptoms reported Neurological/Psychological: No symptoms reported -: Yes All other systems reviewed and negative <ADIS MUKHERJEE - Last Filed: 10/29/16 21:14> Physical Exam <LONNYADIS - Last Filed: 10/29/16 21:14> - General General appearance: No: Appears well In distress: Mild <DEEPAK MORENO - Last Filed: 10/29/16 23:19> - Vital signs Vitals: Temp Pulse BP Pulse Ox 102.0 F H 117 H 109/73 94 10/29/16 16:19 10/29/16 16:19 10/29/16 16:19 10/29/16 16:19 - Notes Notes: Physical Exam: General: Alert, appears well. HEENT: Normocephalic. Atraumatic. PERRL. Extraocular movements intact. Oropharynx clear. Neck: Supple. Non-tender. Respiratory: Retractions. Decreased breath sounds bilaterally. Cardiovascular: Tachycardic. Abdominal: Normal Inspection. Non-tender. No distension. Normal Bowel Sounds. Back: Non-tender. No deformity or step off. Extremities: Moves all four extremities. Upper extremities: Normal inspection. Normal ROM. Lower extremities: Normal inspection. No edema. Normal ROM. Neurological: Normal cognition. AAOx4. Normal speech. Psychological: Normal affect. Normal Mood. Skin: Warm. Dry. Normal color. (ADIS MUKHERJEE) Course - Laboratory Result Diagrams: 10/29/16 16:45 10/29/16 16:45 - Consults Dr. Man Time consulted: 18:00 Consulted provider: will see as inpatient <ADIS MUKHERJEE - Last Filed: 10/29/16 21:14> - Laboratory Result Diagrams: 10/29/16 16:45 10/29/16 16:45 <DEEPAK MORENO - Last Filed: 10/29/16 23:19> - Re-evaluation Re-evalutation: 10/29/16 Patient is a 50-year-old male who presents to the emergency department with fever, productive cough, tachycardia, and is just completed his dialysis treatment. Patient has a history of HIV and hepatitis and was recently treated for C. difficile. States that he stopped taking vancomycin p.o. about a week ago. Patient denies any nausea vomiting or diarrhea. Patient clinically and by history seems that his source of fever is pneumonia. Patient has been discussed with the hospitalist and will be started on broad-spectrum antibiotics. Patient understands agrees with plan. Stable time of admission. ( DEEPAK MORENO) - Vital Signs Vital signs: Temp Pulse Resp BP Pulse Ox 98.7 F 85 18 124/97 H 95 10/29/16 20:27 10/29/16 19:19 10/29/16 23:01 10/29/16 23:01 10/29/16 23:01 - Laboratory Laboratory results interpreted by me: 10/29/16 10/29/16 10/29/16 16:45 16:45 16:45 RBC 3.47 L Hgb 10.9 L Hct 32.6 L RDW 16.4 H Plt Count 131 L Seg Neutrophils % 83.0 H Lymphocytes % 8.0 L VBG pH 7.51 H VBG pCO2 31.2 L Sodium 133.9 L BUN 22 H Creatinine 2.74 H Est GFR ( Amer) 30 L Est GFR (Non-Af Amer) 25 L Glucose 119 H POC Glucose Total Bilirubin 1.5 H Direct Bilirubin 0.5 H Urine Protein Urine Ketones Ur Leukocyte Esterase 10/29/16 10/29/16 17:29 18:04 RBC Hgb Hct RDW Plt Count Seg Neutrophils % Lymphocytes % VBG pH VBG pCO2 Sodium BUN Creatinine Est GFR ( Amer) Est GFR (Non-Af Amer) Glucose POC Glucose 114 H Total Bilirubin Direct Bilirubin Urine Protein 100 H Urine Ketones TRACE H Ur Leukocyte Esterase TRACE H - Consults Dr. Man Reason for consultation: Agrees to admit patient (ADIS MUKHERJEE) Critical Care Note - Critical Care Note Total time excluding time spent on procedures (mins): 35 - Evaluation and management of immunosuppressed patient with fever, multiple re-evaluations, coordination of admission, counseling of patient <DEEPAK MORENO - Last Filed: 10/29/16 23:19> Discharge <ADIS MUKHERJEE - Last Filed: 10/29/16 21:14> - Discharge Admitting Provider: Hospitalist - [place] Unit Admitted: IMCU <DEEPAK MORENO - Last Filed: 10/29/16 23:19> - Discharge Clinical Impression: Immunosuppression, HIV disease, Noncompliance with antiretroviral medication regimen Fever Qualifiers: Fever type: unspecified Qualified Code(s): R50.9 - Fever, unspecified Pneumonia Qualifiers: Pneumonia type: due to unspecified organism Laterality: bilateral Lung location : lower lobe of lung Qualified Code(s): J18.9 - Pneumonia, unspecified organism Condition: Stable Disposition: ADMITTED INPATIENT Scribe Attestation: 10/29/16 23:18 I personally performed the services described in the documentation, reviewed and edited the documentation which was dictated to the scribe in my presence, and it accurately records my words and actions. (DEEPAK MORENO) Scribe Documentation - Scribe Written by Maria Esthere:: Kyle James, 10/29/2016 1919 acting as scribe for :: Aria <ADIS MUKHERJEE - Last Filed: 10/29/16 21:14>
[2016-10-29 17:04] LABS: VENOUS BLOOD BASE EXCESS 1.7 mmol/L; VENOUS BLOOD HCO3 24.1 mmol/L (20-32); VENOUS BLOOD PCO2 31.2 mmHg (35-63); VENOUS BLOOD PH 7.51 (7.30-7.42)
[2016-10-29 17:06] LABS: ABSOLUTE EOSINOPHILS # (AUTO) 0.1 10^3/uL (0.0-0.6); ABSOLUTE LYMPHOCYTES (AUTO) 0.6 10^3/uL (0.5-4.7); ABSOLUTE MONOCYTES (AUTO) 0.5 10^3/uL (0.1-1.4); ABSOLUTE NEUT (AUTO) 5.9 10^3/uL (1.7-8.2); BASOPHILS % (AUTO) 0.3 % (0-2); EOSINOPHILS % (AUTO) 1.7 % (0-6); HEMATOCRIT 32.6 % (37.9-51.0); HEMOGLOBIN 10.9 g/dL (13.5-17.0); HGB HCT DIFFERENCE 0.1; MEAN CORPUSCULAR HEMOGLOBIN 31.4 pg (27.0-33.4); MEAN CORPUSCULAR HGB CONC 33.4 g/dL (32.0-36.0); MEAN CORPUSCULAR VOLUME 94 fl (80-97); RED BLOOD COUNT 3.47 10^6/uL (4.35-5.55); RED CELL DISTRIBUTION WIDTH 16.4 % (11.5-14.0); WHITE BLOOD COUNT 7.1 10^3/uL (4.0-10.5)
[2016-10-29 17:12] LABS: PROTHROMBIN TIME 13.6 SEC (11.4-15.4)
--- NOTE | 2016-10-29 17:20 | RADIOLOGY REPORT (SQ) ---
EXAM DESCRIPTION: CHEST PA/LAT COMPLETED DATE/TIME: 10/29/2016 5:06 pm REASON FOR STUDY: fever, cough COMPARISON: 10/09/2016 EXAM PARAMETERS: NUMBER OF VIEWS: two views TECHNIQUE: Digital Frontal and Lateral radiographic views of the chest acquired. RADIATION DOSE: NA LIMITATIONS: none FINDINGS: LUNGS AND PLEURA: Basilar markings are mildly prominent. No focal consolidation. Dialysi s catheter remains in place. MEDIASTINUM AND HILAR STRUCTURES: No masses or contour abnormalities. HEART AND VASCULAR STRUCTURES: Heart size is stable. As discussed above interstitial markings are pr ominent. A component of congestion cannot be excluded. BONES: No acute findings. HARDWARE: None in the chest. OTHER: No other significant finding. IMPRESSION: Mild prominence of interstitial markings is post in the lung bases. Mild vascular conge stion cannot be excluded. TECHNICAL DOCUMENTATION: JOB ID: [id number] [employer]- All Rights Reserved
[2016-10-29 17:25] LABS: ALANINE AMINOTRANSFERASE 53 U/L (21-72); ALBUMIN 3.9 g/dL (3.5-5.0); ALKALINE PHOSPHATASE 122 U/L (38-126); ANION GAP 12 (5-19); ASPARTATE AMINO TRANSFERASE 34 U/L (17-59); BILIRUBIN,DIRECT 0.5 mg/dL (0.0-0.4); BILIRUBIN,TOTAL 1.5 mg/dL (0.2-1.3); BLOOD UREA NITROGEN 22 mg/dL (7-20); CALCIUM 8.8 mg/dL (8.4-10.2); CARBON DIOXIDE 22 mmol/L (22-30); CHLORIDE 100 mmol/L (98-107); CREATININE RESULT 2.74 mg/dL (0.52-1.25); GLUCOSE 119 mg/dL (75-110); POTASSIUM 4.1 mmol/L (3.6-5.0); SODIUM 133.9 mmol/L (137-145); TOTAL PROTEIN 7.3 g/dL (6.3-8.2)
[2016-10-29] MEDS ORDERED: IPRATROPIUM/ALBUTEROL 0.5-2.5 MG/3 ML AMPUL NEB ONE (17:27)
[2016-10-29] MEDS ORDERED: CEFEPIME 1 GM/D5W RTU 50 ML IV ONE (18:04)
[2016-10-29] MEDS ORDERED: VANCOMYCIN HCL INJ 1000 MG VIAL IV ONE (18:04)
[2016-10-29 18:23] LABS: APPEARANCE,URINE CLEAR; BILIRUBIN,URINE NEGATIVE (NEGATIVE); GLUCOSE, URINE NEGATIVE (NEGATIVE); KETONES,URINE TRACE mg/dL (NEGATIVE); LEUKOCYTE ESTERASE,URINE TRACE (NEGATIVE); NITRITE,URINE NEGATIVE (NEGATIVE); PROTEIN,URINE 100 mg/dL (NEGATIVE); UROBILINOGEN,URINE NEGATIVE mg/dL (<2.0)
[2016-10-29] MEDS ORDERED: AZITHROMYCIN INJ 500 MG VIAL IV ONE (19:27)
[2016-10-29] MEDS ORDERED: MORPHINE SULFATE 10 MG/ML INJ IV ONE (19:27)
[2016-10-29] MEDS ORDERED: ACETAMINOPHEN 325 MG TABLET PO PRN (19:28)
[2016-10-29] MEDS ORDERED: GUAIFENESIN SYRP 200 MG/10 ML UDC PO PRN (19:29)
[2016-10-29] MEDS ORDERED: APIXABAN 5 MG TABLET PO SCH (19:45)
[2016-10-29] MEDS ORDERED: PHARMACY COMMUNICATION ORDER MC NR (19:45)
[2016-10-29] MEDS: IPRATROPIUM/ALBUTEROL 0.5-2.5 MG/3 ML AMPUL NEB SCH (20:12)
--- NOTE | 2016-10-29 20:43 | PDOC H&P ---
History of Present Illness Admission Date/PCP: 10/29/16 19:29 History of Present Illness: LAMAR SMALL is a 50 year old male with a known history of end-stage renal disease, HIV positivity, noncompliance, admission for C. difficile colitis, pulmonary embolus presents to the emergency department with fever of 102.5 today at dialysis. Patient completed his course of oral vancomycin on Friday. He reports that he began feeling ill starting yesterday with fever, chills, and cough which is nonproductive. Patient also complains of chest discomfort. Patient has been currently staying at [facility] for rehabilitation. It appears as though patient is not on Eliquis which he has been previously due to reported coffee-ground emesis/concern for GI bleed on last admission. Is found to have a bilateral bibasilar infiltrate and is referred to the hospital service for healthcare associated pneumonia. Past Medical History Cardiac Medical History: Reports: DVT, Pulmonary Embolism Denies: Congestive Heart Failure, Myocardial Infarction, Hyperlipidema Pulmonary Medical History: Reports: Chronic Obstructive Pulmonary Disease (COPD) Denies: Sleep Apnea Neurological Medical History: Reports: Seizures - Distant history; never on antiepileptic. Endocrine Medical History: Denies: Diabetes Mellitus Type 1, Diabetes Mellitus Type 2, Hyperthyroidism, Hypothyroidism Renal/ Medical History: Reports: End Stage Renal Disease GI Medical History: Reports: Gastroesophageal Reflux Disease, Hiatal Hernia Denies: Cirrhosis, Hepatitis Musculoskeltal Medical History: Reports: Arthritis Psychiatric Medical History: Reports: Depression Infectious Medical History: Reports: Clostridium Difficile, HIV Denies: Methicillin-Resistant Staph Aureus Past Surgical History Past Surgical History: Reports: Cholecystectomy, Orthopedic Surgery - Repair of right tibial plateau fracture Social History Smoking Status: Current Every Day Smoker Frequency of Alcohol Use: Heavy Hx Recreational Drug Use: No Drugs: None Hx Prescription Drug Abuse: No - Advance Directive Resuscitation Status: Full Code Surrogate healthcare decision maker:: , Worship, Son Family History Family History: CAD, DM, Hypertension Parental Family History Reviewed: Yes Children Family History Reviewed: Yes Sibling(s) Family History Reviewed.: NA Medication/Allergy Home Medications: Atazanavir Sulfate [Reyataz 300 mg Capsule] 300 mg PO TUTHSA@1700 10/10/16 Emtricitabine/Tenofov Alafenam [Descovy 200-25 mg Tablet] 1 tab PO TUTHSA@1700 10/10/16 Gabapentin [Neurontin 300 mg Capsule] 300 mg PO Q8 10/10/16 Ritonavir [Norvir 100 mg Tablet] 100 mg PO TUTHSA@1700 10/10/16 Trazodone HCl [Desyrel] 100 mg PO QHS 10/10/16 Acetaminophen [Tylenol 325 mg Tablet] 650 mg PO Q8HP PRN tablet 10/14/16 Albuterol Sulfate [Ventolin 0.042% Neb 1.25 mg/3 mL Ampul] 1.25 mg NEB RTQ6HP PRN vial.neb 10/14/16 Folic Acid [Folvite 1 mg Tablet] 1 mg PO DAILY tablet 10/14/16 Nicotine [Nicoderm 21 mg/24 Hr Transderm Patch] 1 each TD DAILYP PRN patch.td24 10/14/16 Nystatin [Mycostatin 500,000 Unit/5 ml Susp Udcup] 500,000 unit PO QID udc Allergies/Adverse Reactions: No Known Allergies Allergy (Verified 08/08/16 13:41) Review of Systems Constitutional: PRESENT: anorexia, chills, fatigue, fever(s), night sweats. ABSENT: headache(s), weight gain, weight loss Eyes: ABSENT: visual disturbances Ears: ABSENT: hearing changes Nose, Mouth, and Throat: ABSENT: headache(s), sore throat Cardiovascular: PRESENT: chest pain. ABSENT: dyspnea on exertion, edema, orthropnea, palpitations Respiratory: PRESENT: cough, dyspnea. ABSENT: hemoptysis, sputum Gastrointestinal: ABSENT: abdominal pain, coffee ground emesis, constipation, diarrhea, hematemesis, hematochezia, melena, nausea, vomiting Genitourinary: ABSENT: dysuria, hematuria Musculoskeletal: ABSENT: joint swelling Integumentary: ABSENT: rash, wounds Neurological: ABSENT: abnormal gait, abnormal speech, confusion, dizziness, focal weakness, syncope Psychiatric: ABSENT: anxiety, depression, homidical ideation, suicidal ideation Endocrine: ABSENT: cold intolerance, heat intolerance, polydipsia, polyuria Hematologic/Lymphatic: ABSENT: easy bleeding, easy bruising Physical Exam Vital Signs: Temp Pulse Resp BP Pulse Ox 99.3 F 85 18 122/72 94 10/29/16 19:19 10/29/16 19:19 10/29/16 19:19 10/29/16 19:19 10/29/16 19:19 General appearance: PRESENT: mild distress, well-developed, well-nourished Head exam: PRESENT: atraumatic, normocephalic Eye exam: PRESENT: conjunctiva pink, EOMI, PERRLA. ABSENT: conjunctival injection, conjunctiva pale, scleral icterus Ear exam: PRESENT: normal external ear exam Mouth exam: PRESENT: moist, neck supple, tongue midline Throat exam: ABSENT: tonsillar exudate Neck exam: PRESENT: lymphadenopathy. ABSENT: JVD, thyromegaly, tracheal deviation Respiratory exam: PRESENT: accessory muscle use, chest wall tenderness, decreased breath sounds, prolonged expiratory phas, rhonchi, wheezes. ABSENT: clear to auscultation jamil, rales, unlabored Cardiovascular exam: PRESENT: RRR, +S1, +S2, tachycardia. ABSENT: diastolic murmur, gallop, rubs, systolic murmur Pulses: PRESENT: normal dorsalis pedis pul Vascular exam: PRESENT: normal capillary refill GI/Abdominal exam: PRESENT: normal bowel sounds, soft. ABSENT: distended, firm , guarding, mass, Harrington's sign, organolmegaly, rebound, rigid, tenderness Rectal exam: PRESENT: deferred Extremities exam: PRESENT: full ROM, pedal edema - trace. ABSENT: clubbing, tenderness Neurological exam: PRESENT: alert, awake, oriented to person, oriented to place , oriented to time, oriented to situation, CN II-XII grossly intact. ABSENT: motor sensory deficit Psychiatric exam: PRESENT: appropriate affect, normal mood. ABSENT: homicidal ideation, suicidal ideation Skin exam: PRESENT: dry, intact, warm. ABSENT: cyanosis, rash Results Laboratory Results: 10/29/16 10/29/16 10/29/16 16:45 16:45 16:45 WBC 7.1 Hgb 10.9 L Plt Count 131 L Seg Neutrophils % 83.0 H INR 0.97 VBG pH VBG pCO2 VBG HCO3 Sodium 133.9 L BUN 22 H Creatinine 2.74 H Glucose 119 H Lactic Acid Total Bilirubin 1.5 H Direct Bilirubin 0.5 H AST 34 ALT 53 Alkaline Phosphatase 122 Lactate Dehydrogenase Albumin 3.9 Urine Protein Ur Leukocyte Esterase Urine WBC (Auto) Urine Bacteria (Auto) 10/29/16 10/29/16 10/29/16 16:45 16:45 18:04 WBC Hgb Plt Count Seg Neutrophils % INR VBG pH 7.51 H VBG pCO2 31.2 L VBG HCO3 24.1 Sodium BUN Creatinine Glucose Lactic Acid 0.9 Total Bilirubin Direct Bilirubin AST ALT Alkaline Phosphatase Lactate Dehydrogenase Albumin Urine Protein 100 H Ur Leukocyte Esterase TRACE H Urine WBC (Auto) 15 Urine Bacteria (Auto) TRACE 10/29/16 18:24 WBC Hgb Plt Count Seg Neutrophils % INR VBG pH VBG pCO2 VBG HCO3 Sodium BUN Creatinine Glucose Lactic Acid Total Bilirubin Direct Bilirubin AST ALT Alkaline Phosphatase Lactate Dehydrogenase 559 Albumin Urine Protein Ur Leukocyte Esterase Urine WBC (Auto) Urine Bacteria (Auto) Impressions: Chest X-Ray 10/29/16 16:12 IMPRESSION: Mild prominence of interstitial markings is post in the lung bases. Mild vascular congestion cannot be excluded. Status: Imported from PACS Assessment & Plan - Diagnosis (1) Pneumonia Qualifiers: Pneumonia type: due to unspecified organism Laterality: bilateral Lung location: lower lobe of lung Qualified Code(s): J18.9 - Pneumonia, unspecified organism Is this a current diagnosis for this admission?: YesPlan: Patient meets technical criteria for healthcare associated pneumonia. Place patient on IMCU. Scheduled nebulized treatments. Initiate patient on IV cefepime and vancomycin. Oral azithromycin. Patient's last CD4 count was 229. Will add Solu-Medrol. Pending sputum culture. Incentive spirometry and flutter valve. (2) HIV disease Is this a current diagnosis for this admission?: YesPlan: Patient may use his home HAART therapy. (3) Anemia in chronic kidney disease (CKD) Qualifiers: Chronic kidney disease stage: on chronic dialysis Qualified Code(s) : N18.6 - End stage renal disease; D63.1 - Anemia in chronic kidney disease; Z99.2 - Dependence on renal dialysis Is this a current diagnosis for this admission?: YesPlan: We will monitor for any acute drop in his hemoglobin. Defer to nephrology for Procrit dosing. (4) COPD (chronic obstructive pulmonary disease) Qualifiers: COPD type: emphysema Emphysema type: unspecified Qualified Code( s): J43.9 - Emphysema, unspecified Is this a current diagnosis for this admission?: YesPlan: Place patient on scheduled nebulized treatments and Solu-Medrol. Will increase as needed. (5) Pulmonary embolism on long-term anticoagulation therapy Is this a current diagnosis for this admission?: YesPlan: Patient has a personal history of pulmonary embolus and was previously on Eliquis. Will resume Eliquis at 2.5 mg p.o. twice daily and discuss with nephrology the possibility of CTA. Will monitor patient closely for any acute GI hemorrhage. Patient currently has been abstinent of alcohol. (6) End stage renal disease Is this a current diagnosis for this admission?: YesPlan: Consult Dr. Molina of nephrology to manage patient's dialysis. 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
[2016-10-29] MEDS ORDERED: RITONAVIR 100 MG TABLET PO ONE (21:00)
[2016-10-29] MEDS ORDERED: (PENDING PHARMACY ID) (Trazodone Hcl [Desyrel] 100 MG) PO SCH (22:00)
[2016-10-29] MEDS ORDERED: AZITHROMYCIN 500 MG in DEXTROSE 5%-WATER 250 ML IV SCH (22:00)
[2016-10-29] MEDS ORDERED: CEFEPIME 2 GM/D5W RTU 50 ML IV SCH (22:00)
[2016-10-29] MEDS ORDERED: AZITHROMYCIN 500 MG in DEXTROSE 5%-WATER 250 ML IV ONE (22:00)
[2016-10-30] MEDS: OXYCODONE HCL IR 5 MG TABLET PO PRN ×4 (00:52→21:45)
[2016-10-30] MEDS: TRAZODONE HCL 50 MG TABLET PO SCH ×2 (01:00→21:45)
[2016-10-30] MEDS: GUAIFENESIN 600 MG TABLET.SA PO SCH ×3 (01:00→21:46)
[2016-10-30] MEDS: GABAPENTIN 300 MG CAPSULE PO SCH ×4 (01:00→21:46)
[2016-10-30] MEDS: NYSTATIN 500000 UNIT/5 ML UDCUP PO SCH ×5 (01:01→21:45)
[2016-10-30] MEDS: METHYLPREDNISOLONE INJ 40 MG/1 ML SDV IV SCH ×2 (01:01→09:25)
[2016-10-30] MEDS: APIXABAN 5 MG TABLET PO SCH ×3 (01:08→21:46)
[2016-10-30] MEDS: ACETAMINOPHEN 325 MG TABLET PO PRN ×2 (05:39→21:44)
[2016-10-30 06:11] LABS: ABSOLUTE EOSINOPHILS # (AUTO) 0.1 10^3/uL (0.0-0.6); ABSOLUTE LYMPHOCYTES (AUTO) 0.7 10^3/uL (0.5-4.7); ABSOLUTE MONOCYTES (AUTO) 0.2 10^3/uL (0.1-1.4); ABSOLUTE NEUT (AUTO) 4.9 10^3/uL (1.7-8.2); BASOPHILS % (AUTO) 0.3 % (0-2); EOSINOPHILS % (AUTO) 0.9 % (0-6); HEMATOCRIT 30.3 % (37.9-51.0); HEMOGLOBIN 10.2 g/dL (13.5-17.0); HGB HCT DIFFERENCE 0.3; LYMPHOCYTES % (AUTO) 12.4 % (13-45); MEAN CORPUSCULAR HEMOGLOBIN 31.6 pg (27.0-33.4); MEAN CORPUSCULAR HGB CONC 33.6 g/dL (32.0-36.0); MEAN CORPUSCULAR VOLUME 94 fl (80-97); MONOCYTES % (AUTO) 3.8 % (3-13); RED BLOOD COUNT 3.21 10^6/uL (4.35-5.55); RED CELL DISTRIBUTION WIDTH 16.7 % (11.5-14.0); SEGMENTED NEUTROPHILS % (AUTO) 82.6 % (42-78)
[2016-10-30 06:41] LABS: ANION GAP 15 (5-19); BLOOD UREA NITROGEN 29 mg/dL (7-20); CALCIUM 9.3 mg/dL (8.4-10.2); CARBON DIOXIDE 18 mmol/L (22-30); CHLORIDE 99 mmol/L (98-107); CREATININE RESULT 3.42 mg/dL (0.52-1.25); GLUCOSE 169 mg/dL (75-110); SODIUM 131.7 mmol/L (137-145)
[2016-10-30 06:56] LABS: POTASSIUM 5.1 mmol/L (3.6-5.0)
[2016-10-30] MEDS: IPRATROPIUM/ALBUTEROL 0.5-2.5 MG/3 ML AMPUL NEB SCH ×4 (08:09→19:46)
--- NOTE | 2016-10-30 09:11 | EKG REPORT ---
SEVERITY:- ABNORMAL ECG - SINUS RHYTHM LEFT ANTERIOR FASCICULAR BLOCK BORDERLINE R WAVE PROGRESSION, ANTERIOR LEADS BORDERLINE PROLONGED QT INTERVAL : Confirmed by: Esha Fernández MD 30-Oct-2016 09:10:04
[2016-10-30] MEDS: AZITHROMYCIN 250 MG TABLET PO SCH (09:26)
[2016-10-30] MEDS: FOLIC ACID 1 MG TABLET PO SCH (09:26)
[2016-10-30] MEDS ORDERED: CEFEPIME HCL 2 GM in DEXTROSE 5%-WATER 50 ML IV SCH (10:00)
[2016-10-30] MEDS ORDERED: CEFEPIME 1 GM/D5W RTU 1 GM/50 ML RTUPB IV SCH (10:00)
--- NOTE | 2016-10-30 14:11 | PDOC PROGRESS REPORT ---
Subjective Progress Note for:: 10/30/16 Subjective:: Patient reports that he is feeling better than yesterday. He complains of pain with inspiration. Patient denies chest pain, nausea, vomiting, diarrhea, constipation, new onset weakness. Physical Exam Vital Signs: Temp Pulse Resp BP Pulse Ox 97.8 F 67 21 H 119/72 97 10/30/16 03:17 10/30/16 03:17 10/30/16 03:17 10/30/16 03:17 10/30/16 03:17 Intake & Output 10/29/16 10/30/16 10/31/16 06:59 06:59 06:59 Intake Total 500 Output Total 800 Balance -300 Weight 88.8 kg Exam: GENERAL: A+Ox3; No acute distress HEENT: Conjunctiva clear, nonicteric, moist mucous membranes, no JVD, midline trachea RESPIRATORY: Rhonchi bilateral bases CARDIAC: Regular rate and rhythm, no murmurs/gallops/rubs ABDOMEN: Soft, nondistended, nontender, positive bowel sounds, no rebound, no guarding EXTREMETIES: No cyanosis, clubbing; trace edema NEUROLOGIC: Alert, oriented to person/place/time, CN's grossly intact, no focal deficits SKIN: No rash, wounds PSYCH: Normal mood, normal affect Results Laboratory Results: 10/30/16 05:34 10/30/16 05:34 10/30/16 10/30/16 05:34 05:34 WBC 6.0 RBC 3.21 L Hgb 10.2 L Hct 30.3 L MCV 94 MCH 31.6 MCHC 33.6 RDW 16.7 H Plt Count 115 L Seg Neutrophils % 82.6 H Lymphocytes % 12.4 L Monocytes % 3.8 Eosinophils % 0.9 Basophils % 0.3 Absolute Neutrophils 4.9 Absolute Lymphocytes 0.7 Absolute Monocytes 0.2 Absolute Eosinophils 0.1 Absolute Basophils 0.0 Sodium 131.7 L Potassium 5.1 H D Chloride 99 Carbon Dioxide 18 L Anion Gap 15 BUN 29 H Creatinine 3.42 H Est GFR ( Amer) 23 L Est GFR (Non-Af Amer) 19 L Glucose 169 H Calcium 9.3 Impressions: Chest X-Ray 10/29/16 16:12 IMPRESSION: Mild prominence of interstitial markings is post in the lung bases. Mild vascular congestion cannot be excluded. Assessment & Plan - Diagnosis (1) Pneumonia Qualifiers: Pneumonia type: due to unspecified organism Laterality: bilateral Lung location: lower lobe of lung Qualified Code(s): J18.9 - Pneumonia, unspecified organism Is this a current diagnosis for this admission?: YesPlan: Patient meets technical criteria for healthcare associated pneumonia. Downgrade to telemetry floor. Continue scheduled nebulized treatments. Initiate patient on IV cefepime and vancomycin. Oral azithromycin. Patient's last CD4 count was 229. Transition to prednisone. Encourage deep breathing. Pending sputum culture. Incentive spirometry and flutter valve. (2) HIV disease Is this a current diagnosis for this admission?: YesPlan: Patient may use his home HAART therapy. (3) Anemia in chronic kidney disease (CKD) Qualifiers: Chronic kidney disease stage: on chronic dialysis Qualified Code(s) : N18.6 - End stage renal disease; D63.1 - Anemia in chronic kidney disease; Z99.2 - Dependence on renal dialysis Is this a current diagnosis for this admission?: YesPlan: We will monitor for any acute drop in his hemoglobin. Defer to nephrology for Procrit dosing. (4) COPD (chronic obstructive pulmonary disease) Qualifiers: COPD type: emphysema Emphysema type: unspecified Qualified Code( s): J43.9 - Emphysema, unspecified Is this a current diagnosis for this admission?: YesPlan: On scheduled nebulized treatments and prednisone. (5) Pulmonary embolism on long-term anticoagulation therapy Is this a current diagnosis for this admission?: YesPlan: Patient has a personal history of pulmonary embolus and was previously on Eliquis. Tolerated Eliquis at 2.5 mg p.o. twice daily. Confirm prior dosing and resume at 5mg po bid. Concern shared with patient for increased risk of bleeding while on HAART therapy and ESRD. Will monitor patient closely for any acute GI hemorrhage. Patient currently has been abstinent of alcohol. (6) End stage renal disease Is this a current diagnosis for this admission?: YesPlan: Consult Dr. Molina of nephrology to manage patient's dialysis. - Time Time Spent with patient: 25-34 minutes Medications reviewed and adjusted accordingly: Yes Anticipated discharge: Home Within: within 48 hours - Inpatient Certification Based on my medical assessment, after consideration of the patient's comorbidities, presenting symptoms, or acuity I expect that the services needed warrant INPATIENT care.: Yes I certify that my determination is in accordance with my understanding of Medicare's requirements for reasonable and necessary INPATIENT services [42 CFR 412.3e].: Yes Medical Necessity: Need for IV Antibiotics Post Hospital Care: D/C [employer] 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
[2016-10-30] MEDS ORDERED: HEPARIN SOD (PORCINE) 1,000 UNIT/ML 10 ML VIAL IV PRN (15:20)
--- NOTE | 2016-10-30 16:45 | PDOC CONSULTATION ---
Consultation Consult Date: 10/30/16 Consult reason:: ESRD for dialysis. History of Present Illness Admission Date/PCP: 10/29/16 19:29 History of Present Illness: LAMAR SMALL is a 50 year old male with a known history of end-stage renal disease, HIV positivity, noncompliance, multiple admissions for C. difficile colitis in the last six months, pulmonary embolus presents to the emergency department with fever of 102.5 today at dialysis. Patient completed his course of oral vancomycin on Friday, for his C.dif and has had no diarrhea for sometime. He reports that he began feeling ill starting yesterday with fever, chills, and cough which is nonproductive. Patient also complains of chest discomfort. Patient has been currently staying at [facility] for rehabilitation. It appears as though patient is not on Eliquis which he has been previously due to reported coffee-ground emesis/concern for GI bleed on last admission. Evaluations in the ER revealed that he had bilateral bibasilar infiltrate and was admitted. Past Medical History Cardiac Medical History: Reports: DVT, Hypertension-primary, Pulmonary Embolism Denies: Hyperlipidemia, Myocardial Infarction Pulmonary Medical History: Reports: Chronic Obstructive Pulmonary Disease (COPD) Denies: Sleep Apnea Neurological Medical History: Reports: Seizures - Distant history; never on antiepileptic. Endocrine Medical History: Denies: Diabetes Mellitus Type 1, Diabetes Mellitus Type 2, Hyperthyroidism, Hypothyroidism Renal/ Medical History: Reports: End Stage Renal Disease GI Medical History: Reports: Gastroesophageal Reflux Disease, Hiatal Hernia Denies: Cirrhosis, Hepatitis Musculoskeltal Medical History: Reports: Arthritis Psychiatric Medical History: Reports: Depression Infectious Medical History: Reports: Clostridium Difficile, HIV Denies: Methicillin-resist Staph Aureus Hematology Medical History: Reports Anemia of Chronic Kidney Disease Past Surgical History Past Surgical History: Reports: Cholecystectomy, Orthopedic Surgery - Repair of right tibial plateau fracture Social History Smoking Status: Current Every Day Smoker Cigarettes Packs Per Day: 0.5 Number of Years Smokin Last Time Smoked: 10/29/2016 Frequency of Alcohol Use: Rare Hx Recreational Drug Use: Yes Drugs: Cocaine, Marijuana Hx Prescription Drug Abuse: No - Advance Directive Resuscitation Status: Full Code Family History Parental Family History Reviewed: Yes - Negative for ESRD Children Family History Reviewed: No Sibling(s) Family History Reviewed.: No Medication/Allergy Home Medications: Atazanavir Sulfate [Reyataz 300 mg Capsule] 300 mg PO TUTHSA@1700 10/10/16 Emtricitabine/Tenofov Alafenam [Descovy 200-25 mg Tablet] 1 tab PO TUTHSA@1700 10/10/16 Gabapentin [Neurontin 300 mg Capsule] 300 mg PO Q8 10/10/16 Ritonavir [Norvir 100 mg Tablet] 100 mg PO TUTHSA@1700 10/10/16 Trazodone HCl [Desyrel] 100 mg PO QHS 10/10/16 Acetaminophen [Tylenol 325 mg Tablet] 650 mg PO Q8HP PRN tablet 10/14/16 Albuterol Sulfate [Ventolin 0.042% Neb 1.25 mg/3 mL Ampul] 1.25 mg NEB RTQ6HP PRN vial.neb 10/14/16 Folic Acid [Folvite 1 mg Tablet] 1 mg PO DAILY tablet 10/14/16 Nicotine [Nicoderm 21 mg/24 Hr Transderm Patch] 1 each TD DAILYP PRN patch.td24 10/14/16 Nystatin [Mycostatin 500,000 Unit/5 ml Susp Udcup] 500,000 unit PO QID udc Allergies/Adverse Reactions: No Known Allergies Allergy (Verified 08/08/16 13:41) Review of Systems Review of Systems: Constitutional: [PRESENT: as per HPI. ABSENT: headache(s), weight gain, weight loss] Eyes: [ABSENT: visual disturbances] Ears: [ABSENT: hearing changes] Cardiovascular: [ABSENT: edema, orthropnea, palpitations] Respiratory: [ABSENT: hemoptysis] Gastrointestinal: [ABSENT: abdominal pain, constipation, diarrhea, hematemesis, hematochezia, nausea, vomiting] Genitourinary: [ABSENT: dysuria, hematuria] Musculoskeletal: [ABSENT: joint swelling] Integumentary: [ABSENT: rash, wounds] Neurological: [ABSENT: abnormal gait, abnormal speech, confusion, dizziness, focal weakness, syncope] Psychiatric: [ABSENT: anxiety, depression, homicidal ideation, suicidal ideation ] Endocrine: [ABSENT: cold intolerance, heat intolerance, polydipsia, polyuria] Hematologic/Lymphatic: [ABSENT: easy bleeding, easy bruising, lymphadenopathy] Physical Exam Vital Signs: Temp Pulse Resp BP Pulse Ox 98.0 F 67 16 122/89 H 97 10/30/16 11:54 10/30/16 14:00 10/30/16 12:31 10/30/16 11:54 10/30/16 12:31 Intake & Output 10/29/16 10/30/16 10/31/16 06:59 06:59 06:59 Intake Total 505 1380 Output Total 800 1750 Balance -295 -370 Weight 88.8 kg General appearance: PRESENT: no acute distress Eye exam: PRESENT: conjunctival injection, conjunctiva pink, EOMI, PERRLA. ABSENT: nystagmus Ear exam: PRESENT: normal external ear exam Mouth exam: PRESENT: moist, neck supple Neck exam: ABSENT: lymphadenopathy, meningismus, tenderness, thyromegaly, tracheal deviation Respiratory exam: PRESENT: clear to auscultation jamil, crackles. ABSENT: rhonchi Cardiovascular exam: PRESENT: +S1, +S2, systolic murmur GI/Abdominal exam: PRESENT: normal bowel sounds, soft. ABSENT: diminished bowel sounds, distended, organomegaly, tenderness Extremities exam: PRESENT: pedal edema Neurological exam: PRESENT: alert, awake, oriented to person, oriented to place , oriented to time, CN II-XII grossly intact Psychiatric exam: PRESENT: flat affect Skin exam: ABSENT: erythema, mottled, rash Results Laboratory Results: 10/30/16 05:34 10/30/16 05:34 10/30/16 10/30/16 05:34 05:34 WBC 6.0 RBC 3.21 L Hgb 10.2 L Hct 30.3 L MCV 94 MCH 31.6 MCHC 33.6 RDW 16.7 H Plt Count 115 L Seg Neutrophils % 82.6 H Lymphocytes % 12.4 L Monocytes % 3.8 Eosinophils % 0.9 Basophils % 0.3 Absolute Neutrophils 4.9 Absolute Lymphocytes 0.7 Absolute Monocytes 0.2 Absolute Eosinophils 0.1 Absolute Basophils 0.0 Sodium 131.7 L Potassium 5.1 H D Chloride 99 Carbon Dioxide 18 L Anion Gap 15 BUN 29 H Creatinine 3.42 H Est GFR ( Amer) 23 L Est GFR (Non-Af Amer) 19 L Glucose 169 H Calcium 9.3 Impressions: Chest X-Ray 10/29/16 16:12 IMPRESSION: Mild prominence of interstitial markings is post in the lung bases. Mild vascular congestion cannot be excluded. Assessment & Plan - Diagnosis (1) Pneumonia Qualifiers: Pneumonia type: due to unspecified organism Laterality: bilateral Lung location: lower lobe of lung Qualified Code(s): J18.9 - Pneumonia, unspecified organism Is this a current diagnosis for this admission?: YesPlan: On antibiotics and showing improvement (2) HIV disease Is this a current diagnosis for this admission?: YesPlan: On appropriate medications (4) ESRD (end stage renal disease) on dialysis Plan: Patient seen on hemodialysis and undergoing dialysis without any issues. Orders were discussed with the treating nurse Mica.We will try to remove approximately a liter of fluid. Last dialysis was yesterday.
[2016-10-30] MEDS: PREDNISONE 20 MG TABLET PO SCH (17:28)
[2016-10-30] MEDS: NICOTINE 21 MG/24 HR PATCH.TD24 TD PRN (17:28)
[2016-10-30] MEDS ORDERED: METHYLPREDNISOLONE INJ 40 MG/1 ML SDV IV SCH (22:00)
--- NOTE | 2016-10-31 05:20 | Physician Advisory Note ---
Physician Advisor ProgressNote .: Pursuant to the plan for [facility], I have reviewed the medical record for this patient. Physician Advisor Statement: Please consider documentin. "PNA, BLL, suspect gram-neg" [or gram-pos, or ...] 2. "possible sepsis, POA, ruled out/in" 3. "ARF" 4. "Acute Hyponatremia, likely due to ____" 5. "AIDS with pneumonia [+/- sepsis]" - AIDS dx criteria includes having HIV w/an AIDS indicator condition such as PNA, sepsis, thrush.... Thanks! CK
[2016-10-31] MEDS: ACETAMINOPHEN 325 MG TABLET PO PRN ×2 (05:30→21:08)
[2016-10-31] MEDS: OXYCODONE HCL IR 5 MG TABLET PO PRN ×4 (05:30→21:09)
[2016-10-31] MEDS: GABAPENTIN 300 MG CAPSULE PO SCH ×2 (05:30→17:47)
[2016-10-31 07:14] LABS: ABSOLUTE LYMPHOCYTES (AUTO) 1.3 10^3/uL (0.5-4.7); ABSOLUTE NEUT (AUTO) 5.3 10^3/uL (1.7-8.2); BASOPHILS % (AUTO) 0.3 % (0-2); HEMATOCRIT 29.5 % (37.9-51.0); HGB HCT DIFFERENCE 0.5; LYMPHOCYTES % (AUTO) 16.6 % (13-45); MEAN CORPUSCULAR HEMOGLOBIN 31.8 pg (27.0-33.4); MEAN CORPUSCULAR HGB CONC 33.8 g/dL (32.0-36.0); MEAN CORPUSCULAR VOLUME 94 fl (80-97); MONOCYTES % (AUTO) 13.6 % (3-13); RED BLOOD COUNT 3.13 10^6/uL (4.35-5.55); RED CELL DISTRIBUTION WIDTH 16.5 % (11.5-14.0); SEGMENTED NEUTROPHILS % (AUTO) 69.5 % (42-78); WHITE BLOOD COUNT 7.6 10^3/uL (4.0-10.5)
[2016-10-31 07:28] LABS: ANION GAP 15 (5-19); BLOOD UREA NITROGEN 46 mg/dL (7-20); CALCIUM 9.4 mg/dL (8.4-10.2); CARBON DIOXIDE 19 mmol/L (22-30); CHLORIDE 102 mmol/L (98-107); CREATININE RESULT 3.52 mg/dL (0.52-1.25); GLUCOSE 155 mg/dL (75-110); POTASSIUM 5.2 mmol/L (3.6-5.0); SODIUM 135.8 mmol/L (137-145)
[2016-10-31] MEDS: IPRATROPIUM/ALBUTEROL 0.5-2.5 MG/3 ML AMPUL NEB SCH ×4 (07:53→20:57)
[2016-10-31] MEDS: FOLIC ACID 1 MG TABLET PO SCH (11:50)
[2016-10-31] MEDS: NYSTATIN 500000 UNIT/5 ML UDCUP PO SCH ×4 (11:50→21:16)
[2016-10-31] MEDS: AZITHROMYCIN 250 MG TABLET PO SCH (11:50)
[2016-10-31] MEDS: PREDNISONE 20 MG TABLET PO SCH ×2 (11:51→17:48)
[2016-10-31] MEDS: GUAIFENESIN 600 MG TABLET.SA PO SCH ×2 (11:51→21:07)
[2016-10-31] MEDS ORDERED: AMOXICILLIN TR/POT CLAVULANATE 500-125 MG TAB PO ONE (12:00)
[2016-10-31] MEDS ORDERED: RITONAVIR 100 MG TABLET PO SCH (17:00)
[2016-10-31] MEDS ORDERED: (PENDING PHARMACY ID) (Atazanavir Sulfate [Reyataz 300 Mg Capsule] 300 MG) PO SCH (17:00)
[2016-10-31] MEDS ORDERED: (PENDING PHARMACY ID) (Emtricitabine/Tenofov Alafenam [Descovy 200-25 Mg Tablet] 1 TAB) PO SCH (17:00)
--- NOTE | 2016-10-31 17:25 | PDOC PROGRESS REPORT ---
Subjective Progress Note for:: 10/31/16 Subjective:: Patient reports that he is feeling improved. He requests a regular diet. Patient began having loose stool last night. Patient denies chest pain, nausea, vomiting, constipation, new onset weakness. Physical Exam Vital Signs: Temp Pulse Resp BP Pulse Ox 97.7 F 56 L 12 111/57 L 96 10/31/16 00:00 10/31/16 02:00 10/31/16 00:00 10/31/16 00:00 10/31/16 00:00 Intake & Output 10/30/16 10/31/16 11/01/16 06:59 06:59 06:59 Intake Total 505 2430 Output Total 800 4800 Balance -295 -2370 Weight 88.8 kg 92 kg Exam: GENERAL: A+Ox3; No acute distress HEENT: Conjunctiva clear, nonicteric, moist mucous membranes, no JVD, midline trachea RESPIRATORY: occasional rhonchi on left CARDIAC: Regular rate and rhythm, no murmurs/gallops/rubs ABDOMEN: Soft, nondistended, nontender, positive bowel sounds, no rebound, no guarding EXTREMETIES: No cyanosis, clubbing; trace edema NEUROLOGIC: Alert, oriented to person/place/time, CN's grossly intact, no focal deficits SKIN: No rash, wounds PSYCH: Normal mood, normal affect Results Laboratory Results: 10/31/16 06:04 10/31/16 06:04 WBC 7.6 RBC 3.13 L Hgb 10.0 L Hct 29.5 L MCV 94 MCH 31.8 MCHC 33.8 RDW 16.5 H Plt Count 113 L Seg Neutrophils % 69.5 Lymphocytes % 16.6 Monocytes % 13.6 H Eosinophils % 0.0 Basophils % 0.3 Absolute Neutrophils 5.3 Absolute Lymphocytes 1.3 Absolute Monocytes 1.0 Absolute Eosinophils 0.0 Absolute Basophils 0.0 Impressions: Chest X-Ray 10/29/16 16:12 IMPRESSION: Mild prominence of interstitial markings is post in the lung bases. Mild vascular congestion cannot be excluded. Assessment & Plan - Diagnosis (1) Pneumonia Qualifiers: Pneumonia type: due to unspecified organism Laterality: bilateral Lung location: lower lobe of lung Qualified Code(s): J18.9 - Pneumonia, unspecified organism Is this a current diagnosis for this admission?: YesPlan: Patient meets technical criteria for healthcare associated pneumonia. This time , I think that patient's pneumonia is likely secondary to normal community- acquired means i.e. gram-positive or atypical organisms. Continue scheduled nebulized treatments. Patient has been de-escalated to azithromycin and Augmentin alone. Will monitor for worsening of white count or for fever. Pending sputum culture (2) HIV disease Is this a current diagnosis for this admission?: YesPlan: Patient may use his home HAART therapy. (3) Anemia in chronic kidney disease (CKD) Qualifiers: Chronic kidney disease stage: on chronic dialysis Qualified Code(s) : N18.6 - End stage renal disease; D63.1 - Anemia in chronic kidney disease; Z99.2 - Dependence on renal dialysis Is this a current diagnosis for this admission?: YesPlan: We will monitor for any acute drop in his hemoglobin. Defer to nephrology for Procrit dosing. (4) COPD (chronic obstructive pulmonary disease) Qualifiers: COPD type: emphysema Emphysema type: unspecified Qualified Code( s): J43.9 - Emphysema, unspecified Is this a current diagnosis for this admission?: YesPlan: On scheduled nebulized treatments and prednisone. (5) Pulmonary embolism on long-term anticoagulation therapy Is this a current diagnosis for this admission?: YesPlan: Patient has a personal history of pulmonary embolus and was previously on Eliquis. Patient on Eliquis 5mg po bid. Concern shared with patient for increased risk of bleeding while on HAART therapy and ESRD. Will monitor patient closely for any acute GI hemorrhage. Patient currently has been abstinent of alcohol. (6) End stage renal disease Is this a current diagnosis for this admission?: YesPlan: Consult Dr. Molina of nephrology to manage patient's dialysis. Plan for HD in am. - Time Time Spent with patient: 25-34 minutes Medications reviewed and adjusted accordingly: Yes Anticipated discharge: Acute Rehab Within: within 48 hours
[2016-10-31] MEDS: LACTOBACILLUS ACIDOPHILUS 250 MG TAB PO SCH (17:48)
[2016-10-31] MEDS: AMOXICILLIN TR/POT CLAVULANATE 500-125 MG TAB PO SCH (21:08)
[2016-10-31] MEDS: TRAZODONE HCL 50 MG TABLET PO SCH (21:09)
[2016-10-31] MEDS: APIXABAN 5 MG TABLET PO SCH (21:13)
[2016-10-31] MEDS: NICOTINE 21 MG/24 HR PATCH.TD24 TD PRN (21:25)
[2016-10-31] MEDS ORDERED: VANCOMYCIN HCL INJ 500 MG VIAL ONE (23:25)
[2016-10-31] MEDS: VANCOMYCIN HCL INJ 500 MG VIAL PO SCH (23:47)
[2016-11-01] MEDS: ACETAMINOPHEN 325 MG TABLET PO PRN ×2 (01:11→06:18)
[2016-11-01] MEDS: OXYCODONE HCL IR 5 MG TABLET PO PRN ×5 (01:12→22:01)
[2016-11-01] MEDS: GABAPENTIN 300 MG CAPSULE PO SCH ×2 (06:15→17:50)
[2016-11-01] MEDS: VANCOMYCIN HCL INJ 500 MG VIAL PO SCH (06:16)
[2016-11-01] MEDS: ALBUTEROL SULFATE 0.083% NEB 2.5 MG/3 ML AMPUL NEB PRN (06:28)
[2016-11-01 06:45] LABS: ABSOLUTE LYMPHOCYTES (AUTO) 1.8 10^3/uL (0.5-4.7); ABSOLUTE MONOCYTES (AUTO) 0.7 10^3/uL (0.1-1.4); ABSOLUTE NEUT (AUTO) 5.5 10^3/uL (1.7-8.2); BASOPHILS % (AUTO) 0.3 % (0-2); HEMATOCRIT 31.5 % (37.9-51.0); HEMOGLOBIN 10.3 g/dL (13.5-17.0); HGB HCT DIFFERENCE -0.6; MEAN CORPUSCULAR HEMOGLOBIN 31.4 pg (27.0-33.4); MEAN CORPUSCULAR HGB CONC 32.7 g/dL (32.0-36.0); MEAN CORPUSCULAR VOLUME 96 fl (80-97); MONOCYTES % (AUTO) 9.3 % (3-13); RED BLOOD COUNT 3.28 10^6/uL (4.35-5.55); RED CELL DISTRIBUTION WIDTH 16.6 % (11.5-14.0); SEGMENTED NEUTROPHILS % (AUTO) 68.4 % (42-78)
[2016-11-01 06:58] LABS: ANION GAP 16 (5-19); BLOOD UREA NITROGEN 74 mg/dL (7-20); CARBON DIOXIDE 16 mmol/L (22-30); CHLORIDE 108 mmol/L (98-107); CREATININE RESULT 4.27 mg/dL (0.52-1.25); GLUCOSE 105 mg/dL (75-110); POTASSIUM 4.3 mmol/L (3.6-5.0); SODIUM 139.8 mmol/L (137-145)
[2016-11-01] MEDS: IPRATROPIUM/ALBUTEROL 0.5-2.5 MG/3 ML AMPUL NEB SCH ×4 (08:23→20:17)
[2016-11-01] MEDS ORDERED: HEPARIN SOD (PORCINE) 1,000 UNIT/ML 10 ML VIAL IV PRN (10:09)
[2016-11-01] MEDS: FIDAXOMICIN 200 MG TABLET PO SCH ×2 (10:28→21:42)
[2016-11-01] MEDS: NYSTATIN 500000 UNIT/5 ML UDCUP PO SCH ×4 (11:52→21:41)
[2016-11-01] MEDS: PREDNISONE 20 MG TABLET PO SCH ×2 (11:52→17:51)
[2016-11-01] MEDS: AZITHROMYCIN 250 MG TABLET PO SCH (11:53)
[2016-11-01] MEDS: LACTOBACILLUS ACIDOPHILUS 250 MG TAB PO SCH ×2 (11:57→17:50)
[2016-11-01] MEDS: AMOXICILLIN TR/POT CLAVULANATE 500-125 MG TAB PO SCH ×2 (11:58→21:42)
[2016-11-01] MEDS: APIXABAN 5 MG TABLET PO SCH ×2 (11:58→21:41)
[2016-11-01] MEDS: FOLIC ACID 1 MG TABLET PO SCH (11:59)
[2016-11-01] MEDS: GUAIFENESIN 600 MG TABLET.SA PO SCH ×2 (11:59→21:42)
--- NOTE | 2016-11-01 12:18 | PDOC PROGRESS REPORT ---
Subjective Progress Note for:: 11/01/16 Subjective:: Patient was seen on dialysis. He is undergoing dialysis without any issues. Is being supervised to ensure a safe and smooth procedure. Orders were discussed with the treating nurse Mica.However he states that his diarrhea has returned and his C. difficile is positive. Note that this patient has had chronic C. difficile for the last 6-8 months and has never been completely cured. He has always responded to vancomycin only for it to return suggesting that he probably has developed resistance. Will discuss with Dr. Man about discussing with infectious diseases on further management of his persistent C. difficile. Physical Exam Vital Signs: Temp Pulse Resp BP Pulse Ox 98.1 F 63 17 141/86 H 98 11/01/16 11:49 11/01/16 11:49 11/01/16 11:49 11/01/16 11:49 11/01/16 11:49 Intake & Output 10/31/16 11/01/16 11/02/16 06:59 06:59 06:59 Intake Total 2430 2740 Output Total 4800 2595 Balance -2370 145 Weight 92 kg 92.3 kg Cardiovascular exam: PRESENT: +S1, +S2, systolic murmur GI/Abdominal exam: PRESENT: normal bowel sounds, soft. ABSENT: diminished bowel sounds, distended, organomegaly, tenderness Results Laboratory Results: 11/01/16 06:24 11/01/16 06:24 11/01/16 11/01/16 06:24 06:24 WBC 8.0 RBC 3.28 L Hgb 10.3 L Hct 31.5 L MCV 96 MCH 31.4 MCHC 32.7 RDW 16.6 H Plt Count 155 Seg Neutrophils % 68.4 Lymphocytes % 22.0 Monocytes % 9.3 Eosinophils % 0.0 Basophils % 0.3 Absolute Neutrophils 5.5 Absolute Lymphocytes 1.8 Absolute Monocytes 0.7 Absolute Eosinophils 0.0 Absolute Basophils 0.0 Sodium 139.8 Potassium 4.3 Chloride 108 H Carbon Dioxide 16 L Anion Gap 16 BUN 74 H Creatinine 4.27 H Est GFR ( Amer) 18 L Est GFR (Non-Af Amer) 15 L Glucose 105 Calcium 9.0 Impressions: Chest X-Ray 10/29/16 16:12 IMPRESSION: Mild prominence of interstitial markings is post in the lung bases. Mild vascular congestion cannot be excluded. Assessment & Plan - Diagnosis (1) Pneumonia Qualifiers: Pneumonia type: due to unspecified organism Laterality: bilateral Lung location: lower lobe of lung Qualified Code(s): J18.9 - Pneumonia, unspecified organism Is this a current diagnosis for this admission?: YesPlan: On antibiotics and showing improvement (2) HIV disease Is this a current diagnosis for this admission?: YesPlan: On appropriate medications (4) ESRD (end stage renal disease) on dialysis Plan: Patient seen on hemodialysis and undergoing dialysis without any issues. Orders were discussed with the treating nurse Mica.We will try to remove approximately a liter of fluid. (5) C. difficile colitis Plan: Recurrent/persistent.Will discuss with Dr. Man about the possibility of discussing with infectious diseases for further management of this but patient' s possible resistant C. difficile.Also concerning is the fact that patient is probably becoming elected to spread this with resistant bacteria to anybody who comes in contact and who is not appropriately taking adequate precautions or those who are unaware of his issues. (6) Anemia in chronic kidney disease (CKD) Qualifiers: Chronic kidney disease stage: on chronic dialysis Qualified Code(s) : N18.6 - End stage renal disease; D63.1 - Anemia in chronic kidney disease; Z99.2 - Dependence on renal dialysis Is this a current diagnosis for this admission?: YesPlan: Stable.No need for Procrit at the moment.
--- NOTE | 2016-11-01 15:10 | PDOC PROGRESS REPORT ---
Subjective Progress Note for:: 11/01/16 Subjective:: Patient continues to have diarrhea which is found to have C.diff. Denies fever, chills, chest pain, shortness of breath, nausea, vomiting, weakness. Physical Exam Vital Signs: Temp Pulse Resp BP Pulse Ox 97.3 F 63 18 121/66 100 11/01/16 03:52 11/01/16 06:28 11/01/16 06:28 11/01/16 03:52 11/01/16 06:28 Intake & Output 10/31/16 11/01/16 11/02/16 06:59 06:59 06:59 Intake Total 2430 2740 Output Total 4800 2595 Balance -2370 145 Weight 92 kg 92.3 kg Exam: GENERAL: A+Ox3; No acute distress HEENT: Conjunctiva clear, nonicteric, moist mucous membranes, no JVD, midline trachea RESPIRATORY:CTAB CARDIAC: Regular rate and rhythm, no murmurs/gallops/rubs ABDOMEN: Soft, nondistended, nontender, positive bowel sounds, no rebound, no guarding EXTREMETIES: No cyanosis, clubbing; trace edema NEUROLOGIC: Alert, oriented to person/place/time, CN's grossly intact, no focal deficits SKIN: No rash, wounds PSYCH: Normal mood, normal affect Results Laboratory Results: 11/01/16 06:24 11/01/16 06:24 11/01/16 11/01/16 06:24 06:24 WBC 8.0 RBC 3.28 L Hgb 10.3 L Hct 31.5 L MCV 96 MCH 31.4 MCHC 32.7 RDW 16.6 H Plt Count 155 Seg Neutrophils % 68.4 Lymphocytes % 22.0 Monocytes % 9.3 Eosinophils % 0.0 Basophils % 0.3 Absolute Neutrophils 5.5 Absolute Lymphocytes 1.8 Absolute Monocytes 0.7 Absolute Eosinophils 0.0 Absolute Basophils 0.0 Sodium 139.8 Potassium 4.3 Chloride 108 H Carbon Dioxide 16 L Anion Gap 16 BUN 74 H Creatinine 4.27 H Est GFR ( Amer) 18 L Est GFR (Non-Af Amer) 15 L Glucose 105 Calcium 9.0 Impressions: Chest X-Ray 10/29/16 16:12 IMPRESSION: Mild prominence of interstitial markings is post in the lung bases. Mild vascular congestion cannot be excluded. Assessment & Plan - Diagnosis (1) Pneumonia Qualifiers: Pneumonia type: due to unspecified organism Laterality: bilateral Lung location: lower lobe of lung Qualified Code(s): J18.9 - Pneumonia, unspecified organism Is this a current diagnosis for this admission?: YesPlan: Patient meets technical criteria for healthcare associated pneumonia. This time , I think that patient's pneumonia is likely secondary to normal community- acquired means i.e. gram-positive or atypical organisms. Continue scheduled nebulized treatments. Patient has been de-escalated to azithromycin and Augmentin alone. He has been afebrile at this time with no appreciable increase in his white count. Pending sputum culture (2) HIV disease Is this a current diagnosis for this admission?: YesPlan: Patient may use his home HAART therapy. (3) Anemia in chronic kidney disease (CKD) Qualifiers: Chronic kidney disease stage: on chronic dialysis Qualified Code(s) : N18.6 - End stage renal disease; D63.1 - Anemia in chronic kidney disease; Z99.2 - Dependence on renal dialysis Is this a current diagnosis for this admission?: YesPlan: We will monitor for any acute drop in his hemoglobin. Defer to nephrology for Procrit dosing. (4) COPD (chronic obstructive pulmonary disease) Qualifiers: COPD type: emphysema Emphysema type: unspecified Qualified Code( s): J43.9 - Emphysema, unspecified Is this a current diagnosis for this admission?: YesPlan: On scheduled nebulized treatments and prednisone. De-escalating prednisone (5) Pulmonary embolism on long-term anticoagulation therapy Is this a current diagnosis for this admission?: YesPlan: Patient has a personal history of pulmonary embolus and was previously on Eliquis. Patient on Eliquis 5mg po bid. Concern shared with patient for increased risk of bleeding while on HAART therapy and ESRD. Will monitor patient closely for any acute GI hemorrhage. Patient currently has been abstinent of alcohol. (6) End stage renal disease Is this a current diagnosis for this admission?: YesPlan: Is scheduled to have dialysis again on Friday. (7) C. difficile diarrhea Is this a current diagnosis for this admission?: YesPlan: Transition patient to [facility] day 06/04. Continue bacid - Time Time Spent with patient: 25-34 minutes Medications reviewed and adjusted accordingly: Yes Anticipated discharge: Acute Rehab
[2016-11-01] MEDS ORDERED: IBUPROFEN 400 MG TABLET PO ONE (16:45)
[2016-11-01] MEDS: RITONAVIR 100 MG TABLET PO SCH (17:50)
[2016-11-01] MEDS: NICOTINE 21 MG/24 HR PATCH.TD24 TD PRN (20:32)
[2016-11-01] MEDS: TRAZODONE HCL 50 MG TABLET PO SCH (21:42)
[2016-11-02] MEDS: GABAPENTIN 300 MG CAPSULE PO SCH ×2 (05:07→17:47)
[2016-11-02] MEDS: OXYCODONE HCL IR 5 MG TABLET PO PRN ×5 (05:09→22:34)
[2016-11-02] MEDS: IPRATROPIUM/ALBUTEROL 0.5-2.5 MG/3 ML AMPUL NEB SCH ×4 (09:11→19:57)
[2016-11-02] MEDS: GUAIFENESIN 600 MG TABLET.SA PO SCH ×2 (09:36→22:31)
[2016-11-02] MEDS: FOLIC ACID 1 MG TABLET PO SCH (09:36)
[2016-11-02] MEDS: PREDNISONE 20 MG TABLET PO SCH (09:36)
[2016-11-02] MEDS: AZITHROMYCIN 250 MG TABLET PO SCH (09:36)
[2016-11-02] MEDS: NYSTATIN 500000 UNIT/5 ML UDCUP PO SCH ×4 (09:36→22:31)
[2016-11-02] MEDS: LACTOBACILLUS ACIDOPHILUS 250 MG TAB PO SCH ×2 (09:37→17:46)
[2016-11-02] MEDS: AMOXICILLIN TR/POT CLAVULANATE 500-125 MG TAB PO SCH ×2 (09:37→22:32)
[2016-11-02] MEDS: APIXABAN 5 MG TABLET PO SCH ×2 (09:38→22:31)
[2016-11-02] MEDS: FIDAXOMICIN 200 MG TABLET PO SCH ×2 (09:40→22:32)
--- NOTE | 2016-11-02 15:29 | PDOC PROGRESS REPORT ---
Subjective Progress Note for:: 11/02/16 Subjective:: Patient continues to have diarrhea. Denies fever, chills, chest pain, shortness of breath, nausea, vomiting, weakness. Physical Exam Vital Signs: Temp Pulse Resp BP Pulse Ox 97.9 F 70 18 139/79 H 100 11/02/16 11:29 11/02/16 14:00 11/02/16 12:47 11/02/16 11:29 11/02/16 12:47 Intake & Output 11/01/16 11/02/16 11/03/16 06:59 06:59 06:59 Intake Total 2740 2225 5 Output Total 2595 3975 Balance 145 -1750 5 Weight 92.3 kg 93.7 kg Exam: GENERAL: A+Ox3; No acute distress HEENT: Conjunctiva clear, nonicteric, moist mucous membranes, no JVD, midline trachea RESPIRATORY:CTAB CARDIAC: Regular rate and rhythm, no murmurs/gallops/rubs ABDOMEN: Soft, nondistended, nontender, positive bowel sounds, no rebound, no guarding EXTREMETIES: No cyanosis, clubbing; trace edema NEUROLOGIC: Alert, oriented to person/place/time, CN's grossly intact, no focal deficits SKIN: No rash, wounds PSYCH: Normal mood, normal affect Results Laboratory Results: 11/01/16 06:24 11/01/16 06:24 10/31/16 14:05 Sputum Gram Stain - Final 10/31/16 14:05 Sputum Sputum Culture - Final Impressions: Chest X-Ray 10/29/16 16:12 IMPRESSION: Mild prominence of interstitial markings is post in the lung bases. Mild vascular congestion cannot be excluded. Assessment & Plan - Diagnosis (1) Pneumonia Qualifiers: Pneumonia type: due to unspecified organism Laterality: bilateral Lung location: lower lobe of lung Qualified Code(s): J18.9 - Pneumonia, unspecified organism Is this a current diagnosis for this admission?: YesPlan: Patient meets technical criteria for healthcare associated pneumonia. This time , I think that patient's pneumonia is likely secondary to normal community- acquired means i.e. gram-positive or atypical organisms. Continue scheduled nebulized treatments. Patient has been de-escalated to azithromycin and Augmentin alone. He has been afebrile at this time with no appreciable increase in his white count. Pending sputum culture (2) HIV disease Is this a current diagnosis for this admission?: YesPlan: Patient may use his home HAART therapy. (3) Anemia in chronic kidney disease (CKD) Qualifiers: Chronic kidney disease stage: on chronic dialysis Qualified Code(s) : N18.6 - End stage renal disease; D63.1 - Anemia in chronic kidney disease; Z99.2 - Dependence on renal dialysis Is this a current diagnosis for this admission?: YesPlan: We will monitor for any acute drop in his hemoglobin. Defer to nephrology for Procrit dosing. (4) COPD (chronic obstructive pulmonary disease) Qualifiers: COPD type: emphysema Emphysema type: unspecified Qualified Code( s): J43.9 - Emphysema, unspecified Is this a current diagnosis for this admission?: YesPlan: On scheduled nebulized treatments and prednisone. De-escalating prednisone (5) Pulmonary embolism on long-term anticoagulation therapy Is this a current diagnosis for this admission?: YesPlan: Patient has a personal history of pulmonary embolus and was previously on Eliquis. Patient on Eliquis 5mg po bid. Concern shared with patient for increased risk of bleeding while on HAART therapy and ESRD. Will monitor patient closely for any acute GI hemorrhage. Patient currently has been abstinent of alcohol. (6) End stage renal disease Is this a current diagnosis for this admission?: Yes (7) C. difficile diarrhea Is this a current diagnosis for this admission?: YesPlan: Transition patient to [facility] day 07/05. Continue bacid - Plan Summary Plan Summary: Discharge is delayed secondary patient not being able to receive therapy at his facility over the weekend and limited that Medicare days upon return.
[2016-11-02] MEDS: ACETAMINOPHEN 325 MG TABLET PO PRN ×2 (17:53→22:33)
[2016-11-02] MEDS: RITONAVIR 100 MG TABLET PO SCH (17:54)
[2016-11-02] MEDS: ALBUTEROL SULFATE 0.083% NEB 2.5 MG/3 ML AMPUL NEB PRN (18:04)
[2016-11-02] MEDS: TRAZODONE HCL 50 MG TABLET PO SCH (22:31)
[2016-11-03] MEDS: GABAPENTIN 300 MG CAPSULE PO SCH ×2 (05:44→18:04)
[2016-11-03] MEDS: OXYCODONE HCL IR 5 MG TABLET PO PRN ×5 (05:44→22:31)
[2016-11-03] MEDS: IPRATROPIUM/ALBUTEROL 0.5-2.5 MG/3 ML AMPUL NEB SCH ×4 (08:53→20:32)
[2016-11-03] MEDS: NYSTATIN 500000 UNIT/5 ML UDCUP PO SCH ×4 (09:55→22:31)
[2016-11-03] MEDS: AMOXICILLIN TR/POT CLAVULANATE 500-125 MG TAB PO SCH ×2 (09:56→22:31)
[2016-11-03] MEDS: AZITHROMYCIN 250 MG TABLET PO SCH (09:56)
[2016-11-03] MEDS: GUAIFENESIN 600 MG TABLET.SA PO SCH ×2 (09:56→22:31)
[2016-11-03] MEDS: LACTOBACILLUS ACIDOPHILUS 250 MG TAB PO SCH ×2 (09:56→18:04)
[2016-11-03] MEDS: APIXABAN 5 MG TABLET PO SCH ×2 (09:57→22:31)
[2016-11-03] MEDS: PREDNISONE 20 MG TABLET PO SCH (09:57)
[2016-11-03] MEDS: NICOTINE 21 MG/24 HR PATCH.TD24 TD PRN (09:57)
[2016-11-03] MEDS: FIDAXOMICIN 200 MG TABLET PO SCH ×2 (09:57→22:31)
[2016-11-03] MEDS: FOLIC ACID 1 MG TABLET PO SCH (09:57)
[2016-11-03] MEDS: RITONAVIR 100 MG TABLET PO SCH (18:03)
--- NOTE | 2016-11-03 18:13 | PDOC PROGRESS REPORT ---
Subjective Progress Note for:: 11/03/16 Subjective:: Patient continues to have diarrhea. Denies fever, chills, chest pain, shortness of breath, nausea, vomiting, weakness. Physical Exam Vital Signs: Temp Pulse Resp BP Pulse Ox 97.3 F 68 19 130/68 H 98 11/03/16 04:00 11/03/16 04:00 11/03/16 04:00 11/03/16 04:00 11/03/16 04:00 Intake & Output 11/02/16 11/03/16 11/04/16 06:59 06:59 06:59 Intake Total 2225 1965 Output Total 3975 2300 Balance -1750 -335 Weight 93.7 kg Exam: GENERAL: A+Ox3; No acute distress HEENT: Conjunctiva clear, nonicteric, moist mucous membranes, no JVD, midline trachea RESPIRATORY:CTAB CARDIAC: Regular rate and rhythm, no gallops/rubs; +2/6 SM LUSB ABDOMEN: Soft, nondistended, nontender, positive bowel sounds, no rebound, no guarding EXTREMETIES: No cyanosis, clubbing; trace edema NEUROLOGIC: Alert, oriented to person/place/time, CN's grossly intact, no focal deficits SKIN: No rash, wounds PSYCH: Normal mood, normal affect Results Laboratory Results: 11/01/16 06:24 11/01/16 06:24 Impressions: Chest X-Ray 10/29/16 16:12 IMPRESSION: Mild prominence of interstitial markings is post in the lung bases. Mild vascular congestion cannot be excluded. Assessment & Plan - Diagnosis (1) Pneumonia Qualifiers: Pneumonia type: due to unspecified organism Laterality: bilateral Lung location: lower lobe of lung Qualified Code(s): J18.9 - Pneumonia, unspecified organism Is this a current diagnosis for this admission?: YesPlan: Patient meets technical criteria for healthcare associated pneumonia. This time , I think that patient's pneumonia is likely secondary to normal community- acquired means i.e. gram-positive or atypical organisms. Continue scheduled nebulized treatments. Patient has been de-escalated to azithromycin and Augmentin alone. He has been afebrile at this time with no appreciable increase in his white count. Initial sputum culture was saliva (2) HIV disease Is this a current diagnosis for this admission?: YesPlan: Patient may use his home HAART therapy. (3) Anemia in chronic kidney disease (CKD) Qualifiers: Chronic kidney disease stage: on chronic dialysis Qualified Code(s) : N18.6 - End stage renal disease; D63.1 - Anemia in chronic kidney disease; Z99.2 - Dependence on renal dialysis Is this a current diagnosis for this admission?: YesPlan: We will monitor for any acute drop in his hemoglobin. Defer to nephrology for Procrit dosing. (4) COPD (chronic obstructive pulmonary disease) Qualifiers: COPD type: emphysema Emphysema type: unspecified Qualified Code( s): J43.9 - Emphysema, unspecified Is this a current diagnosis for this admission?: YesPlan: On scheduled nebulized treatments and prednisone. De-escalating prednisone (5) Pulmonary embolism on long-term anticoagulation therapy Is this a current diagnosis for this admission?: YesPlan: Patient has a personal history of pulmonary embolus and was previously on Eliquis. Patient on Eliquis 5mg po bid. Concern shared with patient for increased risk of bleeding while on HAART therapy and ESRD. Will monitor patient closely for any acute GI hemorrhage. Patient currently has been abstinent of alcohol. (6) End stage renal disease Is this a current diagnosis for this admission?: YesPlan: HD on Friday (7) C. difficile diarrhea Is this a current diagnosis for this admission?: YesPlan: Transition patient to Dificid day 08/02. Continue bacid
[2016-11-03] MEDS: TRAZODONE HCL 50 MG TABLET PO SCH (22:31)
[2016-11-03] MEDS: ALBUTEROL SULFATE 0.083% NEB 2.5 MG/3 ML AMPUL NEB PRN (22:43)
[2016-11-04] MEDS: OXYCODONE HCL IR 5 MG TABLET PO PRN ×3 (06:15→14:46)
[2016-11-04] MEDS: GABAPENTIN 300 MG CAPSULE PO SCH (06:15)
[2016-11-04] MEDS: IPRATROPIUM/ALBUTEROL 0.5-2.5 MG/3 ML AMPUL NEB SCH ×3 (08:14→16:11)
[2016-11-04] MEDS: NYSTATIN 500000 UNIT/5 ML UDCUP PO SCH ×2 (10:15→14:46)
[2016-11-04] MEDS: NICOTINE 21 MG/24 HR PATCH.TD24 TD PRN (10:15)
[2016-11-04] MEDS: FIDAXOMICIN 200 MG TABLET PO SCH (10:16)
[2016-11-04] MEDS: LACTOBACILLUS ACIDOPHILUS 250 MG TAB PO SCH (10:16)
[2016-11-04] MEDS: AZITHROMYCIN 250 MG TABLET PO SCH (10:16)
[2016-11-04] MEDS: GUAIFENESIN 600 MG TABLET.SA PO SCH (10:17)
[2016-11-04] MEDS: PREDNISONE 20 MG TABLET PO SCH (10:17)
[2016-11-04] MEDS: AMOXICILLIN TR/POT CLAVULANATE 500-125 MG TAB PO SCH (10:17)
[2016-11-04] MEDS: FOLIC ACID 1 MG TABLET PO SCH (10:17)
[2016-11-04] MEDS: APIXABAN 5 MG TABLET PO SCH (10:18)
--- NOTE | 2016-11-04 12:30 | PDOC TRANSFER SUMMARY ---
General - Admit/Disc Date/PCP Admission Date/Primary Care Provider: 10/29/16 19:29 Discharge Date: 11/04/16 - Discharge Diagnosis (1) Pneumonia Is this a current diagnosis for this admission?: Yes (2) HIV disease Is this a current diagnosis for this admission?: Yes (3) Anemia in chronic kidney disease (CKD) Is this a current diagnosis for this admission?: Yes (4) COPD (chronic obstructive pulmonary disease) Is this a current diagnosis for this admission?: Yes (5) Pulmonary embolism on long-term anticoagulation therapy Is this a current diagnosis for this admission?: Yes (6) End stage renal disease Is this a current diagnosis for this admission?: Yes (7) C. difficile diarrhea Is this a current diagnosis for this admission?: Yes - Additional Information Resuscitation Status: Full Code Discharge Diet: Regular Discharge Activity: Activity As Tolerated Home Medications: Atazanavir Sulfate [Reyataz 300 mg Capsule] 300 mg PO TUTHSA@1700 10/10/16 Emtricitabine/Tenofov Alafenam [Descovy 200-25 mg Tablet] 1 tab PO TUTHSA@1700 10/10/16 Ritonavir [Norvir 100 mg Tablet] 100 mg PO 1700 10/10/16 Trazodone HCl [Desyrel] 100 mg PO QHS 10/10/16 Albuterol Sulfate [Ventolin 0.042% Neb 1.25 mg/3 mL Ampul] 1.25 mg NEB RTQ6HP PRN vial.neb 10/14/16 Folic Acid [Folvite 1 mg Tablet] 1 mg PO DAILY tablet 10/14/16 Nicotine [Nicoderm 21 mg/24 Hr Transderm Patch] 1 each TD DAILYP PRN patch.td24 10/14/16 Nystatin [Mycostatin 500,000 Unit/5 ml Susp Udcup] 500,000 unit PO QID udc Apixaban [Eliquis 5 mg Tablet] 5 mg PO Q12 10/31/16 Acetaminophen [Tylenol 325 mg Tablet] 650 mg PO Q4HP PRN tablet 11/04/16 Amox Tr/Potassium Clavulanate [Augmentin "500" Tablet] 1 tab PO Q12 #8 tablet 11/04/16 Apixaban [Eliquis 5 mg Tablet] 5 mg PO Q12 tablet 11/04/16 Azithromycin [Zithromax 250 mg Tablet] 500 mg PO DAILY #8 tablet 11/04/16 Fidaxomicin [Dificid 200 mg Tablet] 200 mg PO Q12 #10 tablet 11/04/16 Gabapentin [Neurontin 300 mg Capsule] 300 mg PO Q12A capsule 11/04/16 Guaifenesin [Mucinex Sr 600 mg Tablet.sa] 600 mg PO Q12 tablet.sa 11/04/16 Oxycodone HCl [Oxy-Ir 5 mg Tablet] 5 mg PO Q4HP PRN #10 tablet 11/04/16 Prednisone [Deltasone 20 mg Tablet] 20 mg PO DAILY #3 tablet 11/04/16 History of Present Illness Admission Date/PCP: 10/29/16 19:29 History of Present Illness: LAMAR SMALL is a 50 year old male with a known history of end-stage renal disease, HIV positivity, noncompliance, multiple admissions for C. difficile colitis in the last six months, pulmonary embolus presents to the emergency department with fever of 102.5 today at dialysis. Patient completed his course of oral vancomycin on Friday, for his C.dif and has had no diarrhea for sometime. He reports that he began feeling ill starting yesterday with fever, chills, and cough which is nonproductive. Patient also complains of chest discomfort. Patient has been currently staying at [facility] for rehabilitation. It appears as though patient is not on Eliquis which he has been previously due to reported coffee-ground emesis/concern for GI bleed on last admission. Evaluations in the ER revealed that he had bilateral bibasilar infiltrate and was admitted. Hospital Course Hospital Course: Patient was empirically placed on broad spectrum antibiotics which were quickly weaned to Augmentin and Azithromycin. Patient developed diarrhea with recurrance of c.diff. Patient has failed flagyl and oral vancocin. Patient placed on dificid. Reports loose but semi-formed movements today. Patient received HD with Dr. Tate. Patient next HD on Friday. HIV medications were continued without change. Patient received Eliquis without drop in Hct or bleeding issues. Remainder of course unremarkable. Physical Exam Vital Signs: Temp Pulse Resp BP Pulse Ox 97.4 F 72 16 129/65 H 100 11/04/16 07:31 11/04/16 08:14 11/04/16 08:14 11/04/16 07:31 11/04/16 08:14 Intake & Output 11/03/16 11/04/16 11/05/16 06:59 06:59 06:59 Intake Total 1964 2112 Output Total 6 9927 Balance -335 -2061 Weight 96.7 kg Exam: GENERAL: A+Ox3; No acute distress HEENT: Conjunctiva clear, nonicteric, moist mucous membranes, no JVD, midline trachea RESPIRATORY:CTAB CARDIAC: Regular rate and rhythm, no gallops/rubs; +2/6 SM LUSB ABDOMEN: Soft, nondistended, nontender, positive bowel sounds, no rebound, no guarding EXTREMETIES: No cyanosis, clubbing; trace edema NEUROLOGIC: Alert, oriented to person/place/time, CN's grossly intact, no focal deficits SKIN: No rash, wounds PSYCH: Normal mood, normal affect Results Laboratory Results: 11/01/16 06:24 11/04/16 07:35 11/04/16 07:35 Potassium 4.9 Impressions: Chest X-Ray 10/29/16 16:12 IMPRESSION: Mild prominence of interstitial markings is post in the lung bases. Mild vascular congestion cannot be excluded. Transfer Plan - Time Spent with Patient Time spent with patient: Less than 30 Minutes Qualifiers PATEINT BEING DISCHARGED WITH ANY OF THE FOLLOWING DIAGNOSIS?: No Plan Time Spent: Less than 30 Minutes
[2016-11-04 15:51] VITALS: BP 138/73
== END 2016-11-04 18:19 | DRG 974 ==
LOC: ER 16:01 → EH 19:10 → UNDOADMIN 19:10 → EH 19:29 → 3S 10-30 00:25 → 5 10-30 18:55
PROVIDERS: ADMIT Internal Medicine; ATTEND Internal Medicine
PROC: 5A1D00Z (ICD-10-PCS; principal; 2016-10-30)
DX: J18.9 Pneumonia, unspecified organism (principal); B20 Human immunodeficiency virus [HIV] disease; I26.99 Other pulmonary embolism without acute cor pulmonale; N18.6 End stage renal disease; I12.0 Hypertensive chronic kidney disease with stage 5 chronic kidney disease or end stage renal disease; A04.7 Enterocolitis due to Clostridium difficile; D63.1 Anemia in chronic kidney disease; Z99.2 Dependence on renal dialysis; J43.9 Emphysema, unspecified; M19.90 Unspecified osteoarthritis, unspecified site; K21.9 Gastro-esophageal reflux disease without esophagitis; K44.9 Diaphragmatic hernia without obstruction or gangrene; F32.9 Major depressive disorder, single episode, unspecified; Z79.899 Other long term (current) drug therapy; Z90.49 Acquired absence of other specified parts of digestive tract; F17.210 Nicotine dependence, cigarettes, uncomplicated
CPT/HCPCS: 36415; 71020; 80048; 80053; 81001; 82803; 82962; 83605; 83615; 84132; 85025; 85610; 87040; 87070; 87086; 87205; 87493; 93005; 93010; 94640; 94667; 94668; 94799; 99285; G8978-GP; G8979-GP; G8980-GP; J0456; J0692; J1644; J2270; J2920; J3370; J3490; J7060; J7512; J7620

== ENCOUNTER 2016-11-14 17:44 | Inpatient (IN) | payer MEDICARE, MEDICAID ==
--- NOTE | 2016-11-14 17:47 | ER Document Report ---
ED Respiratory Problem - General Stated Complaint: DIFFICULTY BREATHING Time Seen by Provider: 11/14/16 17:45 Mode of Arrival: Medic Information source: Patient, Emergency Med Personnel TRAVEL OUTSIDE OF THE [place] IN LAST 30 DAYS: No - HPI Patient complains to provider of: Cough, Short of breath, Other - FEVER Onset: Just prior to arrival Duration: Continuous Initiating Event: Other - HAD JUST COMPLETED DIALYSIS TREATMENT. Quality of pain: No pain Severity: Moderate Context: Hx CHF, Other - H/O ESRD, HIV Short of Breath: Mild Chest pain/discomfort: Center [facility] treatments: Bronchodilators, Solumedrol Associated symptoms: Headache Similar symptoms previously: Yes - SIMILAR W/ "PNEUMONIA," ADM. [facility] 10/29 Recently seen / treated by doctor: Yes - IV ANTIBx ORDERED BY NEPHROL, GIVEN @ DIALYSIS. - Related Data Allergies/Adverse Reactions: No Known Allergies Allergy (Verified 11/14/16 18:34) Home Medications: Current Home Medications Acetaminophen [Tylenol 325 mg Tablet] 650 mg PO Q4HP PRN 11/14/16 [History] Albuterol Sulfate [Ventolin 0.042% Neb 1.25 mg/3 mL Ampul] 1.25 mg NEB RTQ6HP PRN 11/14/16 [History] Past Medical History - General Information source: Patient, Emergency Med Personnel, [facility] Records - Social History Smoking Status: Former Smoker Cigarette use (# per day): No Chew tobacco use (# tins/day): No Smoking Education Provided: No Frequency of alcohol use: Rare Drug Abuse: None Lives with: Parents Family History: CAD, DM, Hypertension - Past Medical History Cardiac Medical History: Reports: Hx DVT, Hx Pulmonary Embolism Denies: Hx Congestive Heart Failure, Hx Heart Attack, Hx Hypercholesterolemia Pulmonary Medical History: Reports: Hx COPD Denies: Hx Sleep Apnea Neurological Medical History: Reports: Hx Seizures - Distant history; never on antiepileptic. Endocrine Medical History: Denies: Hx Diabetes Mellitus Type 1, Hx Diabetes Mellitus Type 2, Hx Hyperthyroidism, Hx Hypothyroidism Renal/ Medical History: Reports: Hx End Stage Renal Disease, Hx Hemodialysis. Denies: Hx Peritoneal Dialysis GI Medical History: Reports: Hx Gastroesophageal Reflux Disease, Hx Hiatal Hernia. Denies: Hx Cirrhosis, Hx Hepatitis Musculoskeltal Medical History: Reports Hx Arthritis Psychiatric Medical History: Reports: Hx Depression Infectious Medical History: Reports: Hx C-Diff, Hx HIV. Denies: Hx Hepatitis, Hx MRSA Past Surgical History: Reports: Hx Cholecystectomy, Hx Orthopedic Surgery - Repair of right tibial plateau fracture - Immunizations Hx Diphtheria, Pertussis, Tetanus Vaccination: Yes Hx Pneumococcal Vaccination: 05/26/15 Review of Systems - Review of Systems Constitutional: Chills, Diaphoresis, Fever, Weakness EENT: No symptoms reported Cardiovascular: Chest pain - WITH COUGH Respiratory: See HPI Gastrointestinal: No symptoms reported Genitourinary: No symptoms reported Musculoskeletal: No symptoms reported Skin: No symptoms reported Neurological/Psychological: Headaches Physical Exam - Vital signs Vitals: Resp Pulse Ox 18 93 11/14/16 17:46 11/14/16 17:46 Course - Vital Signs Vital signs: Temp Pulse Resp BP Pulse Ox 99.8 F 17 130/74 H 93 11/14/16 19:21 11/14/16 19:21 11/14/16 19:21 11/14/16 19:21 - Laboratory Result Diagrams: 11/14/16 17:51 11/14/16 17:51 Laboratory results interpreted by me: 11/14/16 11/14/16 17:51 17:51 RBC 3.47 L Hgb 11.0 L Hct 33.0 L RDW 17.9 H Creatinine 2.26 H Est GFR ( Amer) 37 L Est GFR (Non-Af Amer) 31 L - Consults DR. DAVILA Time consulted: 20:13 Consulted provider: will come to ER Discharge - Discharge Clinical Impression: Fever with chills, HIV disease, ESRD (end stage renal disease) on dialysis Pneumonia Qualifiers: Pneumonia type: due to unspecified organism Laterality: bilateral Lung location : lower lobe of lung Qualified Code(s): J18.9 - Pneumonia, unspecified organism Dyspnea Qualifiers: Dyspnea type: dyspnea on exertion Qualified Code(s): R06.09 - Other forms of dyspnea Condition: Fair Disposition: ADMITTED INPATIENT Admitting Provider: Hospitalist Unit Admitted: Telemetry
[2016-11-14] MEDS ORDERED: ACETAMINOPHEN 325 MG TABLET PO ONE (17:57)
[2016-11-14 18:09] LABS: ABSOLUTE LYMPHOCYTES (AUTO) 1.1 10^3/uL (0.5-4.7); ABSOLUTE MONOCYTES (AUTO) 0.9 10^3/uL (0.1-1.4); ABSOLUTE NEUT (AUTO) 5.9 10^3/uL (1.7-8.2); BASOPHILS % (AUTO) 0.6 % (0-2); EOSINOPHILS % (AUTO) 0.4 % (0-6); LYMPHOCYTES % (AUTO) 13.7 % (13-45); MEAN CORPUSCULAR HEMOGLOBIN 31.8 pg (27.0-33.4); MEAN CORPUSCULAR HGB CONC 33.4 g/dL (32.0-36.0); MEAN CORPUSCULAR VOLUME 95 fl (80-97); MONOCYTES % (AUTO) 11.1 % (3-13); RED BLOOD COUNT 3.47 10^6/uL (4.35-5.55); RED CELL DISTRIBUTION WIDTH 17.9 % (11.5-14.0); SEGMENTED NEUTROPHILS % (AUTO) 74.2 % (42-78); WHITE BLOOD COUNT 7.9 10^3/uL (4.0-10.5)
--- NOTE | 2016-11-14 18:18 | RADIOLOGY REPORT (SQ) ---
EXAM DESCRIPTION: CHEST SINGLE VIEW COMPLETED DATE/TIME: 11/14/2016 6:06 pm REASON FOR STUDY: DYSPNEA COMPARISON: 10/29/2016 EXAM PARAMETERS: NUMBER OF VIEWS: One view. TECHNIQUE: Single frontal radiographic view of the chest acquired. RADIATION DOSE: NA LIMITATIONS: None. FINDINGS: LUNGS AND PLEURA: No opacities, masses or pneumothorax. No pleural effusion. MEDIASTINUM AND HILAR STRUCTURES: No masses. Contour normal. HEART AND VASCULAR STRUCTURES: The heart size is borderline. There is no evidence of failure. BONES: No acute findings. HARDWARE: A dual lumen catheter is present on the right. The tip of the catheter is near the right a trium. OTHER: No other significant finding. IMPRESSION: Borderline cardiomegaly without CHF. TECHNICAL DOCUMENTATION: JOB ID: [id number]
[2016-11-14 18:25] LABS: ALANINE AMINOTRANSFERASE 29 U/L (21-72); ALBUMIN 3.9 g/dL (3.5-5.0); ALKALINE PHOSPHATASE 101 U/L (38-126); ANION GAP 13 (5-19); ASPARTATE AMINO TRANSFERASE 17 U/L (17-59); BILIRUBIN,DIRECT 0.4 mg/dL (0.0-0.4); BILIRUBIN,TOTAL 1.3 mg/dL (0.2-1.3); BLOOD UREA NITROGEN 15 mg/dL (7-20); CALCIUM 8.6 mg/dL (8.4-10.2); CARBON DIOXIDE 22 mmol/L (22-30); CHLORIDE 102 mmol/L (98-107); CREATINE KINASE 67 U/L (55-170); CREATININE RESULT 2.26 mg/dL (0.52-1.25); GLUCOSE 90 mg/dL (75-110); POTASSIUM 4.3 mmol/L (3.6-5.0); TOTAL PROTEIN 7.6 g/dL (6.3-8.2)
[2016-11-14 18:38] LABS: TROPONIN I < 0.012 ng/mL
[2016-11-14] MEDS ORDERED: OXYCODONE HCL IR 5 MG TABLET PO ONE (19:02)
[2016-11-14] MEDS ORDERED: GUAIFENESIN SYRP 200 MG/10 ML UDC PO PRN (20:20)
[2016-11-14] MEDS ORDERED: HYDRALAZINE HCL INJ/PF 20 MG/1 ML SDV IV PRN (20:20)
[2016-11-14] MEDS ORDERED: ALBUTEROL SULFATE 0.042% NEB (1.25 MG/3 ML) AMPUL NEB PRN (20:23)
[2016-11-14 21:27] LABS: CREATINE KINASE MB 0.52 ng/mL (<4.55)
[2016-11-14 21:28] LABS: TROPONIN I < 0.012 ng/mL
[2016-11-14] MEDS ORDERED: (PENDING PHARMACY ID) (Trazodone Hcl [Desyrel] 100 MG) PO SCH (22:00)
[2016-11-14] MEDS ORDERED: CEFEPIME 2 GM/D5W RTU 50 ML IV SCH (22:00)
[2016-11-14] MEDS ORDERED: HEPARIN SOD (PORCINE) 5,000 UNIT/ML 1 ML SYRINGE SUBCUT SCH (22:00)
--- NOTE | 2016-11-14 22:14 | RADIOLOGY REPORT (SQ) ---
EXAM DESCRIPTION: NM LUNG VENT/PERF SCAN COMPLETED DATE/TIME: 11/14/2016 10:01 pm REASON FOR STUDY: sob chest pain hx pe COMPARISON: None. RADIONUCLIDE AND DOSE: 5.41 millicuries TC-99m MAA Intravenous 32.0 millicuries TC-99m DTPA Inhaled aerosol TECHNIQUE: Eight views of the lungs acquired post ventilation of DTPA aerosol. Eight matching views of the lungs acquired following injection of MAA. LIMITATIONS: None. FINDINGS: VENTILATION: There is some inhomogeneity of the distribution of tracer activity with some pooling in the central bronchi. PERFUSION: Bilateral perfusion defects are identified suspicious for pulmonary embolic disease. OTHER: No other significant finding. IMPRESSION: Bilateral perfusion defects are identified suspicious for pulmonary embolic disease. TECHNICAL DOCUMENTATION: JOB ID: [id number] [employer]- All Rights Reserved
[2016-11-14] MEDS: NORMAL SALINE 1000 ML 1,000 ML IV SCH (22:26)
[2016-11-14] MEDS: TRAZODONE HCL 50 MG TABLET PO SCH (22:38)
[2016-11-14] MEDS: APIXABAN 5 MG TABLET PO SCH (22:39)
[2016-11-14] MEDS: NYSTATIN 500000 UNIT/5 ML UDCUP PO SCH (22:39)
[2016-11-14] MEDS ORDERED: CEFEPIME INJ 2 GM VIAL ONE (23:46)
[2016-11-15] MEDS: FLUTICASONE NASAL SPRAY 50 MCG/SPRY 120 SPRAY/16 GM NASL SCH ×3 (00:12→22:01)
[2016-11-15] MEDS: KETOROLAC TROMETHAMINE INJ/PF 30 MG/1 ML SDV IV PRN ×2 (01:00→07:37)
[2016-11-15] MEDS: IPRATROPIUM/ALBUTEROL 0.5-2.5 MG/3 ML AMPUL NEB SCH ×4 (02:13→20:34)
--- NOTE | 2016-11-15 03:55 | EKG REPORT ---
SEVERITY:- ABNORMAL ECG - SINUS TACHYCARDIA PROBABLE LEFT ATRIAL ABNORMALITY LEFT ANTERIOR FASCICULAR BLOCK BORDERLINE R WAVE PROGRESSION, ANTERIOR LEADS BORDERLINE PROLONGED QT INTERVAL : Confirmed by: Esha Fernández MD 15-Nov-2016 03:55:16
[2016-11-15] MEDS: GABAPENTIN 300 MG CAPSULE PO SCH ×2 (05:33→17:27)
[2016-11-15 06:07] LABS: ABSOLUTE LYMPHOCYTES (AUTO) 0.9 10^3/uL (0.5-4.7); ABSOLUTE MONOCYTES (AUTO) 0.1 10^3/uL (0.1-1.4); ABSOLUTE NEUT (AUTO) 6.9 10^3/uL (1.7-8.2); BASOPHILS % (AUTO) 0.1 % (0-2); HEMATOCRIT 32.7 % (37.9-51.0); HEMOGLOBIN 10.7 g/dL (13.5-17.0); HGB HCT DIFFERENCE -0.6; LYMPHOCYTES % (AUTO) 11.8 % (13-45); MEAN CORPUSCULAR HEMOGLOBIN 31.6 pg (27.0-33.4); MEAN CORPUSCULAR HGB CONC 32.8 g/dL (32.0-36.0); MEAN CORPUSCULAR VOLUME 97 fl (80-97); MONOCYTES % (AUTO) 1.3 % (3-13); RED BLOOD COUNT 3.38 10^6/uL (4.35-5.55); RED CELL DISTRIBUTION WIDTH 18.2 % (11.5-14.0); SEGMENTED NEUTROPHILS % (AUTO) 86.8 % (42-78); WHITE BLOOD COUNT 7.9 10^3/uL (4.0-10.5)
[2016-11-15 06:34] LABS: ANION GAP 14 (5-19); BLOOD UREA NITROGEN 26 mg/dL (7-20); CALCIUM 9.1 mg/dL (8.4-10.2); CARBON DIOXIDE 19 mmol/L (22-30); CHLORIDE 106 mmol/L (98-107); CREATINE KINASE 70 U/L (55-170); CREATININE RESULT 3.23 mg/dL (0.52-1.25); GLUCOSE 153 mg/dL (75-110); POTASSIUM 5.1 mmol/L (3.6-5.0); SODIUM 139.4 mmol/L (137-145)
[2016-11-15 06:41] LABS: CREATINE KINASE MB 0.66 ng/mL (<4.55)
--- NOTE | 2016-11-15 06:42 | PDOC H&P ---
History of Present Illness Admission Date/PCP: 11/14/16 20:20 PAL TOMPKINS MD Patient complains of: Shortness of breath and cough History of Present Illness: LAMAR SMALL is a 50 year old male with a past medical history of end-stage renal failure on hemodialysis Friday, HIV, noncompliance, pulmonary emboli on anticoagulation and recent C. difficile colitis. She presents from dialysis after developing shortness of breath nonproductive cough chest pain and a temperature of 102.7 in the emergency room he found to have a chest x-ray with a left lower lobe infiltrate suggestive of pneumonia he started on empiric antibiotics and referred to the hospitalist for admission. Past Medical History Cardiac Medical History: Reports: DVT, Pulmonary Embolism Denies: Congestive Heart Failure, Myocardial Infarction, Hyperlipidema Pulmonary Medical History: Reports: Chronic Obstructive Pulmonary Disease (COPD) , Pneumonia Denies: Sleep Apnea Neurological Medical History: Reports: Seizures - Distant history; never on antiepileptic. Endocrine Medical History: Denies: Diabetes Mellitus Type 1, Diabetes Mellitus Type 2, Hyperthyroidism, Hypothyroidism Renal/ Medical History: Reports: End Stage Renal Disease GI Medical History: Reports: Gastroesophageal Reflux Disease, Hiatal Hernia Denies: Cirrhosis, Hepatitis Musculoskeltal Medical History: Reports: Arthritis Psychiatric Medical History: Reports: Depression Infectious Medical History: Reports: Clostridium Difficile, HIV Denies: Methicillin-Resistant Staph Aureus Past Surgical History Past Surgical History: Reports: Cholecystectomy, Orthopedic Surgery - Repair of right tibial plateau fracture Social History Information Source: Patient Lives with: Parents Smoking Status: Former Smoker Frequency of Alcohol Use: None Hx Recreational Drug Use: No Drugs: None Hx Prescription Drug Abuse: No - Advance Directive Resuscitation Status: Full Code Family History Family History: CAD, DM, Hypertension Parental Family History Reviewed: Yes Children Family History Reviewed: Yes Sibling(s) Family History Reviewed.: Yes Medication/Allergy Home Medications: Atazanavir Sulfate [Reyataz 300 mg Capsule] 300 mg PO TUTHSA@1700 10/10/16 Emtricitabine/Tenofov Alafenam [Descovy 200-25 mg Tablet] 1 tab PO TUTHSA@1700 10/10/16 Ritonavir [Norvir 100 mg Tablet] 100 mg PO TUTHSA@1700 PRN 10/10/16 Trazodone HCl [Desyrel] 100 mg PO QHS 10/10/16 Folic Acid [Folvite 1 mg Tablet] 1 mg PO DAILY tablet 10/14/16 Nicotine [Nicoderm 21 mg/24 Hr Transderm Patch] 1 each TD DAILYP PRN patch.td24 10/14/16 Nystatin [Mycostatin 500,000 Unit/5 ml Susp Udcup] 500,000 unit PO QID udc Apixaban [Eliquis 5 mg Tablet] 5 mg PO Q12 10/31/16 Fidaxomicin [Dificid 200 mg Tablet] 200 mg PO Q12 #10 tablet 11/04/16 Gabapentin [Neurontin 300 mg Capsule] 300 mg PO Q12A capsule 11/04/16 Guaifenesin [Mucinex Sr 600 mg Tablet.sa] 600 mg PO Q12 tablet.sa 11/04/16 Acetaminophen [Tylenol 325 mg Tablet] 650 mg PO Q4HP PRN 11/14/16 Albuterol Sulfate [Ventolin 0.042% Neb 1.25 mg/3 mL Ampul] 1.25 mg NEB RTQ6HP PRN 11/14/16 Allergies/Adverse Reactions: No Known Allergies Allergy (Verified 11/14/16 18:34) Review of Systems Constitutional: ABSENT: chills, fever(s), headache(s), weight gain, weight loss Eyes: ABSENT: visual disturbances Ears: ABSENT: hearing changes Cardiovascular: ABSENT: chest pain, dyspnea on exertion, edema, orthropnea, palpitations Respiratory: PRESENT: cough, dyspnea. ABSENT: hemoptysis, sputum Gastrointestinal: ABSENT: abdominal pain, constipation, diarrhea, hematemesis, hematochezia, nausea, vomiting Genitourinary: ABSENT: dysuria, hematuria Musculoskeletal: ABSENT: joint swelling Integumentary: ABSENT: rash, wounds Neurological: ABSENT: abnormal gait, abnormal speech, confusion, dizziness, focal weakness, syncope Psychiatric: ABSENT: anxiety, depression, homidical ideation, suicidal ideation Endocrine: ABSENT: cold intolerance, heat intolerance, polydipsia, polyuria Hematologic/Lymphatic: ABSENT: easy bleeding, easy bruising Physical Exam Vital Signs: Temp Pulse Resp BP Pulse Ox 97.5 F 56 L 21 H 108/71 98 11/15/16 03:33 11/15/16 03:33 11/15/16 03:33 11/15/16 03:33 11/15/16 03:33 Intake & Output 11/13/16 11/14/16 11/15/16 11:59 11:59 11:59 Intake Total 1850 Output Total 1500 Balance 350 Weight 93.3 kg General appearance: PRESENT: cooperative, severe distress, thin Head exam: PRESENT: atraumatic, normocephalic Eye exam: PRESENT: conjunctiva pink, EOMI, PERRLA. ABSENT: scleral icterus Ear exam: PRESENT: normal external ear exam Mouth exam: PRESENT: moist, tongue midline Neck exam: ABSENT: carotid bruit, JVD, lymphadenopathy, thyromegaly Respiratory exam: PRESENT: accessory muscle use, rales, retraction, rhonchi, symmetrical, tachypnea Cardiovascular exam: PRESENT: RRR. ABSENT: diastolic murmur, rubs, systolic murmur Pulses: PRESENT: normal dorsalis pedis pul Vascular exam: PRESENT: normal capillary refill GI/Abdominal exam: PRESENT: normal bowel sounds, soft. ABSENT: distended, guarding, mass, organolmegaly, rebound, tenderness Rectal exam: PRESENT: deferred Extremities exam: PRESENT: full ROM. ABSENT: calf tenderness, clubbing, pedal edema Neurological exam: PRESENT: alert Psychiatric exam: PRESENT: appropriate affect, normal mood. ABSENT: homicidal ideation, suicidal ideation Skin exam: PRESENT: dry, intact, warm. ABSENT: cyanosis, rash Results Laboratory Results: 11/15/16 05:08 11/15/16 05:08 WBC 7.9 RBC 3.38 L Hgb 10.7 L Hct 32.7 L MCV 97 MCH 31.6 MCHC 32.8 RDW 18.2 H Plt Count 215 Seg Neutrophils % 86.8 H Lymphocytes % 11.8 L Monocytes % 1.3 L Eosinophils % 0.0 Basophils % 0.1 Absolute Neutrophils 6.9 Absolute Lymphocytes 0.9 Absolute Monocytes 0.1 Absolute Eosinophils 0.0 Absolute Basophils 0.0 11/14/16 11/14/16 20:46 20:46 Creatine Kinase 84 CK-MB (CK-2) 0.52 Troponin I < 0.012 Impressions: Lung Scan-VQ NM 11/14/16 00:00 IMPRESSION: Bilateral perfusion defects are identified suspicious for pulmonary embolic disease. Chest X-Ray 11/14/16 17:45 IMPRESSION: Borderline cardiomegaly without CHF. Assessment & Plan - Diagnosis (1) Pneumonia Is this a current diagnosis for this admission?: YesPlan: Palpitated by HIV last CD4 count was greater than 200. He started on empiric antibiotics follow-up CBC blood culture and chest x-ray (2) ESRD (end stage renal disease) on dialysis Is this a current diagnosis for this admission?: YesPlan: Nonoliguric IV fluid challenge initiated avoid nephrotoxic meds and doses consult nephrology (3) HIV disease Is this a current diagnosis for this admission?: YesPlan: Consider repeat CD4 count as may require PCP and/or MAC coverage (4) Pulmonary embolism on long-term anticoagulation therapy Is this a current diagnosis for this admission?: YesPlan: Continue Eliquis given hypoxia and poor compliance will evaluate VQ scan for recurrent PE - Time Time Spent: 50 to 70 Minutes
[2016-11-15 06:44] LABS: TROPONIN I < 0.012 ng/mL
[2016-11-15] MEDS: NORMAL SALINE 1000 ML 1,000 ML IV SCH (07:37)
[2016-11-15] MEDS ORDERED: VANCOMYCIN HCL 0 MG in DEXTROSE 5%-WATER 250 ML IV NR (08:00)
[2016-11-15] MEDS: PSYLLIUM SEED-SF 5.85 GM PACKET PO SCH ×2 (12:47)
[2016-11-15] MEDS: FOLIC ACID 1 MG TABLET PO SCH (12:47)
[2016-11-15] MEDS: CEFEPIME 2 GM/D5W RTU 2 GM/50 ML RTUPB IV SCH (12:48)
[2016-11-15] MEDS: NYSTATIN 500000 UNIT/5 ML UDCUP PO SCH ×4 (12:49→22:01)
--- NOTE | 2016-11-15 12:49 | PDOC CONSULTATION ---
Consultation Consult Date: 11/15/16 Consult reason:: For hemodialysis. History of Present Illness Admission Date/PCP: 11/14/16 20:20 PAL TOMPKINS MD History of Present Illness: LAMAR SMALL is a 50 year old male with a past medical history of end-stage renal failure on hemodialysis Friday, HIV, noncompliance, pulmonary emboli on anticoagulation and recent Persistent and vancomycin resistant C. difficile colitis. He presents from dialysis after developing shortness of breath nonproductive cough chest pain and a temperature of 102.7 in the emergency room he found to have a chest x-ray with a left lower lobe infiltrate suggestive of pneumonia he started on empiric antibiotics.Patient still is short of breath and has pleuritic type anterior chest pains. However he is in no severe distress. Patient was seen on hemodialysis patient undergoing this procedure without any issues. Vital signs are stable. Orders were discussed with the treating nurse Mica. Past Medical History Cardiac Medical History: Reports: DVT, Hypertension-primary, Pulmonary Embolism Denies: Hyperlipidemia, Myocardial Infarction Pulmonary Medical History: Reports: Chronic Obstructive Pulmonary Disease (COPD) , Pneumonia Denies: Sleep Apnea Neurological Medical History: Reports: Seizures - Distant history; never on antiepileptic. Endocrine Medical History: Denies: Diabetes Mellitus Type 1, Diabetes Mellitus Type 2, Hyperthyroidism, Hypothyroidism Renal/ Medical History: Reports: End Stage Renal Disease GI Medical History: Reports: Gastroesophageal Reflux Disease, Hiatal Hernia Denies: Cirrhosis, Hepatitis Musculoskeltal Medical History: Reports: Arthritis Psychiatric Medical History: Reports: Depression Infectious Medical History: Reports: Clostridium Difficile, HIV Denies: Methicillin-resist Staph Aureus Hematology Medical History: Reports Anemia of Chronic Kidney Disease Past Surgical History Past Surgical History: Reports: Cholecystectomy, Orthopedic Surgery - Repair of right tibial plateau fracture Social History Lives with: Parents Smoking Status: Former Smoker Frequency of Alcohol Use: None Hx Recreational Drug Use: No Drugs: None Hx Prescription Drug Abuse: No - Advance Directive Resuscitation Status: Full Code Family History Parental Family History Reviewed: Yes - Negative for ESRD Children Family History Reviewed: No Sibling(s) Family History Reviewed.: No Medication/Allergy Home Medications: Atazanavir Sulfate [Reyataz 300 mg Capsule] 300 mg PO TUTHSA@1700 10/10/16 Emtricitabine/Tenofov Alafenam [Descovy 200-25 mg Tablet] 1 tab PO TUTHSA@1700 10/10/16 Ritonavir [Norvir 100 mg Tablet] 100 mg PO TUTHSA@1700 PRN 10/10/16 Trazodone HCl [Desyrel] 100 mg PO QHS 10/10/16 Folic Acid [Folvite 1 mg Tablet] 1 mg PO DAILY tablet 10/14/16 Nicotine [Nicoderm 21 mg/24 Hr Transderm Patch] 1 each TD DAILYP PRN patch.td24 10/14/16 Nystatin [Mycostatin 500,000 Unit/5 ml Susp Udcup] 500,000 unit PO QID udc Apixaban [Eliquis 5 mg Tablet] 5 mg PO Q12 10/31/16 Fidaxomicin [Dificid 200 mg Tablet] 200 mg PO Q12 #10 tablet 11/04/16 Gabapentin [Neurontin 300 mg Capsule] 300 mg PO Q12A capsule 11/04/16 Guaifenesin [Mucinex Sr 600 mg Tablet.sa] 600 mg PO Q12 tablet.sa 11/04/16 Acetaminophen [Tylenol 325 mg Tablet] 650 mg PO Q4HP PRN 11/14/16 Albuterol Sulfate [Ventolin 0.042% Neb 1.25 mg/3 mL Ampul] 1.25 mg NEB RTQ6HP PRN 11/14/16 Allergies/Adverse Reactions: No Known Allergies Allergy (Verified 11/14/16 18:34) Review of Systems Constitutional: PRESENT: anorexia, chills, fatigue, fever(s), weakness. ABSENT : headache(s), night sweats Cardiovascular: PRESENT: chest pain, dyspnea on exertion. ABSENT: edema, orthropnea, palpitations Respiratory: PRESENT: cough. ABSENT: hemoptysis Gastrointestinal: ABSENT: abdominal pain, diarrhea, dysphagia, heartburn, hematemesis, hematochezia, melena Genitourinary: ABSENT: dysuria, hematuria Neurological: ABSENT: abnormal movements, abnormal speech, confusion, focal weakness Hematologic/Lymphatic: ABSENT: easy bruising, lymphadenopathy Physical Exam Vital Signs: Temp Pulse Resp BP Pulse Ox 97.8 F 80 18 131/63 H 97 11/15/16 08:00 11/15/16 08:33 11/15/16 08:33 11/15/16 08:00 11/15/16 08:33 Intake & Output 11/14/16 11/15/16 11/16/16 06:59 06:59 06:59 Intake Total 2210 Output Total 1500 Balance 710 Weight 93.3 kg General appearance: PRESENT: mild distress Eye exam: PRESENT: conjunctival injection, conjunctiva pink, EOMI, PERRLA. ABSENT: nystagmus, scleral icterus Ear exam: PRESENT: normal external ear exam Mouth exam: PRESENT: moist, neck supple Neck exam: ABSENT: lymphadenopathy, meningismus, tenderness, thyromegaly, tracheal deviation Respiratory exam: PRESENT: clear to auscultation jamil, crackles, decreased breath sounds. ABSENT: rhonchi Cardiovascular exam: PRESENT: +S1, +S2 GI/Abdominal exam: PRESENT: normal bowel sounds, soft. ABSENT: diminished bowel sounds, organomegaly, tenderness Extremities exam: ABSENT: pedal edema Neurological exam: PRESENT: alert, awake, oriented to person, oriented to place , oriented to time Skin exam: ABSENT: erythema, mottled, rash Results Laboratory Results: 11/15/16 05:08 11/15/16 05:08 11/15/16 11/15/16 05:08 05:08 WBC 7.9 RBC 3.38 L Hgb 10.7 L Hct 32.7 L MCV 97 MCH 31.6 MCHC 32.8 RDW 18.2 H Plt Count 215 Seg Neutrophils % 86.8 H Lymphocytes % 11.8 L Monocytes % 1.3 L Eosinophils % 0.0 Basophils % 0.1 Absolute Neutrophils 6.9 Absolute Lymphocytes 0.9 Absolute Monocytes 0.1 Absolute Eosinophils 0.0 Absolute Basophils 0.0 Sodium 139.4 Potassium 5.1 H Chloride 106 Carbon Dioxide 19 L Anion Gap 14 BUN 26 H Creatinine 3.23 H Est GFR ( Amer) 25 L Est GFR (Non-Af Amer) 20 L Glucose 153 H Calcium 9.1 11/14/16 11/14/16 11/15/16 20:46 20:46 05:08 Creatine Kinase 84 70 CK-MB (CK-2) 0.52 Troponin I < 0.012 11/15/16 05:08 Creatine Kinase CK-MB (CK-2) 0.66 Troponin I < 0.012 Impressions: Lung Scan-VQ NM 11/14/16 00:00 IMPRESSION: Bilateral perfusion defects are identified suspicious for pulmonary embolic disease. Chest X-Ray 11/14/16 17:45 IMPRESSION: Borderline cardiomegaly without CHF. Assessment & Plan - Diagnosis (1) Dyspnea Qualifiers: Dyspnea type: dyspnea on exertion Qualified Code(s): R06.09 - Other forms of dyspnea Plan: From pneumonia. See how he responds to antibiotics. Monitor. As per hospitalist. (2) Pneumonia Is this a current diagnosis for this admission?: YesPlan: On antibiotics. As per hospitalist (3) ESRD (end stage renal disease) on dialysis Is this a current diagnosis for this admission?: YesPlan: Patient seen on hemodialysis when he is undergoing procedure without any complications. Is being supervised to ensure a safe and smooth procedure.Vital signs are stable. Discussed removal of up between 1-1.5 L of fluid as tolerated (4) HIV disease Is this a current diagnosis for this admission?: Yes (5) Anemia in chronic kidney disease (CKD) Qualifiers: Chronic kidney disease stage: on chronic dialysis Qualified Code(s) : N18.6 - End stage renal disease; D63.1 - Anemia in chronic kidney disease; Z99.2 - Dependence on renal dialysis Plan: Presently stable. No indications for erythropoietin. (6) C. difficile colitis Plan: History of persistent and vancomycin resistant C. difficile. However presently asymptomatic. Patient to follow-up with GI. (7) Chest pain Qualifiers: Chest pain type: unspecified Qualified Code(s): R07.9 - Chest pain, unspecified Plan: Pleuritic. Secondary to pneumonia. Monitor. As per hospitalist.
[2016-11-15] MEDS: APIXABAN 5 MG TABLET PO SCH (13:36)
[2016-11-15] MEDS ORDERED: BUTALB/ACETAMINOPHEN/CAFFEINE 1 TAB EACH PO PRN (13:39)
[2016-11-15] MEDS ORDERED: LEVOFLOXACIN 750 MG TABLET PO ONE (14:15)
--- NOTE | 2016-11-15 14:51 | PDOC PROGRESS REPORT ---
Subjective Progress Note for:: 11/15/16 Subjective:: The patient is a pleasant but unfortunate 50-year-old male with a past medical history significant for end-stage renal disease on hemodialysis on Friday and Friday. He follows with Dr. Molina and receives his dialysis treatments at [facility]. He also has known HIV with reported CD4 count of around 200 a few months ago. He has a history of noncompliance as well as a pulmonary embolus on anticoagulation therapy. He is recently had persistent vancomycin resistant Clostridium difficile colitis. He presented to the emergency room after developing shortness of breath and a nonproductive cough associated with chest pain and a temperature of 102.7. He was admitted to the hospital and started on broad-spectrum antibiotics with vancomycin and cefepime for a left lower lobe pneumonia. He was seen by nephrology this morning and was dialyzed again today. Physical Exam Vital Signs: Temp Pulse Resp BP Pulse Ox 97.8 F 84 18 131/63 H 97 11/15/16 08:00 11/15/16 13:23 11/15/16 08:33 11/15/16 08:00 11/15/16 08:33 Intake & Output 11/14/16 11/15/16 11/16/16 06:59 06:59 06:59 Intake Total 2210 Output Total 1500 2000 Balance 710 -2000 Weight 93.3 kg General appearance: PRESENT: mild distress, well-developed, other - He is quite ill-appearing. He has conversational dyspnea Head exam: PRESENT: atraumatic, normocephalic Mouth exam: PRESENT: moist, tongue midline Respiratory exam: PRESENT: decreased breath sounds, other - He has coarse breath sounds scattered throughout all lung reeder.. ABSENT: accessory muscle use Cardiovascular exam: PRESENT: RRR. ABSENT: diastolic murmur, rubs, systolic murmur GI/Abdominal exam: PRESENT: normal bowel sounds, soft. ABSENT: distended, guarding, mass, organolmegaly, rebound, tenderness Extremities exam: PRESENT: full ROM. ABSENT: calf tenderness, clubbing, pedal edema Neurological exam: PRESENT: alert, awake, oriented to person, oriented to place , oriented to time, oriented to situation, CN II-XII grossly intact. ABSENT: motor sensory deficit Psychiatric exam: PRESENT: anxious Skin exam: PRESENT: dry, intact, warm. ABSENT: cyanosis, rash Results Laboratory Results: 11/15/16 05:08 11/15/16 05:08 11/15/16 11/15/16 05:08 05:08 WBC 7.9 RBC 3.38 L Hgb 10.7 L Hct 32.7 L MCV 97 MCH 31.6 MCHC 32.8 RDW 18.2 H Plt Count 215 Seg Neutrophils % 86.8 H Lymphocytes % 11.8 L Monocytes % 1.3 L Eosinophils % 0.0 Basophils % 0.1 Absolute Neutrophils 6.9 Absolute Lymphocytes 0.9 Absolute Monocytes 0.1 Absolute Eosinophils 0.0 Absolute Basophils 0.0 Sodium 139.4 Potassium 5.1 H Chloride 106 Carbon Dioxide 19 L Anion Gap 14 BUN 26 H Creatinine 3.23 H Est GFR ( Amer) 25 L Est GFR (Non-Af Amer) 20 L Glucose 153 H Calcium 9.1 11/14/16 11/14/16 11/15/16 20:46 20:46 05:08 Creatine Kinase 84 70 CK-MB (CK-2) 0.52 Troponin I < 0.012 NT-Pro-B Natriuret Pep 11/15/16 11/15/16 05:08 05:08 Creatine Kinase CK-MB (CK-2) 0.66 Troponin I < 0.012 NT-Pro-B Natriuret Pep 2280 H Impressions: Lung Scan-VQ NM 11/14/16 00:00 IMPRESSION: Bilateral perfusion defects are identified suspicious for pulmonary embolic disease. Chest X-Ray 11/14/16 17:45 IMPRESSION: Borderline cardiomegaly without CHF. Assessment & Plan - Diagnosis (1) Pulmonary embolism on long-term anticoagulation therapy Is this a current diagnosis for this admission?: YesPlan: The patient's VQ scan was positive for pulmonary embolus. It is unclear whether this is acute or not. I reviewed his chest x-ray which is not very impressive for pneumonia. His shortness of breath could be due to an acute pulmonary embolus. He has been on anticoagulation therapy with Eliquis. For now I am going to stop this. I will place the patient on a heparin drip per Dr. Molina. I am getting a noncontrasted CT scan of the patient's chest to evaluate for underlying pneumonia. If he does not have pneumonia we may need to get hematology involved. (2) Pneumonia Is this a current diagnosis for this admission?: YesPlan: I personally reviewed the patient's chest x-ray. It is not very impressive for pneumonia. I have ordered a chest CT scan for further evaluation. The patient does have HIV with reported CD 4 count of possibly less than 200. I have ordered a CD4 count today to confirm this. If his CD4 count is in fact below 200 he would be at high risk for opportunistic organisms. For now we are placing him on Bactrim once daily as recommended by Dr. Molina for PCP coverage. I will hold off on adding an antifungal agent until I get the CT scan back. If he does have pneumonia he would likely benefit from a bronchoscopy and we could possibly consult Dr. Gardiner on Friday. He will continue broad-spectrum IV antibiotics. Concerns would be for gram negatives and MRSA. He has recently been hospitalized and in the skilled facility. He is currently on IV vancomycin, cefepime and Levaquin. (3) HIV disease Is this a current diagnosis for this admission?: YesPlan: Security went to [facility] and got his medications out of the car. He will be started on his antiretrovirals today. He states that he missed 5 days of them the last time he was in the hospital. I have ordered a CD4 count to see what his viral load is for further evaluation. (4) ESRD (end stage renal disease) on dialysis Is this a current diagnosis for this admission?: YesPlan: He was dialyzed yesterday and again today. He will be on a Friday schedule starting next week. We will defer to Dr. Molina on what his schedule will be when he gets out of the hospital. I certainly appreciate Dr. Molina's assistance with this patient today. (5) Dyspnea Qualifiers: Dyspnea type: dyspnea on exertion Qualified Code(s): R06.09 - Other forms of dyspnea Plan: Possibly secondary to underlying pneumonia versus acute pulmonary embolus. Plan as above. Currently he is maintaining his oxygen saturations but he is quite ill. (6) Depression Qualifiers: Depression Type: major depressive disorder Major depression recurrence : recurrent Major depression episode severity: moderate Plan: Continue home regimen (7) History of Clostridium difficile infection Plan: The patient had a recent history of vancomycin resistant Clostridium difficile. He reportedly was given a prescription for Dificid but has not been able to get it filled. He reports having loose stools but no rodolfo diarrhea. He is not having abdominal pain. I will check his stool for Clostridium difficile and we will make a decision on how to proceed going forward. - Time Time Spent with patient: 35 or more minutes
--- NOTE | 2016-11-15 15:10 | RADIOLOGY REPORT (SQ) ---
EXAM DESCRIPTION: CT CHEST WITHOUT COMPLETED DATE/TIME: 11/15/2016 2:48 pm REASON FOR STUDY: SALAZAR DOMINGO COMPARISON: 03/21/2016 TECHNIQUE: CT scan performed of the chest without intravenous contrast. Images reviewed with lung, soft tissue and bone windows. Reconstructed coronal and sagittal MPR images reviewed. All images st ored on PACS. All CT scanners at this facility use dose modulation, iterative reconstruction, and/or weight based d osing when appropriate to reduce radiation dose to as low as reasonably achievable (ALARA). [facility]: Dose Right [facility]: CareDose [facility]: Dose Right [facility]: Teradose 4D [facility]: Scil Proteins RADIATION DOSE: 10.88 mGy. LIMITATIONS: No technical limitations. FINDINGS: LUNGS AND PLEURA: A 9 mm ground-glass nodule is suggested in the right upper lobe on image 52 series 4. Mild emphysematous changes are present in the right upper lobe. HILAR AND MEDIASTINAL STRUCTURES: No identified masses or abnormal nodes. No obvious aneurysm. HEART AND VASCULAR STRUCTURES: No aneurysm. No pericardial effusion. UPPER ABDOMEN: No significant findings. Limited exam. THYROID AND OTHER SOFT TISSUES: No masses. No adenopathy. BONES: No significant finding. HARDWARE: A right internal jugular catheter is present. The tip is in the superior vena cava near th e right atrium. OTHER: No other significant findings. IMPRESSION: 1. There is 9 mm ground-glass nodule in the right upper lobe. This could indicate a ve ry limited area of infiltrate. 2. There is mild pulmonary emphysema in the right upper lobe. COMMENT: Fleischner Criteria for Ground Glass Nodules: >6mm ground glass single nodule: CT 6-12 mo, then CT every 2 yr until 5 yr TECHNICAL DOCUMENTATION: JOB ID: [id number] Quality ID # [id number]: Final reports with documentation of one or more dose reduction techniques (e.g., Au tomated exposure control, adjustment of the mA and/or kV according to patient size, use of iterative reconstruction technique) 2010 [employer]- All Rights Reserved
[2016-11-15 15:22] LABS: ABSOLUTE LYMPHOCYTES (AUTO) 1.1 10^3/uL (0.5-4.7); ABSOLUTE MONOCYTES (AUTO) 0.6 10^3/uL (0.1-1.4); BASOPHILS % (AUTO) 0.2 % (0-2); HEMATOCRIT 32.2 % (37.9-51.0); HEMOGLOBIN 10.6 g/dL (13.5-17.0); HGB HCT DIFFERENCE -0.4; LYMPHOCYTES % (AUTO) 10.9 % (13-45); MEAN CORPUSCULAR HEMOGLOBIN 31.3 pg (27.0-33.4); MEAN CORPUSCULAR HGB CONC 32.9 g/dL (32.0-36.0); MEAN CORPUSCULAR VOLUME 95 fl (80-97); MONOCYTES % (AUTO) 6.6 % (3-13); RED BLOOD COUNT 3.38 10^6/uL (4.35-5.55); RED CELL DISTRIBUTION WIDTH 17.9 % (11.5-14.0); SEGMENTED NEUTROPHILS % (AUTO) 82.3 % (42-78); WHITE BLOOD COUNT 9.7 10^3/uL (4.0-10.5)
[2016-11-15 15:34] LABS: PROTHROMBIN TIME 13.6 SEC (11.4-15.4)
[2016-11-15 15:35] LABS: PARTIAL THROMBOPLASTIN TIME 30.5 SEC (23.5-35.8)
[2016-11-15] MEDS ORDERED: RITONAVIR 100 MG TABLET PO SCH (17:00)
[2016-11-15] MEDS ORDERED: TENOFOV ALAFENAM PO SCH (17:00)
[2016-11-15] MEDS ORDERED: EMTRICITABINE PO SCH (17:00)
[2016-11-15] MEDS ORDERED: ATAZANAVIR SULFATE PO SCH (17:00)
[2016-11-15] MEDS ORDERED: VANCOMYCIN HCL 2,000 MG in DEXTROSE 5%-WATER 500 ML IV ONE (17:00)
[2016-11-15] MEDS: ACETAMINOPHEN 325 MG TABLET PO PRN ×2 (17:27→22:00)
[2016-11-15] MEDS: SULFAMETHOXAZOLE/TRIMETHOPRIM 800-160 MG TABLET PO SCH (17:27)
[2016-11-15] MEDS: OXYCODONE HCL IR 5 MG TABLET PO PRN ×2 (17:28→22:02)
[2016-11-15 18:11] LABS: APPEARANCE,URINE CLEAR; BILIRUBIN,URINE NEGATIVE (NEGATIVE); GLUCOSE, URINE 150 mg/dL (NEGATIVE); KETONES,URINE NEGATIVE (NEGATIVE); LEUKOCYTE ESTERASE,URINE NEGATIVE (NEGATIVE); NITRITE,URINE NEGATIVE (NEGATIVE); PROTEIN,URINE 100 mg/dL (NEGATIVE); URINE SPECIFIC GRAVITY 1.009; UROBILINOGEN,URINE NEGATIVE mg/dL (<2.0)
[2016-11-15 18:15] LABS: HYALINE CASTS, URINE 0-1 /LPF
[2016-11-15] MEDS: HEPARIN SODIUM,PORCINE/D5W 250 ML IV PRN (20:00)
[2016-11-15] MEDS ORDERED: FIDAXOMICIN 200 MG PO SCH (22:00)
[2016-11-15] MEDS: TRAZODONE HCL 50 MG TABLET PO SCH (22:02)
[2016-11-16 02:10] LABS: ABSOLUTE MONOCYTES (AUTO) 0.7 10^3/uL (0.1-1.4); BASOPHILS % (AUTO) 0.1 % (0-2); HEMATOCRIT 27.8 % (37.9-51.0); HEMOGLOBIN 9.2 g/dL (13.5-17.0); HGB HCT DIFFERENCE -0.2; LYMPHOCYTES % (AUTO) 11.8 % (13-45); MEAN CORPUSCULAR HEMOGLOBIN 31.5 pg (27.0-33.4); MEAN CORPUSCULAR HGB CONC 33.2 g/dL (32.0-36.0); MEAN CORPUSCULAR VOLUME 95 fl (80-97); MONOCYTES % (AUTO) 8.1 % (3-13); RED BLOOD COUNT 2.93 10^6/uL (4.35-5.55); RED CELL DISTRIBUTION WIDTH 18.1 % (11.5-14.0); WHITE BLOOD COUNT 8.7 10^3/uL (4.0-10.5)
[2016-11-16] MEDS: IPRATROPIUM/ALBUTEROL 0.5-2.5 MG/3 ML AMPUL NEB SCH ×4 (02:17→20:06)
[2016-11-16] MEDS: OXYCODONE HCL IR 5 MG TABLET PO PRN ×5 (02:22→19:36)
[2016-11-16] MEDS: ACETAMINOPHEN 325 MG TABLET PO PRN ×5 (02:22→19:36)
[2016-11-16 02:29] LABS: ANION GAP 15 (5-19); BLOOD UREA NITROGEN 42 mg/dL (7-20); CALCIUM 8.4 mg/dL (8.4-10.2); CARBON DIOXIDE 21 mmol/L (22-30); CHLORIDE 97 mmol/L (98-107); CREATININE RESULT 3.14 mg/dL (0.52-1.25); GLUCOSE 230 mg/dL (75-110); MAGNESIUM 1.7 mg/dL (1.6-2.3); SODIUM 132.8 mmol/L (137-145)
[2016-11-16 02:38] LABS: POTASSIUM 4.2 mmol/L (3.6-5.0)
[2016-11-16] MEDS: HEPARIN SODIUM,PORCINE/D5W 250 ML IV PRN ×2 (02:50→20:10)
[2016-11-16] MEDS ORDERED: HEPARIN SOD (PORCINE) 1,000 UNIT/ML 10 ML VIAL ONE ×2 (03:20→21:54)
[2016-11-16] MEDS: GABAPENTIN 300 MG CAPSULE PO SCH ×2 (05:55→18:00)
[2016-11-16] MEDS: FOLIC ACID 1 MG TABLET PO SCH (09:57)
[2016-11-16] MEDS: NYSTATIN 500000 UNIT/5 ML UDCUP PO SCH ×4 (09:58→22:08)
[2016-11-16] MEDS: PSYLLIUM SEED-SF 5.85 GM PACKET PO SCH ×2 (09:58)
[2016-11-16] MEDS: CEFEPIME 2 GM/D5W RTU 2 GM/50 ML RTUPB IV SCH (09:58)
[2016-11-16] MEDS: FLUTICASONE NASAL SPRAY 50 MCG/SPRY 120 SPRAY/16 GM NASL SCH ×2 (09:59→22:08)
--- NOTE | 2016-11-16 13:13 | PDOC PROGRESS REPORT ---
Subjective Progress Note for:: 11/16/16 Subjective:: The patient is a pleasant but unfortunate 50-year-old male with a past medical history significant for end-stage renal disease on hemodialysis on Friday and Friday. He follows with Dr. Molina and receives his dialysis treatments at [facility]. He also has known HIV with reported CD4 count of around 214 a few months ago. He has a history of noncompliance as well as a pulmonary embolus on anticoagulation therapy with Elliquis. He has recently had persistent vancomycin resistant Clostridium difficile colitis. He presented to the emergency room after developing severe shortness of breath and a nonproductive cough associated with chest pain and a temperature of 102.7. He was admitted to the hospital and started on broad-spectrum antibiotics with vancomycin and cefepime for a left lower lobe pneumonia. He was seen by nephrology yesterday morning and was dialysed again yesterday. Yesterday the patient was significantly short of breath. He was also running high fevers. We were able to get his antiretrovirals and he has been started back on them. Today he continues to complain of shortness of breath but is much improved since yesterday. His conversational dyspnea is improving as well. He states that he is still having fever and chills but his fevers seem to be much lower. He continues to have a cough but is not bringing up much sputum. He is still quite short of breath. He has had no nausea, vomiting or diarrhea. He states he had a formed stool finally yesterday. He denies dysuria , frequency or hematuria. Physical Exam Vital Signs: Temp Pulse Resp BP Pulse Ox 97.8 F 65 18 120/60 100 11/16/16 11:14 11/16/16 11:14 11/16/16 11:14 11/16/16 11:14 11/16/16 11:14 Intake & Output 11/15/16 11/16/16 11/17/16 06:59 06:59 06:59 Intake Total 2210 2425 Output Total 1500 4550 Balance 710 -2125 Weight 93.3 kg 96.5 kg General appearance: PRESENT: no acute distress, well-developed, well-nourished, other - He has mild conversational dyspnea Head exam: PRESENT: atraumatic, normocephalic Mouth exam: PRESENT: moist, tongue midline Respiratory exam: PRESENT: clear to auscultation jamil, other - His lungs are greatly improved today. Not hearing any adventitious breath sounds. ABSENT: rales, rhonchi, wheezes Cardiovascular exam: PRESENT: RRR. ABSENT: diastolic murmur, rubs, systolic murmur GI/Abdominal exam: PRESENT: normal bowel sounds, soft. ABSENT: distended, guarding, mass, organolmegaly, rebound, tenderness Extremities exam: PRESENT: full ROM. ABSENT: calf tenderness, clubbing, pedal edema Neurological exam: PRESENT: alert, awake, oriented to person, oriented to place , oriented to time, oriented to situation, CN II-XII grossly intact. ABSENT: motor sensory deficit Psychiatric exam: PRESENT: appropriate affect, normal mood. ABSENT: homicidal ideation, suicidal ideation Skin exam: PRESENT: dry, intact, warm. ABSENT: cyanosis, rash Results Laboratory Results: 11/16/16 02:01 11/16/16 02:01 11/15/16 11/15/16 11/16/16 15:05 17:47 02:01 WBC 9.7 8.7 RBC 3.38 L 2.93 L Hgb 10.6 L 9.2 L Hct 32.2 L 27.8 L MCV 95 95 MCH 31.3 31.5 MCHC 32.9 33.2 RDW 17.9 H 18.1 H Plt Count 220 199 Seg Neutrophils % 82.3 H 80.0 H Lymphocytes % 10.9 L 11.8 L Monocytes % 6.6 8.1 Eosinophils % 0.0 0.0 Basophils % 0.2 0.1 Absolute Neutrophils 8.0 7.0 Absolute Lymphocytes 1.1 1.0 Absolute Monocytes 0.6 0.7 Absolute Eosinophils 0.0 0.0 Absolute Basophils 0.0 0.0 Sodium Potassium Chloride Carbon Dioxide Anion Gap BUN Creatinine Est GFR ( Amer) Est GFR (Non-Af Amer) Glucose Calcium Magnesium Urine Color YELLOW Urine Appearance CLEAR Urine pH 9.0 Ur Specific Dixon 1.009 Urine Protein 100 H Urine Glucose (UA) 150 H Urine Ketones NEGATIVE Urine Blood NEGATIVE Urine Nitrite NEGATIVE Ur Leukocyte Esterase NEGATIVE Ur Squamous Epith Cells FEW Stool Occult Blood 11/16/16 11/16/16 02:01 10:45 WBC RBC Hgb Hct MCV MCH MCHC RDW Plt Count Seg Neutrophils % Lymphocytes % Monocytes % Eosinophils % Basophils % Absolute Neutrophils Absolute Lymphocytes Absolute Monocytes Absolute Eosinophils Absolute Basophils Sodium 132.8 L Potassium 4.2 Chloride 97 L Carbon Dioxide 21 L Anion Gap 15 BUN 42 H Creatinine 3.14 H Est GFR ( Amer) 25 L Est GFR (Non-Af Amer) 21 L Glucose 230 H Calcium 8.4 Magnesium 1.7 Urine Color Urine Appearance Urine pH Ur Specific Dixon Urine Protein Urine Glucose (UA) Urine Ketones Urine Blood Urine Nitrite Ur Leukocyte Esterase Ur Squamous Epith Cells Stool Occult Blood NEGATIVE 11/14/16 11/14/16 11/15/16 20:46 20:46 05:08 Creatine Kinase 84 70 CK-MB (CK-2) 0.52 Troponin I < 0.012 NT-Pro-B Natriuret Pep 11/15/16 11/15/16 05:08 05:08 Creatine Kinase CK-MB (CK-2) 0.66 Troponin I < 0.012 NT-Pro-B Natriuret Pep 2280 H Impressions: Lung Scan-VQ NM 11/14/16 00:00 IMPRESSION: Bilateral perfusion defects are identified suspicious for pulmonary embolic disease. Chest X-Ray 11/14/16 17:45 IMPRESSION: Borderline cardiomegaly without CHF. Chest CT 11/15/16 00:00 IMPRESSION: 1. There is 9 mm ground-glass nodule in the right upper lobe. This could indicate a very limited area of infiltrate. 2. There is mild pulmonary emphysema in the right upper lobe. Assessment & Plan - Diagnosis (1) Pulmonary embolism on long-term anticoagulation therapy Is this a current diagnosis for this admission?: YesPlan: The patient's VQ scan was positive for pulmonary embolus. It is unclear whether this is acute or not. I reviewed his chest x-ray which is not very impressive for pneumonia. His shortness of breath could be due to an acute pulmonary embolus. He has been on anticoagulation therapy with Eliquis. I spoke to Dr. Molina about this yesterday. He has been transitioned to a heparin drip for now. He could not get a CT angiogram because we will can be unable to dialyze him over the weekend. The patient previously was on Coumadin with hard to control INRs. I will defer to the physician coming on on whether to restart his Eliquis. Certainly he has improved since starting the heparin drip. (2) Pneumonia Is this a current diagnosis for this admission?: YesPlan: I personally reviewed the patient's chest x-ray. It is not very impressive for pneumonia. The patient had a CT scan yesterday which revealed a 5 mm groundglass nodule suspicious for infection.. The patient does have HIV with reported CD 4 count of 214 a few months ago. I have ordered a CD4 count which is currently pending. If his CD4 count is in fact below 200 he would be at high risk for opportunistic organisms. For now we are placing him on Bactrim once daily as recommended by Dr. Molina for PCP coverage. At this point he seems to be responding well to the current therapy. I have not added an antifungal at this time. Certainly if his CD4 count is quite low consideration for bronchoscopy to obtain deep cultures could be pursued. In the meantime we will treat him for a hospital-acquired pneumonia with concerns for gram negatives and MRSA. He has recently been hospitalized and in the skilled facility for rehab. He is currently on IV vancomycin, cefepime and Levaquin. This is day #2 of treatment. (3) HIV disease Is this a current diagnosis for this admission?: YesPlan: Security went to [facility] and got his medications out of the car. He was started on his antiretrovirals yesterday.. He states that he missed 5 days of them the last time he was in the hospital. I have ordered a CD4 count to see what his viral load is for further evaluation. (4) ESRD (end stage renal disease) on dialysis Is this a current diagnosis for this admission?: YesPlan: He was dialyzed and Friday. He will be on a Friday schedule starting next week while he is in the hospital. We will defer to Dr. Molina on what his schedule will be when he gets out of the hospital. I certainly appreciate Dr. Molina's assistance with this patient yesterday. (5) Dyspnea Qualifiers: Dyspnea type: dyspnea on exertion Qualified Code(s): R06.09 - Other forms of dyspnea Plan: Possibly secondary to underlying pneumonia versus acute pulmonary embolus. Plan as above. He is improving. (6) Depression Qualifiers: Depression Type: major depressive disorder Major depression recurrence : recurrent Major depression episode severity: moderate Plan: Continue home regimen (7) History of Clostridium difficile infection Plan: The patient had a recent history of vancomycin resistant Clostridium difficile. He reportedly was given a prescription for Dificid but has not been able to get it filled. Yesterday he reported having loose stools but no rodolfo diarrhea. He is not having abdominal pain. His stool PCR for C. difficile is pending as of the time of this dictation. - Time Time Spent with patient: 25-34 minutes Disposition: Inpatient hospitalization remains necessary. This patient is chronically immunosuppressed with a low CD4 count the last time it was checked. He has evidence of possible infection in pulmonary embolus. Timing of disposition will be determined by his clinical course. Overall he is improving.
[2016-11-16] MEDS ORDERED: (PENDING PHARMACY ID) (Emtricitabine/Tenofov Alafenam [Descovy 200-25 Mg Tablet] 1 TAB) PO SCH (17:00)
[2016-11-16] MEDS ORDERED: RITONAVIR 100 MG TABLET PO PRN (17:00)
[2016-11-16] MEDS ORDERED: (PENDING PHARMACY ID) (Atazanavir Sulfate [Reyataz 300 Mg Capsule] 300 MG) PO SCH (17:00)
[2016-11-16] MEDS: ATAZANAVIR SULFATE PO SCH (17:16)
[2016-11-16] MEDS: RITONAVIR 100 MG TABLET PO SCH (17:17)
[2016-11-16] MEDS: TENOFOV ALAFENAM PO SCH (17:17)
[2016-11-16] MEDS: EMTRICITABINE PO SCH (17:17)
[2016-11-16] MEDS: NICOTINE 21 MG/24 HR PATCH.TD24 TD PRN (17:18)
[2016-11-16] MEDS: SULFAMETHOXAZOLE/TRIMETHOPRIM 800-160 MG TABLET PO SCH (18:00)
[2016-11-16] MEDS ORDERED: HEPARIN SOD (PORCINE) 1,000 UNIT/ML 10 ML VIAL IV PRN (21:58)
[2016-11-16] MEDS: TRAZODONE HCL 50 MG TABLET PO SCH (22:08)
[2016-11-17] MEDS: ACETAMINOPHEN 325 MG TABLET PO PRN ×5 (00:05→20:15)
[2016-11-17] MEDS: OXYCODONE HCL IR 5 MG TABLET PO PRN ×5 (00:05→20:15)
[2016-11-17] MEDS: IPRATROPIUM/ALBUTEROL 0.5-2.5 MG/3 ML AMPUL NEB SCH ×4 (02:15→19:55)
[2016-11-17 04:55] LABS: ABSOLUTE LYMPHOCYTES (AUTO) 1.7 10^3/uL (0.5-4.7); ABSOLUTE MONOCYTES (AUTO) 0.6 10^3/uL (0.1-1.4); ABSOLUTE NEUT (AUTO) 4.1 10^3/uL (1.7-8.2); BASOPHILS % (AUTO) 0.4 % (0-2); EOSINOPHILS % (AUTO) 0.2 % (0-6); HEMATOCRIT 28.5 % (37.9-51.0); HEMOGLOBIN 9.3 g/dL (13.5-17.0); HGB HCT DIFFERENCE -0.6; LYMPHOCYTES % (AUTO) 26.9 % (13-45); MEAN CORPUSCULAR HEMOGLOBIN 31.9 pg (27.0-33.4); MEAN CORPUSCULAR HGB CONC 32.6 g/dL (32.0-36.0); MEAN CORPUSCULAR VOLUME 98 fl (80-97); MONOCYTES % (AUTO) 8.7 % (3-13); RED BLOOD COUNT 2.92 10^6/uL (4.35-5.55); RED CELL DISTRIBUTION WIDTH 18.2 % (11.5-14.0); SEGMENTED NEUTROPHILS % (AUTO) 63.8 % (42-78); WHITE BLOOD COUNT 6.5 10^3/uL (4.0-10.5)
[2016-11-17 05:11] LABS: ALBUMIN 3.4 g/dL (3.5-5.0); ASPARTATE AMINO TRANSFERASE 11 U/L (17-59); BILIRUBIN,DIRECT 0.4 mg/dL (0.0-0.4); BILIRUBIN,TOTAL 0.6 mg/dL (0.2-1.3); BLOOD UREA NITROGEN 53 mg/dL (7-20); CALCIUM 8.7 mg/dL (8.4-10.2); CARBON DIOXIDE 22 mmol/L (22-30); CHLORIDE 102 mmol/L (98-107); CREATININE RESULT 4.15 mg/dL (0.52-1.25); GLUCOSE 151 mg/dL (75-110); MAGNESIUM 2.3 mg/dL (1.6-2.3); NEONATAL BILIRUBIN RESULT 0.2 mg/dL (0.1-1.1); TOTAL PROTEIN 6.4 g/dL (6.3-8.2)
[2016-11-17 05:16] LABS: ANION GAP 15 (5-19); SODIUM 138.8 mmol/L (137-145)
[2016-11-17 05:24] LABS: ALANINE AMINOTRANSFERASE 26 U/L (21-72); ALKALINE PHOSPHATASE 87 U/L (38-126)
[2016-11-17] MEDS: GABAPENTIN 300 MG CAPSULE PO SCH ×2 (05:48→17:20)
[2016-11-17] MEDS ORDERED: LEVOFLOXACIN 500 MG TABLET PO SCH (10:00)
[2016-11-17] MEDS: PSYLLIUM SEED-SF 5.85 GM PACKET PO SCH ×2 (10:26)
[2016-11-17] MEDS: NYSTATIN 500000 UNIT/5 ML UDCUP PO SCH ×4 (10:26→22:12)
[2016-11-17] MEDS: CEFEPIME 2 GM/D5W RTU 2 GM/50 ML RTUPB IV SCH (10:26)
[2016-11-17] MEDS: FOLIC ACID 1 MG TABLET PO SCH (10:26)
[2016-11-17] MEDS: FLUTICASONE NASAL SPRAY 50 MCG/SPRY 120 SPRAY/16 GM NASL SCH ×2 (10:27→22:12)
--- NOTE | 2016-11-17 14:28 | PROGRESS NOTE E ---
Progress Note NAME: LAMAR SMALL : 1965 AGE: 50Y DATE: 11/17/2016 ROOM: 419 SUBJECTIVE: This patient is currently lying in bed. He states that he feels a little bit better today. Shortness of breath improved. He denies any cough or sputum production. No fevers or chills. No nausea. The patient did have 1 loose bowel movement, but denies any diarrhea. The patient denies any vomiting. The patient does not voice any other concerns at this time. REVIEW OF SYSTEMS: The rest of the review of systems is negative. MEDICATIONS: Medications have been reviewed. OBJECTIVE: GENERAL: The patient is a 50-year-old male who is awake, alert, and oriented to person, place, time, and situation. He is appropriate and conversational, does not appear to be in acute distress. VITAL SIGNS: Temperature is 97.7, pulse 70, respirations 20, blood pressure is 114/56, oxygen saturation is 100% on room air. SKIN: Warm and dry. There is no rash. Not diaphoretic. HEENT: Pupils are equal, round, and reactive to light and accommodation. Conjunctivae pink. No JVD. CARDIOVASCULAR: Heart is regular with no murmur or rub. CHEST: Clear and symmetrical. ABDOMEN: Soft, nontender, nondistended. Bowel sounds present. BACK: No CVA tenderness. EXTREMITIES: No clubbing, cyanosis or edema. PSYCHIATRIC: Appropriate affect. Pleasant mood. DIAGNOSTICS: Lab values are as follows: Hematology obtained on 11/17/2016: WBCs are 6.5, hemoglobin is 9.3, hematocrit is 28.5, platelet count is 193,000. Chemistry obtained on 11/17/2016: Sodium is 138, potassium is 4.0, chloride is 102, carbon dioxide 22, BUN 53, creatinine is 4.15, glucose 151. IMPRESSION AND PLAN: 1. ACUTE PULMONARY EMBOLISM. After much discussion, it appears the patient had just recently been transitioned to Eliquis after being on Coumadin for 12 years; however, even while on Coumadin it appears that the patient did have DVTs. This may be more related to noncompliance. However, given the patient's multiple comorbidities including renal failure and HIV, we will consult Hematology to help navigate this and continue heparin drip for now. 2. PNEUMONIA. The patient's symptoms overall have greatly improved. Maybe contributed to by number 1, but still awaiting the patient's CD4 count. His last count was 214. We will follow. 3. HIV. We will continue home medications. 4. END-STAGE RENAL DISEASE. The patient normally dialyzes on Friday, Friday, Friday, but we will dialyze in the a.m. Would appreciate Dr. Molina' input with this. 5. NUTRITION. We will liberalize the patient's diet. Electrolytes are within a normal range. 6. DEPRESSION. We will continue home medications. DISPOSITION: The patient is a FULL CODE. Pending patient's symptomatology and diagnostic findings, as well as specialty input, reevaluate in the a.m. Time spent on this followup including assessment, plan, physical examination, and patient education is 25 minutes. DICTATING PHYSICIAN: HUMBERTO KIDD [id number] PHY#: [id number] ID: [id number] JOB#: [id number] ACCT: [id number] cc: > MTDD
[2016-11-17] MEDS: ATAZANAVIR SULFATE PO SCH (17:20)
[2016-11-17] MEDS: TENOFOV ALAFENAM PO SCH (17:20)
[2016-11-17] MEDS: RITONAVIR 100 MG TABLET PO SCH (17:20)
[2016-11-17] MEDS: EMTRICITABINE PO SCH (17:20)
[2016-11-17] MEDS: SULFAMETHOXAZOLE/TRIMETHOPRIM 800-160 MG TABLET PO SCH (17:20)
[2016-11-17] MEDS: NICOTINE 21 MG/24 HR PATCH.TD24 TD PRN (17:24)
[2016-11-17 17:36] LABS: ABSOLUTE CD 4 HELPER 142 /uL (359-1519); CD BASOPHILS 0 % (.); CD EOSINOPHILS 0 % (.); CD MONOCYTES 4 % (.); CD NEUTROPHILS 84 % (.); HEMOGLOBIN 10.1 g/dL (12.6-17.7); IMMATURE GRANULOCYTES 0 % (.); MCH 31.3 pg (26.6-33.0); MCHC 32.6 g/dL (31.5-35.7); MCV 96 fL (79-97); NEUTROPHILS(ABSOLUTE) 7.3 x10E3/uL (1.4-7.0); PLATELETS 236 x10E3/uL (150-379); RBC 3.23 x10E6/uL (4.14-5.80); WBC 8.7 x10E3/uL (3.4-10.8)
[2016-11-17] MEDS: TRAZODONE HCL 50 MG TABLET PO SCH (22:12)
[2016-11-17] MEDS: HEPARIN SODIUM,PORCINE/D5W 250 ML IV PRN (22:12)
[2016-11-18] MEDS: ACETAMINOPHEN 325 MG TABLET PO PRN ×5 (00:17→19:59)
[2016-11-18] MEDS: OXYCODONE HCL IR 5 MG TABLET PO PRN ×5 (00:17→19:59)
[2016-11-18] MEDS: IPRATROPIUM/ALBUTEROL 0.5-2.5 MG/3 ML AMPUL NEB SCH ×3 (01:41→14:23)
[2016-11-18] MEDS: GABAPENTIN 300 MG CAPSULE PO SCH ×2 (05:43→18:09)
[2016-11-18 06:26] LABS: HEMATOCRIT 30.4 % (37.9-51.0); HEMOGLOBIN 9.8 g/dL (13.5-17.0); MEAN CORPUSCULAR HEMOGLOBIN 31.9 pg (27.0-33.4); MEAN CORPUSCULAR HGB CONC 32.3 g/dL (32.0-36.0); MEAN CORPUSCULAR VOLUME 99 fl (80-97); RED BLOOD COUNT 3.07 10^6/uL (4.35-5.55); RED CELL DISTRIBUTION WIDTH 18.4 % (11.5-14.0); WHITE BLOOD COUNT 5.5 10^3/uL (4.0-10.5)
[2016-11-18 06:41] LABS: ANION GAP 13 (5-19); BLOOD UREA NITROGEN 63 mg/dL (7-20); CALCIUM 9.2 mg/dL (8.4-10.2); CARBON DIOXIDE 18 mmol/L (22-30); CHLORIDE 110 mmol/L (98-107); CREATININE RESULT 4.94 mg/dL (0.52-1.25); GLUCOSE 122 mg/dL (75-110); POTASSIUM 5.1 mmol/L (3.6-5.0); SODIUM 141.4 mmol/L (137-145)
--- NOTE | 2016-11-18 08:30 | PDOC CONSULTATION ---
Consultation Consult Date: 11/18/16 Attending physician:: JALEEL DAVILA Consult reason:: recurrent PE History of Present Illness Admission Date/PCP: 11/14/16 20:20 PAL TOMPKINS MD Patient complains of: Recurrent PE History of Present Illness: 50-year-old male with history of recurrent PE, DVT. He has had thrombosis while on warfarin, but unfortunately has not had good regulation of his INR while on warfarin. About 6 months ago he was initiated on but the first 3 months of this year Eliqubarb, he was dealing with C. difficile. He had missed some doses in June and July and even in August, but he says in September and October the C. difficile had resolved so he has been compliant with his medications. He comes in with shortness of breath and chest pain was found to have bilateral PE. He says for at least the last month for sure he has been taking his anticoagulation regularly. Past Medical History Cardiac Medical History: Reports: DVT, Pulmonary Embolism Denies: Congestive Heart Failure, Myocardial Infarction, Hyperlipidema Pulmonary Medical History: Reports: Chronic Obstructive Pulmonary Disease (COPD) , Pneumonia Denies: Sleep Apnea Neurological Medical History: Reports: Seizures - Distant history; never on antiepileptic. Endocrine Medical History: Denies: Diabetes Mellitus Type 1, Diabetes Mellitus Type 2, Hyperthyroidism, Hypothyroidism Renal/ Medical History: Reports: End Stage Renal Disease GI Medical History: Reports: Gastroesophageal Reflux Disease, Hiatal Hernia Denies: Cirrhosis, Hepatitis Musculoskeltal Medical History: Reports: Arthritis Psychiatric Medical History: Reports: Depression Infectious Medical History: Reports: Clostridium Difficile, HIV Denies: Methicillin-Resistant Staph Aureus Past Surgical History Past Surgical History: Reports: Cholecystectomy, Orthopedic Surgery - Repair of right tibial plateau fracture Social History Information Source: Patient Lives with: Parents Smoking Status: Former Smoker Frequency of Alcohol Use: None Hx Recreational Drug Use: No Drugs: None Hx Prescription Drug Abuse: No - Advance Directive Resuscitation Status: Full Code Family History Family History: CAD, DM, Hypertension Parental Family History Reviewed: Yes Children Family History Reviewed: Yes Sibling(s) Family History Reviewed.: Yes Medication/Allergy Home Medications: Atazanavir Sulfate [Reyataz 300 mg Capsule] 300 mg PO TUTHSA@1700 10/10/16 Emtricitabine/Tenofov Alafenam [Descovy 200-25 mg Tablet] 1 tab PO TUTHSA@1700 10/10/16 Ritonavir [Norvir 100 mg Tablet] 100 mg PO TUTHSA@1700 PRN 10/10/16 Trazodone HCl [Desyrel] 100 mg PO QHS 10/10/16 Folic Acid [Folvite 1 mg Tablet] 1 mg PO DAILY tablet 10/14/16 Nicotine [Nicoderm 21 mg/24 Hr Transderm Patch] 1 each TD DAILYP PRN patch.td24 10/14/16 Nystatin [Mycostatin 500,000 Unit/5 ml Susp Udcup] 500,000 unit PO QID udc Apixaban [Eliquis 5 mg Tablet] 5 mg PO Q12 10/31/16 Fidaxomicin [Dificid 200 mg Tablet] 200 mg PO Q12 #10 tablet 11/04/16 Gabapentin [Neurontin 300 mg Capsule] 300 mg PO Q12A capsule 11/04/16 Guaifenesin [Mucinex Sr 600 mg Tablet.sa] 600 mg PO Q12 tablet.sa 11/04/16 Acetaminophen [Tylenol 325 mg Tablet] 650 mg PO Q4HP PRN 11/14/16 Albuterol Sulfate [Ventolin 0.042% Neb 1.25 mg/3 mL Ampul] 1.25 mg NEB RTQ6HP PRN 11/14/16 Allergies/Adverse Reactions: No Known Allergies Allergy (Verified 11/14/16 18:34) Review of Systems Constitutional: ABSENT: chills, fever(s), headache(s), weight gain, weight loss Eyes: ABSENT: visual disturbances Ears: ABSENT: hearing changes Cardiovascular: ABSENT: chest pain, dyspnea on exertion, edema, orthropnea, palpitations Respiratory: ABSENT: cough, hemoptysis Gastrointestinal: ABSENT: abdominal pain, constipation, diarrhea, hematemesis, hematochezia, nausea, vomiting Genitourinary: ABSENT: dysuria, hematuria Musculoskeletal: ABSENT: joint swelling Integumentary: ABSENT: rash, wounds Neurological: ABSENT: abnormal gait, abnormal speech, confusion, dizziness, focal weakness, syncope Psychiatric: ABSENT: anxiety, depression, homidical ideation, suicidal ideation Endocrine: ABSENT: cold intolerance, heat intolerance, polydipsia, polyuria Hematologic/Lymphatic: ABSENT: easy bleeding, easy bruising Physical Exam Vital Signs: Temp Pulse Resp BP Pulse Ox 98.1 F 83 16 138/72 H 98 11/18/16 07:32 11/18/16 08:04 11/18/16 08:04 11/18/16 07:32 11/18/16 08:04 Intake & Output 11/17/16 11/18/16 11/19/16 06:59 06:59 06:59 Intake Total 2995 3251 Output Total 3350 2460 Balance -355 791 Weight 96.8 kg 99.5 kg General appearance: PRESENT: no acute distress, well-developed, well-nourished Head exam: PRESENT: atraumatic, normocephalic Eye exam: PRESENT: conjunctiva pink, EOMI, PERRLA. ABSENT: scleral icterus Ear exam: PRESENT: normal external ear exam Mouth exam: PRESENT: moist, tongue midline Neck exam: ABSENT: carotid bruit, JVD, lymphadenopathy, thyromegaly Respiratory exam: PRESENT: clear to auscultation jamil. ABSENT: rales, rhonchi, wheezes Cardiovascular exam: PRESENT: RRR. ABSENT: diastolic murmur, rubs, systolic murmur Pulses: PRESENT: normal dorsalis pedis pul Vascular exam: PRESENT: normal capillary refill GI/Abdominal exam: PRESENT: normal bowel sounds, soft. ABSENT: distended, guarding, mass, organolmegaly, rebound, tenderness Rectal exam: PRESENT: deferred Extremities exam: PRESENT: full ROM. ABSENT: calf tenderness, clubbing, pedal edema Neurological exam: PRESENT: alert, awake, oriented to person, oriented to place , oriented to time, oriented to situation, CN II-XII grossly intact. ABSENT: motor sensory deficit Psychiatric exam: PRESENT: appropriate affect, normal mood. ABSENT: homicidal ideation, suicidal ideation Skin exam: PRESENT: dry, intact, warm. ABSENT: cyanosis, rash Results Laboratory Results: 11/18/16 06:02 11/18/16 06:02 11/18/16 11/18/16 06:02 06:02 WBC 5.5 RBC 3.07 L Hgb 9.8 L Hct 30.4 L MCV 99 H MCH 31.9 MCHC 32.3 RDW 18.4 H Plt Count 220 Sodium 141.4 Potassium 5.1 H Chloride 110 H Carbon Dioxide 18 L Anion Gap 13 BUN 63 H Creatinine 4.94 H Est GFR ( Amer) 15 L Est GFR (Non-Af Amer) 12 L Glucose 122 H Calcium 9.2 11/14/16 11/14/16 11/15/16 20:46 20:46 05:08 Creatine Kinase 84 70 CK-MB (CK-2) 0.52 Troponin I < 0.012 NT-Pro-B Natriuret Pep 11/15/16 11/15/16 05:08 05:08 Creatine Kinase CK-MB (CK-2) 0.66 Troponin I < 0.012 NT-Pro-B Natriuret Pep 2280 H Impressions: Lung Scan-VQ NM 11/14/16 00:00 IMPRESSION: Bilateral perfusion defects are identified suspicious for pulmonary embolic disease. Chest X-Ray 11/14/16 17:45 IMPRESSION: Borderline cardiomegaly without CHF. Chest CT 11/15/16 00:00 IMPRESSION: 1. There is 9 mm ground-glass nodule in the right upper lobe. This could indicate a very limited area of infiltrate. 2. There is mild pulmonary emphysema in the right upper lobe. Assessment & Plan - Diagnosis (1) Pulmonary embolism on long-term anticoagulation therapy Is this a current diagnosis for this admission?: YesPlan: Patient with PE while on Eliquis will discuss with hospitalist team to discontinue heparin drip and initiate Xarelto 15 mg twice a day for 21 days then 20 mg daily. We would also like to initiate aspirin 81 mg daily. We would then follow him up in our office 6 weeks post discharge. He has no prescription insurance, so we will need to give him samples to last him until then. - Time Time Spent: Greater than 70 Minutes Critical Time spent with patient: 25-34 minutes
[2016-11-18] MEDS: FLUTICASONE NASAL SPRAY 50 MCG/SPRY 120 SPRAY/16 GM NASL SCH ×2 (09:46→21:19)
[2016-11-18] MEDS: NYSTATIN 500000 UNIT/5 ML UDCUP PO SCH ×4 (09:46→21:19)
--- NOTE | 2016-11-18 09:59 | PDOC PROGRESS REPORT ---
Subjective Progress Note for:: 11/18/16 Subjective:: Patient seen on dialysis. He has been diagnosed to have bilateral pulmonary embolism and heme oncologist has been consulted. Patient feels a whole lot better today. He was on IV heparin and has been converted to oral medications. Patient denies any history of shortness of breath no history of any nausea vomiting. Appetite is much better. No history of any diarrhea. Physical Exam Vital Signs: Temp Pulse Resp BP Pulse Ox 98.1 F 83 16 138/72 H 98 11/18/16 07:32 11/18/16 08:04 11/18/16 08:04 11/18/16 07:32 11/18/16 08:04 Intake & Output 11/17/16 11/18/16 11/19/16 06:59 06:59 06:59 Intake Total 2995 3251 Output Total 3350 2460 Balance -355 791 Weight 96.8 kg 99.5 kg General appearance: PRESENT: no acute distress Respiratory exam: PRESENT: clear to auscultation jamil. ABSENT: crackles, rhonchi Cardiovascular exam: PRESENT: +S1, +S2 GI/Abdominal exam: PRESENT: normal bowel sounds, soft. ABSENT: diminished bowel sounds, organomegaly, tenderness Results Laboratory Results: 11/18/16 06:02 11/18/16 06:02 11/18/16 11/18/16 06:02 06:02 WBC 5.5 RBC 3.07 L Hgb 9.8 L Hct 30.4 L MCV 99 H MCH 31.9 MCHC 32.3 RDW 18.4 H Plt Count 220 Sodium 141.4 Potassium 5.1 H Chloride 110 H Carbon Dioxide 18 L Anion Gap 13 BUN 63 H Creatinine 4.94 H Est GFR ( Amer) 15 L Est GFR (Non-Af Amer) 12 L Glucose 122 H Calcium 9.2 11/14/16 11/14/16 11/15/16 20:46 20:46 05:08 Creatine Kinase 84 70 CK-MB (CK-2) 0.52 Troponin I < 0.012 NT-Pro-B Natriuret Pep 11/15/16 11/15/16 05:08 05:08 Creatine Kinase CK-MB (CK-2) 0.66 Troponin I < 0.012 NT-Pro-B Natriuret Pep 2280 H Impressions: Lung Scan-VQ NM 11/14/16 00:00 IMPRESSION: Bilateral perfusion defects are identified suspicious for pulmonary embolic disease. Chest X-Ray 11/14/16 17:45 IMPRESSION: Borderline cardiomegaly without CHF. Chest CT 11/15/16 00:00 IMPRESSION: 1. There is 9 mm ground-glass nodule in the right upper lobe. This could indicate a very limited area of infiltrate. 2. There is mild pulmonary emphysema in the right upper lobe. Assessment & Plan - Diagnosis (1) Dyspnea Qualifiers: Dyspnea type: dyspnea on exertion Qualified Code(s): R06.09 - Other forms of dyspnea Plan: The face of acute pulmonary embolism. Anticoagulation being managed by heme oncologist. (2) Pneumonia Is this a current diagnosis for this admission?: Yes (3) ESRD (end stage renal disease) on dialysis Is this a current diagnosis for this admission?: YesPlan: Patient seen on hemodialysis when he is undergoing procedure without any complications. Is being supervised to ensure a safe and smooth procedure.Vital signs are stable. Discussed removal of up between 1-1.5 L of fluid as tolerated (4) HIV disease Is this a current diagnosis for this admission?: YesPlan: On HAART medications. (5) Anemia in chronic kidney disease (CKD) Qualifiers: Chronic kidney disease stage: on chronic dialysis Qualified Code(s) : N18.6 - End stage renal disease; D63.1 - Anemia in chronic kidney disease; Z99.2 - Dependence on renal dialysis Plan: Adjust erythropoietin as needed. (6) C. difficile colitis Plan: Presently quiescent and asymptomatic. Follow-up with gastroenterology. (7) Chest pain Qualifiers: Chest pain type: unspecified Qualified Code(s): R07.9 - Chest pain, unspecified (8) Pulmonary embolism on long-term anticoagulation therapy Is this a current diagnosis for this admission?: YesPlan: Patient on anticoagulation 7 converted from IV heparin to p.o. medications. Being managed by heme oncologist
[2016-11-18] MEDS: CEFEPIME 2 GM/D5W RTU 2 GM/50 ML RTUPB IV SCH (10:00)
[2016-11-18] MEDS ORDERED: RIVAROXABAN 15 MG TABLET PO ONE (11:00)
[2016-11-18] MEDS ORDERED: HEPARIN SOD (PORCINE) 1,000 UNIT/ML 10 ML VIAL IV PRN (11:14)
[2016-11-18] MEDS: FOLIC ACID 1 MG TABLET PO SCH (13:52)
[2016-11-18] MEDS: ASPIRIN 81 MG TABLET, CHEWABLE PO SCH (13:52)
[2016-11-18] MEDS ORDERED: ALBUTEROL SULFATE 0.042% NEB (1.25 MG/3 ML) AMPUL NEB PRN (15:29)
[2016-11-18] MEDS ORDERED: VANCOMYCIN HCL 750 MG in DEXTROSE 5%-WATER 250 ML IV SCH (18:00)
[2016-11-18] MEDS: RIVAROXABAN 15 MG TABLET PO SCH (18:08)
[2016-11-18] MEDS: TENOFOV ALAFENAM PO SCH (18:09)
[2016-11-18] MEDS: EMTRICITABINE PO SCH (18:09)
[2016-11-18] MEDS: ATAZANAVIR SULFATE PO SCH (18:10)
[2016-11-18] MEDS: PSYLLIUM SEED-SF 5.85 GM PACKET PO SCH ×2 (18:10)
[2016-11-18] MEDS: RITONAVIR 100 MG TABLET PO SCH (18:10)
[2016-11-18] MEDS: TRAZODONE HCL 50 MG TABLET PO SCH (21:19)
[2016-11-19] MEDS: ACETAMINOPHEN 325 MG TABLET PO PRN ×3 (00:51→09:45)
[2016-11-19] MEDS: OXYCODONE HCL IR 5 MG TABLET PO PRN ×3 (00:51→09:46)
[2016-11-19] MEDS: GABAPENTIN 300 MG CAPSULE PO SCH (05:48)
[2016-11-19] MEDS: RIVAROXABAN 15 MG TABLET PO SCH (08:16)
--- NOTE | 2016-11-19 08:30 | PDOC PROGRESS REPORT ---
Subjective Progress Note for:: 11/19/16 Subjective:: Patient doing well this morning Physical Exam Vital Signs: Temp Pulse Resp BP Pulse Ox 97.7 F 49 L 22 H 135/86 H 93 11/19/16 07:46 11/19/16 07:46 11/19/16 07:46 11/19/16 07:46 11/19/16 07:46 Intake & Output 11/18/16 11/19/16 11/20/16 06:59 06:59 06:59 Intake Total 3251 2102 Output Total 2460 4831 Balance 791 -2773 Weight 99.5 kg 97.6 kg General appearance: PRESENT: no acute distress, well-developed, well-nourished Head exam: PRESENT: atraumatic, normocephalic Eye exam: PRESENT: conjunctiva pink, EOMI, PERRLA. ABSENT: scleral icterus Ear exam: PRESENT: normal external ear exam Mouth exam: PRESENT: moist, tongue midline Neck exam: ABSENT: carotid bruit, JVD, lymphadenopathy, thyromegaly Respiratory exam: PRESENT: clear to auscultation jamil. ABSENT: rales, rhonchi, wheezes Cardiovascular exam: PRESENT: RRR. ABSENT: diastolic murmur, rubs, systolic murmur Pulses: PRESENT: normal dorsalis pedis pul Vascular exam: PRESENT: normal capillary refill GI/Abdominal exam: PRESENT: normal bowel sounds, soft. ABSENT: distended, guarding, mass, organolmegaly, rebound, tenderness Rectal exam: PRESENT: deferred Extremities exam: PRESENT: full ROM. ABSENT: calf tenderness, clubbing, pedal edema Neurological exam: PRESENT: alert, awake, oriented to person, oriented to place , oriented to time, oriented to situation, CN II-XII grossly intact. ABSENT: motor sensory deficit Psychiatric exam: PRESENT: appropriate affect, normal mood. ABSENT: homicidal ideation, suicidal ideation Skin exam: PRESENT: dry, intact, warm. ABSENT: cyanosis, rash Results Laboratory Results: 11/18/16 06:02 11/18/16 06:02 11/14/16 11/14/16 11/15/16 20:46 20:46 05:08 Creatine Kinase 84 70 CK-MB (CK-2) 0.52 Troponin I < 0.012 NT-Pro-B Natriuret Pep 11/15/16 11/15/16 05:08 05:08 Creatine Kinase CK-MB (CK-2) 0.66 Troponin I < 0.012 NT-Pro-B Natriuret Pep 2280 H Impressions: Lung Scan-VQ NM 11/14/16 00:00 IMPRESSION: Bilateral perfusion defects are identified suspicious for pulmonary embolic disease. Chest X-Ray 11/14/16 17:45 IMPRESSION: Borderline cardiomegaly without CHF. Chest CT 11/15/16 00:00 IMPRESSION: 1. There is 9 mm ground-glass nodule in the right upper lobe. This could indicate a very limited area of infiltrate. 2. There is mild pulmonary emphysema in the right upper lobe. Assessment & Plan - Diagnosis (1) Pulmonary embolism on long-term anticoagulation therapy Is this a current diagnosis for this admission?: YesPlan: Discharge on Xarelto, we gave him medication, I discussed the risks and benefits , yesterday Dr. Molina called me and we discussed the rationale behind this choice. In total I spent about 45 minutes in coordination of care over the last 24 hours. - Time Time Spent with patient: 35 or more minutes Critical Time spent with patient: 35 or more minutes
[2016-11-19] MEDS: NYSTATIN 500000 UNIT/5 ML UDCUP PO SCH (09:20)
[2016-11-19] MEDS: FLUTICASONE NASAL SPRAY 50 MCG/SPRY 120 SPRAY/16 GM NASL SCH (09:20)
[2016-11-19] MEDS: FOLIC ACID 1 MG TABLET PO SCH (09:20)
[2016-11-19] MEDS: PSYLLIUM SEED-SF 5.85 GM PACKET PO SCH ×2 (09:21)
[2016-11-19 10:27] VITALS: BP 115/58
[2016-11-19] MEDS: ASPIRIN 81 MG TABLET, CHEWABLE PO SCH (10:54)
--- NOTE | 2016-11-19 15:43 | PROGRESS NOTE E ---
Progress Note NAME: LAMAR SMALL : 1965 AGE: 50Y DATE: 11/18/2016 ROOM: 419 SUBJECTIVE: The patient was seen earlier today on dialysis. He states he feels much better today in comparison to yesterday. The patient denies any nausea, vomiting, diarrhea. No shortness of breath, dizziness, chest pain. No fevers, chills. The patient's even pleuritic chest pain has appeared to have improved. He is able to take deep breaths now. The patient was seen earlier today by Hematology, and recommendations have been made for Xarelto given that the patient has failed Eliquis. This has been discussed with Hematology who has also discussed the case with Nephrology given that the medication may be restricted in this population. However, the patient has failed all other conventional treatments. The patient does not voice any other concerns at this time. REVIEW OF SYSTEMS: The rest of the review of systems is negative. MEDICATIONS: Medications have been reviewed. OBJECTIVE: GENERAL: The patient is a 50-year-old male who is awake, alert and oriented to person, place, time, and situation. He is verbal, conversational, does not appear to be in any acute distress. VITAL SIGNS: As follows: Temperature is 98.1, pulse 99, respirations 20, blood pressure 130/72, oxygen saturation 100% on room air. SKIN: Warm and dry. No rash. Not diaphoretic. HEENT: Pupils equal, round, reactive to light and accommodation. Conjunctiva is pink. NECK: No JVD. CARDIOVASCULAR SYSTEM: Heart is regular. There is no murmur or rub. CHEST: Clear, symmetrical, unlabored. ABDOMEN: Soft, nontender, nondistended. BACK: No CVA tenderness, sacral edema. EXTREMITIES: No clubbing, cyanosis, edema. PSYCHIATRIC: Appropriate affect. Pleasant mood. DIAGNOSTICS: Lab values are as follows: Hematology obtained on 11/18/2016; WBCs are 5.5, hemoglobin is 10.8, hematocrit is 30.4, platelet count is 320,000. Chemistry obtained on 11/18/2016: Sodium is 141, potassium 5.1, chloride is 110, carbon dioxide 18, BUN 63, creatinine is 4.94, glucose 122, calcium is 9.2. Microbiology: Blood cultures obtained on 11/14/2016 reveal no growth. IMPRESSION AND PLAN: 1. ACUTE PULMONARY EMBOLISM. After much discussion with Hematology will proceed with transition to Xarelto, will administer and then an hour later discontinue heparin drip. The patient has had recurrent clots on all modes of therapy, therefore management is quite difficult. This will also be discussed with Nephrology, and I do appreciate input with this. 2. DYSPNEA. The patient did not appear to have an obvious infiltrate on examination. I feel the patient's symptoms were strictly related to pulmonary embolism. Discussed with the case with Nephrology. Will discontinue antibiotic coverage as we do want to use this sparingly given the patient's C difficile. The patient's white count has normalized. The patient is on room air. 3. END-STAGE RENAL DISEASE. The patient is currently dialyzing. I do appreciate Dr. Molina's input with this. 4. DEPRESSION. Will continue home medication. 5. HUMAN IMMUNODEFICIENCY VIRUS. The patient's CD4 count is now less than 200, consistent with AIDS. This case is complicated given the patient's C difficile and renal failure regarding prophylactic medication and so forth. Will discuss the case with Infectious Disease regarding prophylactic treatment and follow. 6. NUTRITION. I have liberalized the patient's diet given his electrolytes are in a normal range. DISPOSITION: The patient is a FULL CODE. Pending patient's symptomatology and diagnostic findings, as well as speciality input, re-evaluate in the a.m. for discharge. Time spent on this followup including assessment, plan, physical examination, patient education, multispecialty collaboration is 30 minutes. DICTATING PHYSICIAN: HUMBERTO KIDD NP [id number] Y#: [id number] ID: [id number] JOB#: [id number] ACCT: [id number] cc:HUMBERTO KIDD NP >
--- NOTE | 2016-11-20 15:38 | DISCHARGE SUMMARY E ---
Discharge Summary NAME: LAMAR SMALL : 1965 AGE: 50Y ADMITTED: 11/14/2016 DISCHARGED: 11/19/2016 CODE STATUS: FULL CODE. OUTPATIENT CONSULTING GANG SAWYER: Dr. Molina. CONSULTING FARM[employer] CROP: Dr. Newman. REASON FOR CONSULTATION: 1. Acute and recurrent pulmonary embolism. 2. Acute hypoxemic respiratory failure secondary to the above which has resolved. 3. End-stage renal disease with hemodialysis on Friday, , Saturdays. 4. Depression. 5. Human immunodeficiency virus. 6. A history of noncompliance. DISCHARGE MEDICATIONS: Include: 1. Trazodone 100 mg p.o. at hour of sleep. 2. Bactrim DS 1 tablet p.o. on Friday, Friday, Fridays. 3. Xarelto 15 mg p.o. b.i.d. 4. Norvir 100 mg p.o. on Friday, , Friday. 5. Nystatin 500,000 international units p.o. 4 times a day. 6. Mucinex 600 mg p.o. q.12 h. 7. Neurontin 300 mg p.o. q.12 h. 8. Folic acid 1 mg p.o. daily. 9. Descovy 200 mg/200 one tablet p.o. on Friday, , Friday. 10. Reyataz 300 mg p.o. on Friday, , Friday. 11. Aspirin 81 mg p.o. daily. 12. Albuterol 1.25 mg nebulizers q.6 h. p.r.n. 13. Tylenol 650 mg p.o. q.4 h. p.r.n. DIET: As tolerated. ACTIVITY: As tolerated. HISTORY OF PRESENT ILLNESS: The patient is a 50-year-old male with a past medical history of end-stage renal disease and HIV, who is well known to the hospitalist's service. The patient presented to the emergency department with a chief complaint of shortness of breath and cough. The patient has a long history of pulmonary embolism as well as DVT, had been on chronic anticoagulation. The patient at the time of presentation was on Eliquis for this. The patient had presented at dialysis and developed severe shortness of breath as well as cough, chest pain. The patient was noted to have a temperature of 102.7. While in the emergency department, the patient had a chest x-ray that was suggestive of a possible left lower lung pneumonia, and the patient was started on empiric antibiotics and was referred to the hospitalist for admission and management. HOSPITAL COURSE: The patient was admitted to continuous telemetry unit. The patient's dyspnea did persist, and the patient did undergo a VQ scan which was suggestive of a high probability of pulmonary embolism. The patient was expectantly anticoagulated with heparin, and given that the patient had failed Eliquis, Hematology was consulted. The patient had been at [facility] up to 2 days prior to admission and therefore had been receiving his anticoagulation therapy and had had a recurrence of PE in spite of such. The patient's immunology panel was obtained, and the patient's CD4 count is now at 142. Given this drop, the case was discussed with Deneen Carrillo, the nurse practitioner with Infectious Disease that follows the patient. Given the patient has dropped, recommendations were to start the patient on prophylactic Bactrim. The patient's dyspnea resolved with just a few hours of therapeutic anticoagulation, and given the patient's absence of white count, fever, symptoms including sputum production, the patient's antibiotics were discontinued. The patient was transitioned from an anticoagulation standpoint to Xarelto by Hematology given that the patient had failed other means of anticoagulation. This had been discussed as well with Nephrology, and the patient is aware of the risks and benefits associated with such. The patient's course was discussed with Dr. Molina as well as Dr. Newman regarding the patient's management. The patient is on room air and is ready for discharge. DIAGNOSTICS: Hematology obtained on 11/18/2016: WBCs are 5.5, hemoglobin is 9.8, hematocrit is 30.4, platelet count is 220,000. Chemistry obtained on 11/18/2016: Sodium is 141, potassium 5.1, chloride is 110, carbon dioxide 18, BUN 63, creatinine is 4.94, glucose 122, lactic acid is 1.1, calcium is 9.2, magnesium is 2.3, bilirubin is 0.6, AST 11, ALT is 26, alkaline phosphatase 87, CK 70, CK-MB is 0.6, troponin 0.012, BNP is 2280, total protein is 6.4, albumin 3.4. Urinalysis obtained on 11/15/2016: Color yellow, appearance clear, pH is 9.0, specific gravity is 1.009, protein 100, glucose 150, ketones negative, occult blood negative, nitrite negative, bilirubin negative, urobilinogen is negative, leukocyte esterase is negative, WBCs 1 to 5, epithelial squamous cells a few, casts 0 to 1, ascorbic acid was negative. obtained on 11/16/2016, stool for occult blood is negative. Immunology obtained on 11/15/2016 reveals a CD4 count of 142. Serology obtained on 11/16/2016: C difficile toxin is negative. Microbiology: Blood cultures obtained on 11/14/2016 reveal no growth. Lung VQ scan obtained on 11/14/2016 reveals bilateral pleural defects are identified suspicious for pulmonary embolic disease. Chest x-ray obtained on 11/14/2016 reveals borderline cardiomegaly without evidence of CHF. Chest CT obtained on 11/15/2016 reveals a 9 mm ground-glass nodule of the right upper lobe. There is mild pulmonary emphysema in the right upper lobe. EKG obtained on 11/14/2016 reveals sinus tachycardia with probable left atrial abnormality. PHYSICAL EXAMINATION: GENERAL: On examination, the patient is a well-developed, reasonably nourished, 50-year-old, male who is awake, alert and oriented to person, place, time, and situation. He is verbal, conversational, ambulatory, does not appear to be in any acute distress. VITAL SIGNS: As follows: Temperature is 97.7, pulse 76, respirations 22, blood pressure is 135/86, oxygen saturation is 93% on room air. SKIN: Warm and dry. No rash. He is not diaphoretic. HEENT: Pupils equal, round, reactive to light and accommodation. Conjunctiva is pink. NECK: No JVD. CARDIOVASCULAR SYSTEM: Heart is regular. There is no murmur or rub. CHEST: Clear, symmetrical, unlabored. ABDOMEN: Soft, nontender, nondistended. Bowel sounds are present. BACK: No CVA tenderness, sacral edema. EXTREMITIES: No clubbing, cyanosis, edema. PSYCHIATRIC: Appropriate affect. Pleasant mood. DISCHARGE PLANNIN. The patient is advised to follow up with [facility] for hemodialysis as already scheduled. 2. The patient is advised to follow up with Dr. Newman within 1 to 2 weeks for hospital followup. 3. Given the patient has had recurrent and multiple antibiotic-resistant C difficiles, the patient's antibiotic use has been judicious and conservative, but the patient at this time does not appear to have any overt evidence of infection or pneumonia which suggests the need for antibiotics. DICTATING PHYSICIAN: HUMBERTO KIDD NP [id number] PHY#: [id number] ID: [id number] JOB#: [id number] ACCT: [id number] cc:Yaniv TOWNSEND NP > MTDD
== END 2016-11-19 11:20 | disposition home or self-care (01) | DRG 175 ==
LOC: ER 17:44 → EH 20:20 → UNDOADMIN 20:35 → EH 20:35 → 4W 22:09
PROVIDERS: ADMIT Internal Medicine; ATTEND Internal Medicine
PROC: 5A1D60Z (ICD-10-PCS; principal; 2016-11-15)
PROC: 3E0F73Z Introduction of Anti-inflammatory into Respiratory Tract, Via Natural or Artificial Opening (ICD-10-PCS; 2016-11-15)
DX: I26.99 Other pulmonary embolism without acute cor pulmonale (principal); J96.01 Acute respiratory failure with hypoxia; N18.6 End stage renal disease; J18.9 Pneumonia, unspecified organism; F33.9 Major depressive disorder, recurrent, unspecified; I27.82 Chronic pulmonary embolism; J43.9 Emphysema, unspecified; R00.0 Tachycardia, unspecified; K21.9 Gastro-esophageal reflux disease without esophagitis; K44.9 Diaphragmatic hernia without obstruction or gangrene; M19.90 Unspecified osteoarthritis, unspecified site; D63.1 Anemia in chronic kidney disease; Z21 Asymptomatic human immunodeficiency virus [HIV] infection status; Z79.01 Long term (current) use of anticoagulants; Z91.19 Patient's noncompliance with other medical treatment and regimen; Z79.899 Other long term (current) drug therapy; Z86.718 Personal history of other venous thrombosis and embolism; Z90.49 Acquired absence of other specified parts of digestive tract; Z87.891 Personal history of nicotine dependence; Z83.3 Family history of diabetes mellitus; Z82.49 Family history of ischemic heart disease and other diseases of the circulatory system
CPT/HCPCS: 36415; 71010; 71250; 78582; 80048; 80053; 80076; 81001; 82272; 82550; 82553; 83605; 83735; 83880; 84484; 85025; 85027; 85610; 85730; 86360; 87040; 87493; 93005; 93010; 94640; 94667; 94799; 99285; A9540; A9567; J0692; J1644; J1885; J3370; J3490; J7030; J7060; J7620; Q9969

== ENCOUNTER 2016-11-23 09:09 | Emergency (ER) | payer MEDICAID, MEDICARE ==
[2016-11-23] MEDS ORDERED: ASPIRIN 81 MG TABLET, CHEWABLE PO ONE (09:11)
--- NOTE | 2016-11-23 09:40 | RADIOLOGY REPORT (SQ) ---
EXAM DESCRIPTION: CHEST SINGLE VIEW COMPLETED DATE/TIME: 11/23/2016 9:28 am REASON FOR STUDY: bed 11 cp COMPARISON: CT 11/15/2016. Radiographs 11/14/2016. NUMBER OF VIEWS: One view. TECHNIQUE: Single frontal radiographic view of the chest acquired. LIMITATIONS: None. FINDINGS: LUNGS AND PLEURA: No opacities, masses or pneumothorax. No pleural effusion. MEDIASTINUM AND HILAR STRUCTURES: No masses. Contour normal. HEART AND VASCULAR STRUCTURES: Heart normal in size. Normal vasculature. BONES: No acute findings. HARDWARE: Right IJ dual-lumen catheter to the cavoatrial junction. This looks stable. OTHER: No other significant finding. IMPRESSION: NO SIGNIFICANT RADIOGRAPHIC FINDING IN THE CHEST. TECHNICAL DOCUMENTATION: JOB ID: [id number] [employer]- All Rights Reserved
[2016-11-23 09:47] LABS: ABSOLUTE LYMPHOCYTES (AUTO) 1.4 10^3/uL (0.5-4.7); ABSOLUTE MONOCYTES (AUTO) 1.3 10^3/uL (0.1-1.4); BASOPHILS % (AUTO) 0.3 % (0-2); EOSINOPHILS % (AUTO) 0.1 % (0-6); HEMATOCRIT 39.4 % (37.9-51.0); HEMOGLOBIN 12.7 g/dL (13.5-17.0); HGB HCT DIFFERENCE -1.3; LYMPHOCYTES % (AUTO) 11.9 % (13-45); MEAN CORPUSCULAR HEMOGLOBIN 31.7 pg (27.0-33.4); MEAN CORPUSCULAR HGB CONC 32.3 g/dL (32.0-36.0); MEAN CORPUSCULAR VOLUME 98 fl (80-97); MONOCYTES % (AUTO) 10.9 % (3-13); RED BLOOD COUNT 4.01 10^6/uL (4.35-5.55); RED CELL DISTRIBUTION WIDTH 17.8 % (11.5-14.0); SEGMENTED NEUTROPHILS % (AUTO) 76.8 % (42-78); WHITE BLOOD COUNT 11.8 10^3/uL (4.0-10.5)
[2016-11-23] MEDS ORDERED: METOCLOPRAMIDE HCL INJ/PF 10 MG/2 ML SDV IV ONE ×3 (09:56→20:01)
--- NOTE | 2016-11-23 10:01 | ER Document Report ---
ED General - General Chief Complaint: Chest Pain Stated Complaint: CHEST PAINS Time Seen by Provider: 11/23/16 09:13 Mode of Arrival: Medic Information source: Patient Notes: 50-year-old male dialysis patient recent diagnosis of pulmonary emboli who was started on Eliquis presents with complaints of vomiting blood morning. Patient denies any fevers admits to shortness of breath chest pain. Patient admits to drinking alcohol last night is supposed to have dialysis performed today TRAVEL OUTSIDE OF THE [place] IN LAST 30 DAYS: No - HPI Onset: This morning Onset/Duration: Sudden Quality of pain: Sharp Severity: Mild Pain Level: 2 Associated symptoms: Chest pain, Nausea, Vomiting, Shortness of breath Exacerbated by: Denies Relieved by: Denies Similar symptoms previously: Yes Recently seen / treated by doctor: Yes - Related Data Allergies/Adverse Reactions: No Known Allergies Allergy (Verified 11/14/16 18:34) Past Medical History - Social History Smoking Status: Current Every Day Smoker Cigarette use (# per day): Yes Chew tobacco use (# tins/day): No Smoking Education Provided: No Frequency of alcohol use: Occasional Family History: CAD, DM, Hypertension - Past Medical History Cardiac Medical History: Reports: Hx DVT, Hx Pulmonary Embolism Denies: Hx Congestive Heart Failure, Hx Heart Attack, Hx Hypercholesterolemia Pulmonary Medical History: Reports: Hx COPD, Hx Pneumonia Denies: Hx Sleep Apnea Neurological Medical History: Reports: Hx Seizures - Distant history; never on antiepileptic. Endocrine Medical History: Denies: Hx Diabetes Mellitus Type 1, Hx Diabetes Mellitus Type 2, Hx Hyperthyroidism, Hx Hypothyroidism Renal/ Medical History: Reports: Hx End Stage Renal Disease - Hemo-Dialysis TuThSa, Hx Hemodialysis. Denies: Hx Peritoneal Dialysis GI Medical History: Reports: Hx Gastroesophageal Reflux Disease, Hx Hiatal Hernia. Denies: Hx Cirrhosis, Hx Hepatitis Musculoskeltal Medical History: Reports Hx Arthritis Psychiatric Medical History: Reports: Hx Depression Infectious Medical History: Reports: Hx C-Diff, Hx HIV. Denies: Hx Hepatitis, Hx MRSA Past Surgical History: Reports: Hx Cholecystectomy, Hx Orthopedic Surgery - Repair of right tibial plateau fracture - Immunizations Hx Diphtheria, Pertussis, Tetanus Vaccination: Yes Hx Pneumococcal Vaccination: 05/26/15 Review of Systems - Review of Systems Notes: REVIEW OF SYSTEMS: CONSTITUTIONAL : Denies fever, chills, or sweats. Denies recent illness. EENT: Denies eye, ear, throat, or mouth pain or symptoms. Denies nasal or sinus congestion or discharge. Denies throat, tongue, or mouth swelling or difficulty swallowing. CARDIOVASCULAR: Admits to chest pain RESPIRATORY: Admits to shortness of breath GASTROINTESTINAL: Admits to nausea vomiting blood GENITOURINARY: Denies difficulty urinating, painful urination, burning, frequency, blood in urine, or discharge. MUSCULOSKELETAL: Denies back or neck pain or stiffness. Denies joint pain or swelling. SKIN: Denies rash, lesions or sores. HEMATOLOGIC : Denies easy bruising or bleeding. LYMPHATIC: Denies swollen, enlarged glands. NEUROLOGICAL: Denies confusion or altered mental status. Denies passing out or loss of consciousness. Denies dizziness or lightheadedness. Denies headache. Denies weakness or paralysis or loss of use of either side. Denies problems with gait or speech. Denies sensory loss, numbness, or tingling. Denies seizures. PSYCHIATRIC: Denies anxiety or stress. Denies depression, suicidal ideation, or homicidal ideation. ALL OTHER SYSTEMS REVIEWED AND NEGATIVE. Dictation was performed using [employer] voice recognition software PHYSICAL EXAMINATION: GENERAL: Well-appearing, well-nourished who is actively vomiting HEAD: Atraumatic, normocephalic. EYES: Pupils equal round and reactive to light, extraocular movements intact, sclera anicteric, conjunctiva are normal. ENT: Nares patent, oropharynx clear without exudates. Moist mucous membranes. NECK: Normal range of motion, supple without lymphadenopathy LUNGS: Breath sounds clear to auscultation bilaterally and equal. No wheezes rales or rhonchi. HEART: Regular rate and rhythm without murmurs ABDOMEN: Soft, nontender, nondistended abdomen. No guarding, no rebound. No masses appreciated. Musculoskeletal: Normal range of motion, no pitting or edema. No cyanosis. NEUROLOGICAL: Cranial nerves grossly intact. Normal speech, normal gait. Normal sensory, motor exams PSYCH: Normal mood, normal affect. SKIN: Warm, Dry, normal turgor, no rashes or lesions noted. Dialysis access in place Physical Exam - Vital signs Vitals: Resp Pulse Ox 14 100 11/23/16 09:30 11/23/16 09:30 Course - Re-evaluation Re-evalutation: 11/23/16 10:00 Labwork is pending, given the amount of vomiting he is having concerns for gi bleed vs esophageal rupture 11/23/16 10: Patient is noted to have anion gap with a bicarb of 6, he is started on Protonix and octreotide given vomiting alcohol abuse. 11/23/16 11:38 Otherwise patient at this time appears well, patient is accepted by Dr. Rodgers 11/23/16 11:39 Patient discharge paperwork it appears patient is actually on Xarelto now and was on Eliquis when he had the pulmonary emboli - Vital Signs Vital signs: Temp Pulse Resp BP Pulse Ox 97.9 F 92 20 169/88 H 100 11/23/16 09:46 11/23/16 09:46 11/23/16 09:46 11/23/16 09:46 11/23/16 09:46 - Laboratory Result Diagrams: 11/23/16 09:37 11/23/16 09:37 Laboratory results interpreted by me: 11/23/16 11/23/16 09:37 09:37 WBC 11.8 H RBC 4.01 L Hgb 12.7 L MCV 98 H RDW 17.8 H Lymphocytes % 11.9 L Absolute Neutrophils 9.0 H Carbon Dioxide 6 L* Anion Gap 32 H BUN 49 H Creatinine 4.49 H Est GFR ( Amer) 17 L Est GFR (Non-Af Amer) 14 L Direct Bilirubin 0.5 H Creatine Kinase 52 L Total Protein 8.3 H - Diagnostic Test Radiology reviewed: Image reviewed, Reports reviewed - no acute abnormality Discharge - Discharge Clinical Impression: Chronic anticoagulation, Vomiting and diarrhea, ESRD (end stage renal disease) on dialysis, Pulmonary embolism on long-term anticoagulation therapy, Metabolic acidosis Chest pain Qualifiers: Chest pain type: unspecified Qualified Code(s): R07.9 - Chest pain, unspecified Condition: Serious Disposition: [facility] Referrals: KAYLEY BAXTER FNP-C [Primary Care Provider] - Follow up as needed
--- NOTE | 2016-11-23 10:07 | RADIOLOGY REPORT (SQ) ---
EXAM DESCRIPTION: CT CHEST WITHOUT COMPLETED DATE/TIME: 11/23/2016 9:52 am REASON FOR STUDY: chest pain, vomiting blood COMPARISON: 11/23/[address] chest 11/15/2016. TECHNIQUE: CT scan performed of the chest without intravenous contrast. Images reviewed with lung, soft tissue and bone windows. Reconstructed coronal and sagittal MPR images reviewed. All images st ored on PACS. All CT scanners at this facility use dose modulation, iterative reconstruction, and/or weight based d osing when appropriate to reduce radiation dose to as low as reasonably achievable (ALARA). [facility]: Dose Right [facility]: CareDose [facility]: Dose Right [facility]: Teradose 4D [facility]: Sparrow RADIATION DOSE: 11.47 mGy. LIMITATIONS: No technical limitations. FINDINGS: LUNGS AND PLEURA: Bullous emphysema, as before. Right upper lobe nodule looks less distin ct on today's study, either cavitary or now reflecting some mild persistent wall thickening about a s mall bulla. No enlargement. No new or developing opacities. HILAR AND MEDIASTINAL STRUCTURES: Mild distal soft scratch at mild esophageal wall thickening with mi nimal hiatal hernia. No adenopathy or mass. HEART AND VASCULAR STRUCTURES: No aneurysm. No pericardial effusion. UPPER ABDOMEN: No significant findings. Limited exam. THYROID AND OTHER SOFT TISSUES: No masses. No adenopathy. BONES: No significant finding. HARDWARE: Right IJ line, tip to the cavoatrial junction. OTHER: No other significant findings. IMPRESSION: 1. Right upper lobe nodule looks less discrete, likely resolving. Underlying COPD. No acute abnormality. Longer term followup may be warranted. TECHNICAL DOCUMENTATION: JOB ID: [id number] Quality ID # [id number]: Final reports with documentation of one or more dose reduction techniques (e.g., Au tomated exposure control, adjustment of the mA and/or kV according to patient size, use of iterative reconstruction technique) 2010 [employer]- All Rights Reserved
[2016-11-23 10:12] LABS: ALANINE AMINOTRANSFERASE 25 U/L (21-72); ALBUMIN 4.7 g/dL (3.5-5.0); ALKALINE PHOSPHATASE 98 U/L (38-126); ASPARTATE AMINO TRANSFERASE 23 U/L (17-59); BILIRUBIN,DIRECT 0.5 mg/dL (0.0-0.4); BILIRUBIN,TOTAL 0.5 mg/dL (0.2-1.3); BLOOD UREA NITROGEN 49 mg/dL (7-20); CALCIUM 9.2 mg/dL (8.4-10.2); CHLORIDE 105 mmol/L (98-107); CREATINE KINASE 52 U/L (55-170); CREATININE RESULT 4.49 mg/dL (0.52-1.25); GLUCOSE 90 mg/dL (75-110); POTASSIUM 4.8 mmol/L (3.6-5.0); TOTAL PROTEIN 8.3 g/dL (6.3-8.2)
[2016-11-23 10:24] LABS: CREATINE KINASE MB 2.43 ng/mL (<4.55); SODIUM 143.1 mmol/L (137-145); TROPONIN I < 0.012 ng/mL
[2016-11-23 10:26] LABS: ANION GAP 32 (5-19); CARBON DIOXIDE 6 mmol/L (22-30)
[2016-11-23] MEDS ORDERED: PANTOPRAZOLE SODIUM 40 MG VIAL IV ONE (10:46)
[2016-11-23] MEDS ORDERED: OCTREOTIDE ACETATE INJ/PF 100 MCG/1 ML SDV IV ONE (10:46)
[2016-11-23] MEDS ORDERED: NORMAL SALINE 500 ML with OCTREOTIDE ACETATE 500 MCG IV PRN ×2 (10:46)
[2016-11-23] MEDS ORDERED: PANTOPRAZOLE SODIUM 40 MG VIAL IV PRN (10:51)
[2016-11-23] MEDS ORDERED: ONDANSETRON HCL INJ/PF 4 MG/2 ML SDV IV ONE ×2 (11:37→17:58)
[2016-11-23] MEDS ORDERED: DEXTROSE 50%-WATER 25 GM/50 ML DISP.SYRIN IV ONE (11:37)
[2016-11-23 12:38] LABS: VENOUS BLOOD BASE EXCESS -14.8 mmol/L; VENOUS BLOOD HCO3 11.8 mmol/L (20-32); VENOUS BLOOD PCO2 30.6 mmHg (35-63); VENOUS BLOOD PH 7.21 (7.30-7.42)
--- NOTE | 2016-11-23 13:41 | EKG REPORT ---
SEVERITY:- ABNORMAL ECG - SINUS RHYTHM INCOMPLETE RBBB AND LAFB BORDERLINE PROLONGED QT INTERVAL : Confirmed by: Viridiana Paul 23-Nov-2016 13:40:15
[2016-11-23] MEDS ORDERED: PROMETHAZINE HCL 25 MG TABLET PO ONE (14:40)
[2016-11-23 15:32] LABS: ARTERIAL BLOOD BASE EXCESS -13.6 mmol/L; ARTERIAL BLOOD O2 SATURATION 96.5 % (94-98)
[2016-11-23 17:05] VITALS: BP 147/74
[2016-11-23] MEDS ORDERED: HYDROMORPHONE HCL INJ/PF 2 MG/ML AMPULE IV ONE ×2 (17:35→19:43)
[2016-11-23] MEDS ORDERED: PROMETHAZINE HCL INJ 25 MG/1 ML VIAL IM ONE (17:35)
[2016-11-23 17:54] LABS: HEMATOCRIT 35.1 % (37.9-51.0); HEMOGLOBIN 11.4 g/dL (13.5-17.0); HGB HCT DIFFERENCE -0.9; MEAN CORPUSCULAR HEMOGLOBIN 31.7 pg (27.0-33.4); MEAN CORPUSCULAR HGB CONC 32.5 g/dL (32.0-36.0); MEAN CORPUSCULAR VOLUME 98 fl (80-97); RED BLOOD COUNT 3.59 10^6/uL (4.35-5.55); RED CELL DISTRIBUTION WIDTH 17.1 % (11.5-14.0); WHITE BLOOD COUNT 8.3 10^3/uL (4.0-10.5)
[2016-11-23 18:13] LABS: ALANINE AMINOTRANSFERASE 24 U/L (21-72); ALBUMIN 4.2 g/dL (3.5-5.0); ALKALINE PHOSPHATASE 84 U/L (38-126); ASPARTATE AMINO TRANSFERASE 20 U/L (17-59); BILIRUBIN,DIRECT 0.4 mg/dL (0.0-0.4); BILIRUBIN,TOTAL 0.7 mg/dL (0.2-1.3); BLOOD UREA NITROGEN 49 mg/dL (7-20); CALCIUM 9.1 mg/dL (8.4-10.2); CREATININE RESULT 4.44 mg/dL (0.52-1.25); GLUCOSE 109 mg/dL (75-110); TOTAL PROTEIN 7.6 g/dL (6.3-8.2)
[2016-11-23 18:31] LABS: CARBON DIOXIDE 11 mmol/L (22-30); CHLORIDE 100 mmol/L (98-107); POTASSIUM 5.5 mmol/L (3.6-5.0); SODIUM 134.1 mmol/L (137-145)
[2016-11-23 18:33] LABS: ANION GAP 23 (5-19)
== END 2016-11-23 20:15 | disposition short-term general hospital (02) ==
LOC: ER 09:09
DX: N18.6 End stage renal disease (principal); E87.2 Acidosis; I26.99 Other pulmonary embolism without acute cor pulmonale; R11.2 Nausea with vomiting, unspecified; R19.7 Diarrhea, unspecified; R07.9 Chest pain, unspecified; J44.9 Chronic obstructive pulmonary disease, unspecified; F17.210 Nicotine dependence, cigarettes, uncomplicated; Z79.02 Long term (current) use of antithrombotics/antiplatelets; Z86.711 Personal history of pulmonary embolism; Z86.718 Personal history of other venous thrombosis and embolism; Z99.2 Dependence on renal dialysis; Z90.49 Acquired absence of other specified parts of digestive tract
CPT/HCPCS: 93005; 96376; 99291; 96375; 96365; 96366; 36415; 82553; 82962; 82803 ×2; 82550; 83690; 85025; 85027; 85610; 82271; 80053; 84484; 83605; 71010; 71250; 93010; 36600; A9270 ×4; J3490; J2765; J1170; C9113; J2405; J7040; J2354; S0164